=== PATIENT | female | born 1970 | race Caucasian/White ===

== ENCOUNTER 2021-01-30 17:17 | Emergency (ER) | payer OTHER, SELFPAY ==
[2021-01-30 17:32] VITALS: BP 146/77; PULSE 88; RESP 18; TEMP 36.7; O2SAT 97
--- NOTE | 2021-01-30 17:32 | ED.WOUNDLAC ---
HPI - Wound/Laceration General Chief Complaint: Wound/Laceration Stated Complaint: laceration to rt hand Time Seen by Provider: 01/30/21 17:40 Source: patient and RN notes reviewed Mode of arrival: ambulatory Limitations: no limitations History of Present Illness HPI narrative: Macey is a 50-year-old female patient who ambulated into the [facility]. Patient states she cut her right thumb on a stove drawer. Patient states it happened about 1 hour ago. Patient had a tetanus shot on Monday. Related Data Home Medications Medication Instructions Recorded Confirmed celecoxib [Celebrex] 100 mg BID 01/30/21 01/30/21 citalopram 20 mg DAILY 01/30/21 01/30/21 clonazepam 0.5 mg BID 01/30/21 01/30/21 lamotrigine 200 mg BID 01/30/21 01/30/21 lurasidone [Latuda] 40 mg DAILY 01/30/21 01/30/21 meloxicam 15 mg DAILY 01/30/21 01/30/21 metformin 500 mg DAILY 01/30/21 01/30/21 pregabalin 75 mg TID 01/30/21 01/30/21 propranolol 10 mg BID 01/30/21 01/30/21 Allergies Allergy/AdvReac Type Severity Reaction Status Date / Time alprazolam [From Xanax] Allergy Other Verified 01/30/21 17:47 Penicillins Allergy Hives Verified 01/30/21 17:47 Review of Systems Review of Systems: CONSTITUTIONAL: Denies body aches, fever, chills, or sweats. EYES: Denies visual changes, redness, or discharge. ENT: Denies rhinorrhea, congestion, sore throat, or otalgia. CARDIOVASCULAR: Denies chest pain, palpitations, or edema. RESPIRATORY: Denies cough or dyspnea. GASTROINTESTINAL: Denies abdominal pain, nausea, vomiting, or diarrhea. GENITOURINARY: Denies dysuria or hematuria. SKIN: Denies rash, itching, + MUSCULOSKELETAL: Denies back pain, joint pain, or myalgia. NEUROLOGIC: Denies headache, numbness, tingling, or weakness. PSYCH: Denies depression or anxiety. All systems reviewed & are unremarkable except as noted in HPI and below Exam Narrative: GENERAL: Well-appearing, well-nourished, and in no acute distress. HEAD: Normocephalic, atraumatic. EYES: EOMI. No redness or drainage. Conjunctivae normal. ENT: Mucous membranes pink and moist. Nares clear. No rhinorrhea. TMs normal bilaterally. Throat normal. Uvula midline. NECK: Normal AROM. Supple. No lymphadenopathy. CHEST: No respiratory distress. Clear to auscultation. HEART: Regular rate and rhythm. No murmur appreciated. Normal peripheral pulses. ABDOMEN: Soft, nontender, nondistended, normal active bowel sounds. MUSCULOSKELETAL: No bony tenderness. EXTREMITIES: Normal range of motion. No edema. SKIN: Warm, dry, no rash. Capillary refill normal. Normal skin turgor. 1 cm horseshoe-shaped laceration on the right thumb, proximal phalanx, bleeding is controlled area is well approximated wound is clean; distal sensation intact, full ROM NEURO: No focal deficits. Alert and oriented x3. Gait steady. PSYCH: Normal affect. No signs of depression or anxiety. Course Vital Signs Vital signs: Vital Signs Temperature 36.7 C 01/30/21 17:32 Pulse Rate 88 01/30/21 17:32 Respiratory Rate 18 01/30/21 17:32 Blood Pressure 146/77 H 01/30/21 17:32 Pulse Oximetry 97 01/30/21 17:32 Temperature 36.7 C 01/30/21 17:32 Pulse Rate 88 01/30/21 17:32 Respiratory Rate 18 01/30/21 17:32 Blood Pressure 146/77 H 01/30/21 17:32 Pulse Oximetry 97 01/30/21 17:32 Reviewed Procedures Laceration Laceration 1: Date: 01/30/21 Time: 17:53 Site: hand (Right thumb) Side (If applicable): right Size (cm): 1 Description: flap Depth: simple, single layer Local Anesthetic: lidocaine 1% Amount of anesthesia used (mL): 1.5 Pre-repair: irrigated ====== Skin Level ====== Skin layer closed with: nylon Size (cm): 5-0 Number of sutures: 2 Technique: simple, interrupted ====== Subcutaneous Layer ====== ====== Muscle Layer ====== ====== Tendon Layer ====== MDM - Wound/Laceration MDM Narr
== END 2021-01-30 17:55 | disposition home or self-care (01) ==
PROVIDERS: Emergency Provider Nurse Practitioner Family
DX: S61.011A Laceration without foreign body of right thumb without damage to nail, initial encounter (principal); W45.8XXA Other foreign body or object entering through skin, initial encounter
CPT/HCPCS: 12001; 99202; G0463

== ENCOUNTER 2022-05-23 16:59 | Emergency (ER) | payer OTHER, SELFPAY ==
--- NOTE | ~2022-05-23 | XR_ITS ---
EXAMINATION: [id number] DATE: 05/23/2022 17:56 INDICATION: Lateral right rib pain TECHNIQUE: A frontal inspiratory view of the chest and 3 views of the right ribs were obtained. COMPARISON: None FINDINGS: No rib fractures identified. Suture line at the right apex suggesting prior partial pneumonectomy. Mi ld linear discoid atelectasis/scarring at the bilateral lower lung zones. No other airspace opacities , pulmonary edema, pleural effusion or pneumothorax. Heart size is normal. IMPRESSION: 1. No rib fractures. 2. Mild linear discoid atelectasis/scarring at the bilateral lower lung zones. Reviewed, dictated and finalized at location A.
[2022-05-23 17:15] VITALS: BP 104/57; PULSE 80; RESP 16; TEMP 36.6; O2SAT 98
--- NOTE | 2022-05-23 17:48 | ED.UPPEXIN ---
HPI - Extremity Injury (Upper) General Chief Complaint: Extremity Injury, Upper Stated Complaint: Rt Side Pain Due to Fall Source: patient Mode of arrival: ambulatory Limitations: no limitations History of Present Illness HPI narrative: 52-year-old female [facility] complains of pain to her right lateral chest wall after falling last night. 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 Patient denies hitting her head or loss of consciousness. Patient denies headache, dizziness, blurred vision. Patient has not tried taking any [id number] medications for her symptoms. Patient reports the pain is worse with deep breathing, coughing or movement. MD complaint: injury to: right Onset (ago): day(s) (1) Relieving factors: rest Exacerbating factors: movement of extremity Context: fall Associated symptoms: denies other symptoms Related Data Home Medications Medication Instructions Recorded Confirmed celecoxib 100 mg capsule (Celebrex) 100 mg BID 01/30/21 05/23/22 citalopram 20 mg tablet 20 mg DAILY 01/30/21 05/23/22 clonazepam 0.5 mg tablet 0.5 mg BID 01/30/21 05/23/22 lamotrigine 200 mg tablet 200 mg BID 01/30/21 05/23/22 lurasidone 40 mg tablet (Latuda) 40 mg DAILY 01/30/21 05/23/22 pregabalin 75 mg capsule 75 mg TID 01/30/21 05/23/22 propranolol 10 mg tablet 10 mg BID 01/30/21 05/23/22 omeprazole 20 mg capsule,delayed 20 mg PO DAILY 05/23/22 05/23/22 release oxybutynin chloride 5 mg 5 mg PO DAILY 05/23/22 05/23/22 tablet,extended release 24 hr Allergies Allergy/AdvReac Type Severity Reaction Status Date / Time alprazolam [From Xanax] AdvReac Mild Hives Verified 05/23/22 17:16 Penicillins AdvReac Mild Hives Verified 05/23/22 17:16 Review of Systems Constitutional: Constitutional: Denies chills, Denies fatigue, Denies fever(s) and Denies weakness ENT: Denies vertigo, Denies dizziness, Denies epistaxis and Denies nasal congestion Cardiovascular: Cardiovascular: Denies rapid heart rate, Denies radiating jaw, neck or arm pain and Denies slow heart rate Respiratory: Respiratory: Denies cough, Denies dyspnea and Denies wheezing Gastrointestinal: Gastrointestinal: Denies abdominal pain, Denies constipation, Denies heartburn and Denies diarrhea Musculoskeletal: Musculoskeletal: Denies back pain, Reports arthralgias and Denies joint swelling Comments: Right lateral chest wall pain Integumentary/Breasts: Skin/Breast: Denies pruritus, Denies erythema and Denies rash Neurologic: Denies vertigo, Denies dizziness, Denies syncope and Denies headache(s) Allergic/Immunologic: Allergic/Immunologic: Denies tongue swelling and Denies wheezing PMFSH Comments At time of signature, I agree with nursing past medical, surgical, social and family history. There is no relevant family history pertinent to the presenting complaint. Exam Const: General: healthy appearing and no acute distress Nutritional Appearance: well nourished Orientation/consciousness: patient oriented x3 Limitations: no limitations HENMT: Head: normal to inspection Eyes: Conjunctivae: conjunctivae normal Neck: Neck: normal visual inspection Resp: Effort & Inspection: normal respiratory effort and not labored Auscultation: clear to auscultation bilaterally, no crackles, no rales, no rhonchi and no wheezes Cardio: Rate: regular rate Rhythm: regular rhythm Heart sounds: no murmurs Skin: General skin exam: normal color Rashes: no rashes Wounds: no wounds Neuro: General: patient oriented x3 Speech: normal speech Gait exam (Neuro): Normal gait present Extrem: Other: No erythema, bruising or swelling noted to right lateral chest wall. There is mild pain noted to palpation of right lateral chest wall. Psych: Mental Status: mental status grossly normal Affect: normal affect Attitude: cooperative Course Course Level of Care: Expres
== END 2022-05-23 18:42 | disposition home or self-care (01) ==
PROVIDERS: Emergency Provider Nurse Practitioner Family
DX: R07.89 Other chest pain (principal); F43.10 Post-traumatic stress disorder, unspecified
CPT/HCPCS: 71101; 99213; G0463

== ENCOUNTER 2022-07-08 18:42 | Emergency (ER) | payer OTHER, SELFPAY ==
[2022-07-08 18:50] VITALS: BP 137/81; PULSE 85; RESP 18; TEMP 36.2; O2SAT 99
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
== END 2022-07-08 19:42 | disposition short-term general hospital (02) ==
PROVIDERS: Emergency Provider Nurse Practitioner
DX: R29.90 Unspecified symptoms and signs involving the nervous system (principal); K21.9 Gastro-esophageal reflux disease without esophagitis; E78.00 Pure hypercholesterolemia, unspecified; I10 Essential (primary) hypertension; F41.9 Anxiety disorder, unspecified; F32.A Depression, unspecified; F43.10 Post-traumatic stress disorder, unspecified; Z85.828 Personal history of other malignant neoplasm of skin
CPT/HCPCS: 99215; G0463

== ENCOUNTER 2022-07-08 20:01 | Observation (INO) | payer OTHER, SELFPAY ==
[2022-07-08] VITALS (12 sets, daily range): BP systolic 114–141; BP diastolic 75–82; PULSE 68–82; RESP 12–20; TEMP 35.9–36.5; O2SAT 93–100; BMI 31.3
--- NOTE | ~2022-07-08 | CT_ITS ---
EXAMINATION: CTA BRAIN/CAROTID DATE: 07/08/2022 21:28 INDICATION: Right-sided hemiparesis TECHNIQUE: Computed tomographic angiography (CTA) of the head and neck was performed with 100 mL Omni paque-350 intravenous contrast. Multiplanar reconstructions and maximum intensity projection 3D-recon structions of the carotid arteries and of the intracranial arteries were created by the technologist on a separate workstation. Precontrast CT of the head was also obtained. Automated exposure control and iterative reconstruction technique were employed.The dose-length product was 1132.39 mGy-cm. COMPARISON: None. FINDINGS: Carotid arteries: Normal anatomic variant common origin of the innominate and left common carotid arteries. Aortic arch is normal in caliber with no dissection. There is 0% stenosis of the right carotid bulb relative to normal distal artery lumen diameter (NASCET criteria). There is 0% stenosis of the left carotid bulb relative to normal distal artery lumen diameter. The left vertebral artery is mildly dominant with no evident stenosis along the cervical portion of the vertebral arteries. Mild emphysema with mild depe ndent atelectasis in the visualized upper lungs. Superior mediastinum and cervical soft tissues are u nremarkable. Intracranial arteries The left vertebral artery is dominant. There is no hemodynamically significant stenosis in the verteb ral, basilar and internal carotid arteries. Vertebral arteries are codominant. There are no aneurysms identified. Both A1 and P1 segments are patent. The right A1 segment is small relative to a larger caliber anterior communicating artery. Cerebral arterial arborization appears symmetric. No abnormall y enhancing brain lesions identified. IMPRESSION: 1. 0% stenosis of the right and left carotid bulbs relative to normal distal artery lumen diameter (N ASCET criteria). 2. Unremarkable cerebral CT angiogram with no aneurysm, thrombosis or hemodynamically significant sherwin nosis. Reviewed, dictated and finalized at location A. IMPRESSION: 1. 0% stenosis of the right and left carotid bulbs relative to normal distal ar mandie lumen diameter (NASCET criteria). 2. Unremarkable cerebral CT angiogram with no aneurysm, thrombosis or hemodynam ically significant stenosis.
--- NOTE | ~2022-07-08 | CT_ITS ---
EXAMINATION: CT brain wo con DATE: 07/08/2022 20:15 INDICATION: Possible stroke with right-sided hemiparesis TECHNIQUE: Computed tomography (CT) of the head was performed without intravenous contrast. Sagittal and coronal reconstructions were performed. The mA was adjusted according to patient size. Iterative reconstruction technique was employed. The dose-length product was 605.33 mGy-cm. COMPARISON: None FINDINGS: No acute intracranial hemorrhage, acute infarction or abnormal extra axial fluid collection. Ventricl es are normal and symmetric. No mass/mass effect. Large mucous retention cyst in the right sphenoid s inus. The orbits and mastoid air cells are normal. IMPRESSION: 1. No acute intracranial process. Reviewed, dictated and finalized at location A.
--- NOTE | ~2022-07-08 | XR_ITS ---
EXAMINATION: XR chest 1V portable DATE: 07/08/2022 20:40 INDICATION: Cough TECHNIQUE: frontal view of the chest was obtained. COMPARISON: None FINDINGS: The lungs are clear with no focal airspace opacities, pulmonary edema, pleural effusion or pneumothor ax. Heart size is normal. Small hiatal hernia. IMPRESSION: 1. No acute cardiopulmonary disease. 2. Small hiatal hernia. Reviewed, dictated and finalized at location A.
--- NOTE | ~2022-07-08 | US_ITS ---
EXAMINATION: US carotid duplex BI DATE: 07/08/2022 23:29 INDICATION: Transient ischemic attack TECHNIQUE: Grayscale, color Doppler, and pulsed Doppler images of the cervical carotid arteries were obtained. The degree of vessel stenosis is placed in one of the following categories: normal, <50%, 5 0-69%, >=70% but less than near-occlusion, near-occlusion, or total occlusion. Note that percent sten osis relative to normal distal artery lumen diameter is indirectly measured from velocity measurement s as described by Mo, et al. Radiology 2003; 229:340-346. COMPARISON: None. FINDINGS: RIGHT: The right common carotid artery (CCA) peak systolic velocity (PSV) is 72 cm/s. The right internal car otid artery (ICA) PSV is 85 cm/s. The right ICA end-diastolic velocity (EDV) is 33 cm/s. The right IC A/CCA PSV ratio is 1.2. Grayscale and color Doppler images yield an estimate of less than 50% diamete r reduction from plaque in the ICA. The external carotid artery (ECA) PSV is 60 cm/s. There is antegr virgilio flow in the right vertebral artery. LEFT: The left CCA PSV is 78 cm/s. The left ICA PSV is 104 cm/s. The left ICA EDV is 38 cm/s. The left ICA/ CCA PSV ratio is 1.3. Grayscale and color Doppler images yield an estimate of less than 50% diameter reduction from plaque in the ICA. The ECA PSV is 183 cm/s. There is antegrade flow in the left verteb ral artery. IMPRESSION: 1. <50% stenosis in the right internal carotid artery. 2. <50% stenosis in the left internal carotid artery. Reviewed, dictated and finalized at location A.
--- NOTE | ~2022-07-08 | MR_ITS ---
EXAMINATION: MR brain/brain stem wo/w con DATE: 07/09/2022 07:49 INDICATION: Transient ischemic attack TECHNIQUE: Magnetic resonance imaging (MRI) of the brain and brainstem was performed without and with 18 cc of MultiHance intravenous contrast. Sequences included sagittal and axial T1-weighted SE, axia l diffusion-weighted FS EPI ASSET, axial T2*-weighted GRE, axial T2-weighted FLAIR Propeller, and axi al T2-weighted Propeller. Postcontrast axial and coronal T1-weighted SE was obtained. Apparent diffus ion coefficient (ADC) maps were created. COMPARISON: None. FINDINGS: There are no areas of restricted diffusion to suggest acute infarction. There is no acute h emorrhage seen on the T2*, a hemosiderin sensitive sequence. The ventricles are normal in size. There are no extra-axial collections. Flow voids are seen in the cerebral arteries on the T2-weighted seq uences consistent with their expected patency. Visualized orbits and soft tissues are unremarkable. T here is a polyp or mucous retention cyst of the right maxillary sinus. There are no areas of abnormal enhancement on the post contrast images. IMPRESSION: 1. No acute findings. Reviewed, dictated and finalized at location A. IMPRESSION: 1. No acute findings.
[2022-07-08 20:11] LABS: Glucose Point of Care 108 mg/dl (65-105)
--- NOTE | 2022-07-08 20:24 | ECG_ITS ---
Measurements Intervals [place] Rate: 64 P: 53 DC: 177 QRS: 52 QRSD: 81 T: 15 QT: 389 QTc: 404 Interpretive Statements SINUS RHYTHM BORDERLINE T WAVE ABNORMALITY- ANTERIOR LEADS BORDERLINE ECG NO PREVIOUS ECG AVAILABLE FOR COMPARISON Electronically Signed On 07-08-2022 22:16:06 CDT by Dean Kim D.O.
[2022-07-08 20:52] LABS: Basophils Absolute Auto 0.2 K/mm3 (0.0-0.1); Eosinophils Absolute Auto 0.7 K/mm3 (0-0.3); Eosinophils Percent Auto 4.7 % (0-4.4); Hemoglobin 13.1 g/dL (12.0-15.0); Immature Granulocyte Absolute 0.08 K/mm3 (0.00-0.031); Immature Granulocyte Percent A 0.5 % (0-0.5); Lymphocytes Absolute Auto 4.84 K/mm3 (0.9-3.2); Lymphocytes Percent Auto 31.3 % (18.3-44.2); Mean Corpuscular HGB Conc 33.6 g/dl (32-36); Mean Corpuscular Hemoglobin 28.9 pg (26-34); Mean Corpuscular Volume 86.1 fl (80-100); Mean Platelet Volume 9.8 fl (7.4-10.4); Monocytes Absolute Auto 0.9 K/mm3 (0.1-0.6); Monocytes Percent Auto 5.9 % (2.6-8.5); Neutrophils Absolute Auto 8.8 K/mm3 (1.3-6.7); Neutrophils Percent Auto 56.6 % (45.5-73.1); Platelet Count Result 410 k/mm3 (150-375); Red Blood Count 4.53 M/mm3 (4.2-5.4); Red Cell Distribution Width 14.5 % (11.5-14.5); White Blood Count 15.5 K/mm3 (4.5-10.0)
[2022-07-08 21:08] LABS: Prothrombin Time 13.3 Seconds (11.1-14.7)
[2022-07-08 21:09] LABS: Ethanol < 10 mg/dL (<10); Lactic Acid Reflex 1.1 mmol/L (0.7-2.0); Partial Thromboplastin Time 28.4 SECONDS (22.3-36.8)
[2022-07-08 21:11] LABS: Alanine Aminotransferase 26 U/L (6-35); Albumin Level 4.1 g/dL (3.5-5.1); Alkaline Phosphatase 96 U/L (38-126); Anion Gap 4 mmol/L (8-16); Aspartate Amino Transferase 22 U/L (14-36); Bilirubin,Total 0.3 mg/dL (0.2-1.3); Blood Urea Nitrogen 5 mg/dL (7-17); Calcium 8.9 mg/dL (8.4-10.2); Carbon Dioxide 29 mmol/L (22-30); Chloride 105 mmol/L (98-107); Estimated Glomerular Filt Rate > 60; Glucose 95 mg/dL (65-110); Magnesium 2.3 mg/dL (1.6-2.3); Potassium 3.5 mmol/L (3.4-5.0); Sodium 138 mmol/L (137-145)
[2022-07-08 21:22] LABS: Appearance Urine Clear (Clear); Bacteria Urine None Seen /hpf; Bilirubin Urine Negative (Negative); Blood Urine 1+ (Negative); Color Urine Yellow (Yellow); Glucose Urine UA Negative (Negative); Ketones Urine Negative (Negative); Leukocyte Esterase Ur Negative LEU/UL (Negative); Need Manual Microscopic Reviewed; Nitrate Urine Negative (Negative); Non Pathogenic Casts 0-2; Protein Urine Negative (Negative); RBC Urine 0-2 /hpf (0-2); Specific Grav Ur 1.002 (1.001-1.035); Squamous Epithelial Cell Urine None seen /hpf (Few); Urobilinogen Urine 0.2 mg/dL (<2.0); WBC Urine 0-5 /hpf
[2022-07-08 21:23] LABS: Troponin I < 0.012 ng/mL (0.000-0.034)
[2022-07-08 21:24] LABS: Amphetamine Screen Urine Negative (Negative); Barbiturate Screen Urine Negative (Negative); Benzodiazepines Screen Urine Negative (Negative); Cannabinoid Screen Urine Negative (Negative); Cocaine Screen Urine Negative (Negative); Methadone Screen Urine Negative (Negative); Opiate Screen Urine Negative (Negative); Phencyclidine Screen Urine Negative (Negative)
[2022-07-08 21:28] LABS: Add Urine Microscopic? YES
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
--- NOTE | 2022-07-08 23:26 | ADMGEN ---
This patient, Saray Brown, was admitted to 2 Medical Room 244-. Patient/family oriented to hospital policies and general routines including ID bracelet, bed and alarms, visiting hours, pain management, procedures, bathroom and other care routines, personal items, smoking policy, room service/diet, and visiting hours. Information on how to activate the Rapid Response Team has been discussed. Patient/Family are encouraged to report perceived risks to care and to ask questions if they do not understand what they are told or what they should do.
[2022-07-09] VITALS (7 sets, daily range): BP systolic 108–110; BP diastolic 71–73; PULSE 67–73; RESP 16; TEMP 36.5–36.6; O2SAT 96
[2022-07-09 00:13] LABS: Troponin I < 0.012 ng/mL (0.000-0.034)
--- NOTE | 2022-07-09 01:20 | PC.NURSE ---
pt has nicotine patch from home on left upper arm
--- NOTE | 2022-07-09 06:00 | ECHO_ITS ---
Patient Info Name: Saray Brown Age: 52 years : 1970 Gender: Female Ht: 66 in Wt: 194 lbs BSA: 2.05 m2 HR: 78 bpm BP: 108 / 71 mmHg Technical Quality: Fair Exam Date: 07/09/2022 2:09 PM Exam Location: [facility] Pulmonary Exam Room: [facility] Patient Status: Outpatient Admit Date: 07/08/2022 Staff Ordering Physician: Jose Graves MD Acid Polymerization Operator: Yohana Mcneal RDCS Attending Provider: Sawyer Carmona MD Referring Physician: Star GUILLEN; Exam Type: CA echo doppler color flow Study Info Indications - TIA Complete two-dimensional, color flow and Doppler transthoracic echocardiogram is performed. Summary 1. Complete two-dimensional, color flow and Doppler transthoracic echocardiogram is performed. 2. Left ventricular chamber dimension is normal. 3. Left ventricular systolic function is normal, estimated at 60-65%. 4. The left ventricular diastolic function is grade I diastolic dysfunction. 5. E/e' 6 is not elevated. 6. Left atrial chamber dimension is mildly enlarged. 7. The mitral valve has mildly calcified annulus. 8. No pulmonary hypertension, estimated pulmonary arterial systolic pressure is 27 mmHg. 9. There is trace pulmonic regurgitation. Left Ventricle E/e' 6 is not elevated. Left ventricular chamber dimension is normal. Left ventricular systolic function is normal, estimated at 60-65%. The left ventricular diastolic function is grade I diastolic dysfunction. Right Ventricle Right ventricular chamber dimension is normal. Right ventricular systolic function is normal. Left Atria Left atrial chamber dimension is mildly enlarged. Right Atria Right atrial chamber dimension is normal. Aortic Valve The aortic valve is trileaflet. There is no aortic valve stenosis. There is no aortic valve regurgitation. Pulmonic Valve There is trace pulmonic regurgitation. Mitral Valve The mitral valve has mildly calcified annulus. There is no mitral valve stenosis. There is no mitral valve regurgitation. Tricuspid Valve There is no tricuspid valve regurgitation. No pulmonary hypertension, estimated pulmonary arterial systolic pressure is 27 mmHg. Pericardium/Pleural There is no pericardial effusion. Inferior Vena Cava Normal inferior vena cava with >50% collapse upon inspiration consistent with normal right atrial pressure, 5 mmHg. Aorta The aortic root size at the sinus of Valsalva is normal. Left Ventricular Outflow Tract Name Value Normal LVOT 2D LVOT Diameter 2.0 cm LVOT Doppler LVOT Peak Gradient 4 mmHg LVOT Mean Gradient 2 mmHg LVOT VTI 19 cm LVOT VTI/AV VTI Ratio 0.8 LVOT Stroke Volume 63 ml LVOT CO 14.3 l/min LVOT CI 7.0 l/min/m2 Pulmonic Valve Name Value Normal RVOT Doppler RVOT
--- NOTE | 2022-07-09 09:30 | PC.NURSE ---
Called pharmacy to get nicotine patch. Left message. Cannot pull from [facility]
--- NOTE | 2022-07-09 10:15 | PC.NURSE ---
called pharmacy and left message for nicotine patch.
[2022-07-09] MEDS: HYDROcodone/acetaminophen (*CRX) 5-325 MG TABLET 1 TAB PO (10:29)
[2022-07-09] MEDS: NICOTINE (*PBKC) 21 MG PATCH 1 PATCH TRANSDERM (12:10)
[2022-07-09] MEDS: PREGABALIN (*CRX) 75 MG CAPSULE BY MOUTH (12:10)
[2022-07-09 13:50] LABS: LDL Cholesterol Direct 83 mg/dL
[2022-07-09 13:54] LABS: Cholesterol 231 mg/dL (0-200)
--- NOTE | 2022-07-09 14:17 | PCOTNOTE ---
Attempted to see for OT evaluation. Patient getting an echo at this time. Will continue to attempt.
[2022-07-09 14:44] LABS: Triglycerides 601 mg/dL (<150)
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
== END 2022-07-09 17:45 | disposition home or self-care (01) ==
LOC: ANHED 22:16 → ANH2MED 07-09 02:58
PROVIDERS: Admitting Provider Internal Medicine; Emergency Provider Emergency Medicine; Visit Provider Family Medicine
DX: G45.9 Transient cerebral ischemic attack, unspecified (principal); S06.0XAA Concussion with loss of consciousness status unknown, initial encounter; F43.10 Post-traumatic stress disorder, unspecified; I11.9 Hypertensive heart disease without heart failure; K21.9 Gastro-esophageal reflux disease without esophagitis; E78.1 Pure hyperglyceridemia; F41.9 Anxiety disorder, unspecified; F32.A Depression, unspecified; E66.01 Morbid (severe) obesity due to excess calories; Z68.31 Body mass index [BMI] 31.0-31.9, adult; E78.00 Pure hypercholesterolemia, unspecified; R05.9 Cough, unspecified; J44.9 Chronic obstructive pulmonary disease, unspecified; I34.81 Nonrheumatic mitral (valve) annulus calcification; K44.9 Diaphragmatic hernia without obstruction or gangrene; F17.210 Nicotine dependence, cigarettes, uncomplicated; Z79.899 Other long term (current) drug therapy
CPT/HCPCS: 36415; 70450; 70496; 70498; 70553; 71045; 80053; 80061; 80307; 81001; 82948; 83605; 83735; 84484; 85025; 85610; 85730; 93005; 93306; 93880; 97165; 99285; A9270; A9577; G0378; Q9967

== ENCOUNTER 2024-06-02 16:17 | Emergency (ER) | payer BC, SELFPAY ==
--- OUTSIDE RECORDS SUMMARY | 2024-06-02 16:20 | XMS_ITS | Encounter Summary ---
Author Organization [facility] Address [address] [place] [address] Care Team Providers Care Endoscopy Nurse Name Role Phone Jase Bryson MD Primary Care Provider Encounter Details Date Type Department Care Team (Late Contact Info) Description 06/08/1998 Outpatient Historical [facility] Rich Temo, [address] [place] [address] Er, Authorized P NO ADDRESS ON FILE Sprain and strain of unspecified site of elbow and forearm (Primary Dx) Social History Tobacco Use Types Packs/Day Years Used Date Smoking Tobacco: Never Assessed Comments Unknown Sex and Gender Information Value Date Recorded Sex Assigned at Not on file Legal Sex Female 3:54 AM COMPARISON SHOPPER Gender Identity Not on file Sexual Orientation Not on file documented as of this encounter Plan of Treatment Upcoming Encounters Date Type Department Care Team (Late Contact Info) Description 06/03/2024 12:30 PM CDT Hospital Encounter [facility] [address] [place] [phone] Mariaa Diego MD [address] [place] [phone] 06/03/2024 1:20 PM CDT Office Visit [facility] Oncology and Hematology [address] [place] [phone] Mariaa Diego MD [address] [place] [phone] Pippa Dang NP [address] [place] [phone] 06/03/2024 1:45 PM CDT Hospital Encounter [facility] [address] [place] [phone] Mariaa Diego MD [address] [place] [phone] 16, Mob documented as of this encounter Visit Diagnoses Diagnosis Sprain and strain of unspecified site of elbow and forearm- Primary Malignant neoplasm of upper-outer quadrant of left breast in female, estrogen receptor negative (CMS/HCC)- Primary Encounter for antineoplastic chemotherapy documented in this encounter Additional Health Concerns Infection Onset Date Last Indicated Resolved Time R/O COVID-19 05/27/2019 05/27/2019 05/29/2019 10:2 0 AM CDT R/O COVID-19 11/30/2023 11/30/2023 11/30/2023 6:52 PM CDT R/O Respiratory 11/30/2023 11/30/2023 12/01/2023 2 :21 PM CDT R/O GI Pathogen 04/02/2024 04/02/2024 04/02/2024 1 :44 PM COMPARISON SHOPPER R/O Respiratory 05/13/2024 05/13/2024 05/13/2024 1 1:33 PM CDT R/O C. diff 05/14/2024 05/14/2024 05/14/2024 10:0 6 AM CDT R/O C. diff 05/14/2024 05/14/2024 05/15/2024 1:01 PM CDT documented as of this encounter Care Teams Endoscopy Nurse Relationship Specialty Start Date End Date Jase Bryson MD PCP - General Family Practice 05/06/19 documented as of this encounter
--- OUTSIDE RECORDS SUMMARY | 2024-06-02 16:20 | XMS_ITS | Encounter Summary ---
Author Organization [facility] Address [address] [place] [address] Care Team Providers Care Rubber Stamp Dies Inspector Name Role Phone Jase Bryson MD Primary Care Provider Encounter Details Date Type Department Care Team (Latest Contact Info) Description 07/16/1998 Outpatient Historical [facility] Jakob Cedillo MD [address] [place], [place] [address] [place] [address] Chest pain, unspecified (Primary Dx) Social History Tobacco Use Types Packs/Day Years Used Date Smoking Tobacco: Never Assessed Comments Unknown Sex and Gender Information Value Date Recorded Sex Assigned at Not on file Legal Sex Female 3:54 AM APPEALS AND GENERALIST CLERK Gender Identity Not on file Sexual Orientation Not on file documented as of this encounter Plan of Treatment Upcoming Encounters Date Type Department Care Team (Late st Contact Info) Description 06/03/2024 12:30 PM CDT Hospital Encounter [facility] [address] [place] [phone] Mariaa Diego MD [address] [place] [phone] 06/03/2024 1:20 PM CDT Office Visit [facility] Oncology and Hematology [address] [place] [phone] Mariaa Diego MD [address] [place] [phone] Pippa Dang NP [address] [place] [phone] 06/03/2024 1:45 PM CDT Hospital Encounter [facility] [address] [place] [phone] Mariaa Diego MD [address] [place] [phone] 16, Mob documented as of this encounter Visit Diagnoses Diagnosis Chest pain, unspecified- Primary Malignant neoplasm of upper-outer quadrant of [...] Pathogen 04/02/2024 04/02/2024 04/02/2024 1 :44 PM APPEALS AND GENERALIST CLERK R/O Respiratory 05/13/2024 05/13/2024 05/13/2024 1 1:33 PM CDT R/O C. diff 05/14/2024 05/14/2024 05/14/2024 10:0 6 AM CDT R/O C. diff 05/14/2024 05/14/2024 05/15/2024 1:01 PM CDT documented as of this encounter Care Teams Rubber Stamp Dies Inspector Relationship Specialty Start Date End Date Jase Bryson MD PCP - General Family Practice 05/06/19 documented as of this encounter
--- OUTSIDE RECORDS SUMMARY | 2024-06-02 16:20 | XMS_ITS | Encounter Summary ---
Author Organization [facility] Address [address] [place] [address] Care Team Providers Care Motor Coach Tour Operator Name Role Phone Jase Bryson MD Primary Care Provider Encounter Details Date Type Department Care Team (Late st Contact Info) Description 03/11/2024 Results Follow-Up [facility] [place] [address] [place] [address] Barbara Sultana RN PATHOLOGY Social History Tobacco Use Types Packs/Day Years Used Date Smoking Tobacco: Every Day Cigarettes 2 15 Started: 02/26/2001; Last attempted to quit: 02/26/2011 Smokeless Tobacco: Former Chew Comments:Quit smoking: when anxiety is gone Alcohol Use Standard Drinks/Week Comments Not Currently 0 (1 standard drink = 0.6 oz pur e alcohol) Feeling Safe Answer Date Recorded Are you in a relationship wi th someone who hurts you emotionally and/or physically? No 03/13/2024 Food Insecurity Answer Date Recorded Social/Environmental Concerns No concerns Transportation Needs Answer Date Record ed Social/Environmental Concerns No concerns Housing Stability Answer Date Recorded Social/Environmental Concerns No concerns Utility Needs Answer Date Recorded Social/Environmental Concerns No concerns Comments No Sex and Gender Information Value Date Recorded Sex Assigned at Not on file Legal Sex Female 3:54 AM PCAT INSTRUCTOR Gender Identity Not on file Sexual Orientation Not on file Occupation Industry Job Start Date Job End Date Not on file Not on file Not on file Not on file documented as of this encounter Plan of Treatment Upcoming Encounters Date Type Department Care Team (Late st Contact Info) Description 06/03/2024 12:30 PM CDT Hospital Encounter [facility] [address] [place] [phone] Mariaa Diego MD [address] [place] [phone] 06/03/2024 1:20 PM CDT Office Visit [facility] Oncology and Hematology [address] [place] [place] [phone] Mariaa Diego MD [address] [place] [phone] Pippa Dang NP [address] [place] [place] [phone] 06/03/2024 1:45 PM CDT Hospital Encounter [facility] [address] [place] [phone] Mariaa Diego MD [address] [place] [phone] 16, Mob documented as of this encounter Visit Diagnoses Not on filedocumented in this encounter Additional Health Concerns Infection Onset Date Last Indicated Resolved Time R/O GI Pathogen 04/02/2024 04/02/2024 04/02/2024 1 :44 PM PCAT INSTRUCTOR R/O Respiratory 05/13/2024 05/13/2024 05/13/2024 1 1:33 PM CDT R/O C. diff 05/14/2024 05/14/2024 05/14/2024 10:0 6 AM CDT R/O C. diff 05/14/2024 05/14/2024 05/15/2024 1:01 PM CDT documented as of this encounter Care Teams Motor Coach Tour Operator Relationship Specialty Start Date End Date Jase Bryson MD PCP - General Family Practice 05/06/19 documented as of this encounter
--- OUTSIDE RECORDS SUMMARY | 2024-06-02 16:20 | XMS_ITS | Encounter Summary ---
Author Organization [facility] Address [address] [place] [address] Care Team Providers Care Net Sql Developer Name Role Phone Jase Bryson MD Primary Care Provider Encounter Details Date Type Department Care Team (Latest Contact Info) Description 06/08/2006 Inpatient Historical [facility] Denis Buckner MD [address] [address] Post Term -Delivered (Primary Dx) Social History Tobacco Use Types Packs/Day Years Used Date Smoking Tobacco: Never Assessed Comments Unknown Sex and Gender Information Value Date Recorded Sex Assigned at Not on file Legal Sex Female 3:54 AM MELT HELPER Gender Identity Not on file Sexual Orientation Not on file documented as of this encounter Plan of Treatment Upcoming Encounters Date Type Department Care Team (Late st Contact Info) Description 06/03/2024 12:30 PM CDT Hospital Encounter [facility] [address] [place] [address] Mariaa Diego MD [address] [place] [address] 06/03/2024 1:20 PM CDT Office Visit [facility] Oncology and Hematology [address] [place] [address] Mariaa Diego MD [address] [place] [address] Pippa Dang NP [address] [place] [address] 06/03/2024 1:45 PM CDT Hospital Encounter [facility] [address] [place] [address] Mariaa Diego MD [address] [place] [address] 16, Mob documented as of this encounter Procedures Procedure Name Priority Date/Time Associated Diagnosis Comments CBC WITH DIFFERENTIAL Routine 06/10/2006 9:00 AM CDT CBC WITH DIFFERENTIAL Routine 06/10/2006 9:00 AM CDT HEMOGLOBIN AND HEMATOCRIT Routine 06/09/2006 8:00 PM CDT POC, BLOOD GASES Routine 06/09/2006 4:24 PM CDT POC, BLOOD GASES Routine 06/09/2006 2:37 PM CDT HEMOGLOBIN AND HEMATOCRIT Routine 06/09/2006 12:07 PM CDT BLOOD GAS CORD ARTERIAL Routine 06/09/2006 10:16 AM CDT documented in this encounter Results * (ABNORMAL) CBC WITH DIFFERENTIAL (06/10/2006 9:00 AM CDT) NEUTROPHILS 77(H) 45 - 70 % INTERFAC E SYSTEM LYMPHOCYTES 14(L) 16 - 45 % INTERFAC E SYSTEM MONOCYTES 9 3 - 13 % INTERFACE SYSTEM EOSINOPHILS 0 0 - 7 % INTERFAC E SYSTEM BASOPHILS 0 0 - 2 % INTERFACE SYSTEM NEUTROPHIL ABSOLUTE 12.39(H) 1.90 - 7.00 K/uL INTERFACE SYSTEM LYMPHOCYTE ABSOLUTE 2.26 0.70 - 4.50 K/uL INTERFACE SYSTEM MONOCYTE ABSOLUTE 1.41(H) 0.10 - 1.30 K/uL INTERFACE SYSTEM EOSINOPHIL ABSOLUTE 0.01 0.00 - 0.70 K/uL INTERFACE SYSTEM BASOPHILS ABSOLUTE 0.02 0.00 - 0.20 K/uL INTERFACE SYSTEM 06/10/2006 9:00 AM CDT Denis Buckner MD HEMATOLOGY ORDERABLES Edited INTERFACE SYSTEM Refer to clinic/hospital department * (ABNORMAL) CBC WITH DIFFERENTIAL (06/10/2006 9:00 AM CDT) WBC 16.1(H) 4.0 - 9.8 K/uL INTERFACE SYSTEM RBC 3.52(L) 3.90 - 4.90 M/uL INTERFACE SYSTEM HEMOGLOBIN 10.2(L) 11.8 - 14.8 g/dL INTERFACE SYSTEM HEMATOCRIT 30.8(L) 35.5 - 44.0 % INTERFACE SYSTEM MCV 87.5 82.0 - 99.0 fL INTERFACE SYSTEM MCH 29.0 27.2 - 32.6 pg INTERFACE SYSTEM MCHC 33.1 31.5 - 35.5 % INTERFACE SYSTEM RDW 14.7(H) 11.5 - 14.5 % INTERFACE SYSTEM RDW-STDEV 46.1 37.1 - 48.7 fL INTERFACE SYSTEM PLATELETS 224 140 - 350 K/uL INTERFACE SYSTEM MPV 11.2 9.3 - 12.4 fL INTERFACE SYSTEM 06/10/2006 9:00 AM CDT Denis Buckner MD HEMATOLOGY ORDERABLES Edited Performing Organization Address City/[facility]/ZIP Co de Phone Number INTERFACE SYSTEM Refer to clinic/hospital department * HEMOGLOBIN AND HEMATOCRIT (06/09/2006 8:00 PM CDT) HEMOGLOBIN 12.6 11.8 - 14.8 g/dL INTERFACE SYSTEM HEMATOCRIT 36.9 35.5 - 44.0 % INTERFACE SYSTEM 06/09/2006 8:00 PM CDT Denis Buckner MD HEMATOLOGY ORDERABLES Edited INTERFACE SYSTEM Refer to clinic/hospital department * (ABNORMAL) POC RT, BLOOD GASES (06/09/2006 4:24 PM CDT) PH ARTERIAL 7.33(L) 7.35 - 7.45 INTERF ZHANE SYSTEM PCO2 ARTERIAL 37 35 - 48 mm Hg INTERFACE SYSTEM PO2 ARTERIAL 88 83 - 108 mm Hg INTERFACE SYSTEM O2 SAT EST ABG POC 96 95 - 99 % INTERFACE SYSTEM PATIENT'S TEMPERATURE 37.0 Degree C INTERFACE SYSTEM BASE EXCESS ABG -5.9(L) -2.0 - 3.0 mmol/L INTERFACE SYSTEM HCO3 ARTERIAL 20(L) 22 - 26 mmol/L INTERFACE SYSTEM SODIUM POC 135 135 - 145 mmol/L INTERFACE SYSTEM POTASSIUM POC 4.2 3.5 - 4.9 mmol/L INTERFACE SYSTEM CALICUM IONIZED, WHOLE BLOOD 4.33(L) 4.76 - 5.16 mg/dL INTERFACE SYSTEM HEMATOCRIT POC 36.0 35.5 - 44.0 % INTERFACE SYSTEM 06/09/2006 4:24 PM CDT Denis Buckner MD CHEMISTRY ORDERABLES Edited Performing Organization Address [facility] [place]/[facility] Co de Phone Number INTERFACE SYSTEM Refer to clinic/hospital department * (ABNORMAL) POC RT, BLOOD GASES (06/09/2006 2:37 PM CDT) PH ARTERIAL 7.38 7.35 - 7.45 INTERFACE SYSTEM PCO2 ARTERIAL 36 35 - 48 mm Hg INTERFACE SYSTEM PO2 ARTERIAL 442(H) 83 - 108 mm Hg INTERFACE SYSTEM O2 SAT EST ABG POC 100(H) 95 - 99 % INTERFACE SYSTEM PATIENT'S TEMPERATURE 37.0 Degree C INTERFACE SYSTEM BASE EXCESS ABG -3.4(L) -2.0 - 3.0 mmol/L INTERFACE SYSTEM HCO3 ARTERIAL 21(L) 22 - 26 mmol/L INTERFACE SYSTEM SODIUM POC 136 135 - 145 mmol/L INTERFACE SYSTEM POTASSIUM POC 3.4(L) 3.5 - 4.9 mmol/L INTERFACE SYSTEM CALICUM IONIZED, WHOLE BLOOD 4.57(L) 4.76 - 5.16 mg/dL INTERFACE SYSTEM HEMATOCRIT POC 30.0(L) 35.5 - 44.0 % INTERFACE SYSTEM COMMENT, GASES POC MD NOTIFIED INTERFACE SYSTEM 06/09/2006 2:37 PM CDT Denis Buckner MD CHEMISTRY ORDERABLES Edited Performing Organization Address [facility] [place]/[facility] Co de Phone Number INTERFACE SYSTEM Refer to clinic/hospital department * HEMOGLOBIN AND HEMATOCRIT (06/09/2006 12:07 PM CDT) HEMOGLOBIN 12.8 11.8 - 14.8 g/dL INTERFACE SYSTEM HEMATOCRIT 37.8 35.5 - 44.0 % INTERFACE SYSTEM 06/09/2006 12:0 7 PM CDT Denis Buckner MD HEMATOLOGY ORDERABLES Edited Performing Organization Address [facility] [place]/[facility] Phone Number INTERFACE SYSTEM Refer to clinic/hospital department * (ABNORMAL) BLOOD GAS CORD ARTERIAL (06/09/2006 10:16 AM CDT) PH CORD ARTERIAL 7.29 7.14 - 7.40 INTERFACE SYSTEM PCO2 CORD ARTERIAL 52 32 - 69 mm Hg INTERFACE SYSTEM PO2 CORD ARTERIAL 26 8 - 33 mm Hg INTERFACE SYSTEM SO2 CORD ARTERIAL 61(H) 5 - 59 % INTERFACE SYSTEM FO2HB CORD ARTERIAL 60(L) 94 - 98 % INTERFACE SYSTEM HCO3 CORD ARTERIAL 25 16 - 27 mmol/L INTERFACE SYSTEM BASE EXCESS CORD ARTERIAL -2.6 -7.6 - 1.3 mmol/L INTERFACE SYSTEM HEMOGLOBIN CORD ARTERIAL 15.2 14.5 - 22.5 g/dL INTERFACE SYSTEM 06/09/2006 10:1 6 AM CDT Denis Buckner MD ABG ORDERABLES Edited Performing Organization Address City/[facility] Co de Phone Number INTERFACE SYSTEM Refer to clinic/hospital department documented in this encounter Visit Diagnoses Diagnosis Post term , delivered with or without mention of antepartum condition- Primary Malignant neoplasm of upper-outer quadrant of left breast in female, estrogen receptor negative (CMS/HCC)- Primary Encounter for antineoplastic chemotherapy documented in this encounter Additional Health Concerns Infection Onset Date Last Indicated Resolved Time R/O COVID-19 05/27/2019 05/27/201905/2805/29/2019 10:2 0 AM CDT R/O COVID-19 11/30/2023 11/30/2023 11/30/2023 6:52 PM CDT R/O Respiratory 11/30/2023 11/30/2023 12/01/2023 2 :21 PM CDT R/O GI Pathogen 04/02/2024 04/02/2024 04/02/2024 1 :44 PM MELT HELPER R/O Respiratory 05/13/2024 05/13/2024 05/13/2024 1 1:33 PM CDT R/O C. diff 05/14/2024 05/14/2024 05/14/2024 10:0 6 AM CDT R/O C. diff 05/14/2024 05/14/2024 05/15/2024 1:01 PM CDT documented as of this encounter Care Teams Net Sql Developer Relationship Specialty Start Date End Date Jase Bryson MD PCP - General Family Practice 05/06/19 documented as of this encounter
--- OUTSIDE RECORDS SUMMARY | 2024-06-02 16:20 | XMS_ITS | Encounter Summary ---
Author Organization [facility] Address [address] [place] [address] Care Team Providers Care Hogshead Inspector Name Role Phone Jase Bryson MD Primary Care Provider Encounter Details Date Type Department Care Team (Late st Contact Info) Description 02/27/2006 Outpatient Historical [facility] Denis Hanley MD NO ADDRESS ON FILE Er, Authorized P NO ADDRESS ON FILE Sprain and Strain of Unspecified Site of Foot (Primary Dx) Social History Tobacco Use Types Packs/Day Years Used Date Smoking Tobacco: Never Assessed Comments Unknown Sex and Gender Information Value Date Recorded Sex Assigned at Not on file Legal Sex Female 3:54 AM MOTOR POOL CLERK Gender Identity Not on file Sexual Orientation Not on file documented as of this encounter Plan of Treatment Upcoming Encounters Date Type Department Care Team (Late st Contact Info) Description 06/03/2024 12:30 PM CDT Hospital Encounter [facility] [address] [place] [address] Mariaa Diego MD [address] [place] [phone] 06/03/2024 1:20 PM CDT Office Visit [facility] Oncology and Hematology [address] [place] [address] Mariaa Diego MD [address] [place] [address] Pippa Dang, DUONG [address] [place] [address] 06/03/2024 1:45 PM CDT Hospital Encounter [facility] [address] [place] [address] Mariaa Diego MD [address] [place] [address] 16, Mob documented as of this encounter Visit Diagnoses Diagnosis Sprain of foot, unspecified site- Primary Malignant neoplasm of upper-outer quadrant of [...] Pathogen 04/02/2024 04/02/2024 04/02/2024 1 :44 PM MOTOR POOL CLERK R/O Respiratory 05/13/2024 05/13/2024 05/13/2024 1 1:33 PM CDT R/O C. diff 05/14/2024 05/14/2024 05/14/2024 10:0 6 AM CDT R/O C. diff 05/14/2024 05/14/2024 05/15/2024 1:01 PM CDT documented as of this encounter Care Teams Hogshead Inspector Relationship Specialty Start Date End Date Jase Bryson MD PCP - General Family Practice 05/06/19 documented as of this encounter
--- OUTSIDE RECORDS SUMMARY | 2024-06-02 16:20 | XMS_ITS | Referral Summary ---
Author Organization [facility] [address] [place] [address] Care Team Providers Care Registered Diet Technician Name Role Phone Meliza Canales PT Unavailable Unavailab Maria T West PT Unavailable Unavailable Shruti Hale Unavailable Unavailable Singh Schmid PT Unavailable Unavailable Dorina Cassidy SUPERVISOR TAPING Unavailable Unavailab Jase Abel MD Primary Care Provider Allergies Active Allergy Reactions Criticality Noted Date Comments Penicillins Hives Medium 08/07/2016 Alprazolam Hallucinations Medium 08/07/2016 Medications citalopram (CeleXA) 40 mg tablet Take 40 mg by mouth daily. Active cyclobenzaprine (FLEXERIL) 10 mg tablet Take 1 tablet (10 mg total) by mouth nightly as needed for muscle spasms 12 tablet 3 Active ondansetron ODT (ZOFRAN-ODT) 4 mg disintegrating tablet Take 1 tablet (4 mg total) by mouth every 8 (eight) hours as needed for nausea or vomiting 20 tablet 3 Active dicyclomine (BENTYL) 20 mg tablet Take 1 tablet (20 mg total) by mouth 2 (two) times a day 20 tablet 3 Active Active Problems No known active problems Social History Tobacco Use Types Packs/Day Years Used Date Smoking Tobacco: Every Day Cigarettes Smokeless Tobacco: Never Alcohol Use Standard Drinks/Week Comments Yes 5 (1 standard drink = 0.6 oz pur e alcohol) Personal Safety Answer Date Recorded Getting School Help Needed Not on file 05/04 Comments No Sex and Gender Information Value Date Recorded Sex Assigned at Not on file Legal Sex Female 10:25 AM RAMP LEAD Gender Identity Not on file Sexual Orientation Not on file Last Filed Vital Signs Vital Sign Reading Time Taken Comments Blood Pressure 99/62 04/30/2022 4:[address] Malik aware and states, That's good. Pulse 67 04/30/2022 4:15 AM RAMP LEAD Temperature 37.3 C (99.1 F) 04/29/2022 11:34 PM RAMP LEAD Respiratory Rate 18 04/30/2022 4:15 AM RAMP LEAD Oxygen Saturation 96% 04/30/2022 4:1 5 AM RAMP LEAD Inhaled Oxygen Concentration - - Weight 85.6 kg (188 lb 11.4 oz) 04/29/2022 11:34 PM RAMP LEAD Height 167.6 cm (5' 6 ) 04/29/2022 11:3 4 PM RAMP LEAD Body Mass Index 30.46 04/29/2022 11:34 PM RAMP LEAD Plan of Treatment Not on file Insurance [facility] BENEFIT PLAN [facility] BENEF[facility] PLAN [place] [place] Care Teams Registered Diet Technician Relationship Specialty Start Date End Date Jase Bryson MD [address] [place], [place] [id number] PCP - General Family Medicine 06/15/18 Meliza Canales, PT Physical Therapist Physical Therapy 08/22/17 Maria T Almanza, PT Physical Therapist Physical Therapy 09/01/17 Shruti Hale Patient Veneer Measurer 09/26/17 Singh Schmid, PT Physical Therapist Physical Therapy 09/26/17 Dorina Cassidy, SUPERVISOR TAPING Plug Machine Operator Physical Therapy 09/27/17
--- OUTSIDE RECORDS SUMMARY | 2024-06-02 16:20 | XMS_ITS | Encounter Summary ---
Author Organization [facility] Address [address] [place] [address] Care Team Providers Care Automotive Tire Tester Name Role Phone Jase Bryson MD Primary Care Provider Encounter Details Date Type Department Care Team (Latest Contact Info) Description 06/17/1998 Outpatient Historical [facility] Migraine, unspecified, without mention of intractable migraine without mention of status migrainosus (Primary Dx) Social History Tobacco Use Types Packs/Day Years Used Date Smoking Tobacco: Never Assessed Comments Unknown Sex and Gender Information Value Date Recorded Sex Assigned at Not on file Legal Sex Female 3:54 AM GLASS SELECTOR Gender Identity Not on file Sexual Orientation Not on file documented as of this encounter Plan of Treatment Upcoming Encounters Date Type Department Care Team (Late st Contact Info) Description 06/03/2024 12:30 PM CDT Hospital Encounter [facility] [address] [place] [address] Mariaa Diego MD [address] [place] [phone] 06/03/2024 1:20 PM CDT Office Visit [facility] Oncology and Hematology [address] [place] [phone] Mariaa Diego MD [address] [place] [address] Pippa Dang, DUONG [address] [place] [address] 06/03/2024 1:45 PM CDT Hospital Encounter [facility] [address] [place] [address] Mariaa Diego MD [address] [place] [phone] 16, Mob documented as of this encounter Visit Diagnoses Diagnosis Migraine, unspecified, without mention of intractable migraine without mention of status migrainosus- Primary Malignant neoplasm of upper-outer quadrant of [...] Pathogen 04/02/2024 04/02/2024 04/02/2024 1 :44 PM GLASS SELECTOR R/O Respiratory 05/13/2024 05/13/2024 05/13/2024 1 1:33 PM CDT R/O C. diff 05/14/2024 05/14/2024 05/14/2024 10:0 6 AM CDT R/O C. diff 05/14/2024 05/14/2024 05/15/2024 1:01 PM CDT documented as of this encounter Care Teams Automotive Tire Tester Relationship Specialty Start Date End Date Jase Bryson MD PCP - General Family Practice 05/06/19 documented as of this encounter
--- OUTSIDE RECORDS SUMMARY | 2024-06-02 16:20 | XMS_ITS | Encounter Summary ---
Author Organization [facility] Address [address] [place] [address] Care Team Providers Care Surgical Nurse Name Role Phone Jase Bryson MD Primary Care Provider Encounter Details Date Type Department Care Team (Latest Contact Info) Description 06/17/1998 Outpatient Historical HIS [facility] Cedillo, Jakob Butler MD [address] [place] [address] [address] [place] [address] Pneumonia, organism unspecified(486) (Primary Dx) Social History Tobacco Use Types Packs/Day Years Used Date Smoking Tobacco: Never Assessed Comments Unknown Sex and Gender Information Value Date Recorded Sex Assigned at Not on file Legal Sex Female 3:54 AM RESEARCH AND DEVELOPMENT TESTER Gender Identity Not on file Sexual Orientation Not on file documented as of this encounter Plan of Treatment Upcoming Encounters Date Type Department Care Team (Late st Contact Info) Description 06/03/2024 12:30 PM CDT Hospital Encounter [facility] [address] [place] [phone] Mariaa Diego MD [address] [place] [phone] 06/03/2024 1:20 PM CDT Office Visit [facility] Oncology and Hematology [address] [place] [phone] Mariaa Diego MD [address] [place] [address] Pippa Dang NP [address] [place] [address] 06/03/2024 1:45 PM CDT Hospital Encounter [facility] [address] [place] [phone] Mariaa Diego MD [address] [place] [phone] 16, Mob documented as of this encounter Visit Diagnoses Diagnosis Pneumonia, organism unspecified(486)- Primary Pneumonia, organism unspecified Malignant neoplasm of upper-outer quadrant of left [...] Pathogen 04/02/2024 04/02/2024 04/02/2024 1 :44 PM RESEARCH AND DEVELOPMENT TESTER R/O Respiratory 05/13/2024 05/13/2024 05/13/2024 1 1:33 PM CDT R/O C. diff 05/14/2024 05/14/2024 05/14/2024 10:0 6 AM CDT R/O C. diff 05/14/2024 05/14/2024 05/15/2024 1:01 PM CDT documented as of this encounter Care Teams Surgical Nurse Relationship Specialty Start Date End Date Jase Bryson MD PCP - General Family Practice 05/06/19 documented as of this encounter
--- OUTSIDE RECORDS SUMMARY | 2024-06-02 16:20 | XMS_ITS | Encounter Summary ---
Author Organization [facility] Address 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) Social History Tobacco Use Types Packs/Day Years Used Date Smoking Tobacco: Never Assessed Comments Unknown Sex and Gender Information Value Date Recorded Sex Assigned at Not on file Legal Sex Female 3:54 AM INGOT WEIGHER Gender Identity Not on file Sexual Orientation Not on file documented as of this encounter Plan of Treatment Upcoming Encounters Date Type Department Care Team (Late st Contact Info) Description 06/03/2024 12:30 PM CDT Hospital Encounter [facility] [address] [place] [phone] Mariaa Diego MD [address] [place] [phone] 06/03/2024 1:20 PM CDT Office Visit [facility] Oncology and Hematology [address] [place] [phone] Mariaa Diego MD [address] [place] [address] Pippa Dang, DUONG [address] [place] [address] 06/03/2024 1:45 PM CDT Hospital Encounter [facility] [address] [place] [phone] Mariaa Diego MD [address] [place] [phone] 16, Mob documented as of this encounter Visit Diagnoses Diagnosis Abnormal Papanicolaou smear of cervix and cervical HPV- Primary Malignant neoplasm of upper-outer quadrant of [...] Pathogen 04/02/2024 04/02/2024 04/02/2024 1 :44 PM INGOT WEIGHER R/O Respiratory 05/13/2024 05/13/2024 05/13/2024 1 1:33 PM CDT R/O C. diff 05/14/2024 05/14/2024 05/14/2024 10:0 6 AM CDT R/O C. diff 05/14/2024 05/14/2024 05/15/2024 1:01 PM CDT documented as of this encounter Care Teams Motor Vehicle Licence Examiner Relationship Specialty Start Date End Date Jase Bryson MD PCP - General Family Practice 05/06/19 documented as of this encounter
--- OUTSIDE RECORDS SUMMARY | 2024-06-02 16:20 | XMS_ITS | Encounter Summary ---
Author Organization [facility] Address [address] [place] [address] Care Team Providers Care Air Brake Man Name Role Phone Jase Bryson MD Primary Care Provider Encounter Details Date Type Department Care Team (Late st Contact Info) Description 03/24/2006 Outpatient Historical [facility] Maternal and Ground Floor [facility] [address] [place] [address] Eder Figueroa MD NO ADDRESS ON FILE Social History Tobacco Use Types Packs/Day Years Used Date Smoking Tobacco: Never Assessed Comments Unknown Sex and Gender Information Value Date Recorded Sex Assigned at Not on file Legal Sex Female 3:54 AM WARRANTY ADMINISTRATOR Gender Identity Not on file Sexual Orientation Not on file documented as of this encounter Plan of Treatment Upcoming Encounters Date Type Department Care Team (Late st Contact Info) Description 06/03/2024 12:30 PM CDT Hospital Encounter [facility] [address] [place] [phone] Mariaa Diego MD [address] [place] [phone] 06/03/2024 1:20 PM CDT Office Visit [facility] Oncology and Hematology [address] [place] [phone] Mariaa Diego MD [address] [place] [phone] Pippa Dang, DUONG [address] [place] [address] 06/03/2024 1:45 PM CDT Hospital Encounter [facility] [address] [...] Pathogen 04/02/2024 04/02/2024 04/02/2024 1 :44 PM WARRANTY ADMINISTRATOR R/O Respiratory 05/13/2024 05/13/2024 05/13/2024 1 1:33 PM CDT R/O C. diff 05/14/2024 05/14/2024 05/14/2024 10:0 6 AM CDT R/O C. diff 05/14/2024 05/14/2024 05/15/2024 1:01 PM CDT documented as of this encounter Care Teams Air Brake Man Relationship Specialty Start Date End Date Jase Bryson MD PCP - General Family Practice 05/06/19 documented as of this encounter
--- OUTSIDE RECORDS SUMMARY | 2024-06-02 16:20 | XMS_ITS | Encounter Summary ---
Author Organization [facility] Address [address] [place] [address] Care Team Providers Care Cupola Tender Helper Name Role Phone Jase Bryson MD Primary Care Provider Encounter Details Date Type Department Care Team (Late st Contact Info) Description 02/26/1998 Outpatient Historical [facility] Jvaier Glover MD [address] [facility] [address] [place], [place] [id number] Unspecified symptom associated with female genital organs (Primary Dx) Social History Tobacco Use Types Packs/Day Years Used Date Smoking Tobacco: Never Assessed Comments Unknown Sex and Gender Information Value Date Recorded Sex Assigned at Not on file Legal Sex Female 3:54 AM MANAGER ELIGIBILITY Gender Identity Not on file Sexual Orientation Not on file documented as of this encounter Plan of Treatment Upcoming Encounters Date Type Department Care Team (Late st Contact Info) Description 06/03/2024 12:30 PM CDT Hospital Encounter [facility] [address] [place] [address] Mariaa Diego MD [address] [place] [address] 06/03/2024 1:20 PM CDT Office Visit [facility] Oncology and Hematology [address] [place] [address] Mariaa Diego MD [address] [place] [address] Pippa Dang NP [address] [place] [address] 06/03/2024 1:45 PM CDT Hospital Encounter [facility] [address] [place] [address] Mariaa Diego MD [address] [place] [address] 16, Mob documented as of this encounter Visit Diagnoses Diagnosis Unspecified symptom associated with female genital organs- Primary Malignant neoplasm of upper-outer quadrant of [...] Pathogen 04/02/2024 04/02/2024 04/02/2024 1 :44 PM MANAGER ELIGIBILITY R/O Respiratory 05/13/2024 05/13/2024 05/13/2024 1 1:33 PM CDT R/O C. diff 05/14/2024 05/14/2024 05/14/2024 10:0 6 AM CDT R/O C. diff 05/14/2024 05/14/2024 05/15/2024 1:01 PM CDT documented as of this encounter Care Teams Cupola Tender Helper Relationship Specialty Start Date End Date Jase Bryson MD PCP - General Family Practice 05/06/19 documented as of this encounter
--- OUTSIDE RECORDS SUMMARY | 2024-06-02 16:20 | XMS_ITS | Encounter Summary ---
Author Organization [facility] Address [address] [place] [address] Care Team Providers Care Biometrics Experimentalist Name Role Phone Jase Bryson MD Primary Care Provider Encounter Details Date Type Department Care Team (Latest Contact Info) Description 02/28/2006 Outpatient Historical [facility] Denis Buckner MD [address] [address] Other Specified Screening (Primary Dx) Social History Tobacco Use Types Packs/Day Years Used Date Smoking Tobacco: Never Assessed Comments Unknown Sex and Gender Information Value Date Recorded Sex Assigned at Not on file Legal Sex Female 3:54 AM BATH ATTENDANT Gender Identity Not on file Sexual Orientation [...] [id number] 06/03/2024 1:20 PM CDT Office Visit [facility] Oncology and Hematology [address] [place] [address] Mariaa Diego MD [address] [place] [phone] Pippa Dang NP [address] [place] [phone] 06/03/2024 1:45 PM CDT Hospital Encounter [facility] [address] [place] [address] Mariaa Diego MD [address] [place] [address] 16, Mob documented as of this encounter Visit Diagnoses Diagnosis Other screening- Primary Other specified screening Malignant neoplasm of upper-outer quadrant of left [...] Pathogen 04/02/2024 04/02/2024 04/02/2024 1 :44 PM BATH ATTENDANT R/O Respiratory 05/13/2024 05/13/2024 05/13/2024 1 1:33 PM CDT R/O C. diff 05/14/2024 05/14/2024 05/14/2024 10:0 6 AM CDT R/O C. diff 05/14/2024 05/14/2024 05/15/2024 1:01 PM CDT documented as of this encounter Care Teams Biometrics Experimentalist Relationship Specialty Start Date End Date Jase Bryson MD PCP - General Family Practice 05/06/19 documented as of this encounter
--- OUTSIDE RECORDS SUMMARY | 2024-06-02 16:20 | XMS_ITS | Encounter Summary ---
Author Organization [facility] Address [address] [place] [address] Care Team Providers Care Soaker Helper Name Role Phone Jase Bryson MD Primary Care Provider Encounter Details Date Type Department Care Team (Late st Contact Info) Description 03/03/2006 Outpatient Historical [facility] Maternal and Ground Floor S [facility] [address] [place] [phone] Eder Figueroa MD NO ADDRESS ON FILE Social History Tobacco Use Types Packs/Day Years Used Date Smoking Tobacco: Never Assessed Comments Unknown Sex and Gender Information Value Date Recorded Sex Assigned at Not on file Legal Sex Female 3:54 AM DEPUTY BUILDING GUARD Gender Identity Not on file Sexual Orientation Not on file documented as of this encounter Plan of Treatment Upcoming Encounters Date Type Department Care Team (Late st Contact Info) Description 06/03/2024 12:30 PM CDT Hospital Encounter [facility] [address] [place] [address] Mariaa Diego MD [address] [place] [phone] 06/03/2024 1:20 PM CDT Office Visit [facility] Oncology and Hematology [address] [place] [address] Mariaa Diego MD [address] [place] [address] Pippa Dang, DUONG [address] [place] [address] 06/03/2024 1:45 PM CDT Hospital Encounter [facility] [address] Patients [...] Pathogen 04/02/2024 04/02/2024 04/02/2024 1 :44 PM DEPUTY BUILDING GUARD R/O Respiratory 05/13/2024 05/13/2024 05/13/2024 1 1:33 PM CDT R/O C. diff 05/14/2024 05/14/2024 05/14/2024 10:0 6 AM CDT R/O C. diff 05/14/2024 05/14/2024 05/15/2024 1:01 PM CDT documented as of this encounter Care Teams Soaker Helper Relationship Specialty Start Date End Date Jase Bryson MD PCP - General Family Practice 05/06/19 documented as of this encounter
--- OUTSIDE RECORDS SUMMARY | 2024-06-02 16:20 | XMS_ITS | Clinical Summary ---
Author Organization [id number] Address [address] [place] [address] Care Team Providers Care Boring Machine Set Up Operator Jig Name Role Phone Meliza Canales PT Unavailable Unavailab Maria T West PT Unavailable Unavailable Shruti Hale Unavailable Unavailable Singh Schmid PT Unavailable Unavailable Dorina Cassidy APPLICATIONS DEVELOPMENT ANALYST Unavailable Unavailab Jase Abel MD Primary Care [...] Active Active Problems No known active problems Surgical History Surgery Date Site/Laterality Comments FEMUR SURGERY Right Yon inserted ' and removed 2014 TONSILLECTOMY BASAL CELL CARCINOMA EXCISION 06/20/2017 - 07/20/2017 of forehead Medical History Medical History Date Comments Anxiety PTSD (post-traumatic stress disorder) Social History Tobacco Use Types Packs/Day Years [...] on file Legal Sex Female 10:25 AM HOSPICE CONSULTANT Gender Identity Not on file Sexual Orientation Not on file Obstetrics History Last Filed Vital Signs Vital Sign Reading Time Taken Comments Blood Pressure 99/62 04/30/2022 4:[address] Malik aware and states, That's good. Pulse 67 04/30/2022 4:15 AM HOSPICE CONSULTANT Temperature 37.3 C (99.1 F) 04/29/2022 11:34 PM HOSPICE CONSULTANT Respiratory Rate 18 04/30/2022 4:15 AM HOSPICE CONSULTANT Oxygen Saturation 96% 04/30/2022 4:1 5 AM HOSPICE CONSULTANT Inhaled Oxygen Concentration - - Weight 85.6 kg (188 lb 11.4 oz) 04/29/2022 11:34 PM HOSPICE CONSULTANT Height 167.6 cm (5' 6 ) 04/29/2022 11:3 4 PM HOSPICE CONSULTANT Body Mass Index 30.46 04/29/2022 11:34 PM HOSPICE CONSULTANT Plan of Treatment Health Maintenance Due Date Last Done Comments Colon Cancer Screening-Colonoscopy 1972 Depression Screening 1972 Hepatitis C Screening 1972 DTaP/Tdap/Td Vaccine (1 - Tdap) 04/26/1983 Hepatitis B Screening 1990 Regular Well Visit/Exam 18-64 1990 Pneumococcal vaccine <65 (1 of 2 - PCV) 04/26/1991 Breast Cancer Screening-Mammogram 01/24/2019 018 Zoster Vaccine (1 of 2) 2022 Influenza Vaccine (Season Ended) 2024 11/18/19 09 Insurance [facility] HEALTH BENEFIT PLAN [facility] [employer] [place] [address] [address] HEALTH BENEFIT PLAN Member Subscriber Plan / Payer (Ef fective 2017-Present) Name:Saray Brown Relation to Subscriber:Self Name:Saray Brown Payer ID:[id number] Group ID:[id number] Type:CIGNA HMO/PPO Address: [place], [place] [facility] Care Teams Boring Machine Set Up Operator Jig Relationship Specialty Start Date End Date Jase Bryson MD [address] [place] [address] PCP - General Family Medicine 06/15/18 Meliza Canales, PT Physical Therapist Physical Therapy 08/22/17 Maria T Almanza, PT Physical Therapist Physical Therapy 09/01/17 Shruti Hale Patient Anode Machine Operator 09/26/17 Singh Schmid, PT Physical Therapist Physical Therapy 09/26/17 Dorina Cassidy, APPLICATIONS DEVELOPMENT ANALYST Escalator Operator Physical Therapy 09/27/17
--- OUTSIDE RECORDS SUMMARY | 2024-06-02 16:20 | XMS_ITS ---
Author Organization [facility] Address [address] [place] [address] Care Team Providers Care Product Development Coordinator Name Role Phone Jakob Gordon [phone] Encounters Encounter Location Date Provider Diagnosis [facility] [address] [facility] [address] [address] 07/27/2023 Jakob Gordon PLAN OF TREATMENT No Information Progress Notes * Pricilla DESAIaDOB: 3 (54 yo F)Acc No.[id number]:07/27/2023 Progress Notes Patient: Sarah DESAInna Provider: Jakob Gordon MD :1970 Age:53 Y Sex:Female Date:07/27/2023 Address: [address] [place] Subjective: * Chief Complaints: * * Medical History: Objective: Assessment: Plan: * Treatment: * Images: * Sign off status: Pending * Provider: Jakob Gordon MD Date: 07/27/2023
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
--- OUTSIDE RECORDS SUMMARY | 2024-06-02 16:20 | XMS_ITS | Encounter Summary ---
Author Organization [facility] Address [address] [place] [address] Care Team Providers Care Director Of Training Name Role Phone Jase Bryson MD Primary Care Provider Encounter Details Date Type Department Care Team (Late st Contact Info) Description 06/02/2006 Outpatient Historical [facility] Jefe Posey MD [address] [facility] [address] [place] [id number] Denis Buckner MD [address] [place] [phone] Other Threatened Labor, Antepartum (Primary Dx) Social History Tobacco Use Types Packs/Day Years Used Date Smoking Tobacco: Never Assessed Comments Unknown Sex and Gender Information Value Date Recorded Sex Assigned at Not on file Legal Sex Female 3:54 AM SMELTER CHARGER Gender Identity Not on file Sexual Orientation Not on file documented as of this encounter Plan of Treatment Upcoming Encounters Date Type Department Care Team (Late st Contact Info) Description 06/03/2024 12:30 PM CDT Hospital Encounter [facility] [address] [place] [address] Mariaa Diego MD [address] [place] [address] 06/03/2024 1:20 PM CDT Office Visit [facility] Oncology and Hematology [address] [place] [address] Mariaa Diego MD [address] [place] [address] Pippa Dang NP [address] [place] [address] 06/03/2024 1:45 PM CDT Hospital Encounter [facility] [address] [place] [address] Mariaa Diego MD [address] [place] [address] 16, Mob documented as of this encounter Visit Diagnoses Diagnosis Other threatened labor, antepartum- Primary Malignant neoplasm of upper-outer quadrant of [...] Pathogen 04/02/2024 04/02/2024 04/02/2024 1 :44 PM SMELTER CHARGER R/O Respiratory 05/13/2024 05/13/2024 05/13/2024 1 1:33 PM CDT R/O C. diff 05/14/2024 05/14/2024 05/14/2024 10:0 6 AM CDT R/O C. diff 05/14/2024 05/14/2024 05/15/2024 1:01 PM CDT documented as of this encounter Care Teams Director Of Training Relationship Specialty Start Date End Date Jase Bryson MD PCP - General Family Practice 05/06/19 documented as of this encounter
--- OUTSIDE RECORDS SUMMARY | 2024-06-02 16:20 | XMS_ITS | Encounter Summary ---
Author Organization [facility] Address [address] [place] [address] Care Team Providers Care Technical Support Director Name Role Phone Jase Bryson MD Primary Care Provider Encounter Details Date Type Department Care Team (Latest Contact Info) Description 06/12/1998 Outpatient Historical HIS [facility] Jakob Cedillo MD [address] [place], [place] [address] [place] [address] Abrasion or friction burn of finger, without mention of infection (Primary Dx) Social History Tobacco Use Types Packs/Day Years Used Date Smoking Tobacco: Never Assessed Comments Unknown Sex and Gender Information Value Date Recorded Sex Assigned at Not on file Legal Sex Female 3:54 AM DUMPMAN Gender Identity Not on file Sexual Orientation Not on file documented as of this encounter Plan of Treatment Upcoming Encounters Date Type Department Care Team (Late st Contact Info) Description 06/03/2024 12:30 PM CDT Hospital Encounter [facility] [address] [place] [address] Mariaa Diego MD [address] [place] [address] 06/03/2024 1:20 PM CDT Office Visit [facility] Oncology and Hematology [address] [place] [address] Mariaa Diego MD [address] [place] [phone] Pippa Dang NP [address] [place] [phone] 06/03/2024 1:45 PM CDT Hospital Encounter [facility] [address] [place] [phone] Mariaa Diego MD [address] [place] [address] 16, Mob documented as of this encounter Visit Diagnoses Diagnosis Abrasion or friction burn of finger, without mention of infection- Primary Malignant neoplasm of upper-outer quadrant of [...] Pathogen 04/02/2024 04/02/2024 04/02/2024 1 :44 PM DUMPMAN R/O Respiratory 05/13/2024 05/13/2024 05/13/2024 1 1:33 PM CDT R/O C. diff 05/14/2024 05/14/2024 05/14/2024 10:0 6 AM CDT R/O C. diff 05/14/2024 05/14/2024 05/15/2024 1:01 PM CDT documented as of this encounter Care Teams Technical Support Director Relationship Specialty Start Date End Date Jase Bryson MD PCP - General Family Practice 05/06/19 documented as of this encounter
--- OUTSIDE RECORDS SUMMARY | 2024-06-02 16:21 | XMS_ITS | Encounter Summary ---
Author Organization [facility] Address [address] [place] [address] Care Team Providers Care National Facilities Manager Name Role Phone Jase Bryson MD Primary Care Provider Encounter Details Date Type Department Care Team (Late st Contact Info) Description 04/19/2005 Outpatient Historical [facility] [address] [place] [address] Nickolas Medrano Social History Tobacco Use Types Packs/Day Years Used Date Smoking Tobacco: Never Assessed Comments Unknown Sex and Gender Information Value Date Recorded Sex Assigned at Not on file Legal Sex Female 3:54 AM HAND BOBBIN CLEANER Gender Identity Not on file Sexual Orientation Not on file documented as of this encounter Plan of Treatment Upcoming Encounters Date Type Department Care Team (Late st Contact Info) Description 06/03/2024 12:30 PM CDT Hospital Encounter [facility] [address] [place] [address] Mariaa Diego MD [address] [place] [phone] 06/03/2024 1:20 PM CDT Office Visit [facility] Oncology and Hematology [address] [place] [address] Mariaa Diego MD [address] [place] [phone] Pippa Dang NP [address] [place] [address] 06/03/2024 1:45 PM CDT Hospital Encounter [facility] [address] 901 [...] Pathogen 04/02/2024 04/02/2024 04/02/2024 1 :44 PM HAND BOBBIN CLEANER R/O Respiratory 05/13/2024 05/13/2024 05/13/2024 1 1:33 PM CDT R/O C. diff 05/14/2024 05/14/2024 05/14/2024 10:0 6 AM CDT R/O C. diff 05/14/2024 05/14/2024 05/15/2024 1:01 PM CDT documented as of this encounter Care Teams National Facilities Manager Relationship Specialty Start Date End Date Jase Bryson MD PCP - General Family Practice 05/06/19 documented as of this encounter
--- OUTSIDE RECORDS SUMMARY | 2024-06-02 16:21 | XMS_ITS | Encounter Summary ---
Author Organization [facility] Address [address] [place] [address] Care Team Providers Care Grad Intern Name Role Phone Jase Bryson MD Primary Care Provider Encounter Details Date Type Department Care Team (Late st Contact Info) Description 02/17/2005 Outpatient Historical [facility] Support Serv. (Adt Cardiology-[facility]) [address] [place] [address] Otilio Rosario MD NO ADDRESS ON FILE Social History Tobacco Use Types Packs/Day Years Used Date Smoking Tobacco: Never Assessed Comments Unknown Sex and Gender Information Value Date Recorded Sex Assigned at Not on file Legal Sex Female 3:54 AM WIG SALES CONSULTANT Gender Identity Not on file Sexual Orientation Not on file documented as of this encounter Plan of Treatment Upcoming Encounters Date Type Department Care Team (Late Contact Info) Description 06/03/2024 12:30 PM CDT Hospital Encounter [facility] [address] [place] [phone] Mariaa Diego MD [address] [place] [phone] 06/03/2024 1:20 PM CDT Office Visit [facility] Oncology and Hematology [address] [place] [address] Mariaa Diego MD [address] [place] [phone] Pippa Dang NP [address] [place] [address] 06/03/2024 1:45 PM CDT Hospital Encounter [facility]. [...] Pathogen 04/02/2024 04/02/2024 04/02/2024 1 :44 PM WIG SALES CONSULTANT R/O Respiratory 05/13/2024 05/13/2024 05/13/2024 1 1:33 PM CDT R/O C. diff 05/14/2024 05/14/2024 05/14/2024 10:0 6 AM CDT R/O C. diff 05/14/2024 05/14/2024 05/15/2024 1:01 PM CDT documented as of this encounter Care Teams Grad Intern Relationship Specialty Start Date End Date Jase Bryson MD PCP - General Family Practice 05/06/19 documented as of this encounter
--- OUTSIDE RECORDS SUMMARY | 2024-06-02 16:21 | XMS_ITS | Encounter Summary ---
Author Organization [facility] Address [address] [place] [address] Care Team Providers Care Production Shift Supervisor Name Role Phone Jase Bryson MD Primary Care Provider Encounter Details Date Type Department Care Team (Late st Contact Info) Description 02/23/2005 Outpatient Historical [facility] Support Serv. ([facility] Cardiology-[facility]) [address] [place] [address] Joel Smith MD NO ADDRESS ON FILE Social History Tobacco Use Types Packs/Day Years Used Date Smoking Tobacco: Never Assessed Comments Unknown Sex and Gender Information Value Date Recorded Sex Assigned at Not on file Legal Sex Female 3:54 AM DICE SPOTTER Gender Identity Not on file Sexual Orientation Not on file documented as of this encounter Plan of Treatment Upcoming Encounters Date Type Department Care Team (Late Contact Info) Description 06/03/2024 12:30 PM CDT Hospital Encounter [facility] [address] [place] [address] Mariaa Diego MD [address] [place] [phone] 06/03/2024 1:20 PM CDT Office Visit [facility] Oncology and Hematology [address] [place] [address] Mariaa Diego MD [address] [place] [phone] Pippa Dang NP [address] [place] [address] 06/03/2024 1:45 PM CDT Hospital Encounter [facility] [address] 901 [...] Pathogen 04/02/2024 04/02/2024 04/02/2024 1 :44 PM DICE SPOTTER R/O Respiratory 05/13/2024 05/13/2024 05/13/2024 1 1:33 PM CDT R/O C. diff 05/14/2024 05/14/2024 05/14/2024 10:0 6 AM CDT R/O C. diff 05/14/2024 05/14/2024 05/15/2024 1:01 PM CDT documented as of this encounter Care Teams Production Shift Supervisor Relationship Specialty Start Date End Date Jase Bryson MD PCP - General Family Practice 05/06/19 documented as of this encounter
--- OUTSIDE RECORDS SUMMARY | 2024-06-02 16:21 | XMS_ITS | Encounter Summary ---
Author Organization [facility] Address [address] [place] [address] Care Team Providers Care Taxation Agent Name Role Phone Jase Bryson MD Primary Care Provider Encounter Details Date Type Department Care Team (Latest Contact Info) Description 09/14/2004 Outpatient Historical [facility] Cam Vásquez MD [address] [place] [phone] CONTRACEPT SURVEILL NEC (Primary Dx) Social History Tobacco Use Types Packs/Day Years Used Date Smoking Tobacco: Never Assessed Comments Unknown Sex and Gender Information Value Date Recorded Sex Assigned at Not on file Legal Sex Female 3:54 AM ELECTRONIC EQUIPMENT MAINT TECH Gender Identity Not on file Sexual Orientation Not on file documented as of this encounter Plan of Treatment Upcoming Encounters Date Type Department Care Team (Late st Contact Info) Description 06/03/2024 12:30 PM CDT Hospital Encounter [facility] [address] [place] [address] Mariaa Diego MD [address] [place] [phone] 06/03/2024 1:20 PM CDT Office Visit [facility] Oncology and Hematology [address] [place] [address] Mariaa Diego MD [address] [place] [phone] Pippa Dang NP [address] [place] [address] 06/03/2024 1:45 PM CDT Hospital Encounter [facility] [address] [place] [address] Mariaa Diego MD [address] [place] [address] 16, Mob documented as of this encounter Visit Diagnoses Diagnosis Surveillance of other previously prescribed contraceptive method- Primary Malignant neoplasm of upper-outer quadrant of [...] Pathogen 04/02/2024 04/02/2024 04/02/2024 1 :44 PM ELECTRONIC EQUIPMENT MAINT TECH R/O Respiratory 05/13/2024 05/13/2024 05/13/2024 1 1:33 PM CDT R/O C. diff 05/14/2024 05/14/2024 05/14/2024 10:0 6 AM CDT R/O C. diff 05/14/2024 05/14/2024 05/15/2024 1:01 PM CDT documented as of this encounter Care Teams Taxation Agent Relationship Specialty Start Date End Date Jase Bryson MD PCP - General Family Practice 05/06/19 documented as of this encounter
--- OUTSIDE RECORDS SUMMARY | 2024-06-02 16:21 | XMS_ITS | Encounter Summary ---
Author Organization [facility] Address [address] [place] [address] Care Team Providers Care Customer Response Representative Name Role Phone Jase Bryson MD Primary Care Provider Encounter Details Date Type Department Care Team (Late st Contact Info) Description 09/02/2004 Outpatient Historical [facility] Trauma and General Surgery [address] [facility] [address] [phone] [place] [address] [place] [address] Social History Tobacco Use Types Packs/Day Years Used Date Smoking Tobacco: Never Assessed Comments Unknown Sex and Gender Information Value Date Recorded Sex Assigned at Not on file Legal Sex Female 3:54 AM FORESTRY PATROLMAN Gender Identity Not on file Sexual Orientation Not on file documented as of this encounter Plan of Treatment Upcoming Encounters Date Type Department Care Team (Late st Contact Info) Description 06/03/2024 12:30 PM CDT Hospital Encounter [facility] [address] [place] [address] Mariaa Diego MD [address] [place] [phone] 06/03/2024 1:20 PM CDT Office Visit [facility] Oncology and Hematology [address] [place] [phone] Mariaa Diego MD [address] [place] [phone] Pippa Dang NP [address] [place] [address] 06/03/2024 1:45 PM CDT Hospital Encounter [facility] [address] [place] [phone] Mariaa Diego MD [address] [place] [phone] 16, Mob documented as of this encounter Visit Diagnoses Not on filedocumented in this encounter Additional Health Concerns Infection Onset Date Last Indicated Resolved Time R/O COVID-19 05/27/2019 05/27/2019 05/29/2019 10:2 0 AM CDT R/O COVID-19 11/30/2023 11/30/2023 11/30/2023 6:52 PM CDT R/O Respiratory 11/30/2023 11/30/2023 12/01/2023 2 :21 PM CDT R/O GI Pathogen 04/02/2024 04/02/2024 04/02/2024 1 :44 PM FORESTRY PATROLMAN R/O Respiratory 05/13/2024 05/13/2024 05/13/2024 1 1:33 PM CDT R/O C. diff 05/14/2024 05/14/2024 05/14/2024 10:0 6 AM CDT R/O C. diff 05/14/2024 05/14/2024 05/15/2024 1:01 PM CDT documented as of this encounter Care Teams Customer Response Representative Relationship Specialty Start Date End Date Jase Bryson MD PCP - General Family Practice 05/06/19 documented as of this encounter
--- OUTSIDE RECORDS SUMMARY | 2024-06-02 16:21 | XMS_ITS | Encounter Summary ---
Author Organization [facility] Address [address] [place] [address] Care Team Providers Care Telecom Engineer Name Role Phone Jase Bryson MD Primary Care Provider Encounter Details Date Type Department Care Team (Late st Contact Info) Description 12/16/2004 [facility]patient [facility] Speedy Simons MD [address] [place] [address] DEPRESSIVE DISORDER NEC (Primary Dx) Social History Tobacco Use Types Packs/Day Years Used Date Smoking Tobacco: Never Assessed Comments Unknown Sex and Gender Information Value Date Recorded Sex Assigned at Not on file Legal Sex Female 3:54 AM PREVOCATIONAL/REHABILITATION COUNSELOR Gender Identity Not on file Sexual Orientation [...] [id number] 06/03/2024 1:20 PM CDT Office Visit [facility] Oncology and Hematology [address] [...] as of this encounter Visit Diagnoses Diagnosis Depressive disorder, not elsewhere classified- Primary Malignant neoplasm of upper-outer quadrant of [...] Pathogen 04/02/2024 04/02/2024 04/02/2024 1 :44 PM PREVOCATIONAL/REHABILITATION COUNSELOR R/O Respiratory 05/13/2024 05/13/2024 05/13/2024 1 1:33 PM CDT R/O C. diff 05/14/2024 05/14/2024 05/14/2024 10:0 6 AM CDT R/O C. diff 05/14/2024 05/14/2024 05/15/2024 1:01 PM CDT documented as of this encounter Care Teams Telecom Engineer Relationship Specialty Start Date End Date Jase Bryson MD PCP - General Family Practice 05/06/19 documented as of this encounter
--- OUTSIDE RECORDS SUMMARY | 2024-06-02 16:21 | XMS_ITS | Encounter Summary ---
Author Organization [facility] Address [address] [place] [address] Care Team Providers Care Junior Project Coordinator Name Role Phone Jase Bryson MD Primary Care Provider Encounter Details Date Type Department Care Team (Late st Contact Info) Description 02/16/2005 Outpatient Historical [facility] [address] [facility] [phone] Eder Ordonez Social History Tobacco Use Types Packs/Day Years Used Date Smoking Tobacco: Never Assessed Comments Unknown Sex and Gender Information Value Date Recorded Sex Assigned at Not on file Legal Sex Female 3:54 AM FIRE CONTROL TECHNICIAN G Gender Identity Not on file Sexual Orientation Not on file documented as of this encounter Plan of Treatment Upcoming Encounters Date Type Department Care Team (Late st Contact Info) Description 06/03/2024 12:30 PM CDT Hospital Encounter [facility] [address] [place] [phone] Mariaa Diego MD [address] [place] [phone] 06/03/2024 1:20 PM CDT Office Visit [facility] Oncology and Hematology [address] [place] [phone] Mariaa Diego MD [address] [place] [phone] Pippa Dang, DUONG [address] [place] [phone] 06/03/2024 1:45 PM CDT Hospital Encounter [facility] [address]01 [...] Pathogen 04/02/2024 04/02/2024 04/02/2024 1 :44 PM FIRE CONTROL TECHNICIAN G R/O Respiratory 05/13/2024 05/13/2024 05/13/2024 1 1:33 PM CDT R/O C. diff 05/14/2024 05/14/2024 05/14/2024 10:0 6 AM CDT R/O C. diff 05/14/2024 05/14/2024 05/15/2024 1:01 PM CDT documented as of this encounter Care Teams Junior Project Coordinator Relationship Specialty Start Date End Date Jase Bryson MD PCP - General Family Practice 05/06/19 documented as of this encounter
--- OUTSIDE RECORDS SUMMARY | 2024-06-02 16:21 | XMS_ITS | Encounter Summary ---
Author Organization [facility] Address [address] [place] [address] Care Team Providers Care Rewriter Name Role Phone Jase Bryson MD Primary Care Provider Encounter Details Date Type Department Care Team (Late st Contact Info) Description 09/06/2005 Outpatient Historical [facility] [address] [place] [address] Cam Vásquez MD [address] [facility] [address] [facility] [place] [address] Social History Tobacco Use Types Packs/Day Years Used Date Smoking Tobacco: Never Assessed Comments Unknown Sex and Gender Information Value Date Recorded Sex Assigned at Not on file Legal Sex Female 3:54 AM MACHINE STOPPAGE FREQUENCY CHECKER Gender Identity Not on file Sexual Orientation [...] [id number] 06/03/2024 1:20 PM CDT Office Visit [facility] Oncology and Hematology [address] [address] [place] [phone] Mariaa Diego MD [address] [place] [phone] Pippa Dang NP [address] [place] [phone] 06/03/2024 1:45 PM CDT Hospital Encounter [facility] [address] [place] [phone] Mariaa Diego MD [address] [place] [phone] 16, Mob documented as of this encounter Visit Diagnoses Not on filedocumented in this encounter Additional Health Concerns Infection Onset Date Last Indicated Resolved Time R/O COVID-19 05/27/2019 05/27/2019 05/29/2019 10:2 0 AM CDT R/O COVID-19 11/30/2023 11/30/2023 11/30/2023 6:52 PM CDT R/O Respiratory 11/30/2023 11/30/2023 12/01/2023 2 :21 PM CDT R/O GI Pathogen 04/02/2024 04/02/2024 04/02/2024 1 :44 PM MACHINE STOPPAGE FREQUENCY CHECKER R/O Respiratory 05/13/2024 05/13/2024 05/13/2024 1 1:33 PM CDT R/O C. diff 05/14/2024 05/14/2024 05/14/2024 10:0 6 AM CDT R/O C. diff 05/14/2024 05/14/2024 05/15/2024 1:01 PM CDT documented as of this encounter Care Teams Rewriter Relationship Specialty Start Date End Date Jase Bryson MD PCP - General Family Practice 05/06/19 documented as of this encounter
--- OUTSIDE RECORDS SUMMARY | 2024-06-02 16:21 | XMS_ITS | Encounter Summary ---
Author Organization [facility] Address [address] [place] [address] Care Team Providers Care Electrician'S Helper Name Role Phone Jase Bryson MD Primary Care Provider Encounter Details Date Type Department Care Team (Latest Contact Info) Description 02/17/2005 Outpatient Historical [facility] [place], Jose Reid MD [address] [place], [place] [id number] MALAISE AND FATIGUE NEC (Primary Dx) Social History Tobacco Use Types Packs/Day Years Used Date Smoking Tobacco: Never Assessed Comments Unknown Sex and Gender Information Value Date Recorded Sex Assigned at Not on file Legal Sex Female 3:54 AM POWER BARKER Gender Identity Not on file Sexual Orientation [...] [id number] 06/03/2024 1:20 PM CDT Office Visit [facility] Oncology and Hematology [address] [...] Procedure Name Priority Date/Time Associated Diagnosis Comments TSH REFLEXIVE Routine 02/17/2005 11:17 AM POWER BARKER CBC WITH DIFFERENTIAL Routine 02/17/2005 11:17 AM POWER BARKER CBC WITH DIFFERENTIAL Routine 02/17/2005 11:17 AM POWER BARKER MAGNESIUM LEVEL Routine 02/17/2005 11:17 AM POWER BARKER COMPREHENSIVE METABOLIC PANEL Routine 02/17/2005 11:17 AM POWER BARKER URINALYSIS W/REFLEX MICROSCOPIC Routine 02/17/2005 11:03 AM POWER BARKER documented in this encounter Results * CBC WITH DIFFERENTIAL (02/17/2005 11:17 AM POWER BARKER) NEUTROPHILS 61 45 - 70 % INTERFAC E SYSTEM LYMPHOCYTES 30 16 - 45 % INTERFAC E SYSTEM MONOCYTES 6 3 - 13 % INTERFACE SYSTEM EOSINOPHILS 2 0 - 7 % INTERFAC E SYSTEM BASOPHILS 1 0 - 2 % INTERFACE SYSTEM NEUTROPHIL ABSOLUTE 5.84 1.90 - 7.00 K/uL INTERFACE SYSTEM LYMPHOCYTE ABSOLUTE 2.86 0.70 - 4.50 K/uL INTERFACE SYSTEM MONOCYTE ABSOLUTE 0.58 0.10 - 1.30 K/uL INTERFACE SYSTEM EOSINOPHIL ABSOLUTE 0.22 0.00 - 0.70 K/uL INTERFACE SYSTEM BASOPHILS ABSOLUTE 0.06 0.00 - 0.20 K/uL INTERFACE SYSTEM 02/17/2005 11:1 7 AM POWER BARKER us Sarai Ward DO HEMATOLOGY ORDERABLES Final Result Performing Organization Address [facility] Co de Phone Number INTERFACE SYSTEM Refer to clinic/hospital department * (ABNORMAL) CBC WITH DIFFERENTIAL (02/17/2005 11:17 AM POWER BARKER) WBC 9.6 4.0 - 9.8 K/uL INTERFACE SYSTEM RBC 4.52 3.90 - 4.90 M/uL INTERFACE SYSTEM HEMOGLOBIN 12.5 11.8 - 14.8 g/dL INTERFACE SYSTEM HEMATOCRIT 38.4 35.5 - 44.0 % INTERFACE SYSTEM MCV 85.0 82.0 - 99.0 fL INTERFACE SYSTEM MCH 27.7 27.2 - 32.6 pg INTERFACE SYSTEM MCHC 32.6 31.5 - 35.5 % INTERFACE SYSTEM RDW 13.0 11.5 - 14.5 % INTERFACE SYSTEM RDW-STDEV 40.4 37.1 - 48.7 fL INTERFACE SYSTEM PLATELETS 384(H) 140 - 350 K/uL INTERFACE SYSTEM MPV 10.1 9.3 - 12.4 fL INTERFACE SYSTEM 02/17/2005 11:1 7 AM POWER BARKER us Sarai Ward DO HEMATOLOGY ORDERABLES Final Result Performing Organization Address [facility] Phone Number INTERFACE SYSTEM Refer to clinic/hospital department * TSH REFLEXIVE (02/17/2005 11:17 AM POWER BARKER) TSH 1.73 0.27 - 4.20 uU/mL INTERFACE SYSTEM 02/17/2005 11:1 7 AM POWER BARKER us Sarai Ward DO CHEMISTRY ORDERABLES F inal Result Performing Organization Address [facility] Co de Phone Number INTERFACE SYSTEM Refer to clinic/hospital department * MAGNESIUM LEVEL (02/17/2005 11:17 AM POWER BARKER) MAGNESIUM 1.9 1.5 - 2.5 mg/dL INTERFACE SYSTEM 02/17/2005 11:1 7 AM POWER BARKER Sarai Medina Sylvia DO CHEMISTRY ORDERABLES F inal Result Performing Organization Address [facility] Phone Number INTERFACE SYSTEM Refer to clinic/hospital department * (ABNORMAL) COMPREHENSIVE METABOLIC PANEL (02/17/2005 11:17 AM POWER BARKER) GLUCOSE 87 65 - 109 mg/dL INTERFACE SYSTEM CREATININE 0.7 0.4 - 1.2 mg/dL INTERFACE SYSTEM CALCIUM 8.5(L) 8.6 - 10.2 mg/dL INTERFACE SYSTEM AST 16 12 - 32 U/L INTERFACE SYSTEM ALKALINE PHOSPHATASE 71 35 - 104 U/L INTERFACE SYSTEM BILIRUBIN TOTAL 0.2 0.2 - 1.0 mg/dL INTERFACE SYSTEM ALBUMIN 3.8 3.4 - 4.8 g/dL INTERFACE SYSTEM TOTAL PROTEIN 7.1 6.3 - 8.6 g/dL INTERFACE SYSTEM ALT 15 0 - 31 U/L INTERFACE SYSTEM BUN 5(L) 6 - 20 mg/dL INTERFACE SYSTEM SODIUM 137 135 - 145 mmol/L INTERFACE SYSTEM POTASSIUM 3.8 3.5 - 4.9 mmol/L INTERFACE SYSTEM CHLORIDE 103 96 - 108 mmol/L INTERFACE SYSTEM CO2 28 22 - 30 mmol/L INTERFACE SYSTEM 02/17/2005 11:1 7 AM POWER BARKER Sarai Ward DO CHEMISTRY ORDERABLES F inal Result Performing Organization Address [facility] Phone Number INTERFACE SYSTEM Refer to clinic/hospital department * URINALYSIS (02/17/2005 11:03 AM POWER BARKER) COLOR UA Yellow INTERFACE SYSTEM CLARITY UA Clear Clear INTERFACE SYSTEM SPECIFIC GRAVITY UA 1.010 1.001 - 1.035 INTERFACE SYSTEM PH UA 8.0 5.0 - 8.0 INTERFACE SYSTEM LEUKOCYTE ESTERASE UA Negative Negative INTERFACE SYSTEM NITRITE UA Negative Negative INTERFACE SYSTEM PROTEIN UA Negative Negative INTERFACE SYSTEM GLUCOSE UA Negative Negative INTERFACE SYSTEM KETONES UA Negative Negative INTERFACE SYSTEM UROBILINOGEN UA <1 <1 mg/dL INTE RFACE SYSTEM BILIRUBIN UA Negative Negative INTERFA CE SYSTEM BLOOD UA Negative Negative INTERFACE SYSTEM 02/17/2005 11:0 3 AM POWER BARKER Sarai Ward DO URINE ORDERABLES Final Result INTERFACE SYSTEM Refer to clinic/hospital department documented in this encounter Visit Diagnoses Diagnosis Other malaise and fatigue- Primary Malignant neoplasm of upper-outer quadrant of [...] Pathogen 04/02/2024 04/02/2024 04/02/2024 1 :44 PM POWER BARKER R/O Respiratory 05/13/2024 05/13/2024 05/13/2024 1 1:33 PM CDT R/O C. diff 05/14/2024 05/14/2024 05/14/2024 10:0 6 AM CDT R/O C. diff 05/14/2024 05/14/2024 05/15/2024 1:01 PM CDT documented as of this encounter Care Teams Electrician'S Helper Relationship Specialty Start Date End Date Jase Bryson MD PCP - General Family Practice 05/06/19 documented as of this encounter
--- OUTSIDE RECORDS SUMMARY | 2024-06-02 16:21 | XMS_ITS | Encounter Summary ---
Author Organization [facility] Address [address] [place] [address] Care Team Providers Care Cottage Master Name Role Phone Jase Bryson MD Primary Care Provider Encounter Details Date Type Department Care Team (Late Contact Info) Description 03/10/2005 Outpatient Historical [facility] [address] [facility] [place] [id number] Speedy Simons MD [address] [facility], [facility] [address] [place] [address] Social History Tobacco Use Types Packs/Day Years Used Date Smoking Tobacco: Never Assessed Comments Unknown Sex and Gender Information Value Date Recorded Sex Assigned at Not on file Legal Sex Female 3:54 AM TAKER OFF HEMP FIBER Gender Identity Not on file Sexual Orientation Not on file documented as of this encounter Plan of Treatment Upcoming Encounters Date Type Department Care Team (Late st Contact Info) Description 06/03/2024 12:30 PM CDT Hospital Encounter [facility] [address] [place] [address] Mariaa Diego MD [address] [place] [phone] 06/03/2024 1:20 PM CDT Office Visit [facility] Oncology and Hematology [address] [place] [address] Mariaa Diego MD [address] [place] [phone] Pippa Dang NP [address] [place] [address] 06/03/2024 1:45 PM CDT Hospital Encounter [facility] [address] [place] [address] Mariaa Diego MD [address] [place] [phone] 16, Mob documented as of this encounter Visit Diagnoses Not on filedocumented in this encounter Additional Health Concerns Infection Onset Date Last Indicated Resolved Time R/O COVID-19 05/27/2019 05/27/2019 05/29/2019 10:2 0 AM CDT R/O COVID-19 11/30/2023 11/30/2023 11/30/2023 6:52 PM CDT R/O Respiratory 11/30/2023 11/30/2023 12/01/2023 2 :21 PM CDT R/O GI Pathogen 04/02/2024 04/02/2024 04/02/2024 1 :44 PM TAKER OFF HEMP FIBER R/O Respiratory 05/13/2024 05/13/2024 05/13/2024 1 1:33 PM CDT R/O C. diff 05/14/2024 05/14/2024 05/14/2024 10:0 6 AM CDT R/O C. diff 05/14/2024 05/14/2024 05/15/2024 1:01 PM CDT documented as of this encounter Care Teams Cottage Master Relationship Specialty Start Date End Date Jase Bryson MD PCP - General Family Practice 05/06/19 documented as of this encounter
--- OUTSIDE RECORDS SUMMARY | 2024-06-02 16:21 | XMS_ITS | Encounter Summary ---
Author Organization [facility] Address [address] [place] [address] Care Team Providers Care Automatic Cigar Wrapper Tender Name Role Phone Jase Bryson MD Primary Care Provider Encounter Details Date Type Department Care Team (Late st Contact Info) Description 09/01/2004 Outpatient Historical [facility] [address] [facility] [address] [facility] [place] [address] Ramirez Bell MD [address] [facility] [address] [facility] [place] [address] Social History Tobacco Use Types Packs/Day Years Used Date Smoking Tobacco: Never Assessed Comments Unknown Sex and Gender Information Value Date Recorded Sex Assigned at Not on file Legal Sex Female 3:54 AM EDGE CUTTER Gender Identity Not on file Sexual Orientation Not on file documented as of this encounter Plan of Treatment Upcoming Encounters Date Type Department Care Team (Late st Contact Info) Description 06/03/2024 12:30 PM CDT Hospital Encounter [facility] [address] [place] [address] Mariaa Diego MD [address] [place] [address] 06/03/2024 1:20 PM CDT Office Visit [facility] Oncology and Hematology [address] [place] [address] Mariaa Diego MD [address] [place] [phone] Pippa Dang NP [address] [place] [phone] 06/03/2024 1:45 PM CDT Hospital Encounter [facility] [address] [place] [phone] Mariaa Diego MD [address] [place] [phone] 16, Mob documented as of this encounter Visit Diagnoses Not on filedocumented in this encounter Additional Health Concerns Infection Onset Date Last Indicated Resolved Time R/O COVID-19 05/27/2019 05/27/2019 05/29/2019 10:2 0 AM CDT R/O COVID-19 11/30/2023 11/30/2023 11/30/2023 6:52 PM CDT R/O Respiratory 11/30/2023 11/30/2023 12/01/2023 2 :21 PM CDT R/O GI Pathogen 04/02/2024 04/02/2024 04/02/2024 1 :44 PM EDGE CUTTER R/O Respiratory 05/13/2024 05/13/2024 05/13/2024 1 1:33 PM CDT R/O C. diff 05/14/2024 05/14/2024 05/14/2024 10:0 6 AM CDT R/O C. diff 05/14/2024 05/14/2024 05/15/2024 1:01 PM CDT documented as of this encounter Care Teams Automatic Cigar Wrapper Tender Relationship Specialty Start Date End Date Jase Bryson MD PCP - General Family Practice 05/06/19 documented as of this encounter
--- OUTSIDE RECORDS SUMMARY | 2024-06-02 16:21 | XMS_ITS | Encounter Summary ---
Author Organization [facility] Address [address] [place] [address] Care Team Providers Care Machined Parts Metal Sprayer Name Role Phone Jase Bryson MD Primary Care Provider Encounter Details Date Type Department Care Team (Latest Contact Info) Description 09/06/2005 Outpatient Historical [facility] Cam Vsáquez MD [address] [place] [phone] Excessive or Frequent Menstruation (Primary Dx) Social History Tobacco Use Types Packs/Day Years Used Date Smoking Tobacco: Never Assessed Comments Unknown Sex and Gender Information Value Date Recorded Sex Assigned at Not on file Legal Sex Female 3:54 AM WORKING FOREMAN Gender Identity Not on file Sexual Orientation Not on file documented as of this encounter Plan of Treatment Upcoming Encounters Date Type Department Care Team (Late st Contact Info) Description 06/03/2024 12:30 PM CDT Hospital Encounter [facility] [address] [place] [phone] Mariaa Diego MD [address] [place] [phone] 06/03/2024 1:20 PM CDT Office Visit [facility] Oncology and Hematology [address] [place] [phone] Mariaa Diego MD [address] [place] [phone] Pippa Dang NP [address] [place] [address] 06/03/2024 1:45 PM CDT Hospital Encounter [facility] [address] [place] [phone] Mariaa Diego MD [address] [place] [phone] 16, Mob documented as of this encounter Visit Diagnoses Diagnosis Excessive or frequent menstruation- Primary Malignant neoplasm of upper-outer quadrant of [...] Pathogen 04/02/2024 04/02/2024 04/02/2024 1 :44 PM WORKING FOREMAN R/O Respiratory 05/13/2024 05/13/2024 05/13/2024 1 1:33 PM CDT R/O C. diff 05/14/2024 05/14/2024 05/14/2024 10:0 6 AM CDT R/O C. diff 05/14/2024 05/14/2024 05/15/2024 1:01 PM CDT documented as of this encounter Care Teams Machined Parts Metal Sprayer Relationship Specialty Start Date End Date Jase Bryson MD PCP - General Family Practice 05/06/19 documented as of this encounter
--- OUTSIDE RECORDS SUMMARY | 2024-06-02 16:21 | XMS_ITS | Encounter Summary ---
Author Organization [facility] Address [address] [place] [address] Care Team Providers Care Hand Quilter Name Role Phone Jase Bryson MD Primary Care Provider Encounter Details Date Type Department Care Team (Late Contact Info) Description 01/27/2006 Outpatient Historical [facility] Maternal and Ground Floor S [facility] [address] [place] [address] Ebonie Valle MD [address] [place] [address] Social History Tobacco Use Types Packs/Day Years Used Date Smoking Tobacco: Never Assessed Comments Unknown Sex and Gender Information Value Date Recorded Sex Assigned at Not on file Legal Sex Female 3:54 AM RESEARCH SUPPORT SPECIALIST Gender Identity Not on file Sexual Orientation Not on file documented as of this encounter Plan of Treatment Upcoming Encounters Date Type Department Care Team (Late Contact Info) Description 06/03/2024 12:30 PM CDT Hospital Encounter [facility] [address] [place] [phone] Mariaa Diego MD [address] [place] [phone] 06/03/2024 1:20 PM CDT Office Visit [facility] Oncology and Hematology [address] [place] [phone] Mariaa Diego MD [address] [place] [phone] Pippa Dang NP [address] [place] [address] 06/03/2024 1:45 PM CDT Hospital Encounter [facility] [address] [place] [phone] Mariaa Diego MD [address] [place] [phone] 16, Mob documented as of this encounter Visit Diagnoses Not on filedocumented in this encounter Additional Health Concerns Infection Onset Date Last Indicated Resolved Time R/O COVID-19 05/27/2019 05/27/2019 05/29/2019 10:2 0 AM CDT R/O COVID-19 11/30/2023 11/30/2023 11/30/2023 6:52 PM CDT R/O Respiratory 11/30/2023 11/30/2023 12/01/2023 2 :21 PM CDT R/O GI Pathogen 04/02/2024 04/02/2024 04/02/2024 1 :44 PM RESEARCH SUPPORT SPECIALIST R/O Respiratory 05/13/2024 05/13/2024 05/13/2024 1 1:33 PM CDT R/O C. diff 05/14/2024 05/14/2024 05/14/2024 10:0 6 AM CDT R/O C. diff 05/14/2024 05/14/2024 05/15/2024 1:01 PM CDT documented as of this encounter Care Teams Hand Quilter Relationship Specialty Start Date End Date Jase Bryson MD PCP - General Family Practice 05/06/19 documented as of this encounter
--- OUTSIDE RECORDS SUMMARY | 2024-06-02 16:21 | XMS_ITS | Encounter Summary ---
Author Organization [facility] Address [address] [place] [address] Care Team Providers Care Salary And Wage Administrator Name Role Phone Jase Bryson MD Primary Care Provider Encounter Details Date Type Department Care Team (Latest Contact Info) Description 09/21/2004 Outpatient Historical [facility] Supa Galindo MD NO ADDRESS ON FILE OTHER ORTHOPEDIC AFTERCARE (Primary Dx) Social History Tobacco Use Types Packs/Day Years Used Date Smoking Tobacco: Never Assessed Comments Unknown Sex and Gender Information Value Date Recorded Sex Assigned at Not on file Legal Sex Female 3:54 AM GAS SHOVEL OPERATOR Gender Identity Not on file Sexual Orientation Not on file documented as of this encounter Plan of Treatment Upcoming Encounters Date Type Department Care Team (Late st Contact Info) Description 06/03/2024 12:30 PM CDT Hospital Encounter [facility] [address] [place] [address] Mariaa Diego MD [address] [place] [phone] 06/03/2024 1:20 PM CDT Office Visit [facility] Oncology and Hematology [address] [place] [phone] Mariaa Diego MD [address] [place] [address] Pippa Dang, DUONG [address] [place] [address] 06/03/2024 1:45 PM CDT Hospital Encounter [facility] [address] [place] [address] Mariaa Diego MD [address] [place] [phone] 16, Mob documented as of this encounter Visit Diagnoses Diagnosis Other orthopedic aftercare(V54.89)- Primary Other orthopedic aftercare 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 diff 05/14/2024 05/14/2024 05/14/2024 10:0 6 AM CDT R/O C. diff 05/14/2024 05/14/2024 05/15/2024 1:01 PM CDT documented as of this encounter Care Teams Salary And Wage Administrator Relationship Specialty Start Date End Date Jase Bryson MD PCP - General Family Practice 05/06/19 documented as of this encounter
--- OUTSIDE RECORDS SUMMARY | 2024-06-02 16:21 | XMS_ITS | Encounter Summary ---
Author Organization [facility] Address [address] [place] [address] Care Team Providers Care Mailroom Associate Name Role Phone Jase Bryson MD Primary Care Provider Encounter Details Date Type Department Care Team (Late st Contact Info) Description 03/10/2005 [facility]patient [facility] Speedy Simons MD [address] [facility] [address] [place] [address] JOINT PAIN-ANKLE (Primary Dx) Social History Tobacco Use Types Packs/Day Years Used Date Smoking Tobacco: Never Assessed Comments Unknown Sex and Gender Information Value Date Recorded Sex Assigned at Not on file Legal Sex Female 3:54 AM INDUSTRIAL BOILERMAKER Gender Identity Not on file Sexual Orientation Not on file documented as of this encounter Plan of Treatment Upcoming Encounters Date Type Department Care Team (Late st Contact Info) Description 06/03/2024 12:30 PM CDT Hospital Encounter [facility] [address] [place] [phone] Mariaa Diego MD [address] [place] [phone] 06/03/2024 1:20 PM CDT Office Visit [facility] Oncology and Hematology [address] [place] [phone] Mariaa Diego MD [address] [place] [phone] Pippa Dang NP [address] [place] [phone] 06/03/2024 1:45 PM CDT Hospital Encounter [facility] [address] [place] [phone] Mariaa Diego MD [address] [place] [phone] 16, Mob documented as of this encounter Visit Diagnoses Diagnosis Pain in joint, ankle and foot- Primary Malignant neoplasm of upper-outer quadrant of [...] Pathogen 04/02/2024 04/02/2024 04/02/2024 1 :44 PM INDUSTRIAL BOILERMAKER R/O Respiratory 05/13/2024 05/13/2024 05/13/2024 1 1:33 PM CDT R/O C. diff 05/14/2024 05/14/2024 05/14/2024 10:0 6 AM CDT R/O C. diff 05/14/2024 05/14/2024 05/15/2024 1:01 PM CDT documented as of this encounter Care Teams Mailroom Associate Relationship Specialty Start Date End Date Jase Bryson MD PCP - General Family Practice 05/06/19 documented as of this encounter
--- OUTSIDE RECORDS SUMMARY | 2024-06-02 16:21 | XMS_ITS | Encounter Summary ---
Author Organization [facility] Address [address] [place] [address] Care Team Providers Care Tank Farm Gauger Name Role Phone Jase Bryson MD Primary Care Provider Encounter Details Date Type Department Care Team (Latest Contact Info) Description 02/17/2005 Outpatient Historical [facility] Eder Ordonez PALPITATIONS (Primary Dx) Social History Tobacco Use Types Packs/Day Years Used Date Smoking Tobacco: Never Assessed Comments Unknown Sex and Gender Information Value Date Recorded Sex Assigned at Not on file Legal Sex Female 3:54 AM COMMUNICATION STUDIES PROFESSOR Gender Identity Not on file Sexual Orientation Not on file documented as of this encounter Plan of Treatment Upcoming Encounters Date Type Department Care Team (Late st Contact Info) Description 06/03/2024 12:30 PM CDT Hospital Encounter [facility] [address] [place] [address] Mariaa Diego MD [address] [place] [phone] 06/03/2024 1:20 PM CDT Office Visit [facility] Oncology and Hematology [address] [place] [address] Mariaa Diego MD [address] [place] [address] Pippa Dang, DUONG [address] [place] [address] 06/03/2024 1:45 PM CDT Hospital Encounter [facility] [address] [place] [address] Mariaa Diego MD [address] [place] [address] 16, Mob documented as of this encounter Visit Diagnoses Diagnosis Palpitations- Primary Malignant neoplasm of upper-outer quadrant of [...] Pathogen 04/02/2024 04/02/2024 04/02/2024 1 :44 PM COMMUNICATION STUDIES PROFESSOR R/O Respiratory 05/13/2024 05/13/2024 05/13/2024 1 1:33 PM CDT R/O C. diff 05/14/2024 05/14/2024 05/14/2024 10:0 6 AM CDT R/O C. diff 05/14/2024 05/14/2024 05/15/2024 1:01 PM CDT documented as of this encounter Care Teams Tank Farm Gauger Relationship Specialty Start Date End Date Jase Bryson MD PCP - General Family Practice 05/06/19 documented as of this encounter
--- OUTSIDE RECORDS SUMMARY | 2024-06-02 16:21 | XMS_ITS | Encounter Summary ---
Author Organization [facility] Address [address] [place] [address] Care Team Providers Care Siderographer Name Role Phone Jase Bryson MD Primary Care Provider Encounter Details Date Type Department Care Team (Latest Contact Info) Description 03/10/2005 Outpatient Historical [facility] Speedy Conn MD [address] [place] [address] ACQ ANKLE-FOOT DEF NEC (Primary Dx) Social History Tobacco Use Types Packs/Day Years Used Date Smoking Tobacco: Never Assessed Comments Unknown Sex and Gender Information Value Date Recorded Sex Assigned at Not on file Legal Sex Female 3:54 AM BRAKE SPECIALIST Gender Identity Not on file Sexual [...] [id number] 06/03/2024 1:20 PM CDT Office Visit [facility] Oncology and Hematology [address] [place] [address] Mariaa Diego MD [address] [place] [address] Pippa Dang NP [address] [place] [address] 06/03/2024 1:45 PM CDT Hospital Encounter [facility] [address] [place] [address] Mariaa Diego MD [address] [place] [address] 16, Mob documented as of this encounter Visit Diagnoses Diagnosis Other acquired deformity of ankle and foot(736.79)- Primary Other acquired deformity of ankle and foot 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 diff 05/14/2024 05/14/2024 05/14/2024 10:0 6 AM CDT R/O C. diff 05/14/2024 05/14/2024 05/15/2024 1:01 PM CDT documented as of this encounter Care Teams Siderographer Relationship Specialty Start Date End Date Jase Bryson MD PCP - General Family Practice 05/06/19 documented as of this encounter
--- OUTSIDE RECORDS SUMMARY | 2024-06-02 16:21 | XMS_ITS | Encounter Summary ---
Author Organization [facility] Address [address] [place] [address] Care Team Providers Care Textile Knitter Name Role Phone Jase Bryson MD Primary Care Provider Encounter Details Date Type Department Care Team (Late st Contact Info) Description 07/08/2004 Outpatient Historical [facility] Miryam Perales MD Social History Tobacco Use Types Packs/Day Years Used Date Smoking Tobacco: Never Assessed Comments Unknown Sex and Gender Information Value Date Recorded Sex Assigned at Not on file Legal Sex Female 3:54 AM DIRECTOR OF INDIVIDUAL GIVING Gender Identity Not on file Sexual Orientation Not on file documented as of this encounter Plan of Treatment Upcoming Encounters Date Type Department Care Team (Late st Contact Info) Description 06/03/2024 12:30 PM CDT Hospital Encounter [facility] [address] [place] [address] Mariaa Diego MD [address] [place] [phone] 06/03/2024 1:20 PM CDT Office Visit [facility] Oncology and Hematology [address] [place] [address] Mariaa Diego MD [address] [place] [address] Pippa Dang NP [address] [place] [phone] 06/03/2024 1:45 PM CDT Hospital Encounter [facility] [address] [...] Pathogen 04/02/2024 04/02/2024 04/02/2024 1 :44 PM DIRECTOR OF INDIVIDUAL GIVING R/O Respiratory 05/13/2024 05/13/2024 05/13/2024 1 1:33 PM CDT R/O C. diff 05/14/2024 05/14/2024 05/14/2024 10:0 6 AM CDT R/O C. diff 05/14/2024 05/14/2024 05/15/2024 1:01 PM CDT documented as of this encounter Care Teams Textile Knitter Relationship Specialty Start Date End Date Jase Bryson MD PCP - General Family Practice 05/06/19 documented as of this encounter
--- OUTSIDE RECORDS SUMMARY | 2024-06-02 16:21 | XMS_ITS | Encounter Summary ---
Author Organization [facility] Address [address] [place] [address] Care Team Providers Care Adjunct Political Science Instructor Name Role Phone Jase Bryson MD Primary Care Provider Encounter Details Date Type Department Care Team (Late Contact Info) Description 09/06/2005 Outpatient Historical [facility] [address] Cam Vásquez MD [address] [place] [address] Social History Tobacco Use Types Packs/Day Years Used Date Smoking Tobacco: Never Assessed Comments Unknown Sex and Gender Information Value Date Recorded Sex Assigned at Not on file Legal Sex Female 3:54 AM EXECUTIVE WELLNESS PROGRAMS DIRECTOR Gender Identity Not on file Sexual Orientation Not on file documented as of this encounter Plan of Treatment Upcoming Encounters Date Type Department Care Team (Late Contact Info) Description 06/03/2024 12:30 PM CDT Hospital Encounter [facility] [address] [place] [address] Mariaa Diego MD [address] [place] [phone] 06/03/2024 1:20 PM CDT Office Visit [facility] Oncology and Hematology [address] [place] [address] Mariaa Diego MD [address] [place] [address] Pippa Dang NP [address] [place] [address] 06/03/2024 1:45 PM CDT Hospital Encounter [facility] [address] [...] Pathogen 04/02/2024 04/02/2024 04/02/2024 1 :44 PM EXECUTIVE WELLNESS PROGRAMS DIRECTOR R/O Respiratory 05/13/2024 05/13/2024 05/13/2024 1 1:33 PM CDT R/O C. diff 05/14/2024 05/14/2024 05/14/2024 10:0 6 AM CDT R/O C. diff 05/14/2024 05/14/2024 05/15/2024 1:01 PM CDT documented as of this encounter Care Teams Adjunct Political Science Instructor Relationship Specialty Start Date End Date Jase Bryson MD PCP - General Family Practice 05/06/19 documented as of this encounter
--- OUTSIDE RECORDS SUMMARY | 2024-06-02 16:21 | XMS_ITS | Encounter Summary ---
Author Organization [facility] Address [address] [place] [address] Care Team Providers Care Space Physicist Name Role Phone Jase Bryson MD Primary Care Provider Encounter Details Date Type Department Care Team (Late st Contact Info) Description 11/04/2004 Outpatient Historical [facility] Speedy Simons MD [address] [place] [phone] DEPRESSIVE DISORDER NEC (Primary Dx) Social History Tobacco Use Types Packs/Day Years Used Date Smoking Tobacco: Never Assessed Comments Unknown Sex and Gender Information Value Date Recorded Sex Assigned at Not on file Legal Sex Female 3:54 AM ASSOCIATE RESEARCH SCIENTIST Gender Identity Not on file Sexual Orientation Not on file documented as of this encounter Plan of Treatment Upcoming Encounters Date Type Department Care Team (Late st Contact Info) Description 06/03/2024 12:30 PM CDT Hospital Encounter [facility] [address] [place] [address] Mariaa Diego MD [address] [place] [phone] 06/03/2024 1:20 PM CDT Office Visit [facility] Oncology and Hematology [address] [place] [address] Mariaa Diego MD [address] [place] [address] Pippa Dang NP [address] [place] [address] 06/03/2024 1:45 PM CDT Hospital Encounter [facility] [address] Patients [...] Pathogen 04/02/2024 04/02/2024 04/02/2024 1 :44 PM ASSOCIATE RESEARCH SCIENTIST R/O Respiratory 05/13/2024 05/13/2024 05/13/2024 1 1:33 PM CDT R/O C. diff 05/14/2024 05/14/2024 05/14/2024 10:0 6 AM CDT R/O C. diff 05/14/2024 05/14/2024 05/15/2024 1:01 PM CDT documented as of this encounter Care Teams Space Physicist Relationship Specialty Start Date End Date Jase Bryson MD PCP - General Family Practice 05/06/19 documented as of this encounter
--- OUTSIDE RECORDS SUMMARY | 2024-06-02 16:21 | XMS_ITS | Encounter Summary ---
Author Organization [facility] Address [address] [place] [address] Care Team Providers Care Pattern Chart Writer Name Role Phone Jase Bryson MD Primary Care Provider Encounter Details Date Type Department Care Team (Late st Contact Info) Description 02/17/2005 Outpatient Historical [facility]) [address] [place] [place] [id number] Otilio Rosario MD NO ADDRESS ON FILE Social History Tobacco Use Types Packs/Day Years Used Date Smoking Tobacco: Never Assessed Comments Unknown Sex and Gender Information Value Date Recorded Sex Assigned at Not on file Legal Sex Female 3:54 AM DIRECTORY COMPILER Gender Identity Not on file Sexual Orientation Not on file documented as of this encounter Plan of Treatment Upcoming Encounters Date Type Department Care Team (Late Contact Info) Description 06/03/2024 12:30 PM CDT Hospital Encounter [facility] [address] [place] [address] Mariaa Diego MD [address] [place] [address] 06/03/2024 1:20 PM CDT Office Visit [facility] Oncology and Hematology [address] [place] [address] Mariaa Diego MD [address] [place] [phone] Pippa Dang NP [address] [place] [address] 06/03/2024 1:45 PM CDT Hospital Encounter [facility] [address] 901 [...] Pathogen 04/02/2024 04/02/2024 04/02/2024 1 :44 PM DIRECTORY COMPILER R/O Respiratory 05/13/2024 05/13/2024 05/13/2024 1 1:33 PM CDT R/O C. diff 05/14/2024 05/14/2024 05/14/2024 10:0 6 AM CDT R/O C. diff 05/14/2024 05/14/2024 05/15/2024 1:01 PM CDT documented as of this encounter Care Teams Pattern Chart Writer Relationship Specialty Start Date End Date Jase Bryson MD PCP - General Family Practice 05/06/19 documented as of this encounter
--- OUTSIDE RECORDS SUMMARY | 2024-06-02 16:21 | XMS_ITS | Encounter Summary ---
Author Organization [facility] Address [address] [place] [address] Care Team Providers Care Interactive Web Developer Name Role Phone Jase Bryson MD Primary Care Provider Encounter Details Date Type Department Care Team (Latest Contact Info) Description 07/08/2004 Outpatient Historical HIS [email or web address] Miryam Perales MD CHRONIC SINUSITIS NOS (Primary Dx) Social History Tobacco Use Types Packs/Day Years Used Date Smoking Tobacco: Never Assessed Comments Unknown Sex and Gender Information Value Date Recorded Sex Assigned at Not on file Legal Sex Female 3:54 AM TAP PULLER Gender Identity Not on file Sexual Orientation [...] [id number] 06/03/2024 1:20 PM CDT Office Visit [facility] Oncology and Hematology [address] [place] [address] Mariaa Diego MD [address] [place] [address] Pippa Dang, DUONG [address] [place] [address] 06/03/2024 1:45 PM CDT Hospital Encounter [facility] [address] [place] [address] Mariaa Diego MD [address] [place] [address] 16, Mob documented as of this encounter Visit Diagnoses Diagnosis Unspecified sinusitis (chronic)- Primary Malignant neoplasm of upper-outer quadrant of [...] Pathogen 04/02/2024 04/02/2024 04/02/2024 1 :44 PM TAP PULLER R/O Respiratory 05/13/2024 05/13/2024 05/13/2024 1 1:33 PM CDT R/O C. diff 05/14/2024 05/14/2024 05/14/2024 10:0 6 AM CDT R/O C. diff 05/14/2024 05/14/2024 05/15/2024 1:01 PM CDT documented as of this encounter Care Teams Interactive Web Developer Relationship Specialty Start Date End Date Jase Bryson MD PCP - General Family Practice 05/06/19 documented as of this encounter
--- OUTSIDE RECORDS SUMMARY | 2024-06-02 16:21 | XMS_ITS | Encounter Summary ---
Author Organization [facility] Address [address] [place] [address] Care Team Providers Care Hogshead Builder Name Role Phone Jase Bryson MD Primary Care Provider Encounter Details Date Type Department Care Team (Late Contact Info) Description 08/05/2006 Outpatient Historical [facility] Denis Bucnker MD [address] [phone] Insertion of Intrauterine Contraceptive Device (Primary Dx) Social History Tobacco Use Types Packs/Day Years Used Date Smoking Tobacco: Never Assessed Comments Unknown Sex and Gender Information Value Date Recorded Sex Assigned at Not on file Legal Sex Female 3:54 AM DISTRIBUTION CENTER SUPERVISOR Gender Identity Not on file Sexual Orientation Not on file documented as of this encounter Plan of Treatment Upcoming Encounters Date Type Department Care Team (Late Contact Info) Description 06/03/2024 12:30 PM CDT Hospital Encounter [facility] [address] [place] [address] Mariaa Diego MD [address] [place] [phone] 06/03/2024 1:20 PM CDT [facility] Oncology and Hematology [address] [place] [address] Mariaa Diego MD [address] [place] [address] Pippa Dang NP [address] [place] [address] 06/03/2024 1:45 PM CDT Hospital Encounter [facility] [address] [place] [address] Mariaa Diego MD [address] [place] [address] 16, Mob documented as of this encounter Visit Diagnoses Diagnosis Encounter for insertion or removal of intrauterine contraceptive device- Primary Malignant neoplasm of upper-outer quadrant of [...] Pathogen 04/02/2024 04/02/2024 04/02/2024 1 :44 PM DISTRIBUTION CENTER SUPERVISOR R/O Respiratory 05/13/2024 05/13/2024 05/13/2024 1 1:33 PM CDT R/O C. diff 05/14/2024 05/14/2024 05/14/2024 10:0 6 AM CDT R/O C. diff 05/14/2024 05/14/2024 05/15/2024 1:01 PM CDT documented as of this encounter Care Teams Hogshead Builder Relationship Specialty Start Date End Date Jase Bryson MD PCP - General Family Practice 05/06/19 documented as of this encounter
--- OUTSIDE RECORDS SUMMARY | 2024-06-02 16:21 | XMS_ITS | Encounter Summary ---
Author Organization [facility] Address [address] [place] [address] Care Team Providers Care Vice Provost Name Role Phone Jase Bryson MD Primary Care Provider Encounter Details Date Type Department Care Team (Late st Contact Info) Description 05/19/2005 Outpatient Historical HIS [facility] Speedy Simons MD [address] [facility] [address] [place] [place] [address] Depressive Disorder, not Elsewhere Classified (Primary Dx) Social History Tobacco Use Types Packs/Day Years Used Date Smoking Tobacco: Never Assessed Comments Unknown Sex and Gender Information Value Date Recorded Sex Assigned at Not on file Legal Sex Female 3:54 AM SHOP ROUTER Gender Identity Not on file Sexual Orientation Not on file documented as of this encounter Plan of Treatment Upcoming Encounters Date Type Department Care Team (Late st Contact Info) Description 06/03/2024 12:30 PM CDT Hospital Encounter [facility] [address] Patients [...] [id number] 06/03/2024 1:45 PM CDT Hospital Encounter [facility] [address] Patients [...] Pathogen 04/02/2024 04/02/2024 04/02/2024 1 :44 PM SHOP ROUTER R/O Respiratory 05/13/2024 05/13/2024 05/13/2024 1 1:33 PM CDT R/O C. diff 05/14/2024 05/14/2024 05/14/2024 10:0 6 AM CDT R/O C. diff 05/14/2024 05/14/2024 05/15/2024 1:01 PM CDT documented as of this encounter Care Teams Vice Provost Relationship Specialty Start Date End Date Jase Bryson MD PCP - General Family Practice 05/06/19 documented as of this encounter
--- OUTSIDE RECORDS SUMMARY | 2024-06-02 16:21 | XMS_ITS | Encounter Summary ---
Author Organization [facility] Address [address] [facility] Attn: Epic Prelude ADT [place] [address] Care Team Providers Care Discharge Planner Name Role Phone Jase Bryson MD Primary Care Provider Encounter Details Date Type Department Care Team (Latest Contact Info) Description 10/25/2005 Orders Only Sarai Benitez Social History Tobacco Use Types Packs/Day Years Used Date Smoking Tobacco: Never Assessed Comments Unknown Sex and Gender Information Value Date Recorded Sex Assigned at Not on file Legal Sex Female 3:54 AM SHEET HANGER Gender Identity Not on file Sexual Orientation Not on file documented as of this encounter Plan of Treatment Upcoming Encounters Date Type Department Care Team (Late st Contact Info) Description 06/03/2024 12:30 PM CDT Hospital Encounter [facility] [address] [place] [address] Mariaa Diego MD [address] [place] [phone] 06/03/2024 1:20 PM CDT Office Visit [facility] Oncology and Hematology [address] [place] [address] Mariaa Diego MD [address] [place] [address] Pippa Dang, DUONG [address] [place] [phone] 06/03/2024 1:45 PM CDT Hospital Encounter [facility] [address] 901 [...] Pathogen 04/02/2024 04/02/2024 04/02/2024 1 :44 PM SHEET HANGER R/O Respiratory 05/13/2024 05/13/2024 05/13/2024 1 1:33 PM CDT R/O C. diff 05/14/2024 05/14/2024 05/14/2024 10:0 6 AM CDT R/O C. diff 05/14/2024 05/14/2024 05/15/2024 1:01 PM CDT documented as of this encounter Care Teams Discharge Planner Relationship Specialty Start Date End Date Jase Bryson MD PCP - General Family Practice 05/06/19 documented as of this encounter
--- OUTSIDE RECORDS SUMMARY | 2024-06-02 16:21 | XMS_ITS | Encounter Summary ---
Author Organization [facility] Address [address] [place] [address] Care Team Providers Care Watch Hairspring Assembler Name Role Phone Jase Bryson MD Primary Care Provider Encounter Details Date Type Department Care Team (Late st Contact Info) Description 06/30/2005 Outpatient Historical [facility] Jose Sullivan MD [address] [place] [address] Depressive Disorder, not Elsewhere Classified (Primary Dx) Social History Tobacco Use Types Packs/Day Years Used Date Smoking Tobacco: Never Assessed Comments Unknown Sex and Gender Information Value Date Recorded Sex Assigned at Not on file Legal Sex Female 3:54 AM PHOTOTYPESETTING EQUIPMENT MONITOR Gender Identity Not on file Sexual Orientation Not on file documented as of this encounter Plan of Treatment Upcoming Encounters Date Type Department Care Team (Late st Contact Info) Description 06/03/2024 12:30 PM CDT Hospital Encounter [facility] [address] [place] [address] Mariaa Digeo MD [address] [place] [phone] 06/03/2024 1:20 PM CDT Office Visit [facility] Oncology and Hematology [address] [...] Pathogen 04/02/2024 04/02/2024 04/02/2024 1 :44 PM PHOTOTYPESETTING EQUIPMENT MONITOR R/O Respiratory 05/13/2024 05/13/2024 05/13/2024 1 1:33 PM CDT R/O C. diff 05/14/2024 05/14/2024 05/14/2024 10:0 6 AM CDT R/O C. diff 05/14/2024 05/14/2024 05/15/2024 1:01 PM CDT documented as of this encounter Care Teams Watch Hairspring Assembler Relationship Specialty Start Date End Date Jase Bryson MD PCP - General Family Practice 05/06/19 documented as of this encounter
--- OUTSIDE RECORDS SUMMARY | 2024-06-02 16:21 | XMS_ITS | Encounter Summary ---
Author Organization [facility] Address [address] [place] [address] Care Team Providers Care Levi Maker Name Role Phone Jase Bryson MD Primary Care Provider Encounter Details Date Type Department Care Team (Late st Contact Info) Description 04/01/2006 Outpatient Historical [facility] Denis Buckner MD [address] [address] Social History Tobacco Use Types Packs/Day Years Used Date Smoking Tobacco: Never Assessed Comments Unknown Sex and Gender Information Value Date Recorded Sex Assigned at Not on file Legal Sex Female 3:54 AM GLASS BREAKER Gender Identity Not on file Sexual Orientation [...] [id number] 06/03/2024 1:20 PM CDT Office Visit [facility] Oncology and Hematology [address] [place] [address] Mariaa Diego MD [address] [place] [phone] Pippa Dang NP [address] [place] [address] 06/03/2024 1:45 PM CDT Hospital Encounter [...] 04/02/2024 04/02/2024 04/02/2024 1 :44 PM GLASS BREAKER R/O Respiratory 05/13/2024 05/13/2024 05/13/2024 1 1:33 PM CDT R/O C. diff 05/14/2024 05/14/2024 05/14/2024 10:0 6 AM CDT R/O C. diff 05/14/2024 05/14/2024 05/15/2024 1:01 PM CDT documented as of this encounter Care Teams Levi Maker Relationship Specialty Start Date End Date Jase Bryson MD PCP - General Family Practice 05/06/19 documented as of this encounter
--- OUTSIDE RECORDS SUMMARY | 2024-06-02 16:21 | XMS_ITS | Encounter Summary ---
Author Organization [facility] Address [address] [place] [address] Care Team Providers Care Glue Specialty Supervisor Name Role Phone Jase Bryson MD Primary Care Provider Encounter Details Date Type Department Care Team (Latest Contact Info) Description 08/14/2006 Outpatient Historical [facility] Denis Buckner MD [address] [phone] IUD Surveillance (Primary Dx) Social History Tobacco Use Types Packs/Day Years Used Date Smoking Tobacco: Never Assessed Comments Unknown Sex and Gender Information Value Date Recorded Sex Assigned at Not on file Legal Sex Female 3:54 AM LIVING COACH Gender Identity Not on file Sexual Orientation [...] 1:20 PM CDT Office Visit [facility] Oncology and Hematology [address] [...] this encounter Visit Diagnoses Diagnosis Surveillance of previously prescribed intrauterine contraceptive device- Primary Malignant neoplasm of [...] Pathogen 04/02/2024 04/02/2024 04/02/2024 1 :44 PM LIVING COACH R/O Respiratory 05/13/2024 05/13/2024 05/13/2024 1 1:33 PM CDT R/O C. diff 05/14/2024 05/14/2024 05/14/2024 10:0 6 AM CDT R/O C. diff 05/14/2024 05/14/2024 05/15/2024 1:01 PM CDT documented as of this encounter Care Teams Glue Specialty Supervisor Relationship Specialty Start Date End Date Jase Bryson MD PCP - General Family Practice 05/06/19 documented as of this encounter
--- OUTSIDE RECORDS SUMMARY | 2024-06-02 16:21 | XMS_ITS | Encounter Summary ---
Author Organization [facility] Address [address] [place] [address] Care Team Providers Care Communication Coordinator Name Role Phone Jase Bryson MD Primary Care Provider Encounter Details Date Type Department Care Team (Latest Contact Info) Description 02/16/2005 Outpatient Historical [facility] Eder Ordonez PALPITATIONS (Primary Dx) Social History Tobacco Use Types Packs/Day Years Used Date Smoking Tobacco: Never Assessed Comments Unknown Sex and Gender Information Value Date Recorded Sex Assigned at Not on file Legal Sex Female 3:54 AM PATIENT TRANSPORT OFFICER Gender Identity Not on file Sexual Orientation Not on file documented as of this encounter Plan of Treatment Upcoming Encounters Date Type Department Care Team (Late st Contact Info) Description 06/03/2024 12:30 PM CDT Hospital Encounter [facility] [address] [place] [phone] Mariaa Diego MD [address] [place] [phone] 06/03/2024 1:20 PM CDT Office Visit [facility] Oncology and Hematology [address] [place] [phone] Mariaa Diego MD [address] [place] [address] Pippa Dang, ORTHO TECH [address] [place] [address] 06/03/2024 1:45 PM CDT Hospital Encounter [facility] [address] [...] Pathogen 04/02/2024 04/02/2024 04/02/2024 1 :44 PM PATIENT TRANSPORT OFFICER R/O Respiratory 05/13/2024 05/13/2024 05/13/2024 1 1:33 PM CDT R/O C. diff 05/14/2024 05/14/2024 05/14/2024 10:0 6 AM CDT R/O C. diff 05/14/2024 05/14/2024 05/15/2024 1:01 PM CDT documented as of this encounter Care Teams Communication Coordinator Relationship Specialty Start Date End Date Jase Bryson MD PCP - General Family Practice 05/06/19 documented as of this encounter
--- OUTSIDE RECORDS SUMMARY | 2024-06-02 16:21 | XMS_ITS | Encounter Summary ---
Author Organization [facility] Address [address] [place] [address] Care Team Providers Care Assistant Center Manager Name Role Phone Jase Bryson MD Primary Care Provider Encounter Details Date Type Department Care Team (Late st Contact Info) Description 09/03/2004 Outpatient Historical [facility] [address] [address] Celio Rubio MD [address] [place] [address] Social History Tobacco Use Types Packs/Day Years Used Date Smoking Tobacco: Never Assessed Comments Unknown Sex and Gender Information Value Date Recorded Sex Assigned at Not on file Legal Sex Female 3:54 AM MEDICATION COORDINATOR Gender Identity Not on file Sexual Orientation Not on file documented as of this encounter Plan of Treatment Upcoming Encounters Date Type Department Care Team (Late st Contact Info) Description 06/03/2024 12:30 PM CDT Hospital Encounter [facility] [address] [place] [phone] Mariaa Diego MD [address] [place] [phone] 06/03/2024 1:20 PM CDT Office Visit [facility] Oncology and Hematology [address] [place] [phone] Mariaa Diego MD [address] [place] [phone] Pippa Dang NP [address] [place] [id number] 06/03/2024 1:45 PM CDT Hospital Encounter [facility] [address] [place] [phone] Mariaa Diego MD [address] [place] [phone] 16, Mob documented as of this encounter Visit Diagnoses Not on filedocumented in this encounter Additional Health Concerns Infection Onset Date Last Indicated Resolved Time R/O COVID-19 05/27/2019 05/27/2019 05/29/2019 10:2 0 AM CDT R/O COVID-19 11/30/2023 11/30/2023 11/30/2023 6:52 PM CDT R/O Respiratory 11/30/2023 11/30/2023 12/01/2023 2 :21 PM CDT R/O GI Pathogen 04/02/2024 04/02/2024 04/02/2024 1 :44 PM MEDICATION COORDINATOR R/O Respiratory 05/13/2024 05/13/2024 05/13/2024 1 1:33 PM CDT R/O C. diff 05/14/2024 05/14/2024 05/14/2024 10:0 6 AM CDT R/O C. diff 05/14/2024 05/14/2024 05/15/2024 1:01 PM CDT documented as of this encounter Care Teams Assistant Center Manager Relationship Specialty Start Date End Date Jase Bryson MD PCP - General Family Practice 05/06/19 documented as of this encounter
--- OUTSIDE RECORDS SUMMARY | 2024-06-02 16:21 | XMS_ITS | Encounter Summary ---
Author Organization [facility] Address [address] [place] [address] Care Team Providers Care System Trainer Name Role Phone Jase Bryson MD Primary Care Provider Encounter Details Date Type Department Care Team (Latest Contact Info) Description 12/16/2004 Outpatient Historical HIS [facility] Speedy Conn MD [address] [place] [address] PALPITATIONS (Primary Dx) Social History Tobacco Use Types Packs/Day Years Used Date Smoking Tobacco: Never Assessed Comments Unknown Sex and Gender Information Value Date Recorded Sex Assigned at Not on file Legal Sex Female 3:54 AM DIRECTOR ADVERTISING Gender Identity Not on file Sexual Orientation Not on file documented as of this encounter Plan of Treatment Upcoming Encounters Date Type Department Care Team (Late st Contact Info) Description 06/03/2024 12:30 PM CDT Hospital Encounter [facility] [address] [place] [address] Mariaa Diego MD [address] [place] [address] 06/03/2024 1:20 PM CDT Office Visit [facility] Oncology and Hematology [address] [place] [address] Mariaa Diego MD [address] [place] [address] Pippa Dang NP [address] [place] [address] 06/03/2024 1:45 PM CDT Hospital Encounter [facility] [address] [place] [address] Mariaa Diego MD [address] [place] [address] 16, Mob documented as of this encounter Procedures Procedure Name Priority Date/Time Associated Diagnosis Comments TSH REFLEXIVE Routine 12/16/2004 10:00 AM CDT documented in this encounter Results * TSH REFLEXIVE (12/16/2004 10:00 AM CDT) TSH 2.01 0.27 - 4.20 uU/mL INTERFACE SYSTEM 12/16/2004 10:0 0 AM CDT Sarai Ward DO CHEMISTRY ORDERABLES F inal Result INTERFACE SYSTEM Refer to clinic/hospital department documented in this encounter Visit Diagnoses Diagnosis Palpitations- Primary [...] 04/02/2024 04/02/2024 04/02/2024 1 :44 PM DIRECTOR ADVERTISING R/O Respiratory 05/13/2024 05/13/2024 05/13/2024 1 1:33 PM CDT R/O C. diff 05/14/2024 05/14/2024 05/14/2024 10:0 6 AM CDT R/O C. diff 05/14/2024 05/14/2024 05/15/2024 1:01 PM CDT documented as of this encounter Care Teams System Trainer Relationship Specialty Start Date End Date Jase Bryson MD PCP - General Family Practice 05/06/19 documented as of this encounter
--- OUTSIDE RECORDS SUMMARY | 2024-06-02 16:21 | XMS_ITS | Encounter Summary ---
Author Organization [facility] Address [address] [place] [address] Care Team Providers Care Cold Rolling Coordinator Name Role Phone Jase Bryson MD Primary Care Provider Encounter Details Date Type Department Care Team (Late Contact Info) Description 05/19/2005 Outpatient Historical [facility] [address] 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 [address] [place] [address] Mariaa Diego MD [address] [place] [phone] 06/03/2024 1:20 PM CDT Office Visit [facility] Oncology and Hematology [address] [place] [address] Mariaa Diego MD [address] [place] [phone] Pippa Dang NP [address] [place] [address] 06/03/2024 1:45 PM CDT Hospital Encounter [facility] [address] [place] [address] Mariaa Diego MD [address] [place] [phone] 16, Mob documented as of this encounter Visit Diagnoses Not on filedocumented in this encounter Additional Health Concerns Infection Onset Date Last Indicated Resolved Time R/O COVID-19 05/27/2019 05/27/2019 05/29/2019 10:2 0 AM CDT R/O COVID-19 11/30/2023 11/30/2023 11/30/2023 6:52 PM CDT R/O Respiratory 11/30/2023 11/30/2023 12/01/2023 2 :21 PM CDT R/O GI Pathogen 04/02/2024 04/02/2024 04/02/2024 1 :44 PM TIN WHIZ MACHINE OPERATOR R/O Respiratory 05/13/2024 05/13/2024 05/13/2024 1 1:33 PM CDT R/O C. diff 05/14/2024 05/14/2024 05/14/2024 10:0 6 AM CDT R/O C. diff 05/14/2024 05/14/2024 05/15/2024 1:01 PM CDT documented as of this encounter Care Teams Cold Rolling Coordinator Relationship Specialty Start Date End Date Jase Bryson MD PCP - General Family Practice 05/06/19 documented as of this encounter
--- OUTSIDE RECORDS SUMMARY | 2024-06-02 16:21 | XMS_ITS | Encounter Summary ---
Author Organization [facility] Address [address] [place] [address] Care Team Providers Care Medical Detailist Name Role Phone Jase Bryson MD Primary Care Provider Encounter Details Date Type Department Care Team (Late Contact Info) Description 09/14/2004 Outpatient Historical [facility] Cam V[facility]quez MD [address] [place] [phone] Social History Tobacco Use Types Packs/Day Years Used Date Smoking Tobacco: Never Assessed Comments Unknown Sex and Gender Information Value Date Recorded Sex Assigned at Not on file Legal Sex Female 3:54 AM RECEPTION AGENT Gender Identity Not on file Sexual Orientation Not on file documented as of this encounter Plan of Treatment Upcoming Encounters Date Type Department Care Team (Late Contact Info) Description 06/03/2024 12:30 PM CDT Hospital Encounter [facility] [address] [place] [phone] Mariaa Diego MD [address] [place] [phone] 06/03/2024 1:20 PM CDT Office Visit [facility] Oncology and Hematology [address] [place] [address] Mariaa Diego MD [address] [place] [phone] Pippa Dang NP [address] [place] [phone] 06/03/2024 1:45 PM CDT [facility] [...] Pathogen 04/02/2024 04/02/2024 04/02/2024 1 :44 PM RECEPTION AGENT R/O Respiratory 05/13/2024 05/13/2024 05/13/2024 1 1:33 PM CDT R/O C. diff 05/14/2024 05/14/2024 05/14/2024 10:0 6 AM CDT R/O C. diff 05/14/2024 05/14/2024 05/15/2024 1:01 PM CDT documented as of this encounter Care Teams Medical Detailist Relationship Specialty Start Date End Date Jase Bryson MD PCP - General Family Practice 05/06/19 documented as of this encounter
--- OUTSIDE RECORDS SUMMARY | 2024-06-02 16:21 | XMS_ITS | Encounter Summary ---
Author Organization [facility] Address [address] [place] [address] Care Team Providers Care Engineering Designer Name Role Phone Jase Bryson MD Primary Care Provider Encounter Details Date Type Department Care Team (Late Contact Info) Description 12/16/2004 Outpatient Historical [facility] [address] [facility] 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 [address] [place] [phone] Mariaa Diego MD [address] [place] [phone] 06/03/2024 1:20 PM CDT Office Visit [facility] Oncology and Hematology [address] [place] [phone] Mariaa Diego MD [address] [place] [phone] Pippa Dang NP [address] [place] [address] 06/03/2024 1:45 PM CDT Hospital Encounter [facility] [address] [place] [phone] Mariaa Diego MD [address] [place] [phone] 16, Mob documented as of this encounter Visit Diagnoses Not on filedocumented in this encounter Additional Health Concerns Infection Onset Date Last Indicated Resolved Time R/O COVID-19 05/27/2019 05/27/2019 05/29/2019 10:2 0 AM CDT R/O COVID-19 11/30/2023 11/30/2023 11/30/2023 6:52 PM CDT R/O Respiratory 11/30/2023 11/30/2023 12/01/2023 2 :21 PM CDT R/O GI Pathogen 04/02/2024 04/02/2024 04/02/2024 1 :44 PM SPIRAL WINDING MACHINE HELPER R/O Respiratory 05/13/2024 05/13/2024 05/13/2024 1 1:33 PM CDT R/O C. diff 05/14/2024 05/14/2024 05/14/2024 10:0 6 AM CDT R/O C. diff 05/14/2024 05/14/2024 05/15/2024 1:01 PM CDT documented as of this encounter Care Teams Engineering Designer Relationship Specialty Start Date End Date Jase Bryson MD PCP - General Family Practice 05/06/19 documented as of this encounter
--- OUTSIDE RECORDS SUMMARY | 2024-06-02 16:21 | XMS_ITS | Encounter Summary ---
Author Organization [facility] Address [address] [place] [address] Care Team Providers Care Shellfish Meat Separator Operator Name Role Phone Jase Bryson MD Primary Care Provider Encounter Details Date Type Department Care Team (Late st Contact Info) Description 08/28/2004 Outpatient Historical [facility] Mariia Modi MD [address] [place] [address] Er, Authorized P NO ADDRESS ON FILE FX PHALANX, FOOT-CLOSED (Primary Dx) Social History Tobacco Use Types Packs/Day Years Used Date Smoking Tobacco: Never Assessed Comments Unknown Sex and Gender Information Value Date Recorded Sex Assigned at Not on file Legal Sex Female 3:54 AM FARM INSTRUCTOR Gender Identity Not on file Sexual Orientation Not on file documented as of this encounter Plan of Treatment Upcoming Encounters Date Type Department Care Team (Late st Contact Info) Description 06/03/2024 12:30 PM CDT Hospital Encounter [facility] [address] [place] [phone] Mariaa Diego MD [address] [place] [phone] 06/03/2024 1:20 PM CDT Office Visit [facility] Oncology and Hematology [address] [place] [phone] Mariaa Diego MD [address] [place] [phone] Pippa Dang NP [address] [place] [phone] 06/03/2024 1:45 PM CDT Hospital Encounter [facility] [address] [place] [phone] Mariaa Diego MD [address] [place] [phone] 16, Mob documented as of this encounter Visit Diagnoses Diagnosis Closed fracture of one or more phalanges of foot- Primary Malignant neoplasm of upper-outer quadrant [...] Pathogen 04/02/2024 04/02/2024 04/02/2024 1 :44 PM FARM INSTRUCTOR R/O Respiratory 05/13/2024 05/13/2024 05/13/2024 1 1:33 PM CDT R/O C. diff 05/14/2024 05/14/2024 05/14/2024 10:0 6 AM CDT R/O C. diff 05/14/2024 05/14/2024 05/15/2024 1:01 PM CDT documented as of this encounter Care Teams Shellfish Meat Separator Operator Relationship Specialty Start Date End Date Jase Bryson MD PCP - General Family Practice 05/06/19 documented as of this encounter
--- OUTSIDE RECORDS SUMMARY | 2024-06-02 16:21 | XMS_ITS | Encounter Summary ---
Author Organization [facility] Address [address] [place] [address] Care Team Providers Care Engine Repairer Name Role Phone Jase Bryson MD Primary Care Provider Encounter Details Date Type Department Care Team (Latest Contact Info) Description 09/21/2004 Outpatient Historical [facility] Cam Vásquez MD [address] [place] [phone] ROUTINE SUPERVISOR BEEHIVE KILN EXAMINATION (Primary Dx) Social History Tobacco Use Types Packs/Day Years Used Date Smoking Tobacco: Never Assessed Comments Unknown Sex and Gender Information Value Date Recorded Sex Assigned at Not on file Legal Sex Female 3:54 AM ANIMAL ASSISTANT Gender Identity Not on file Sexual Orientation Not on file documented as of this encounter Plan of Treatment Upcoming Encounters Date Type Department Care Team (Late st Contact Info) Description 06/03/2024 12:30 PM CDT Hospital Encounter [facility] [address] [place] [phone] Mariaa Diego MD [address] [place] [phone] 06/03/2024 1:20 PM CDT Office Visit [facility] Oncology and Hematology [address] [place] [phone] Mariaa Diego MD [address] [place] [phone] Pippa Dang NP [address] [place] [phone] 06/03/2024 1:45 PM CDT Hospital Encounter [facility] [address] [place] [phone] Mariaa Diego MD [address] [place] [phone] 16, Mob documented as of this encounter Visit Diagnoses Diagnosis Routine gynecological examination- Primary Malignant neoplasm of upper-outer quadrant of [...] Pathogen 04/02/2024 04/02/2024 04/02/2024 1 :44 PM ANIMAL ASSISTANT R/O Respiratory 05/13/2024 05/13/2024 05/13/2024 1 1:33 PM CDT R/O C. diff 05/14/2024 05/14/2024 05/14/2024 10:0 6 AM CDT R/O C. diff 05/14/2024 05/14/2024 05/15/2024 1:01 PM CDT documented as of this encounter Care Teams Engine Repairer Relationship Specialty Start Date End Date Jase Bryson MD PCP - General Family Practice 05/06/19 documented as of this encounter
--- OUTSIDE RECORDS SUMMARY | 2024-06-02 16:21 | XMS_ITS | Encounter Summary ---
Author Organization [facility] Address [address] [place] [address] Care Team Providers Care Media Reconciliation Specialist Name Role Phone Jase Bryson MD Primary Care Provider Encounter Details Date Type Department Care Team (Latest Contact Info) Description 08/18/2006 Inpatient Historical [facility] Jefe Posey MD [address] [facility] [address] [place] [address] Mechanical Complication due to Intrauterine Contraceptive Device (Primary Dx) Social History Tobacco Use Types Packs/Day Years Used Date Smoking Tobacco: Never Assessed Comments Unknown Sex and Gender Information Value Date Recorded Sex Assigned at Not on file Legal Sex Female 3:54 AM 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 MIXER Gender Identity Not on file Sexual Orientation Not on file documented as of this encounter Plan of Treatment Upcoming Encounters Date Type Department Care Team (Late st Contact Info) Description 06/03/2024 12:30 PM CDT Hospital Encounter [facility] [address] [place] [phone] Mariaa Diego MD [address] [place] [phone] 06/03/2024 1:20 PM CDT Office Visit [facility] Oncology and Hematology [address] [place] [phone] Mariaa Diego MD [address] [place] [phone] Pippa Dang NP [address] [place] [phone] 06/03/2024 1:45 PM CDT Hospital Encounter [facility] [address] [place] [phone] Mariaa Diego MD [address] [place] [phone] 16, Mob documented as of this encounter Procedures Procedure Name Priority Date/Time Associated Diagnosis Comments HEMOGLOBIN AND HEMATOCRIT Routine 08/19/2006 6:23 AM CDT HEMOGLOBIN AND HEMATOCRIT Routine 08/18/2006 5:57 PM CDT POC , URINE Routine 08/18/2006 10:00 AM CDT HEMOGLOBIN AND HEMATOCRIT Routine 08/16/2006 1:53 PM CDT documented in this encounter Results * (ABNORMAL) HEMOGLOBIN AND HEMATOCRIT (08/19/2006 6:23 AM CDT) HEMOGLOBIN 10.8(L) 11.8 - 14.8 g/dL INTERFACE SYSTEM HEMATOCRIT 32.9(L) 35.5 - 44.0 % INTERFACE SYSTEM 08/19/2006 6:23 AM CDT us Camille Molina DO HEMATOLOGY ORDERABLES Edited INTERFACE SYSTEM Refer to clinic/hospital department * (ABNORMAL) HEMOGLOBIN AND HEMATOCRIT (08/18/2006 5:57 PM CDT) HEMOGLOBIN 11.2(L) 11.8 - 14.8 g/dL INTERFACE SYSTEM HEMATOCRIT 32.9(L) 35.5 - 44.0 % INTERFACE SYSTEM 08/18/2006 5:57 PM CDT Camille Molina DO HEMATOLOGY ORDERABLES Edited Performing Organization Address [facility] Co de Phone Number INTERFACE SYSTEM Refer to clinic/hospital department * POC , URINE (08/18/2006 10:00 AM CDT) , URINE POC Negative Negative INTERFACE SYSTEM 08/18/2006 10:0 0 AM CDT Jefe Posey MD POINT OF CARE TESTING Edited Performing Organization Address [facility] de Phone Number INTERFACE SYSTEM Refer to clinic/hospital department * HEMOGLOBIN AND HEMATOCRIT (08/16/2006 1:53 PM CDT) HEMOGLOBIN 12.2 11.8 - 14.8 g/dL INTERFACE SYSTEM HEMATOCRIT 36.9 35.5 - 44.0 % INTERFACE SYSTEM 08/16/2006 1:53 PM CDT Jefe Posey MD HEMATOLOGY ORDERABLES Edited Performing Organization Address [facility] Phone Number INTERFACE SYSTEM Refer to clinic/hospital department documented in this encounter Visit Diagnoses Diagnosis Mechanical complication due to intrauterine contraceptive device- Primary Malignant neoplasm of [...] Pathogen 04/02/2024 04/02/2024 04/02/2024 1 :44 PM CAKE MIXER R/O Respiratory 05/13/2024 05/13/2024 05/13/2024 1 1:33 PM CDT R/O C. diff 05/14/2024 05/14/2024 05/14/2024 10:0 6 AM CDT R/O C. diff 05/14/2024 05/14/2024 05/15/2024 1:01 PM CDT documented as of this encounter Care Teams Media Reconciliation Specialist Relationship Specialty Start Date End Date Jase Bryson MD PCP - General Family Practice 05/06/19 documented as of this encounter
--- OUTSIDE RECORDS SUMMARY | 2024-06-02 16:21 | XMS_ITS | Encounter Summary ---
Author Organization [facility] Address [address] [place] [address] Care Team Providers Care Cooling Tower Operator Name Role Phone Jase Bryson MD Primary Care Provider Encounter Details Date Type Department Care Team (Latest Contact Info) Description 12/16/2004 Outpatient Historical [facility] CARDI[facility] Speedy Simons MD [address] [place] [address] PALPITATIONS (Primary Dx) Social History Tobacco Use Types Packs/Day Years Used Date Smoking Tobacco: Never Assessed Comments Unknown Sex and Gender Information Value Date Recorded Sex Assigned at Not on file Legal Sex Female 3:54 AM ANVILSMITH Gender Identity Not on file Sexual Orientation Not on file documented as of this encounter Plan of Treatment Upcoming Encounters Date Type Department Care Team (Late st Contact Info) Description 06/03/2024 12:30 PM CDT Hospital Encounter [facility] [address] [place] [phone] Mariaa Diego MD [address] [place] [phone] 06/03/2024 1:20 PM CDT Office Visit [facility] Oncology and Hematology [address] [place] [address] Mariaa Diego MD [address] [place] [phone] Pippa Dang NP [address] [place] [phone] 06/03/2024 1:45 PM CDT [facility] [...] Pathogen 04/02/2024 04/02/2024 04/02/2024 1 :44 PM ANVILSMITH R/O Respiratory 05/13/2024 05/13/2024 05/13/2024 1 1:33 PM CDT R/O C. diff 05/14/2024 05/14/2024 05/14/2024 10:0 6 AM CDT R/O C. diff 05/14/2024 05/14/2024 05/15/2024 1:01 PM CDT documented as of this encounter Care Teams Cooling Tower Operator Relationship Specialty Start Date End Date Jase Bryson MD PCP - General Family Practice 05/06/19 documented as of this encounter
--- OUTSIDE RECORDS SUMMARY | 2024-06-02 16:21 | XMS_ITS | Encounter Summary ---
Author Organization [facility] Address [address] [place] [address] Care Team Providers Care Chemical Processing Technician Name Role Phone Jase Bryson MD Primary Care Provider Encounter Details Date Type Department Care Team (Latest Contact Info) Description 08/31/2004 Inpatient Historical [facility] PATIENT IN A BED Ramirez Bell MD [address] [facility] [address] [phone] FX LUMBAR VERTEBRA-CLOSE (CMS/HCC) (Primary Dx) Social History Tobacco Use Types Packs/Day Years Used Date Smoking Tobacco: Never Assessed Comments Unknown Sex and Gender Information Value Date Recorded Sex Assigned at Not on file Legal Sex Female 3:54 AM COMMUNITY SERVICE PATROL OFFICER Gender Identity Not on file Sexual Orientation Not on file documented as of this encounter Plan of Treatment Upcoming Encounters Date Type Department Care Team (Late st Contact Info) Description 06/03/2024 12:30 PM CDT Hospital Encounter [facility] [address] [place] [phone] Mariaa Diego MD [address] [place] [phone] 06/03/2024 1:20 PM CDT Office Visit [facility] Oncology and Hematology [address] [place] [phone] Mariaa Diego MD [address] [place] [phone] Pippa Dang NP [address] [place] [address] 06/03/2024 1:45 PM CDT Hospital Encounter [facility] [address] [place] [phone] Mariaa Diego MD [address] [place] [phone] 16, Mob documented as of this encounter Procedures Procedure Name Priority Date/Time Associated Diagnosis Comments HEMOGLOBIN AND HEMATOCRIT Routine 09/01/2004 5:00 AM CDT BASIC METABOLIC PANEL Routine 09/01/2004 5:00 AM CDT PT AND APTT Routine 08/31/2004 9:10 PM CDT LACTIC ACID Routine 08/31/2004 9:10 PM CDT documented in this encounter Results * (ABNORMAL) HEMOGLOBIN AND HEMATOCRIT (09/01/2004 5:00 AM CDT) HEMOGLOBIN 11.6(L) 11.8 - 14.8 g/dL INTERFACE SYSTEM HEMATOCRIT 35.9 35.5 - 44.0 % INTERFACE SYSTEM 09/01/2004 5:0 0 AM CDT us Ramirez Bell MD HEMATOLOGY ORDERABLES F inal Result INTERFACE SYSTEM Refer to clinic/hospital department * (ABNORMAL) BASIC METABOLIC PANEL (09/01/2004 5:00 AM CDT) GLUCOSE 121(H) 65 - 109 mg/dL INTERFACE SYSTEM CREATININE 0.6 0.4 - 1.2 mg/dL INTERFACE SYSTEM CALCIUM 8.0(L) 8.6 - 10.2 mg/dL INTERFACE SYSTEM BUN 6 6 - 20 mg/dL INTERFACE SYSTEM SODIUM 140 135 - 145 mmol/L INTERFACE SYSTEM POTASSIUM 3.7 3.5 - 4.9 mmol/L INTERFACE SYSTEM CHLORIDE 108 96 - 108 mmol/L INTERFACE SYSTEM CO2 24 22 - 30 mmol/L INTERFACE SYSTEM 09/01/2004 5:00 AM CDT Ramirez Bell MD CHEMISTRY ORDERABLES Fi nal Result Performing Organization Address [facility] de Phone Number INTERFACE SYSTEM Refer to clinic/hospital department * LACTIC ACID (08/31/2004 9:10 PM CDT) LACTIC ACID 0.9 0.7 - 2.1 mmol/L INTERFACE SYSTEM 08/31/2004 9:10 PM CDT Ramirez Bell MD CHEMISTRY ORDERABLES Fi nal Result Performing Organization Address [facility] de Phone Number INTERFACE SYSTEM Refer to clinic/hospital department * PT AND APTT (08/31/2004 9:10 PM CDT) PROTIME 15.7 12.9 - 15.7 Seconds INTERFACE SYSTEM INR 1.1 0.9 - 1.1 INTERFACE SYSTEM Comment: INR Therapeutic Range: Adult: 2.0 - 3.0 for pulmonary embolism or prophylaxis against venous thrombosis or systemic embolization. 2.0 - 3.0 for patients with tissue heart valves. 2.5 - 3.5 for patients with mechanical heart valves or post NE. Pediatric (12 years and under): 1.5 - 3.0 Although the target range in children is not well established , INR values of 1.5 - 3.0 are recommended for most patients. Higher values have been used in children with prosthetic cardiac valves and hereditary clotting disorders. (<3 days) therapeutic ranges have not been established. PTT 29.2 25.0 - 35.0 Seconds INTERFACE SYSTEM Comment: PTT Therapeutic Range: Heparin Level PTT (seconds) <0.10 units/mL <45 0.10 - 0.30 units/mL 45 - 65 0.30 - 0.70 units/mL* 65 - 106* 0.70 - 1.00 units/mL 106 - 137 *corresponds to therapeutic range for unfractionated heparin 08/31/2004 9:10 PM CDT us Ramirez Bell MD HEMATOLOGY ORDERABLES F inal Result INTERFACE SYSTEM Refer to clinic/hospital department documented in this encounter Visit Diagnoses Diagnosis Closed fracture of lumbar vertebra without mention of spinal cord injury (CMS/HCC)- Primary Closed fracture of lumbar vertebra without mention of spinal cord injury 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 diff 05/14/2024 05/14/2024 05/14/2024 10:0 6 AM CDT R/O C. diff 05/14/2024 05/14/2024 05/15/2024 1:01 PM CDT documented as of this encounter Care Teams Chemical Processing Technician Relationship Specialty Start Date End Date Jase Bryson MD PCP - General Family Practice 05/06/19 documented as of this encounter
--- OUTSIDE RECORDS SUMMARY | 2024-06-02 16:21 | XMS_ITS | Encounter Summary ---
Author Organization [facility] Address 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 MODEL DRESSER EXAMINATION (Primary Dx) Social History Tobacco Use Types Packs/Day Years Used Date Smoking Tobacco: Never Assessed Comments Unknown Sex and Gender Information Value Date Recorded Sex Assigned at Not on file Legal Sex Female 3:54 AM COACH DRIVER Gender Identity Not on file Sexual Orientation Not on file documented as of this encounter Plan of Treatment Upcoming Encounters Date Type Department Care Team (Late st Contact Info) Description 06/03/2024 12:30 PM CDT Hospital Encounter [facility] [address] [place] [address] Mariaa Diego MD [address] [place] [address] 06/03/2024 1:20 PM CDT Office Visit [facility] Oncology and Hematology [address] [place] [address] Mariaa Diego MD [address] [place] [address] Pippa Dang NP [address] [place] [address] 06/03/2024 1:45 PM CDT Hospital Encounter [facility] [address] [...] Pathogen 04/02/2024 04/02/2024 04/02/2024 1 :44 PM COACH DRIVER R/O Respiratory 05/13/2024 05/13/2024 05/13/2024 1 1:33 PM CDT R/O C. diff 05/14/2024 05/14/2024 05/14/2024 10:0 6 AM CDT R/O C. diff 05/14/2024 05/14/2024 05/15/2024 1:01 PM CDT documented as of this encounter Care Teams Registered Radiographer Relationship Specialty Start Date End Date Jase Bryson MD PCP - General Family Practice 05/06/19 documented as of this encounter
--- OUTSIDE RECORDS SUMMARY | 2024-06-02 16:21 | XMS_ITS | Encounter Summary ---
Author Organization [facility] Address [address] [place] [address] Care Team Providers Care Compress Trucker Name Role Phone Jase Bryson MD Primary Care Provider Encounter Details Date Type Department Care Team (Late st Contact Info) Description 02/23/2005 Outpatient Historical [facility] [address] [facility] [phone] Eder Ordonez Social History Tobacco Use Types Packs/Day Years Used Date Smoking Tobacco: Never Assessed Comments Unknown Sex and Gender Information Value Date Recorded Sex Assigned at Not on file Legal Sex Female 3:54 AM KINDERGARTEN TEACHER Gender Identity Not on file Sexual Orientation [...] [address] [place] [address] 06/03/2024 1:45 PM CDT Hospital Encounter [...] Pathogen 04/02/2024 04/02/2024 04/02/2024 1 :44 PM KINDERGARTEN TEACHER R/O Respiratory 05/13/2024 05/13/2024 05/13/2024 1 1:33 PM CDT R/O C. diff 05/14/2024 05/14/2024 05/14/2024 10:0 6 AM CDT R/O C. diff 05/14/2024 05/14/2024 05/15/2024 1:01 PM CDT documented as of this encounter Care Teams Compress Trucker Relationship Specialty Start Date End Date Jase Bryson MD PCP - General Family Practice 05/06/19 documented as of this encounter
--- OUTSIDE RECORDS SUMMARY | 2024-06-02 16:21 | XMS_ITS | Encounter Summary ---
Author Organization [facility] Address [address] [place] [address] Care Team Providers Care [facility] Attendant Name Role Phone Jase Bryson MD Primary Care Provider Encounter Details Date Type Department Care Team (Latest Contact Info) Description 02/23/2005 Outpatient Historical [facility] Eder Ordonez PALPITATIONS (Primary Dx) Social History Tobacco Use Types Packs/Day Years Used Date Smoking Tobacco: Never Assessed Comments Unknown Sex and Gender Information Value Date Recorded Sex Assigned at Not on file Legal Sex Female 3:54 AM CARE MGR Gender Identity Not on file Sexual Orientation [...] [id number] 06/03/2024 1:20 PM CDT Office Visit [facility] Oncology and Hematology [address] [place] [address] Mariaa Diego MD [address] [place] [address] Pippa Dang, DUONG [address] [place] [address] 06/03/2024 1:45 PM CDT Hospital [...] Pathogen 04/02/2024 04/02/2024 04/02/2024 1 :44 PM CARE MGR R/O Respiratory 05/13/2024 05/13/2024 05/13/2024 1 1:33 PM CDT R/O C. diff 05/14/2024 05/14/2024 05/14/2024 10:0 6 AM CDT R/O C. diff 05/14/2024 05/14/2024 05/15/2024 1:01 PM CDT documented as of this encounter Care Teams Children[facility] Institution Attendant Relationship Specialty Start Date End Date Jase Bryson MD PCP - General Family Practice 05/06/19 documented as of this encounter
--- OUTSIDE RECORDS SUMMARY | 2024-06-02 16:21 | XMS_ITS | Encounter Summary ---
Author Organization [facility] Address [address] [place] [address] Care Team Providers Care Clam Digger Name Role Phone Jase Bryson MD Primary Care Provider Encounter Details Date Type Department Care Team (Latest Contact Info) Description 10/12/2004 Outpatient Historical [facility] Supa Galindo MD NO ADDRESS ON FILE FX LUMBAR VERTEBRA-CLOSE (CMS/HCC) (Primary Dx) Social History Tobacco Use Types Packs/Day Years Used Date Smoking Tobacco: Never Assessed Comments Unknown Sex and Gender Information Value Date Recorded Sex Assigned at Not on file Legal Sex Female 3:54 AM CALENDAR CONTROL CLERK BLOOD BANK Gender Identity Not on file Sexual Orientation [...] [id number] 06/03/2024 1:20 PM CDT Office Visit [facility] Oncology and Hematology [address] [place] [address] Mariaa Diego MD [address] [place] [address] Pippa Dang, DUONG [address] [place] [address] 06/03/2024 1:45 PM CDT Hospital [...] Pathogen 04/02/2024 04/02/2024 04/02/2024 1 :44 PM CALENDAR CONTROL CLERK BLOOD BANK R/O Respiratory 05/13/2024 05/13/2024 05/13/2024 1 1:33 PM CDT R/O C. diff 05/14/2024 05/14/2024 05/14/2024 10:0 6 AM CDT R/O C. diff 05/14/2024 05/14/2024 05/15/2024 1:01 PM CDT documented as of this encounter Care Teams Clam Digger Relationship Specialty Start Date End Date Jase Bryson MD PCP - General Family Practice 05/06/19 documented as of this encounter
--- OUTSIDE RECORDS SUMMARY | 2024-06-02 16:21 | XMS_ITS | Encounter Summary ---
Author Organization [facility] Address [address] [place] [address] Care Team Providers Care General Worker Name Role Phone Jase Bryson MD Primary Care Provider Encounter Details Date Type Department Care Team (Late st Contact Info) Description 12/16/2004 Outpatient Historical [facility] [place] Support Serv. ([facility]) [address] [place] [phone] Joel Smith MD NO ADDRESS ON FILE Social History Tobacco Use Types Packs/Day Years Used Date Smoking Tobacco: Never Assessed Comments Unknown Sex and Gender Information Value Date Recorded Sex Assigned at Not on file Legal Sex Female 3:54 AM FIRE INVESTIGATOR Gender Identity Not on file Sexual Orientation [...] Office Visit [facility] Oncology and Hematology [address] [place] [address] Mariaa Diego MD [address] [place] [phone] Pippa Dang NP [address] [place] [address] 06/03/2024 1:45 PM CDT Hospital Encounter [...] 04/02/2024 04/02/2024 04/02/2024 1 :44 PM FIRE INVESTIGATOR R/O Respiratory 05/13/2024 05/13/2024 05/13/2024 1 1:33 PM CDT R/O C. diff 05/14/2024 05/14/2024 05/14/2024 10:0 6 AM CDT R/O C. diff 05/14/2024 05/14/2024 05/15/2024 1:01 PM CDT documented as of this encounter Care Teams General Worker Relationship Specialty Start Date End Date Jase Bryson MD PCP - General Family Practice 05/06/19 documented as of this encounter
--- OUTSIDE RECORDS SUMMARY | 2024-06-02 16:21 | XMS_ITS | Encounter Summary ---
Author Organization [facility] Address [address] [place] [address] Care Team Providers Care Worship Pastor Name Role Phone Jase Bryson MD Primary Care Provider Encounter Details Date Type Department Care Team (Latest Contact Info) Description 01/27/2006 Outpatient Historical [facility] Denis Buckner MD [address] [address] Other Specified Screening (Primary Dx) Social History Tobacco Use Types Packs/Day Years Used Date Smoking Tobacco: Never Assessed Comments Unknown Sex and Gender Information Value Date Recorded Sex Assigned at Not on file Legal Sex Female 3:54 AM BUTTERMAKER HELPER Gender Identity Not on file Sexual Orientation Not on file documented as of this encounter Plan of Treatment Upcoming Encounters Date Type Department Care Team (Late st Contact Info) Description 06/03/2024 12:30 PM CDT Hospital Encounter [facility] [address] [place] [address] Mariaa Diego MD [address] [place] [address] 06/03/2024 1:20 PM CDT Office Visit [facility] Oncology and Hematology [address] [place] [address] Mariaa Diego MD [address] [place] [phone] Pippa Dang NP [address] [place] [phone] 06/03/2024 1:45 PM CDT Hospital Encounter [facility] [address] [...] Pathogen 04/02/2024 04/02/2024 04/02/2024 1 :44 PM BUTTERMAKER HELPER R/O Respiratory 05/13/2024 05/13/2024 05/13/2024 1 1:33 PM CDT R/O C. diff 05/14/2024 05/14/2024 05/14/2024 10:0 6 AM CDT R/O C. diff 05/14/2024 05/14/2024 05/15/2024 1:01 PM CDT documented as of this encounter Care Teams Worship Pastor Relationship Specialty Start Date End Date Jase Bryson MD PCP - General Family Practice 05/06/19 documented as of this encounter
--- OUTSIDE RECORDS SUMMARY | 2024-06-02 16:21 | XMS_ITS | Encounter Summary ---
Author Organization [facility] Address [address] [place] [address] Care Team Providers Care Communication Equipment Repairer Name Role Phone Jase Bryson MD Primary Care Provider Encounter Details Date Type Department Care Team (Late Contact Info) Description 06/30/2005 Outpatient Historical [facility] [address] [place] [phone] Jose Sullivan MD [address] [place], [place] [id number] Social History Tobacco Use Types Packs/Day Years Used Date Smoking Tobacco: Never Assessed Comments Unknown Sex and Gender Information Value Date Recorded Sex Assigned at Not on file Legal Sex Female 3:54 AM WORK FORCE ADVISOR Gender Identity Not on file Sexual Orientation Not on file documented as of this encounter Plan of Treatment Upcoming Encounters Date Type Department Care Team (Late Contact Info) Description 06/03/2024 12:30 PM CDT Hospital Encounter [facility] [address] [place] [address] Mariaa Deigo MD [address] [place] [address] 06/03/2024 1:20 PM CDT Office Visit [facility] Oncology and Hematology [address] [place] [phone] Mariaa Diego MD [address] [place] [phone] Pippa Dang NP [address] [place] [phone] 06/03/2024 1:45 PM CDT Hospital Encounter [facility] [address] [place] [phone] Mariaa Diego MD [address] [place] [...] Pathogen 04/02/2024 04/02/2024 04/02/2024 1 :44 PM WORK FORCE ADVISOR R/O Respiratory 05/13/2024 05/13/2024 05/13/2024 1 1:33 PM CDT R/O C. diff 05/14/2024 05/14/2024 05/14/2024 10:0 6 AM CDT R/O C. diff 05/14/2024 05/14/2024 05/15/2024 1:01 PM CDT documented as of this encounter Care Teams Communication Equipment Repairer Relationship Specialty Start Date End Date Jase Bryson MD PCP - General Family Practice 05/06/19 documented as of this encounter
--- OUTSIDE RECORDS SUMMARY | 2024-06-02 16:21 | XMS_ITS | Encounter Summary ---
Author Organization [facility] Address [address] [place] [address] Care Team Providers Care Meeting Manager Name Role Phone Jase Bryson MD Primary Care Provider Encounter Details Date Type Department Care Team (Late Contact Info) Description 09/14/2004 Outpatient Historical [facility] Cam Vásquez MD [address] [place] [phone] Social History Tobacco Use Types Packs/Day Years Used Date Smoking Tobacco: Never Assessed Comments Unknown Sex and Gender Information Value Date Recorded Sex Assigned at Not on file Legal Sex Female 3:54 AM SOFTWARE QUALITY MANAGER Gender Identity Not on file Sexual Orientation [...] 1:20 PM CDT Office Visit [facility] Oncology and Hematology [address] [place] [address] Mariaa Diego MD [address] [place] [phone] Pippa Dang NP [address] [place] [phone] 06/03/2024 1:45 PM CDT Hospital Encounter [place] [...] Pathogen 04/02/2024 04/02/2024 04/02/2024 1 :44 PM SOFTWARE QUALITY MANAGER R/O Respiratory 05/13/2024 05/13/2024 05/13/2024 1 1:33 PM CDT R/O C. diff 05/14/2024 05/14/2024 05/14/2024 10:0 6 AM CDT R/O C. diff 05/14/2024 05/14/2024 05/15/2024 1:01 PM CDT documented as of this encounter Care Teams Meeting Manager Relationship Specialty Start Date End Date Jase Bryson MD PCP - General Family Practice 05/06/19 documented as of this encounter
--- OUTSIDE RECORDS SUMMARY | 2024-06-02 16:21 | XMS_ITS | Encounter Summary ---
Author Organization Address [address] [place] [address] Care Team Providers Care Affirmative Action Officer Name Role Phone Jase Bryson MD Primary Care Provider Encounter Details Date Type Department Care Team (Late st Contact Info) Description 02/17/2005 Outpatient Historical [facility] Jose Sullivan MD [address] [place] [address] MALAISE AND FATIGUE NEC (Primary Dx) Social History Tobacco Use Types Packs/Day Years Used Date Smoking Tobacco: Never Assessed Comments Unknown Sex and Gender Information Value Date Recorded Sex Assigned at Not on file Legal Sex Female 3:54 AM PRESS PULLER Gender Identity Not on file Sexual [...] [id number] 06/03/2024 1:20 PM CDT Office Visit [facility] Oncology and Hematology [address] [...] of this encounter Visit Diagnoses Diagnosis Other malaise [...] Pathogen 04/02/2024 04/02/2024 04/02/2024 1 :44 PM PRESS PULLER R/O Respiratory 05/13/2024 05/13/2024 05/13/2024 1 1:33 PM CDT R/O C. diff 05/14/2024 05/14/2024 05/14/2024 10:0 6 AM CDT R/O C. diff 05/14/2024 05/14/2024 05/15/2024 1:01 PM CDT documented as of this encounter Care Teams Affirmative Action Officer Relationship Specialty Start Date End Date Jase Bryson MD PCP - General Family Practice 05/06/19 documented as of this encounter
--- OUTSIDE RECORDS SUMMARY | 2024-06-02 16:21 | XMS_ITS | Encounter Summary ---
Author Organization [facility] Address [address] [place] [address] Care Team Providers Care Internal Control Manager Name Role Phone Jase Bryson MD Primary Care Provider Encounter Details Date Type Department Care Team (Late st Contact Info) Description 02/17/2005 Outpatient Historical [facility] Support Serv. ([facility]) [address] [place] [address] Otilio Rosario MD NO ADDRESS ON FILE Social History Tobacco Use Types Packs/Day Years Used Date Smoking Tobacco: Never Assessed Comments Unknown Sex and Gender Information Value Date Recorded Sex Assigned at Not on file Legal Sex Female 3:54 AM NEWSPAPER COPY EDITOR Gender Identity Not on file Sexual Orientation [...] 06/03/2024 1:20 PM CDT Office Visit [facility] Oncology and Hematology [address] [place] [phone] Mariaa Diego MD [address] [place] [phone] Pippa Dang NP [address] [place] [address] 06/03/2024 1:45 PM CDT Hospital Encounter [...] Pathogen 04/02/2024 04/02/2024 04/02/2024 1 :44 PM NEWSPAPER COPY EDITOR R/O Respiratory 05/13/2024 05/13/2024 05/13/2024 1 1:33 PM CDT R/O C. diff 05/14/2024 05/14/2024 05/14/2024 10:0 6 AM CDT R/O C. diff 05/14/2024 05/14/2024 05/15/2024 1:01 PM CDT documented as of this encounter Care Teams Internal Control Manager Relationship Specialty Start Date End Date Jase Bryson MD PCP - General Family Practice 05/06/19 documented as of this encounter
--- OUTSIDE RECORDS SUMMARY | 2024-06-02 16:21 | XMS_ITS | Encounter Summary ---
Author Organization [facility] Address [address] [place] [address] Care Team Providers Care Sparmaker Name Role Phone Jase Bryson MD Primary Care Provider Encounter Details Date Type Department Care Team (Late Contact Info) Description 02/17/2005 Outpatient Historical [facility] [address] [place] [address] Jose Sullivan MD [address] [place], [place] [phone] Social History Tobacco Use Types Packs/Day Years Used Date Smoking Tobacco: Never Assessed Comments Unknown Sex and Gender Information Value Date Recorded Sex Assigned at Not on file Legal Sex Female 3:54 AM HOME CARE ASSISTANT Gender Identity Not on file Sexual Orientation Not on file documented as of this encounter Plan of Treatment Upcoming Encounters Date Type Department Care Team (Late Contact Info) Description 06/03/2024 12:30 PM CDT Hospital Encounter [facility] [address] [place] [address] Mariaa Diego MD [address] [place] [phone] 06/03/2024 1:20 PM CDT Office Visit [facility] Oncology and Hematology [address] [place] [phone] Mariaa Diego MD [address] [place] [phone] Pippa Dang NP [address] [place] [phone] 06/03/2024 1:45 PM CDT Hospital Encounter [facility] [address] [place] [phone] Mariaa Diego MD [address] [place] [...] Pathogen 04/02/2024 04/02/2024 04/02/2024 1 :44 PM HOME CARE ASSISTANT R/O Respiratory 05/13/2024 05/13/2024 05/13/2024 1 1:33 PM CDT R/O C. diff 05/14/2024 05/14/2024 05/14/2024 10:0 6 AM CDT R/O C. diff 05/14/2024 05/14/2024 05/15/2024 1:01 PM CDT documented as of this encounter Care Teams Sparmaker Relationship Specialty Start Date End Date Jase Bryson MD PCP - General Family Practice 05/06/19 documented as of this encounter
--- OUTSIDE RECORDS SUMMARY | 2024-06-02 16:21 | XMS_ITS | Encounter Summary ---
Author Organization [facility] Address [address] [place] [address] Care Team Providers Care Epic Beacon Specialists Name Role Phone Jase Bryson MD Primary Care Provider Encounter Details Date Type Department Care Team (Latest Contact Info) Description 09/06/2005 Outpatient Historical [facility], [address] Cam Vásquez MD [address] [place] [phone] Routine Gynecological Examination (Primary Dx) Social History Tobacco Use Types Packs/Day Years Used Date Smoking Tobacco: Never Assessed Comments Unknown Sex and Gender Information Value Date Recorded Sex Assigned at Not on file Legal Sex Female 3:54 AM MALTER OPERATOR Gender Identity Not on file Sexual Orientation Not on file documented as of this encounter Plan of Treatment Upcoming Encounters Date Type Department Care Team (Late st Contact Info) Description 06/03/2024 12:30 PM CDT Hospital Encounter [facility] [address] [place] [address] Mariaa Diego MD [address] [place] [phone] 06/03/2024 1:20 PM CDT Office Visit [facility] Oncology and Hematology [address] [place] [phone] Mariaa Diego MD [address] [place] [address] Pippa Dang NP [address] [place] [address] 06/03/2024 1:45 PM CDT Hospital Encounter [facility] [address] [place] [address] Mariaa Diego MD [address] [place] [address] 16, Mob documented as of [...] Pathogen 04/02/2024 04/02/2024 04/02/2024 1 :44 PM MALTER OPERATOR R/O Respiratory 05/13/2024 05/13/2024 05/13/2024 1 1:33 PM CDT R/O C. diff 05/14/2024 05/14/2024 05/14/2024 10:0 6 AM CDT R/O C. diff 05/14/2024 05/14/2024 05/15/2024 1:01 PM CDT documented as of this encounter Care Teams Epic [facility] Relationship Specialty Start Date End Date Jase Bryson MD PCP - General Family Practice 05/06/19 documented as of this encounter
--- OUTSIDE RECORDS SUMMARY | 2024-06-02 16:21 | XMS_ITS | Encounter Summary ---
Author Organization [facility] Address [address] [place] [address] Care Team Providers Care Spinner Hand Name Role Phone Jase Bryson MD Primary Care Provider Encounter Details Date Type Department Care Team (Late Contact Info) Description 11/04/2004 Outpatient Historical [facility] [address] [facility] [place] [phone] Speedy Simons MD [address] [facility] [address] [place] [address] Social History Tobacco Use Types Packs/Day Years Used Date Smoking Tobacco: Never Assessed Comments Unknown Sex and Gender Information Value Date Recorded Sex Assigned at Not on file Legal Sex Female 3:54 AM LIGHTING DIRECTOR Gender Identity Not on file Sexual Orientation Not on file documented as of this encounter Plan of Treatment Upcoming Encounters Date Type Department Care Team (Late st Contact Info) Description 06/03/2024 12:30 PM CDT Hospital Encounter [facility] [address] [place] [address] Mariaa Diego MD [address] [place] [phone] 06/03/2024 1:20 PM CDT Office Visit [facility] Oncology and Hematology [address] [place] [phone] Mariaa Diego MD [address] [place] [phone] Pippa Dang NP [address] [place] [address] 06/03/2024 1:45 PM CDT Hospital Encounter [facility] [address] [place] [address] Mariaa Diego MD [address] [place] [phone] 16, Mob documented as of this encounter Visit Diagnoses Not on filedocumented in this encounter Additional Health Concerns Infection Onset Date Last Indicated Resolved Time R/O COVID-19 05/27/2019 05/27/2019 05/29/2019 10:2 0 AM CDT R/O COVID-19 11/30/2023 11/30/2023 11/30/2023 6:52 PM CDT R/O Respiratory 11/30/2023 11/30/2023 12/01/2023 2 :21 PM CDT R/O GI Pathogen 04/02/2024 04/02/2024 04/02/2024 1 :44 PM LIGHTING DIRECTOR R/O Respiratory 05/13/2024 05/13/2024 05/13/2024 1 1:33 PM CDT R/O C. diff 05/14/2024 05/14/2024 05/14/2024 10:0 6 AM CDT R/O C. diff 05/14/2024 05/14/2024 05/15/2024 1:01 PM CDT documented as of this encounter Care Teams Spinner Hand Relationship Specialty Start Date End Date Jase Bryson MD PCP - General Family Practice 05/06/19 documented as of this encounter
--- OUTSIDE RECORDS SUMMARY | 2024-06-02 16:21 | XMS_ITS | Encounter Summary ---
Author Organization [facility] Address [address] [place] [address] Care Team Providers Care Quality Compliance Consultant Name Role Phone Jase Bryson MD Primary Care Provider Encounter Details Date Type Department Care Team (Late st Contact Info) Description 10/25/2005 Outpatient Historical [facility] Internal Medicine - [facility] [address] [address] [facility] [address] [place] [address] Anny Barrera MD [address] [address] Social History Tobacco Use Types Packs/Day Years Used Date Smoking Tobacco: Never Assessed Comments Unknown Sex and Gender Information Value Date Recorded Sex Assigned at Not on file Legal Sex Female 3:54 AM SAP GRC SECURITY Gender Identity Not on file Sexual Orientation Not on file documented as of this encounter Plan of Treatment Upcoming Encounters Date Type Department Care Team (Late st Contact Info) Description 06/03/2024 12:30 PM CDT Hospital Encounter [facility] [address] [place] [address] Mariaa Diego MD [address] [place] [phone] 06/03/2024 1:20 PM CDT Office Visit [facility] Oncology and Hematology [address] [place] [phone] Mariaa Diego MD [address] [place] [phone] Pippa Dang NP [address] [place] [phone] 06/03/2024 1:45 PM CDT Hospital Encounter [facility] [address] [place] [phone] Mariaa Diego MD [address] [place] [...] Pathogen 04/02/2024 04/02/2024 04/02/2024 1 :44 PM SAP GRC SECURITY R/O Respiratory 05/13/2024 05/13/2024 05/13/2024 1 1:33 PM CDT R/O C. diff 05/14/2024 05/14/2024 05/14/2024 10:0 6 AM CDT R/O C. diff 05/14/2024 05/14/2024 05/15/2024 1:01 PM CDT documented as of this encounter Care Teams Quality Compliance Consultant Relationship Specialty Start Date End Date Jase Bryson MD PCP - General Family Practice 05/06/19 documented as of this encounter
--- OUTSIDE RECORDS SUMMARY | 2024-06-02 16:21 | XMS_ITS | Encounter Summary ---
Author Organization [facility] Address [address] [place] [address] Care Team Providers Care Loss Mitigation Specialist Name Role Phone Jase Bryson MD Primary Care Provider Encounter Details Date Type Department Care Team (Latest Contact Info) Description 02/23/2005 Outpatient Historical [facility] Eder Ordonez PALPITATIONS (Primary Dx) Social History Tobacco Use Types Packs/Day Years Used Date Smoking Tobacco: Never Assessed Comments Unknown Sex and Gender Information Value Date Recorded Sex Assigned at Not on file Legal Sex Female 3:54 AM TOMB MAKER HELPER Gender Identity Not on file Sexual Orientation Not on file documented as of this encounter Plan of Treatment Upcoming Encounters Date Type Department Care Team (Late st Contact Info) Description 06/03/2024 12:30 PM CDT Hospital Encounter [facility] [address] [place] [phone] Mariaa Diego MD [address] [place] [phone] 06/03/2024 1:20 PM CDT Office Visit [facility] Oncology and Hematology [address] [place] [phone] Mariaa Diego MD [address] [place] [phone] Pippa Dang, HAND CLOTH EXAMINER [address] [place] [address] 06/03/2024 1:45 PM CDT Hospital Encounter [facility] [address] [...] Pathogen 04/02/2024 04/02/2024 04/02/2024 1 :44 PM TOMB MAKER HELPER R/O Respiratory 05/13/2024 05/13/2024 05/13/2024 1 1:33 PM CDT R/O C. diff 05/14/2024 05/14/2024 05/14/2024 10:0 6 AM CDT R/O C. diff 05/14/2024 05/14/2024 05/15/2024 1:01 PM CDT documented as of this encounter Care Teams Loss Mitigation Specialist Relationship Specialty Start Date End Date Jase Bryson MD PCP - General Family Practice 05/06/19 documented as of this encounter
--- OUTSIDE RECORDS SUMMARY | 2024-06-02 16:21 | XMS_ITS | Encounter Summary ---
Author Organization [facility] Address [address] [place] [address] Care Team Providers Care Hazard Mitigation Officer Name Role Phone Jase Bryson MD Primary Care Provider Encounter Details Date Type Department Care Team (Late Contact Info) Description 09/21/2004 Outpatient Historical [facility] Cam Vásquez MD [address] [place] [address] Social History Tobacco Use Types Packs/Day Years Used Date Smoking Tobacco: Never Assessed Comments Unknown Sex and Gender Information Value Date Recorded Sex Assigned at Not on file Legal Sex Female 3:54 AM FIBER TECHNOLOGIST Gender Identity Not on file Sexual Orientation [...] 1:20 PM CDT Office Visit [facility] Oncology and Hematology [address] [place] [phone] Mariaa Diego MD [address] [place] [phone] Pippa Dang NP [address] [place] [phone] 06/03/2024 1:45 PM CDT Hospital Encounter [facility]. [...] Pathogen 04/02/2024 04/02/2024 04/02/2024 1 :44 PM FIBER TECHNOLOGIST R/O Respiratory 05/13/2024 05/13/2024 05/13/2024 1 1:33 PM CDT R/O C. diff 05/14/2024 05/14/2024 05/14/2024 10:0 6 AM CDT R/O C. diff 05/14/2024 05/14/2024 05/15/2024 1:01 PM CDT documented as of this encounter Care Teams Hazard Mitigation Officer Relationship Specialty Start Date End Date Jase Bryson MD PCP - General Family Practice 05/06/19 documented as of this encounter
--- OUTSIDE RECORDS SUMMARY | 2024-06-02 16:21 | XMS_ITS | Encounter Summary ---
Author Organization [facility] Address [address] [place] [address] Care Team Providers Care Mess Attendant Name Role Phone Jase Bryson MD Primary Care Provider Encounter Details Date Type Department Care Team (Late st Contact Info) Description 04/19/2005 Outpatient Historical [facility] Mikeadeline Nickolas DAVID (Primary Dx) Social History Tobacco Use Types Packs/Day Years Used Date Smoking Tobacco: Never Assessed Comments Unknown Sex and Gender Information Value Date Recorded Sex Assigned at Not on file Legal Sex Female 3:54 AM BLACK OXIDE COATING EQUIPMENT TENDER Gender Identity Not on file Sexual Orientation [...] [phone] 06/03/2024 1:20 PM CDT Office Visit [facility] Oncology and Hematology [address] [...] as of this encounter Visit Diagnoses Diagnosis Bunion- Primary Malignant neoplasm of upper-outer quadrant of [...] Pathogen 04/02/2024 04/02/2024 04/02/2024 1 :44 PM BLACK OXIDE COATING EQUIPMENT TENDER R/O Respiratory 05/13/2024 05/13/2024 05/13/2024 1 1:33 PM CDT R/O C. diff 05/14/2024 05/14/2024 05/14/2024 10:0 6 AM CDT R/O C. diff 05/14/2024 05/14/2024 05/15/2024 1:01 PM CDT documented as of this encounter Care Teams Mess Attendant Relationship Specialty Start Date End Date Jase Bryson MD PCP - General Family Practice 05/06/19 documented as of this encounter
--- OUTSIDE RECORDS SUMMARY | 2024-06-02 16:22 | XMS_ITS | Encounter Summary ---
Author Organization [facility] Address [address] [place] [address] Care Team Providers Care Engraver Tire Mold Name Role Phone Jase Bryson MD Primary Care Provider Encounter Details Date Type Department Care Team (Late st Contact Info) Description 01/28/2003 Outpatient Historical [facility] Cardiovas and Thor Surg at [facility] [address] [facility] [address] [place] [address] Chandana Vogel MD [address] [facility] [address] [place] [address] Social History Tobacco Use Types Packs/Day Years Used Date Smoking Tobacco: Never Assessed Comments Unknown Sex and Gender Information Value Date Recorded Sex Assigned at Not on file Legal Sex Female 3:54 AM SENIOR BUSINESS DEVELOPMENT ANALYST Gender Identity Not on file Sexual Orientation Not on file documented as of this encounter Plan of Treatment Upcoming Encounters Date Type Department Care Team (Late st Contact Info) Description 06/03/2024 12:30 PM CDT Hospital Encounter [facility] [address] [place] [phone] Mariaa Diego MD [address] [place] [phone] 06/03/2024 1:20 PM CDT Office Visit [facility] Oncology and Hematology [address] [place] [phone] Mariaa Diego MD [address] [place] [phone] Pippa Dang NP [address] [place] [phone] 06/03/2024 1:45 PM CDT Hospital Encounter [facility] [address] [place] [phone] Mariaa Diego MD [address] [place] [...] Pathogen 04/02/2024 04/02/2024 04/02/2024 1 :44 PM SENIOR BUSINESS DEVELOPMENT ANALYST R/O Respiratory 05/13/2024 05/13/2024 05/13/2024 1 1:33 PM CDT R/O C. diff 05/14/2024 05/14/2024 05/14/2024 10:0 6 AM CDT R/O C. diff 05/14/2024 05/14/2024 05/15/2024 1:01 PM CDT documented as of this encounter Care Teams Engraver Tire Mold Relationship Specialty Start Date End Date Jase Bryson MD PCP - General Family Practice 05/06/19 documented as of this encounter
--- OUTSIDE RECORDS SUMMARY | 2024-06-02 16:22 | XMS_ITS | Encounter Summary ---
Author Organization [facility] Address [address] [place] [address] Care Team Providers Care Drum Reel Cutter Name Role Phone Jase Bryson MD Primary Care Provider Encounter Details Date Type Department Care Team (Latest Contact Info) Description 07/15/2003 Outpatient Historical [facility] [address] Cam Vásquez MD [address] [place] [phone] GYNECOLOGIC EXAMINATION (Primary Dx) Social History Tobacco Use Types Packs/Day Years Used Date Smoking Tobacco: Never Assessed Comments Unknown Sex and Gender Information Value Date Recorded Sex Assigned at Not on file Legal Sex Female 3:54 AM FURNITURE FINISHER Gender Identity Not on file Sexual Orientation [...] 06/03/2024 1:20 PM CDT Office Visit [facility] Oncology and Hematology [address] [place] [phone] Mariaa Diego MD [address] [place] [phone] Pippa Dang NP [address] [place] [phone] 06/03/2024 1:45 PM CDT Hospital Encounter [facility] [address] [place] [phone] Mariaa Diego MD [address] [place] [phone] 16, Mob documented as of this encounter Visit Diagnoses Diagnosis Gynecological examination- Primary Malignant neoplasm of upper-outer quadrant [...] Pathogen 04/02/2024 04/02/2024 04/02/2024 1 :44 PM FURNITURE FINISHER R/O Respiratory 05/13/2024 05/13/2024 05/13/2024 1 1:33 PM CDT R/O C. diff 05/14/2024 05/14/2024 05/14/2024 10:0 6 AM CDT R/O C. diff 05/14/2024 05/14/2024 05/15/2024 1:01 PM CDT documented as of this encounter Care Teams Drum Reel Cutter Relationship Specialty Start Date End Date Jase Bryson MD PCP - General Family Practice 05/06/19 documented as of this encounter
--- OUTSIDE RECORDS SUMMARY | 2024-06-02 16:22 | XMS_ITS | Encounter Summary ---
Author Organization [facility] Address [address] [place] [address] Care Team Providers Care Chemistry Laboratory Technician Name Role Phone Jase Bryson MD Primary Care Provider Encounter Details Date Type Department Care Team (Late st Contact Info) Description 04/20/2004 Outpatient Historical [facility] Reji Marin MD [address] [place] [id number] [place], Authorized P NO ADDRESS ON FILE UNSPECIFIED VIRAL INFECTION (Primary Dx) Social History Tobacco Use Types Packs/Day Years Used Date Smoking Tobacco: Never Assessed Comments Unknown Sex and Gender Information Value Date Recorded Sex Assigned at Not on file Legal Sex Female 3:54 AM HELP DESK ADMINISTRATOR Gender Identity Not on file Sexual [...] 06/03/2024 1:20 PM CDT Office Visit [facility] Oncology and Hematology [address] [place] [phone] Mariaa Diego MD [address] [place] [phone] Pippa Dang NP [address] [place] [phone] 06/03/2024 1:45 PM CDT Hospital Encounter [facility] [address] [place] [phone] Mariaa Digeo MD [address] [place] [phone] 16, Mob documented as of this encounter Procedures Procedure Name Priority Date/Time Associated Diagnosis Comments SPINAL FLUID CELL COUNT W/REFLEXIVE DIFF Routine 04/21/2004 1:55 AM HELP DESK ADMINISTRATOR SPINAL FLUID CELL COUNT W/REFLEXIVE DIFF Routine 04/21/2004 1:55 AM HELP DESK ADMINISTRATOR TOTAL PROTEIN, CSF Routine 04/21/2004 1: 55 AM HELP DESK ADMINISTRATOR GLUCOSE, CSF Routine 04/21/2004 1:55 AM HELP DESK ADMINISTRATOR URINALYSIS WITH MICROSCOPIC Routine 04/21/2004 12:37 AM HELP DESK ADMINISTRATOR ED HOLD Routine 04/20/2004 11:57 PM HELP DESK ADMINISTRATOR CBC WITH DIFFERENTIAL Routine 04/20/2004 11:56 PM HELP DESK ADMINISTRATOR CBC WITH DIFFERENTIAL Routine 04/20/2004 11:56 PM HELP DESK ADMINISTRATOR documented in this encounter Results * (ABNORMAL) SPINAL FLUID CELL COUNT W/REFLEXIVE DIFF (04/21/2004 1:55 AM HELP DESK ADMINISTRATOR) NEUTROPHILS, CSF 17(H) 0 - 6 % INTERFACE SYSTEM LYMPHOCYTES, CSF 58 40 - 80 % INTERFACE SYSTEM MONOCYTES/ HISTIOCYTES, CSF 25 15 - 45 % INTERFACE SYSTEM # CELLS COUNTED FOR DIFF, CSF 10 WBC Counted INTERFACE SYSTEM 04/21/2004 1:55 AM HELP DESK ADMINISTRATOR us Authorized P Er BODY FLUIDS AND STOOLS Final Res ult Performing Organization Address [facility] Phone Number INTERFACE SYSTEM Refer to clinic/hospital department * TOTAL PROTEIN, CSF (04/21/2004 1:55 AM HELP DESK ADMINISTRATOR) PROTEIN, CSF 40 15 - 60 mg/dL INTERFACE SYSTEM 04/21/2004 1:55 AM HELP DESK ADMINISTRATOR us Authorized P Er BODY FLUIDS AND STOOLS Final Res ult Performing Organization Address [facility] Phone Number INTERFACE SYSTEM Refer to clinic/hospital department * GLUCOSE, CSF (04/21/2004 1:55 AM HELP DESK ADMINISTRATOR) GLUCOSE, CSF 66 41 - 75 mg/dL INTERFACE SYSTEM 04/21/2004 1:55 AM HELP DESK ADMINISTRATOR us Authorized P Er BODY FLUIDS AND STOOLS Final Res ult Performing Organization Address [facility] INTERFACE SYSTEM Refer to clinic/hospital department * (ABNORMAL) SPINAL FLUID CELL COUNT W/REFLEXIVE DIFF (04/21/2004 1:55 AM HELP DESK ADMINISTRATOR) APPEARANCE, CSF Clear Clear INTE RFACE SYSTEM COLOR, CSF Colorless Colorless INTERFACE SYSTEM TUBE #, CSF 1 INTERFAC E SYSTEM Comment:least bloody tube is tube #1, getting progressively more bloody down to #4 VOLUME, CSF 1.3 mL INTERFAC E SYSTEM WBC, CSF 2 0 - 10 /uL INTERFACE SYSTEM RBC, CSF 171(H) <=0 /uL INTERFACE SYSTEM 04/21/2004 1:55 AM HELP DESK ADMINISTRATOR us Authorized P Er BODY FLUIDS AND STOOLS Final Res ult Performing Organization Address [facility] Phone Number INTERFACE SYSTEM Refer to clinic/hospital department * (ABNORMAL) URINALYSIS WITH MICROSCOPIC (04/21/2004 12:37 AM HELP DESK ADMINISTRATOR) COLOR UA Yellow INTERFACE SYSTEM CLARITY UA Clear Clear INTERFACE SYSTEM SPECIFIC GRAVITY UA 1.010 1.001 - 1.035 INTERFACE SYSTEM PH UA 7.0 5.0 - 8.0 INTERFACE SYSTEM LEUKOCYTE ESTERASE UA Negative Negative INTERFACE SYSTEM NITRITE UA Negative Negative INTERFACE SYSTEM PROTEIN UA Negative Negative INTERFACE SYSTEM GLUCOSE UA Negative Negative INTERFACE SYSTEM KETONES UA Negative Negative INTERFACE SYSTEM UROBILINOGEN UA 1 <=1 EU INTE RFACE SYSTEM BILIRUBIN UA Negative Negative INTERFA CE SYSTEM BLOOD UA Trace(A) Negative INTERFACE SYSTEM WBC UA 1 0 - 5 /HPF INTERFACE SYSTEM RBC UA 6(H) 0 - 4 /HPF INTERFACE SYSTEM BACTERIA UA 1+(A) None Seen /HPF INTERFACE SYSTEM EPITHELIAL CELLS, URINE 5-10 /HPF INTERFACE SYSTEM 04/21/2004 12:3 7 AM HELP DESK ADMINISTRATOR Reji Marin MD URINE ORDERABLES Final Result Performing Organization Address City/[facility]/ZIP Co de Phone Number INTERFACE SYSTEM Refer to clinic/hospital department * ED HOLD (04/20/2004 11:57 PM HELP DESK ADMINISTRATOR) Pathologist [facility] SPECIMEN HOLD, BLOOD 7 days INTERFACE SYSTEM 04/20/2004 11:5 7 PM HELP DESK ADMINISTRATOR Reji Marin MD CHEMISTRY ORDERABLES Final Resu lt Performing Organization Address City/[facility]/ZIP Co de Phone Number INTERFACE SYSTEM Refer to clinic/hospital department * (ABNORMAL) CBC WITH DIFFERENTIAL (04/20/2004 11:56 PM HELP DESK ADMINISTRATOR) NEUTROPHILS 67 45 - 70 % INTERFAC E SYSTEM LYMPHOCYTES 22 16 - 45 % INTERFAC E SYSTEM MONOCYTES 8 3 - 13 % INTERFACE SYSTEM EOSINOPHILS 3 0 - 7 % INTERFAC E SYSTEM BASOPHILS 1 0 - 2 % INTERFACE SYSTEM NEUTROPHIL ABSOLUTE 7.30(H) 1.90 - 7.00 K/uL INTERFACE SYSTEM LYMPHOCYTE ABSOLUTE 2.36 0.70 - 4.50 K/uL INTERFACE SYSTEM MONOCYTE ABSOLUTE 0.88 0.10 - 1.30 K/uL INTERFACE SYSTEM EOSINOPHIL ABSOLUTE 0.27 0.00 - 0.70 K/uL INTERFACE SYSTEM BASOPHILS ABSOLUTE 0.06 0.00 - 0.20 K/uL INTERFACE SYSTEM 04/20/2004 11:5 6 PM HELP DESK ADMINISTRATOR Reji Marin MD HEMATOLOGY ORDERABLES Final Res ult INTERFACE SYSTEM Refer to clinic/hospital department * (ABNORMAL) CBC WITH DIFFERENTIAL (04/20/2004 11:56 PM HELP DESK ADMINISTRATOR) WBC 10.9(H) 4.0 - 9.8 K/uL INTERFACE SYSTEM RBC 4.30 3.90 - 4.90 M/uL INTERFACE SYSTEM HEMOGLOBIN 12.1 11.8 - 14.8 g/dL INTERFACE SYSTEM HEMATOCRIT 36.5 35.5 - 44.0 % INTERFACE SYSTEM MCV 84.9 82.0 - 99.0 fL INTERFACE SYSTEM MCH 28.1 27.2 - 32.6 pg INTERFACE SYSTEM MCHC 33.2 31.5 - 35.5 % INTERFACE SYSTEM RDW 13.2 11.5 - 14.5 % INTERFACE SYSTEM RDW-STDEV 40.8 37.1 - 48.7 fL INTERFACE SYSTEM PLATELETS 253 140 - 350 K/uL INTERFACE SYSTEM MPV 10.4 9.3 - 12.4 fL INTERFACE SYSTEM 04/20/2004 11:5 6 PM HELP DESK ADMINISTRATOR Reji Marin MD HEMATOLOGY ORDERABLES Final Res ult Performing Organization Address [place] [facility] de Phone Number INTERFACE SYSTEM Refer to clinic/hospital department documented in this encounter Visit Diagnoses Diagnosis Unspecified viral infection, in conditions classified elsewhere and of unspecified site- Primary Malignant neoplasm of upper-outer [...] Pathogen 04/02/2024 04/02/2024 04/02/2024 1 :44 PM HELP DESK ADMINISTRATOR R/O Respiratory 05/13/2024 05/13/2024 05/13/2024 1 1:33 PM CDT R/O C. diff 05/14/2024 05/14/2024 05/14/2024 10:0 6 AM CDT R/O C. diff 05/14/2024 05/14/2024 05/15/2024 1:01 PM CDT documented as of this encounter Care Teams Chemistry Laboratory Technician Relationship Specialty Start Date End Date Jase Bryson MD PCP - General Family Practice 05/06/19 documented as of this encounter
--- OUTSIDE RECORDS SUMMARY | 2024-06-02 16:22 | XMS_ITS | Encounter Summary ---
Author Organization [facility] Address [address] [place] [address] Care Team Providers Care Global Account Director Name Role Phone Jase Bryson MD Primary Care Provider Encounter Details Date Type Department Care Team (Latest Contact Info) Description 04/29/2004 Outpatient Historical [facility] Dominic Manzano MD ALLERGIC RHINITIS NOS (Primary Dx) Social History Tobacco Use Types Packs/Day Years Used Date Smoking Tobacco: Never Assessed Comments Unknown Sex and Gender Information Value Date Recorded Sex Assigned at Not on file Legal Sex Female 3:54 AM ZIG ZAG SPRING MACHINE OPERATOR Gender Identity Not on file Sexual Orientation Not on file documented as of this encounter Plan of Treatment Upcoming Encounters Date Type Department Care Team (Late st Contact Info) Description 06/03/2024 12:30 PM CDT Hospital Encounter [facility] [address] [place] [phone] Mariaa Diego MD [address] [place] [phone] 06/03/2024 1:20 PM CDT Office Visit [...] as of this encounter Visit Diagnoses Diagnosis Allergic rhinitis, cause unspecified- Primary Malignant neoplasm of upper-outer quadrant [...] Pathogen 04/02/2024 04/02/2024 04/02/2024 1 :44 PM ZIG ZAG SPRING MACHINE OPERATOR R/O Respiratory 05/13/2024 05/13/2024 05/13/2024 1 1:33 PM CDT R/O C. diff 05/14/2024 05/14/2024 05/14/2024 10:0 6 AM CDT R/O C. diff 05/14/2024 05/14/2024 05/15/2024 1:01 PM CDT documented as of this encounter Care Teams Global Account Director Relationship Specialty Start Date End Date Jase Bryson MD PCP - General Family Practice 05/06/19 documented as of this encounter
--- OUTSIDE RECORDS SUMMARY | 2024-06-02 16:22 | XMS_ITS | Encounter Summary ---
Author Organization [facility] Address [address] [place] [address] Care Team Providers Care Welder Tool And Die Name Role Phone Jase Bryson MD Primary Care Provider Encounter Details Date Type Department Care Team (Late Contact Info) Description 10/08/2003 Outpatient Historical [facility] Cam Vásquez MD [address] [place] [phone] Social History Tobacco Use Types Packs/Day Years Used Date Smoking Tobacco: Never Assessed Comments Unknown Sex and Gender Information Value Date Recorded Sex Assigned at Not on file Legal Sex Female 3:54 AM FURNACE COMBUSTION TESTER Gender Identity Not on file Sexual Orientation Not on file documented as of this encounter Plan of Treatment Upcoming Encounters Date Type Department Care Team (Late Contact Info) Description 06/03/2024 12:30 PM CDT Hospital Encounter [facility] [address] [place] [address] Mariaa Diego MD [address] [place] [phone] 06/03/2024 1:20 PM CDT Office Visit [facility] Oncology and Hematology [address] [place] [phone] Mariaa Diego MD [address] [place] [phone] Pippa Dang NP [address] [place] [phone] 06/03/2024 1:45 PM CDT Hospital Encounter [facility] [address] [...] Pathogen 04/02/2024 04/02/2024 04/02/2024 1 :44 PM FURNACE COMBUSTION TESTER R/O Respiratory 05/13/2024 05/13/2024 05/13/2024 1 1:33 PM CDT R/O C. diff 05/14/2024 05/14/2024 05/14/2024 10:0 6 AM CDT R/O C. diff 05/14/2024 05/14/2024 05/15/2024 1:01 PM CDT documented as of this encounter Care Teams Welder Tool And Die Relationship Specialty Start Date End Date Jase Bryson MD PCP - General Family Practice 05/06/19 documented as of this encounter
--- OUTSIDE RECORDS SUMMARY | 2024-06-02 16:22 | XMS_ITS | Encounter Summary ---
Author Organization [facility] Address [address] [place] [address] Care Team Providers Care Web Marketing Specialist Name Role Phone Jase Bryson MD Primary Care Provider Encounter Details Date Type Department Care Team (Late st Contact Info) Description 02/03/2004 Outpatient Historical [facility] [address] [place] [phone] Fidel Sawyer MD NO ADDRESS ON FILE Social History Tobacco Use Types Packs/Day Years Used Date Smoking Tobacco: Never Assessed Comments Unknown Sex and Gender Information Value Date Recorded Sex Assigned at Not on file Legal Sex Female 3:54 AM PUBLIC HEALTH VETERINARIAN Gender Identity Not on file Sexual Orientation [...] NP [address] [place] [address] 06/03/2024 1:45 PM CDT Hospital [...] Pathogen 04/02/2024 04/02/2024 04/02/2024 1 :44 PM PUBLIC HEALTH VETERINARIAN R/O Respiratory 05/13/2024 05/13/2024 05/13/2024 1 1:33 PM CDT R/O C. diff 05/14/2024 05/14/2024 05/14/2024 10:0 6 AM CDT R/O C. diff 05/14/2024 05/14/2024 05/15/2024 1:01 PM CDT documented as of this encounter Care Teams Web Marketing Specialist Relationship Specialty Start Date End Date Jase Bryson MD PCP - General Family Practice 05/06/19 documented as of this encounter
--- OUTSIDE RECORDS SUMMARY | 2024-06-02 16:22 | XMS_ITS ---
Author Organization [facility] [place] Address [address] [place] [address] Care Team Providers Care Silverware Etcher Name Role Phone Jakob Gordon [facility] [phone] REASON FOR VISIT back/neck Encounters Encounter Location Date Provider Diagnosis [facility] [address] [place] [address] 07/10/2023 Jakob Gordon PLAN OF TREATMENT No Information Progress Notes * Pricilla DESAIaDOB: 3 (54 yo F)Acc No.[id number]:07/10/2023 Progress Notes Patient: Saray DESAI Provider: Jakob Gordon MD :1970 Age:53 Y Sex:Female Date:07/10/2023 Address: [address] [facility] [id number] Subjective: * Chief Complaints: * 1. Back/neck. * Medical History: Objective: Assessment: Plan: * Treatment: * Images: * Sign off status: Pending * Provider: Jakob Gordon MD Date: 07/10/2023
--- OUTSIDE RECORDS SUMMARY | 2024-06-02 16:22 | XMS_ITS | Encounter Summary ---
Author Organization [facility] Address [address] [place] [address] Care Team Providers Care Train Examiner Name Role Phone Jase Bryson MD Primary Care Provider Encounter Details Date Type Department Care Team (Latest Contact Info) Description 01/29/2004 Outpatient Historical [facility] [place] [address] [place] [address] SHORTNESS OF BREATH (Primary Dx) Social History Tobacco Use Types Packs/Day Years Used Date Smoking Tobacco: Never Assessed Comments Unknown Sex and Gender Information Value Date Recorded Sex Assigned at Not on file Legal Sex Female 3:54 AM DIRECTOR OF ANCILLARY SERVICES Gender Identity Not on file Sexual Orientation [...] Diego MD [address] [place] [phone] Pippa Dang NP [address] [place] [address] 06/03/2024 1:45 PM CDT Hospital Encounter [facility] [address] [place] [address] Mariaa Diego MD [address] [address] 16, Mob documented as of this encounter Visit Diagnoses Diagnosis Shortness of breath- Primary Malignant neoplasm of upper-outer quadrant of [...] 04/02/2024 04/02/2024 1 :44 PM DIRECTOR OF ANCILLARY SERVICES R/O Respiratory 05/13/2024 05/13/2024 05/13/2024 1 1:33 PM CDT R/O C. diff 05/14/2024 05/14/2024 05/14/2024 10:0 6 AM CDT R/O C. diff 05/14/2024 05/14/2024 05/15/2024 1:01 PM CDT documented as of this encounter Care Teams Train Examiner Relationship Specialty Start Date End Date Jase Bryson MD PCP - General Family Practice 05/06/19 documented as of this encounter
--- OUTSIDE RECORDS SUMMARY | 2024-06-02 16:22 | XMS_ITS | Encounter Summary ---
Author Organization [facility] Address [address] [place] [address] Care Team Providers Care Technology And Engineering Teacher Name Role Phone Jase Bryson MD Primary Care Provider Encounter Details Date Type Department Care Team (Late st Contact Info) Description 12/26/2003 Outpatient Historical HIS [facility] Javier Glover MD [address] [facility] [address] [place], [place] [id number] Social History Tobacco Use Types Packs/Day Years Used Date Smoking Tobacco: Never Assessed Comments Unknown Sex and Gender Information Value Date Recorded Sex Assigned at Not on file Legal Sex Female 3:54 AM RIB SAWYER Gender Identity Not on file Sexual Orientation Not on file documented as of this encounter Plan of Treatment Upcoming Encounters Date Type Department Care Team (Late Contact Info) Description 06/03/2024 12:30 PM CDT Hospital Encounter [facility] [address] [address] Mariaa Diego MD [address] [place] [address] 06/03/2024 1:20 PM CDT Office Visit [facility] Oncology and Hematology [address] [place] [address] Mariaa Diego MD [address] [place] [phone] Pippa Dang NP [address] [place] [address] 06/03/2024 1:45 PM CDT Hospital Encounter [facility] [address] 901 [...] Pathogen 04/02/2024 04/02/2024 04/02/2024 1 :44 PM RIB SAWYER R/O Respiratory 05/13/2024 05/13/2024 05/13/2024 1 1:33 PM CDT R/O C. diff 05/14/2024 05/14/2024 05/14/2024 10:0 6 AM CDT R/O C. diff 05/14/2024 05/14/2024 05/15/2024 1:01 PM CDT documented as of this encounter Care Teams Technology And Engineering Teacher Relationship Specialty Start Date End Date Jase Bryson MD PCP - General Family Practice 05/06/19 documented as of this encounter
--- OUTSIDE RECORDS SUMMARY | 2024-06-02 16:22 | XMS_ITS | Encounter Summary ---
Author Organization [facility] Address [address] [place] [address] Care Team Providers Care Radiology Specialist Name Role Phone Jase Bryson MD Primary Care Provider Encounter Details Date Type Department Care Team (Late st Contact Info) Description 04/29/2004 Outpatient Historical HIS [facility] Dominic Manzano MD Social History Tobacco Use Types Packs/Day Years Used Date Smoking Tobacco: Never Assessed Comments Unknown Sex and Gender Information Value Date Recorded Sex Assigned at Not on file Legal Sex Female 3:54 AM BENZENE OPERATOR Gender Identity Not on file Sexual Orientation Not on file documented as of this encounter Plan of Treatment Upcoming Encounters Date Type Department Care Team (Late st Contact Info) Description 06/03/2024 12:30 PM CDT Hospital Encounter [facility] [address] [place] [address] Mariaa Diego MD [address] [place] [address] 06/03/2024 1:20 PM CDT Office Visit [facility] Oncology and Hematology [address] [place] [address] Mariaa Diego MD [address] [place] [address] Pippa Dang NP [address] [place] [phone] 06/03/2024 1:45 PM CDT Hospital Encounter [facility] [address] [...] Pathogen 04/02/2024 04/02/2024 04/02/2024 1 :44 PM BENZENE OPERATOR R/O Respiratory 05/13/2024 05/13/2024 05/13/2024 1 1:33 PM CDT R/O C. diff 05/14/2024 05/14/2024 05/14/2024 10:0 6 AM CDT R/O C. diff 05/14/2024 05/14/2024 05/15/2024 1:01 PM CDT documented as of this encounter Care Teams Radiology Specialist Relationship Specialty Start Date End Date Jase Bryson MD PCP - General Family Practice 05/06/19 documented as of this encounter
--- OUTSIDE RECORDS SUMMARY | 2024-06-02 16:22 | XMS_ITS | Encounter Summary ---
Author Organization [facility] Address [address] [place] [address] Care Team Providers Care Production Generalist Name Role Phone Jase Bryson MD Primary Care Provider Encounter Details Date Type Department Care Team (Latest Contact Info) Description 07/16/2002 Outpatient Historical HIS [facility] Cam Vásquez MD [address] [place] [address] GYNECOLOGIC EXAMINATION (Primary Dx) Social History Tobacco Use Types Packs/Day Years Used Date Smoking Tobacco: Never Assessed Comments Unknown Sex and Gender Information Value Date Recorded Sex Assigned at Not on file Legal Sex Female 3:54 AM ROTARY CUTTER FEEDER Gender Identity Not on file Sexual Orientation [...] [id number] 06/03/2024 1:20 PM CDT Office Visit [facility] Oncology and Hematology [address] [...] Pathogen 04/02/2024 04/02/2024 04/02/2024 1 :44 PM ROTARY CUTTER FEEDER R/O Respiratory 05/13/2024 05/13/2024 05/13/2024 1 1:33 PM CDT R/O C. diff 05/14/2024 05/14/2024 05/14/2024 10:0 6 AM CDT R/O C. diff 05/14/2024 05/14/2024 05/15/2024 1:01 PM CDT documented as of this encounter Care Teams Production Generalist Relationship Specialty Start Date End Date Jase Bryson MD PCP - General Family Practice 05/06/19 documented as of this encounter
--- OUTSIDE RECORDS SUMMARY | 2024-06-02 16:22 | XMS_ITS | Encounter Summary ---
Author Organization [facility] Address [address] [place] [address] Care Team Providers Care Goodwill Ambassador Name Role Phone Jase Bryson MD Primary Care Provider Encounter Details Date Type Department Care Team (Late st Contact Info) Description 01/28/2003 Outpatient Historical [facility] Cardiovas and Thor Surg at [facility] [address] [facility] [address] [place] [address] Chandana Vogel MD [address] [facility] [address] [place] [address] Social History Tobacco Use Types Packs/Day Years Used Date Smoking Tobacco: Never Assessed Comments Unknown Sex and Gender Information Value Date Recorded Sex Assigned at Not on file Legal Sex Female 3:54 AM SENIOR JAVA PROGRAMMER ANALYST Gender Identity Not on file Sexual Orientation Not on file documented as of this encounter Plan of Treatment Upcoming Encounters Date Type Department Care Team (Late st Contact Info) Description 06/03/2024 12:30 PM CDT Hospital Encounter [facility] [address] [place] [address] Mariaa Diego MD [address] [place] [address] 06/03/2024 1:20 PM CDT Office Visit [facility] Oncology and Hematology [address] [place] [phone] Mariaa Diego MD [address] [place] [phone] Pippa Dang NP [address] [place] [phone] 06/03/2024 1:45 PM CDT Hospital Encounter [facility] [address] [place] [phone] Mariaa Diego MD [address] [...] 04/02/2024 04/02/2024 04/02/2024 1 :44 PM SENIOR JAVA PROGRAMMER ANALYST R/O Respiratory 05/13/2024 05/13/2024 05/13/2024 1 1:33 PM CDT R/O C. diff 05/14/2024 05/14/2024 05/14/2024 10:0 6 AM CDT R/O C. diff 05/14/2024 05/14/2024 05/15/2024 1:01 PM CDT documented as of this encounter Care Teams Goodwill Ambassador Relationship Specialty Start Date End Date Jase Bryson MD PCP - General Family Practice 05/06/19 documented as of this encounter
--- OUTSIDE RECORDS SUMMARY | 2024-06-02 16:22 | XMS_ITS | Encounter Summary ---
Author Organization [facility] Address [address] [place] [address] Care Team Providers Care Armament Aircraft Mechanic Name Role Phone Jase Bryson MD Primary Care Provider Encounter Details Date Type Department Care Team (Late st Contact Info) Description 06/19/2002 Outpatient Historical HIS [facility] Jose Sullivan MD [address] [place], [place] [id number] Social History Tobacco Use Types Packs/Day Years Used Date Smoking Tobacco: Never Assessed Comments Unknown Sex and Gender Information Value Date Recorded Sex Assigned at Not on file Legal Sex Female 3:54 AM GEOLOGICAL SPECIALIST Gender Identity Not on file Sexual [...] [id number] 06/03/2024 1:20 PM CDT Office Visit [facility] Oncology and Hematology [address] [place] [address] Mariaa Diego MD [address] [place] [phone] Pippa Dang NP [address] [place] [address] 06/03/2024 1:45 PM CDT Hospital Encounter [facility] [address] [place] [address] Mariaa Diego MD [address] [...] Pathogen 04/02/2024 04/02/2024 04/02/2024 1 :44 PM GEOLOGICAL SPECIALIST R/O Respiratory 05/13/2024 05/13/2024 05/13/2024 1 1:33 PM CDT R/O C. diff 05/14/2024 05/14/2024 05/14/2024 10:0 6 AM CDT R/O C. diff 05/14/2024 05/14/2024 05/15/2024 1:01 PM CDT documented as of this encounter Care Teams Armament Aircraft Mechanic Relationship Specialty Start Date End Date Jase Bryson MD PCP - General Family Practice 05/06/19 documented as of this encounter
--- OUTSIDE RECORDS SUMMARY | 2024-06-02 16:22 | XMS_ITS | Encounter Summary ---
Author Organization [facility] Address [address] [place] [address] Care Team Providers Care Textiles And Clothing Teacher Name Role Phone Jase Bryson MD Primary Care Provider Encounter Details Date Type Department Care Team (Latest Contact Info) Description 04/24/2003 Outpatient Historical HIS [facility] Miryam Perales MD CONTRACEPT SURVEILL NEC (Primary Dx) Social History Tobacco Use Types Packs/Day Years Used Date Smoking Tobacco: Never Assessed Comments Unknown Sex and Gender Information Value Date Recorded Sex Assigned at Not on file Legal Sex Female 3:54 AM CARE ASSISTANT Gender Identity Not on file Sexual Orientation Not on file documented as of this encounter Plan of Treatment Upcoming Encounters Date Type Department Care Team (Late st Contact Info) Description 06/03/2024 12:30 PM CDT Hospital Encounter [facility] [address] [place] [address] Mariaa Diego MD [address] [place] [phone] 06/03/2024 1:20 PM CDT Office Visit [facility] Oncology and Hematology [address] [place] [phone] Mariaa Diego MD [address] [place] [address] Pippa Dang, DUONG [address] [place] [address] 06/03/2024 1:45 PM CDT Hospital Encounter [facility] [address] 901 [...] 04/02/2024 04/02/2024 04/02/2024 1 :44 PM CARE ASSISTANT R/O Respiratory 05/13/2024 05/13/2024 05/13/2024 1 1:33 PM CDT R/O C. diff 05/14/2024 05/14/2024 05/14/2024 10:0 6 AM CDT R/O C. diff 05/14/2024 05/14/2024 05/15/2024 1:01 PM CDT documented as of this encounter Care Teams Textiles And Clothing Teacher Relationship Specialty Start Date End Date Jase Bryson MD PCP - General Family Practice 05/06/19 documented as of this encounter
--- OUTSIDE RECORDS SUMMARY | 2024-06-02 16:22 | XMS_ITS | Encounter Summary ---
Author Organization [facility] Address [address] [place] [address] Care Team Providers Care High School Vice Principal Name Role Phone Jase Bryson MD Primary Care Provider Encounter Details Date Type Department Care Team (Latest Contact Info) Description 03/19/2004 Outpatient Historical HIS [facility] Miryma Perales MD CONTRACEPT SURVEILL NEC (Primary Dx) Social History Tobacco Use Types Packs/Day Years Used Date Smoking Tobacco: Never Assessed Comments Unknown Sex and Gender Information Value Date Recorded Sex Assigned at Not on file Legal Sex Female 3:54 AM PLANT MAINTENANCE MANAGER Gender Identity Not on file Sexual Orientation Not on file documented as of this encounter Plan of Treatment Upcoming Encounters Date Type Department Care Team (Late st Contact Info) Description 06/03/2024 12:30 PM CDT Hospital Encounter [facility] [address] [place] [address] Mariaa Diego MD [address] [place] [phone] 06/03/2024 1:20 PM CDT Office Visit [facility] Oncology and Hematology [address] [place] [phone] Mariaa Diego MD [address] [place] [address] Pippa Dang, DUONG [address] [place] [address] 06/03/2024 1:45 PM CDT Hospital Encounter [facility] [address] 901 [...] Pathogen 04/02/2024 04/02/2024 04/02/2024 1 :44 PM PLANT MAINTENANCE MANAGER R/O Respiratory 05/13/2024 05/13/2024 05/13/2024 1 1:33 PM CDT R/O C. diff 05/14/2024 05/14/2024 05/14/2024 10:0 6 AM CDT R/O C. diff 05/14/2024 05/14/2024 05/15/2024 1:01 PM CDT documented as of this encounter Care Teams High School Vice Principal Relationship Specialty Start Date End Date Jase Bryson MD PCP - General Family Practice 05/06/19 documented as of this encounter
--- OUTSIDE RECORDS SUMMARY | 2024-06-02 16:22 | XMS_ITS | Encounter Summary ---
Author Organization [facility] Address [address] [place] [address] Care Team Providers Care Community Recreation Coordinator Name Role Phone Jase Bryson MD Primary Care Provider Encounter Details Date Type Department Care Team (Latest Contact Info) Description 12/24/2003 Outpatient Historical HIS [facility] Cam Vásquez MD [address] [place] [phone] CONTRACEPT SURVEILL NEC (Primary Dx) Social History Tobacco Use Types Packs/Day Years Used Date Smoking Tobacco: Never Assessed Comments Unknown Sex and Gender Information Value Date Recorded Sex Assigned at Not on file Legal Sex Female 3:54 AM POWER TRANSMISSION ENGINEER Gender Identity Not on file Sexual Orientation [...] [id number] 06/03/2024 1:20 PM CDT Office Visit [facility] Oncology and Hematology [address] [...] 04/02/2024 04/02/2024 04/02/2024 1 :44 PM POWER TRANSMISSION ENGINEER R/O Respiratory 05/13/2024 05/13/2024 05/13/2024 1 1:33 PM CDT R/O C. diff 05/14/2024 05/14/2024 05/14/2024 10:0 6 AM CDT R/O C. diff 05/14/2024 05/14/2024 05/15/2024 1:01 PM CDT documented as of this encounter Care Teams Community Recreation Coordinator Relationship Specialty Start Date End Date Jase Bryson MD PCP - General Family Practice 05/06/19 documented as of this encounter
--- OUTSIDE RECORDS SUMMARY | 2024-06-02 16:22 | XMS_ITS | Encounter Summary ---
Author Organization [facility] Address [address] [place] [address] Care Team Providers Care Child Care Provider Name Role Phone Jase Bryson MD Primary Care Provider Encounter Details Date Type Department Care Team (Late st Contact Info) Description 05/21/2004 Outpatient Historical HIS [facility] Miryam Perales MD Social History Tobacco Use Types Packs/Day Years Used Date Smoking Tobacco: Never Assessed Comments Unknown Sex and Gender Information Value Date Recorded Sex Assigned at Not on file Legal Sex Female 3:54 AM LEADERSHIP DEVELOPMENT INSTRUCTOR Gender Identity Not on file Sexual [...] 1:20 PM CDT Office Visit [facility] Oncology and Hematology [address] [place] [phone] Mariaa Diego MD [address] [place] [address] Pippa Dang NP [address] [place] [phone] 06/03/2024 1:45 PM CDT Hospital Encounter [facility] [...] Pathogen 04/02/2024 04/02/2024 04/02/2024 1 :44 PM LEADERSHIP DEVELOPMENT INSTRUCTOR R/O Respiratory 05/13/2024 05/13/2024 05/13/2024 1 1:33 PM CDT R/O C. diff 05/14/2024 05/14/2024 05/14/2024 10:0 6 AM CDT R/O C. diff 05/14/2024 05/14/2024 05/15/2024 1:01 PM CDT documented as of this encounter Care Teams Child Care Provider Relationship Specialty Start Date End Date Jase Bryson MD PCP - General Family Practice 05/06/19 documented as of this encounter
--- OUTSIDE RECORDS SUMMARY | 2024-06-02 16:22 | XMS_ITS | Encounter Summary ---
Author Organization [facility] Address [address] [place] [address] Care Team Providers Care Top Flavor Attendant Name Role Phone Jase Bryson MD Primary Care Provider Encounter Details Date Type Department Care Team (Late st Contact Info) Description 07/16/2002 Outpatient Historical [facility], [address] [place], Authorized P NO ADDRESS ON FILE GYNECOLOGIC EXAMINATION (Primary Dx) Social History Tobacco Use Types Packs/Day Years Used Date Smoking Tobacco: Never Assessed Comments Unknown Sex and Gender Information Value Date Recorded Sex Assigned at Not on file Legal Sex Female 3:54 AM SOCIAL SERVICE TECHNICIAN Gender Identity Not on file Sexual Orientation [...] CDT Office Visit [facility] Oncology and Hematology [address] [place] [phone] Mariaa Diego MD [address] [place] [address] Pippa Dang, DUONG [address] [place] [address] 06/03/2024 1:45 PM CDT Hospital Encounter [...] Pathogen 04/02/2024 04/02/2024 04/02/2024 1 :44 PM SOCIAL SERVICE TECHNICIAN R/O Respiratory 05/13/2024 05/13/2024 05/13/2024 1 1:33 PM CDT R/O C. diff 05/14/2024 05/14/2024 05/14/2024 10:0 6 AM CDT R/O C. diff 05/14/2024 05/14/2024 05/15/2024 1:01 PM CDT documented as of this encounter Care Teams Top Flavor Attendant Relationship Specialty Start Date End Date Jase Bryson MD PCP - General Family Practice 05/06/19 documented as of this encounter
--- OUTSIDE RECORDS SUMMARY | 2024-06-02 16:22 | XMS_ITS | Encounter Summary ---
Author Organization [facility] Address [address] [place] [address] Care Team Providers Care Assistive Technology Trainer Name Role Phone Jase Bryson MD Primary Care Provider Encounter Details Date Type Department Care Team (Latest Contact Info) Description 01/22/2004 Outpatient Historical [facility], [address] Miryam Perales MD RESPIRATORY ABNORM NEC (Primary Dx) Social History Tobacco Use Types Packs/Day Years Used Date Smoking Tobacco: Never Assessed Comments Unknown Sex and Gender Information Value Date Recorded Sex Assigned at Not on file Legal Sex Female 3:54 AM NETWORK OPERATIONS LEAD Gender Identity Not on file Sexual [...] [id number] 06/03/2024 1:20 PM CDT Office Visit [facility] Oncology and Hematology [address] [place] [address] Mariaa Diego MD [address] [place] [address] Pippa Dang, DUONG [address] [place] [address] 06/03/2024 1:45 PM CDT Hospital Encounter [facility] [address] [place] [phone] Mariaa Diego MD [address] [place] [address] 16, Mob documented as of this encounter Visit Diagnoses Diagnosis Other dyspnea and respiratory abnormality- Primary Malignant neoplasm of upper-outer quadrant of [...] Pathogen 04/02/2024 04/02/2024 04/02/2024 1 :44 PM NETWORK OPERATIONS LEAD R/O Respiratory 05/13/2024 05/13/2024 05/13/2024 1 1:33 PM CDT R/O C. diff 05/14/2024 05/14/2024 05/14/2024 10:0 6 AM CDT R/O C. diff 05/14/2024 05/14/2024 05/15/2024 1:01 PM CDT documented as of this encounter Care Teams Assistive Technology Trainer Relationship Specialty Start Date End Date Jase Bryson MD PCP - General Family Practice 05/06/19 documented as of this encounter
--- OUTSIDE RECORDS SUMMARY | 2024-06-02 16:22 | XMS_ITS | Encounter Summary ---
Author Organization [facility] Address [address] [place] [address] Care Team Providers Care Erp Manager Name Role Phone Jase Bryson MD Primary Care Provider Encounter Details Date Type Department Care Team (Late st Contact Info) Description 04/24/2003 Outpatient Historical HIS [facility] Miryam Perales MD Social History Tobacco Use Types Packs/Day Years Used Date Smoking Tobacco: Never Assessed Comments Unknown Sex and Gender Information Value Date Recorded Sex Assigned at Not on file Legal Sex Female 3:54 AM SYBASE DEVELOPER Gender Identity Not on file Sexual Orientation Not on file documented as of this encounter Plan of Treatment Upcoming Encounters Date Type Department Care Team (Late st Contact Info) Description 06/03/2024 12:30 PM CDT Hospital Encounter [facility] [address] [place] [address] Mariaa Diego MD [address] [place] [address] 06/03/2024 1:20 PM CDT Office Visit [facility] Oncology and Hematology [address] [place] [address] aMriaa Diego MD [address] [place] [address] Pippa Dang NP [address] [place] [phone] 06/03/2024 1:45 PM CDT Hospital Encounter [facility] [address] Patients [...] Pathogen 04/02/2024 04/02/2024 04/02/2024 1 :44 PM SYBASE DEVELOPER R/O Respiratory 05/13/2024 05/13/2024 05/13/2024 1 1:33 PM CDT R/O C. diff 05/14/2024 05/14/2024 05/14/2024 10:0 6 AM CDT R/O C. diff 05/14/2024 05/14/2024 05/15/2024 1:01 PM CDT documented as of this encounter Care Teams Erp Manager Relationship Specialty Start Date End Date Jase Bryson MD PCP - General Family Practice 05/06/19 documented as of this encounter
--- OUTSIDE RECORDS SUMMARY | 2024-06-02 16:22 | XMS_ITS | Encounter Summary ---
Author Organization [facility] Address [address] [place] [address] Care Team Providers Care Sound Engineer Name Role Phone Jase Bryson MD Primary Care Provider Encounter Details Date Type Department Care Team (Late st Contact Info) Description 03/19/2004 Outpatient Historical HIS [facility] Miryam Perales MD Social History Tobacco Use Types Packs/Day Years Used Date Smoking Tobacco: Never Assessed Comments Unknown Sex and Gender Information Value Date Recorded Sex Assigned at Not on file Legal Sex Female 3:54 AM BACKGROUND INVESTIGATOR Gender Identity Not on file Sexual Orientation Not on file documented as of this encounter Plan of Treatment Upcoming Encounters Date Type Department Care Team (Late st Contact Info) Description 06/03/2024 12:30 PM CDT Hospital Encounter [facility] [address] [place] [address] Mariaa Diego MD [address] [place] [phone] 06/03/2024 1:20 PM CDT Office Visit [facility] Oncology and Hematology [address] [place] [address] Mariaa Diego MD [address] [place] [address] Pippa Dang NP [address] [place] [phone] 06/03/2024 1:45 PM CDT Hospital Encounter [facility] [...] Pathogen 04/02/2024 04/02/2024 04/02/2024 1 :44 PM BACKGROUND INVESTIGATOR R/O Respiratory 05/13/2024 05/13/2024 05/13/2024 1 1:33 PM CDT R/O C. diff 05/14/2024 05/14/2024 05/14/2024 10:0 6 AM CDT R/O C. diff 05/14/2024 05/14/2024 05/15/2024 1:01 PM CDT documented as of this encounter Care Teams Sound Engineer Relationship Specialty Start Date End Date Jase Bryson MD PCP - General Family Practice 05/06/19 documented as of this encounter
--- OUTSIDE RECORDS SUMMARY | 2024-06-02 16:22 | XMS_ITS | Encounter Summary ---
Author Organization [facility] Address [address] Attn: Epic Prelude ADT [place] [address] Care Team Providers Care Engineering And Development Director Name Role Phone Jase Bryson MD Primary Care Provider Encounter Details Date Type Department Care Team (Late st Contact Info) Description 01/29/2004 Outpatient Historical Miryam Perales MD SHORTNESS OF BREATH (Primary Dx) Social History Tobacco Use Types Packs/Day Years Used Date Smoking Tobacco: Never Assessed Comments Unknown Sex and Gender Information Value Date Recorded Sex Assigned at Not on file Legal Sex Female 3:54 AM MENTAL HEALTH ORDERLY Gender Identity Not on file Sexual Orientation Not on file documented as of this encounter Plan of Treatment Upcoming Encounters Date Type Department Care Team (Late st Contact Info) Description 06/03/2024 12:30 PM CDT Hospital Encounter [facility] [address] [place] [address] Mariaa Diego MD [address] [place] [phone] 06/03/2024 1:20 PM CDT Office Visit [facility] Oncology and Hematology [address] [place] [address] Mariaa Diego MD [address] [place] [address] Pippa Dang, AGILE SCRUM COACH [address] [place] [address] 06/03/2024 1:45 PM CDT Hospital Encounter [facility] [address] 901 [...] Pathogen 04/02/2024 04/02/2024 04/02/2024 1 :44 PM MENTAL HEALTH ORDERLY R/O Respiratory 05/13/2024 05/13/2024 05/13/2024 1 1:33 PM CDT R/O C. diff 05/14/2024 05/14/2024 05/14/2024 10:0 6 AM CDT R/O C. diff 05/14/2024 05/14/2024 05/15/2024 1:01 PM CDT documented as of this encounter Care Teams Engineering And Development Director Relationship Specialty Start Date End Date Jase Bryson MD PCP - General Family Practice 05/06/19 documented as of this encounter
--- OUTSIDE RECORDS SUMMARY | 2024-06-02 16:22 | XMS_ITS | Encounter Summary ---
Author Organization [facility] Address [address] [place] [address] Care Team Providers Care Expediter Name Role Phone Jase Bryson MD Primary Care Provider Encounter Details Date Type Department Care Team (Late st Contact Info) Description 01/27/2003 Outpatient Historical HIS [facility] Jose Sullivan MD [address] [place], [place] [id number] Social History Tobacco Use Types Packs/Day Years Used Date Smoking Tobacco: Never Assessed Comments Unknown Sex and Gender Information Value Date Recorded Sex Assigned at Not on file Legal Sex Female 3:54 AM JOURNEYMAN PLUMBER Gender Identity Not on file Sexual Orientation Not on file documented as of this encounter Plan of Treatment Upcoming Encounters Date Type Department Care Team (Late st Contact Info) Description 06/03/2024 12:30 PM CDT Hospital Encounter [facility] [address] [place] [address] Mariaa Diego MD [address] [place] [address] 06/03/2024 1:20 PM CDT Office Visit [facility] Oncology and Hematology [address] [place] [address] Mariaa Diego MD [address] [place] [phone] Pippa Dang NP [address] [place] [address] 06/03/2024 1:45 PM CDT [facility] Pathogen 04/02/2024 04/02/2024 04/02/2024 1 :44 PM JOURNEYMAN PLUMBER R/O Respiratory 05/13/2024 05/13/2024 05/13/2024 1 1:33 PM CDT R/O C. diff 05/14/2024 05/14/2024 05/14/2024 10:0 6 AM CDT R/O C. diff 05/14/2024 05/14/2024 05/15/2024 1:01 PM CDT documented as of this encounter Care Teams Expediter Relationship Specialty Start Date End Date Jase Bryson MD PCP - General Family Practice 05/06/19 documented as of this encounter
--- OUTSIDE RECORDS SUMMARY | 2024-06-02 16:22 | XMS_ITS | Encounter Summary ---
Author Organization [facility] Address [address] [place] [address] Care Team Providers Care Office Receptionist Name Role Phone Jase Bryson MD Primary Care Provider Encounter Details Date Type Department Care Team (Latest Contact Info) Description 10/08/2003 Outpatient Historical HIS [facility] Cam Vásquez MD [address] [place] [phone] CONTRACEPT SURVEILL NEC (Primary Dx) Social History Tobacco Use Types Packs/Day Years Used Date Smoking Tobacco: Never Assessed Comments Unknown Sex and Gender Information Value Date Recorded Sex Assigned at Not on file Legal Sex Female 3:54 AM MICROGRINDER OPERATOR Gender Identity Not on file Sexual [...] [address] [place] [address] 06/03/2024 1:45 PM CDT Hospital Encounter [...] Pathogen 04/02/2024 04/02/2024 04/02/2024 1 :44 PM MICROGRINDER OPERATOR R/O Respiratory 05/13/2024 05/13/2024 05/13/2024 1 1:33 PM CDT R/O C. diff 05/14/2024 05/14/2024 05/14/2024 10:0 6 AM CDT R/O C. diff 05/14/2024 05/14/2024 05/15/2024 1:01 PM CDT documented as of this encounter Care Teams Office Receptionist Relationship Specialty Start Date End Date Jase Bryson MD PCP - General Family Practice 05/06/19 documented as of this encounter
--- OUTSIDE RECORDS SUMMARY | 2024-06-02 16:22 | XMS_ITS | Encounter Summary ---
Author Organization [facility] Address [address] [place] [address] Care Team Providers Care Glass Science Engineer Name Role Phone Jase Bryson MD Primary Care Provider Encounter Details Date Type Department Care Team (Late st Contact Info) Description 04/24/2003 Outpatient Historical HIS [facility] Miryam Perales MD Social History Tobacco Use Types Packs/Day Years Used Date Smoking Tobacco: Never Assessed Comments Unknown Sex and Gender Information Value Date Recorded Sex Assigned at Not on file Legal Sex Female 3:54 AM INTERNET MARKETER Gender Identity Not on file Sexual Orientation Not on file documented as of this encounter Plan of Treatment Upcoming Encounters Date Type Department Care Team (Late st Contact Info) Description 06/03/2024 12:30 PM CDT Hospital Encounter [facility] [address] [place] [address] Mariaa Diego MD [address] [place] [address] 06/03/2024 1:20 PM CDT Office Visit [facility] Oncology and Hematology [address] [place] [address] Mariaa Diego MD [address] [place] [address] Pippa Dang NP [address] [place] [phone] 06/03/2024 1:45 PM CDT Hospital Encounter [facility] [address] 901 [...] Pathogen 04/02/2024 04/02/2024 04/02/2024 1 :44 PM INTERNET MARKETER R/O Respiratory 05/13/2024 05/13/2024 05/13/2024 1 1:33 PM CDT R/O C. diff 05/14/2024 05/14/2024 05/14/2024 10:0 6 AM CDT R/O C. diff 05/14/2024 05/14/2024 05/15/2024 1:01 PM CDT documented as of this encounter Care Teams Glass Science Engineer Relationship Specialty Start Date End Date Jase Bryson MD PCP - General Family Practice 05/06/19 documented as of this encounter
--- OUTSIDE RECORDS SUMMARY | 2024-06-02 16:22 | XMS_ITS | Encounter Summary ---
Author Organization [facility] Address [address] [place] [address] Care Team Providers Care Catheter Builder Name Role Phone Jase Bryson MD Primary Care Provider Encounter Details Date Type Department Care Team (Latest Contact Info) Description 06/27/2002 Outpatient Historical [facility] Miryam Perales MD CHRONIC SINUSITIS NOS (Primary Dx) Social History Tobacco Use Types Packs/Day Years Used Date Smoking Tobacco: Never Assessed Comments Unknown Sex and Gender Information Value Date Recorded Sex Assigned at Not on file Legal Sex Female 3:54 AM NEWBORN PHOTOGRAPHER Gender Identity Not on file Sexual Orientation Not on file documented as of this encounter Plan of Treatment Upcoming Encounters Date Type Department Care Team (Late st Contact Info) Description 06/03/2024 12:30 PM CDT Hospital Encounter [facility] [address] [place] [address] Maraia Diego MD [address] [place] [phone] 06/03/2024 1:20 PM CDT Office Visit [facility] Oncology and Hematology [address] [place] [address] Mariaa Diego MD [address] [place] [address] Pippa Dang, DUONG [address] [place] [address] 06/03/2024 1:45 PM CDT Hospital Encounter [facility] [address] 901 [...] Pathogen 04/02/2024 04/02/2024 04/02/2024 1 :44 PM NEWBORN PHOTOGRAPHER R/O Respiratory 05/13/2024 05/13/2024 05/13/2024 1 1:33 PM CDT R/O C. diff 05/14/2024 05/14/2024 05/14/2024 10:0 6 AM CDT R/O C. diff 05/14/2024 05/14/2024 05/15/2024 1:01 PM CDT documented as of this encounter Care Teams Catheter Builder Relationship Specialty Start Date End Date Jase Bryson MD PCP - General Family Practice 05/06/19 documented as of this encounter
--- OUTSIDE RECORDS SUMMARY | 2024-06-02 16:22 | XMS_ITS | Encounter Summary ---
Author Organization [facility] Address [address] [place] [address] Care Team Providers Care Accounts Payable Manager Name Role Phone Jase Bryson MD Primary Care Provider Encounter Details Date Type Department Care Team (Late st Contact Info) Description 04/09/2003 Outpatient Historical [facility] [address] [place] [address] Jonathan Osorio MD [address] [address] Social History Tobacco Use Types Packs/Day Years Used Date Smoking Tobacco: Never Assessed Comments Unknown Sex and Gender Information Value Date Recorded Sex Assigned at Not on file Legal Sex Female 3:54 AM RADIO TIME SALES SUPERVISOR Gender Identity Not on file Sexual Orientation Not on file documented as of this encounter Plan of Treatment Upcoming Encounters Date Type Department Care Team (Late st Contact Info) Description 06/03/2024 12:30 PM CDT Hospital Encounter [facility] [address] [place] [address] Mariaa Diego MD [address] [place] [phone] 06/03/2024 1:20 PM CDT Office Visit [facility] Oncology and Hematology [address] [place] [address] Mariaa Diego MD [address] [place] [phone] Pippa Dang NP [address] [place] [phone] 06/03/2024 1:45 PM CDT Hospital Encounter [facility] [address] [place] [phone] Mariaa Diego MD [address] [place] [phone] 16, Mob documented as of this encounter Visit Diagnoses Not on filedocumented in this encounter Additional Health Concerns Infection Onset Date Last Indicated Resolved Time R/O COVID-19 05/27/2019 05/27/2019 05/29/2019 10:2 0 AM CDT R/O COVID-19 11/30/2023 11/30/2023 11/30/2023 6:52 PM CDT R/O Respiratory 11/30/2023 11/30/2023 12/01/2023 2 :21 PM CDT R/O GI Pathogen 04/02/2024 04/02/2024 04/02/2024 1 :44 PM RADIO TIME SALES SUPERVISOR R/O Respiratory 05/13/2024 05/13/2024 05/13/2024 1 1:33 PM CDT R/O C. diff 05/14/2024 05/14/2024 05/14/2024 10:0 6 AM CDT R/O C. diff 05/14/2024 05/14/2024 05/15/2024 1:01 PM CDT documented as of this encounter Care Teams Accounts Payable Manager Relationship Specialty Start Date End Date Jase Bryson MD PCP - General Family Practice 05/06/19 documented as of this encounter
--- OUTSIDE RECORDS SUMMARY | 2024-06-02 16:22 | XMS_ITS | Encounter Summary ---
Author Organization [facility] Address [address] [place] [address] Care Team Providers Care Pearl Digger Name Role Phone Jase Bryson MD Primary Care Provider Encounter Details Date Type Department Care Team (Late st Contact Info) Description 06/27/2002 Outpatient Historical HIS [facility] Miryam Perales MD Social History Tobacco Use Types Packs/Day Years Used Date Smoking Tobacco: Never Assessed Comments Unknown Sex and Gender Information Value Date Recorded Sex Assigned at Not on file Legal Sex Female 3:54 AM LAP CUTTER Gender Identity Not on file Sexual Orientation Not on file documented as of this encounter Plan of Treatment Upcoming Encounters Date Type Department Care Team (Late st Contact Info) Description 06/03/2024 12:30 PM CDT Hospital Encounter [facility] [address] [place] [address] Mariaa Diego MD [address] [place] [phone] 06/03/2024 1:20 PM CDT Office Visit [facility] Oncology and Hematology [address] [place] [address] Mariaa Diego MD [address] [place] [address] Pippa Dang NP [address] [place] [phone] 06/03/2024 1:45 PM CDT Hospital Encounter [facility] [...] Pathogen 04/02/2024 04/02/2024 04/02/2024 1 :44 PM LAP CUTTER R/O Respiratory 05/13/2024 05/13/2024 05/13/2024 1 1:33 PM CDT R/O C. diff 05/14/2024 05/14/2024 05/14/2024 10:0 6 AM CDT R/O C. diff 05/14/2024 05/14/2024 05/15/2024 1:01 PM CDT documented as of this encounter Care Teams Pearl Digger Relationship Specialty Start Date End Date Jase Bryson MD PCP - General Family Practice 05/06/19 documented as of this encounter
--- OUTSIDE RECORDS SUMMARY | 2024-06-02 16:22 | XMS_ITS | Encounter Summary ---
Author Organization [facility] Address [address] [place] [address] Care Team Providers Care Breast Buffer Name Role Phone Jase Bryson MD Primary Care Provider Encounter Details Date Type Department Care Team (Late st Contact Info) Description 01/28/2003 Outpatient Historical [facility] Cardiovas and Thor Surg at [facility] [address] [facility] [address] [place] [address] Chandana Vogel MD [address] [facility] [facility] [address] [place] [address] Social History Tobacco Use Types Packs/Day Years Used Date Smoking Tobacco: Never Assessed Comments Unknown Sex and Gender Information Value Date Recorded Sex Assigned at Not on file Legal Sex Female 3:54 AM REPRODUCTION ARTIST Gender Identity Not on file Sexual Orientation [...] [phone] 06/03/2024 1:20 PM CDT Office Visit [facility] Oncology and Hematology [address] [place] [phone] Mariaa Diego MD [address] [place] [phone] Pippa Dang NP [address] [place] [phone] 06/03/2024 1:45 PM CDT Hospital Encounter [facility] [address] [place] [phone] Mariaa Diego MD [address] [place] [...] Pathogen 04/02/2024 04/02/2024 04/02/2024 1 :44 PM REPRODUCTION ARTIST R/O Respiratory 05/13/2024 05/13/2024 05/13/2024 1 1:33 PM CDT R/O C. diff 05/14/2024 05/14/2024 05/14/2024 10:0 6 AM CDT R/O C. diff 05/14/2024 05/14/2024 05/15/2024 1:01 PM CDT documented as of this encounter Care Teams Breast Buffer Relationship Specialty Start Date End Date Jase Bryson MD PCP - General Family Practice 05/06/19 documented as of this encounter
--- OUTSIDE RECORDS SUMMARY | 2024-06-02 16:22 | XMS_ITS | Encounter Summary ---
Author Organization [facility] Address [address] [place] [address] Care Team Providers Care Service Greeter Name Role Phone Jase Bryson MD Primary Care Provider Encounter Details Date Type Department Care Team (Late Contact Info) Description 12/24/2003 Outpatient Historical HIS [facility] Cam Vásquez MD [address] [place] [phone] Social History Tobacco Use Types Packs/Day Years Used Date Smoking Tobacco: Never Assessed Comments Unknown Sex and Gender Information Value Date Recorded Sex Assigned at Not on file Legal Sex Female 3:54 AM SHIRT FINISHER Gender Identity Not on file Sexual [...] Diego MD [address] [place] [phone] Pippa Dang NP [address] [place] [phone] 06/03/2024 1:45 PM CDT Hospital Encounter [facility] [...] Pathogen 04/02/2024 04/02/2024 04/02/2024 1 :44 PM SHIRT FINISHER R/O Respiratory 05/13/2024 05/13/2024 05/13/2024 1 1:33 PM CDT R/O C. diff 05/14/2024 05/14/2024 05/14/2024 10:0 6 AM CDT R/O C. diff 05/14/2024 05/14/2024 05/15/2024 1:01 PM CDT documented as of this encounter Care Teams Service Greeter Relationship Specialty Start Date End Date Jase Bryson MD PCP - General Family Practice 05/06/19 documented as of this encounter
--- OUTSIDE RECORDS SUMMARY | 2024-06-02 16:22 | XMS_ITS | Encounter Summary ---
Author Organization [facility] Address [address] [place] [address] Care Team Providers Care Motor Vehicle Lecturer Name Role Phone Jase Bryson MD Primary Care Provider Encounter Details Date Type Department Care Team (Latest Contact Info) Description 02/18/2003 Outpatient Historical HIS [facility] Vogel, Chandana Julian MD [address] [place], [place] [id number] [place] [address] FOLLOW-UP EXAM NEC (Primary Dx) Social History Tobacco Use Types Packs/Day Years Used Date Smoking Tobacco: Never Assessed Comments Unknown Sex and Gender Information Value Date Recorded Sex Assigned at Not on file Legal Sex Female 3:54 AM CNA Gender Identity Not on file Sexual Orientation Not on file documented as of this encounter Plan of Treatment Upcoming Encounters Date Type Department Care Team (Late st Contact Info) Description 06/03/2024 12:30 PM CDT Hospital Encounter [facility] [address] [place] [address] Mariaa Diego MD [address] [place] [address] 06/03/2024 1:20 PM CDT Office Visit [facility] Oncology and Hematology [address] [place] [phone] Mariaa Diego MD [address] [place] [address] Pippa Dang NP [address] [place] [address] 06/03/2024 1:45 PM CDT Hospital Encounter [facility] [address] [place] [address] Mariaa Diego MD [address] [place] [address] 16, Mob documented as of this encounter Visit Diagnoses Diagnosis Other follow-up examination(V67.59)- Primary Other follow-up examination 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 diff 05/14/2024 05/14/2024 05/14/2024 10:0 6 AM CDT R/O C. diff 05/14/2024 05/14/2024 05/15/2024 1:01 PM CDT documented as of this encounter Care Teams Motor Vehicle Lecturer Relationship Specialty Start Date End Date Jase Bryson MD PCP - General Family Practice 05/06/19 documented as of this encounter
--- OUTSIDE RECORDS SUMMARY | 2024-06-02 16:22 | XMS_ITS | Continuity of Care Document ---
Author Organization [facility] Address [address] [place] [address] Phone Care Team Providers Care Garment Fitter Name Role Phone Ricardo Cadena PTA Unavailable Unavailabl e Procedures Procedure Date Therapeutic Exercise Manual Therapy Therapeutic Activities Therapeutic Exercise Manual Therapy Therapeutic Activities Therapeutic Exercise Manual Therapy Therapeutic Exercise Manual Therapy Therapeutic Exercise Manual Therapy Therapeutic Exercise Manual Therapy Therapeutic Exercise Manual Therapy PT Evaluation Moderate Complexity Neuromuscular Re-Ed Therapeutic Exercise Manual Therapy FCE Each 15min Advance Directives Directive Yes / No Effective Date File Name No Information Encounters Encounter Description Practice Location Reason(s) For Visit Diagnoses Date Provider Providers Copied on Encounter [facility], [address], [place], [place], [id number], tel:[phone] Two Dot No Information Tammi Silva. . Referring Provider: Myra Rascon, [address] , [place], [address]. tel:[phone] [place] [address], [address] [facility] [address], [place], [place], [id number], tel:[phone] Two Dot No Information Ngo Deb. . Referring Provider: Myra Rascon, Peter Rudd , [place], [address]. tel:[phone] [place] [address] [address] [address], [place], [place], [id number], tel:[phone] Two Dot No Information Ngo Deb. . Referring Provider: Myra Rascon, [facility], [place], [address]. tel:[phone] [place] [address], [address] [address], [place], [place], [id number], tel:[phone] Two Dot No Information Ngo Deb. . Referring Provider: Pteer Rivera , [place], [address]. tel:[phone] [place] [address], [address] [address], [place], [place], [id number], [place] tel:[phone] Two Dot No Information Richard Parra. . Referring Provider: [address], [place], [address]. tel:[phone] [place] [address] [address] [address], [place], [place], [id number], [place] tel:[phone] Two Dot No Information Richard Parra. . Referring Provider: Peter Rivera , [place], [address]. tel:[phone] [place] [address], [address] [address], [place], [place], [id number], tel:[phone] Two Dot No Information Richard Parra. . Referring Provider: Peter Rivera , [place], [address]. tel:[phone] [facility], [address], [place], [place], [id number], tel:[phone] [place] No Information Richard Parra. . Referring Provider: Myra Rascon, [address] [facility], [place], [address]. tel:[phone] [facility] [address] [facility] [address], [place], [place], [id number], tel:[phone] [place] No Information Dc Robert. [address] [facility], [address], [place], [address], . tel:[phone] Referring Provider: Jon Greenberg, [address], [place], [address]. tel:[phone] Family History Family Member Type Diagnosis Age At Onset No Information Payers Payer name Insurance type Covered republican ID Abhinav hawkins(s) Unified [id number] Social History Type Description Quantity Date Captured Comments Sex Female Smoking Status No Information Chief Complaint And Reason For Visit No Information Reason For Referral Reason For Referral No Information History Of Present Illness Encounter Date Complaint History Of Prese nt Illness No Information Functional Status Date Functional Assessmen t No Information Instructions Date Instruction Additional Infor nataliia Prescribed activity/exercise edu cation Related to Overweight Dietary needs education Related to Overweight Assessments Type Assessment Date No Information Patient Care Teams Name Effective Dates (start - stop) Status Members No Information
--- OUTSIDE RECORDS SUMMARY | 2024-06-02 16:22 | XMS_ITS | Encounter Summary ---
Author Organization [facility] Address [address] [place] [address] Care Team Providers Care Weights And Measures Sealer Name Role Phone Jase Bryson MD Primary Care Provider Encounter Details Date Type Department Care Team (Late Contact Info) Description 12/24/2003 Outpatient Historical [facility] Cam Vásquez MD [address] [place] [phone] Social History Tobacco Use Types Packs/Day Years Used Date Smoking Tobacco: Never Assessed Comments Unknown Sex and Gender Information Value Date Recorded Sex Assigned at Not on file Legal Sex Female 3:54 AM BOILER/CHILLER TECHNICIAN Gender Identity Not on file Sexual [...] 06/03/2024 1:20 PM CDT Office Visit [facility] Oncology and Hematology [address] [place] [phone] Mariaa Diego MD [address] [place] [phone] Pippa Dang NP [address] [place] [phone] 06/03/2024 1:45 PM CDT Hospital Encounter [place] [...] Pathogen 04/02/2024 04/02/2024 04/02/2024 1 :44 PM BOILER/CHILLER TECHNICIAN R/O Respiratory 05/13/2024 05/13/2024 05/13/2024 1 1:33 PM CDT R/O C. diff 05/14/2024 05/14/2024 05/14/2024 10:0 6 AM CDT R/O C. diff 05/14/2024 05/14/2024 05/15/2024 1:01 PM CDT documented as of this encounter Care Teams Weights And Measures Sealer Relationship Specialty Start Date End Date Jase Bryson MD PCP - General Family Practice 05/06/19 documented as of this encounter
--- OUTSIDE RECORDS SUMMARY | 2024-06-02 16:22 | XMS_ITS | Encounter Summary ---
Author Organization [facility] Address [address] [place] [address] Care Team Providers Care [place] Programmer Name Role Phone Jase Bryson MD Primary Care Provider Encounter Details Date Type Department Care Team (Late st Contact Info) Description 01/27/2003 Outpatient Historical HIS [facility] Jose Sullivan MD [address], [place] [id number] Social History Tobacco Use Types Packs/Day Years Used Date Smoking Tobacco: Never Assessed Comments Unknown Sex and Gender Information Value Date Recorded Sex Assigned at Not on file Legal Sex Female 3:54 AM LARGE ANIMAL VETERINARIAN Gender Identity Not on file Sexual [...] [id number] 06/03/2024 1:20 PM CDT Office Visit [facility] Oncology and Hematology [address] [place] [phone] Mariaa Diego MD [address] [place] [phone] Pippa Dang NP [address] [...] Pathogen 04/02/2024 04/02/2024 04/02/2024 1 :44 PM LARGE ANIMAL VETERINARIAN R/O Respiratory 05/13/2024 05/13/2024 05/13/2024 1 1:33 PM CDT R/O C. diff 05/14/2024 05/14/2024 05/14/2024 10:0 6 AM CDT R/O C. diff 05/14/2024 05/14/2024 05/15/2024 1:01 PM CDT documented as of this encounter Care Teams [place] Programmer Relationship Specialty Start Date End Date Jase Bryson MD PCP - General Family Practice 05/06/19 documented as of this encounter
--- OUTSIDE RECORDS SUMMARY | 2024-06-02 16:22 | XMS_ITS | Encounter Summary ---
Author Organization [facility] Address [address] [place] [address] Care Team Providers Care Psychology Assistant Name Role Phone Jase Bryson MD Primary Care Provider Encounter Details Date Type Department Care Team (Late st Contact Info) Description 01/22/2004 Outpatient Historical HIS [facility] Miryam Perales MD Social History Tobacco Use Types Packs/Day Years Used Date Smoking Tobacco: Never Assessed Comments Unknown Sex and Gender Information Value Date Recorded Sex Assigned at Not on file Legal Sex Female 3:54 AM CREASING MACHINE OPERATOR Gender Identity Not on file [...] [address] [place] [phone] 06/03/2024 1:45 PM CDT Hospital Encounter [facility] [...] Pathogen 04/02/2024 04/02/2024 04/02/2024 1 :44 PM CREASING MACHINE OPERATOR R/O Respiratory 05/13/2024 05/13/2024 05/13/2024 1 1:33 PM CDT R/O C. diff 05/14/2024 05/14/2024 05/14/2024 10:0 6 AM CDT R/O C. diff 05/14/2024 05/14/2024 05/15/2024 1:01 PM CDT documented as of this encounter Care Teams Psychology Assistant Relationship Specialty Start Date End Date Jase Bryson MD PCP - General Family Practice 05/06/19 documented as of this encounter
--- OUTSIDE RECORDS SUMMARY | 2024-06-02 16:22 | XMS_ITS | Encounter Summary ---
Author Organization [facility] Address [address] [place] [address] Care Team Providers Care Mortgage Loan Closer Name Role Phone Jase Bryson MD Primary Care Provider Encounter Details Date Type Department Care Team (Late st Contact Info) Description 12/26/2003 Outpatient Historical HIS [facility] Javier Glover MD [address] [facility] [address] [place], [place] [id number] PAINFUL RESPIRATION (Primary Dx) Social History Tobacco Use Types Packs/Day Years Used Date Smoking Tobacco: Never Assessed Comments Unknown Sex and Gender Information Value Date Recorded Sex Assigned at Not on file Legal Sex Female 3:54 AM TODDLER CAREGIVER Gender Identity Not on file Sexual Orientation Not on file documented as of this encounter Plan of Treatment Upcoming Encounters Date Type Department Care Team (Late st Contact Info) Description 06/03/2024 12:30 PM CDT Hospital Encounter [facility] [address] [place] [phone] Mariaa Diego MD [address] [place] [phone] 06/03/2024 1:20 PM CDT Office Visit [facility] Oncology and Hematology [address] [place] [phone] Mariaa Diego MD [address] [place] [phone] Pipap Dang NP [address] [place] [phone] 06/03/2024 1:45 PM CDT Hospital Encounter [facility] [address] [place] [phone] Mariaa Diego MD [address] [place] [address], [place] documented as of this encounter Visit Diagnoses Diagnosis Painful respiration- Primary Malignant neoplasm of upper-outer quadrant of [...] Pathogen 04/02/2024 04/02/2024 04/02/2024 1 :44 PM TODDLER CAREGIVER R/O Respiratory 05/13/2024 05/13/2024 05/13/2024 1 1:33 PM CDT R/O C. diff 05/14/2024 05/14/2024 05/14/2024 10:0 6 AM CDT R/O C. diff 05/14/2024 05/14/2024 05/15/2024 1:01 PM CDT documented as of this encounter Care Teams Mortgage Loan Closer Relationship Specialty Start Date End Date Jase Bryson MD PCP - General Family Practice 05/06/19 documented as of this encounter
--- OUTSIDE RECORDS SUMMARY | 2024-06-02 16:22 | XMS_ITS | Encounter Summary ---
Author Organization [facility] Address [address] [place] [address] Care Team Providers Care [place] Aide Name Role Phone Jase Bryson MD Primary Care Provider Encounter Details Date Type Department Care Team (Latest Contact Info) Description 04/29/2004 Outpatient Historical [facility], [address] Dominic Manzano MD ACUTE SINUSITIS NOS (Primary Dx) Social History Tobacco Use Types Packs/Day Years Used Date Smoking Tobacco: Never Assessed Comments Unknown Sex and Gender Information Value Date Recorded Sex Assigned at Not on file Legal Sex Female 3:54 AM CURING ROOM WORKER Gender Identity Not on file Sexual Orientation [...] Procedure Name Priority Date/Time Associated Diagnosis Comments IMMUNOGLOBULINS IGG IGA IGM Routine 04/29/2004 6:35 PM CURING ROOM WORKER IGE Routine 04/29/2004 6:35 PM CURING ROOM WORKER documented in this encounter Results * IGE (04/29/2004 6:35 PM CURING ROOM WORKER) IGE 3 <KP=435 kU/L INTERFACE SYSTEM Comment: [facility] [address] [place] [address] JHONNY LITTLEJOHN MD 04/29/2004 6:35 PM CURING ROOM WORKER Dominic Manzano MD CHEMISTRY ORDERABLES Final Resu lt Performing Organization Address [facility] Phone Number INTERFACE SYSTEM Refer to clinic/hospital department * IMMUNOGLOBULINS IGG IGA IGM (04/29/2004 6:35 PM CURING ROOM WORKER) IGA 241.1 83.0 - 336.0 mg/dL INTERFACE SYSTEM IGM 178.2 60.0 - 292.0 mg/dL INTERFACE SYSTEM IGG 959 724 - 1501 mg/dL INTERFACE SYSTEM 04/29/2004 6:35 PM CURING ROOM WORKER Dominic Manzano MD CHEMISTRY ORDERABLES Final Resu lt Performing Organization Address City/[facility] Co de Phone Number INTERFACE SYSTEM Refer to clinic/hospital department documented in this encounter Visit Diagnoses Diagnosis Acute sinusitis, unspecified- Primary Malignant neoplasm of upper-outer quadrant [...] Pathogen 04/02/2024 04/02/2024 04/02/2024 1 :44 PM CURING ROOM WORKER R/O Respiratory 05/13/2024 05/13/2024 05/13/2024 1 1:33 PM CDT R/O C. diff 05/14/2024 05/14/2024 05/14/2024 10:0 6 AM CDT R/O C. diff 05/14/2024 05/14/2024 05/15/2024 1:01 PM CDT documented as of this encounter Care Teams [place] Aide Relationship Specialty Start Date End Date Jase Bryson MD PCP - General Family Practice 05/06/19 documented as of this encounter
--- OUTSIDE RECORDS SUMMARY | 2024-06-02 16:22 | XMS_ITS | Encounter Summary ---
Author Organization [facility] Address [address] [place] [address] Care Team Providers Care Certified Professional Ergonomist Name Role Phone Jase Bryson MD Primary Care Provider Encounter Details Date Type Department Care Team (Late Contact Info) Description 07/15/2003 Outpatient Historical HIS [facility] Cam Vásquez MD [address] [place] [phone] Social History Tobacco Use Types Packs/Day Years Used Date Smoking Tobacco: Never Assessed Comments Unknown Sex and Gender Information Value Date Recorded Sex Assigned at Not on file Legal Sex Female 3:54 AM HADOOP ADMIN Gender Identity Not on file Sexual Orientation [...] 1:20 PM CDT Office Visit [facility] Oncology and Hematology [address] [place] [phone] Mariaa Diego MD [address] [place] [phone] Pippa Dang NP [address] [phone] 06/03/2024 1:45 PM CDT Hospital Encounter [place] [...] Pathogen 04/02/2024 04/02/2024 04/02/2024 1 :44 PM HADOOP ADMIN R/O Respiratory 05/13/2024 05/13/2024 05/13/2024 1 1:33 PM CDT R/O C. diff 05/14/2024 05/14/2024 05/14/2024 10:0 6 AM CDT R/O C. diff 05/14/2024 05/14/2024 05/15/2024 1:01 PM CDT documented as of this encounter Care Teams Certified Professional Ergonomist Relationship Specialty Start Date End Date Jase Bryson MD PCP - General Family Practice 05/06/19 documented as of this encounter
--- OUTSIDE RECORDS SUMMARY | 2024-06-02 16:22 | XMS_ITS | Encounter Summary ---
Author Organization [facility] Address [address] [place] [address] Care Team Providers Care Subsurface Augmentee Operator Name Role Phone Jase Bryson MD Primary Care Provider Encounter Details Date Type Department Care Team (Late st Contact Info) Description 02/03/2004 Outpatient Historical HIS [facility] Fidel Sawyer MD NO ADDRESS ON FILE CHEST PAIN NOS (Primary Dx) Social History Tobacco Use Types Packs/Day Years Used Date Smoking Tobacco: Never Assessed Comments Unknown Sex and Gender Information Value Date Recorded Sex Assigned at Not on file Legal Sex Female 3:54 AM ROOM MANAGER Gender Identity Not on file Sexual [...] 06/03/2024 1:20 PM CDT Office Visit [facility] Oncology and Hematology [address] [place] [phone] Mariaa Diego MD [address] [place] [phone] Pippa Dang, ROTARY DRILL OPERATOR [address] [place] [address] 06/03/2024 1:45 PM CDT Hospital [...] Pathogen 04/02/2024 04/02/2024 04/02/2024 1 :44 PM ROOM MANAGER R/O Respiratory 05/13/2024 05/13/2024 05/13/2024 1 1:33 PM CDT R/O C. diff 05/14/2024 05/14/2024 05/14/2024 10:0 6 AM CDT R/O C. diff 05/14/2024 05/14/2024 05/15/2024 1:01 PM CDT documented as of this encounter Care Teams Subsurface Augmentee Operator Relationship Specialty Start Date End Date Jase Bryson MD PCP - General Family Practice 05/06/19 documented as of this encounter
--- OUTSIDE RECORDS SUMMARY | 2024-06-02 16:22 | XMS_ITS | Encounter Summary ---
Author Organization [facility] Address [address] [place] [address] Care Team Providers Care Medical Van Driver Name Role Phone Jase Bryson MD Primary Care Provider Encounter Details Date Type Department Care Team (Late st Contact Info) Description 04/09/2003 Outpatient Historical HIS [facility] Jonathan Osorio MD [address] [place] [phone] ALLERGIC RHINITIS NOS (Primary Dx) Social History Tobacco Use Types Packs/Day Years Used Date Smoking Tobacco: Never Assessed Comments Unknown Sex and Gender Information Value Date Recorded Sex Assigned at Not on file Legal Sex Female 3:54 AM LINEN ATTENDANT Gender Identity Not on file Sexual [...] Pathogen 04/02/2024 04/02/2024 04/02/2024 1 :44 PM LINEN ATTENDANT R/O Respiratory 05/13/2024 05/13/2024 05/13/2024 1 1:33 PM CDT R/O C. diff 05/14/2024 05/14/2024 05/14/2024 10:0 6 AM CDT R/O C. diff 05/14/2024 05/14/2024 05/15/2024 1:01 PM CDT documented as of this encounter Care Teams Medical Van Driver Relationship Specialty Start Date End Date Jase Bryson MD PCP - General Family Practice 05/06/19 documented as of this encounter
--- OUTSIDE RECORDS SUMMARY | 2024-06-02 16:22 | XMS_ITS ---
Author Name NAHEED CONRAD D.O. Address [address] [place] [address] Phone [phone] [facility] Headache and Ne urology Care Team Providers Care Grizzly Worker Name Role Phone GERTRUDIS CONRAD Unavailable [phone] Unavailable Unavailable Unavailable Reason for Referral Not Available Allergies, adverse reactions, alerts No known allergies History of medication use Medication Class Instructions Start Date End Date Gemfibrozil 600 mg Tab TAKE 1 TABLET BY MOUTH EVERY DAY 30 MINUTES BEFORE MEALS IN THE MORNING & IN THE EVENING 2022-08-11 No Data Available Citalopram Hydrobromide 40 m g Tab TAKE 1 TABLET BY MOUTH EVERY DAY 2022-04-14 No Data Available lamoTRIgine 200 mg Tab TAKE 1 TABLET BY MOUTH TWICE A DAY 2022-11-08 No Data Available Spiriva Respimat 1.25 MCG/AC T Aerosol Solution INHALE 2 PUFFS BY MOUTH EVERY DAY 2022-05-16 No Data Available Pregabalin 75 mg Cap TAKE 1 CAPSULE BY M OUTH THREE TIMES A DAY 2022-11-08 No Data Available [facility] Aspirin Low Dose 81 mg T ab delayed rel TAKE 1 TABLET BY MOUTH EVERY DAY 2022-08-11 No Data Available traZODone 50 mg Tab TAKE 2 TABLETS BY MO UTH EVERYDAY AT BEDTIME 2022-12-06 No Data Available HYDROcodone-Acetaminophen 7.5/325 mg Tab No Data Available 2023-01-11 No Data Available Methocarbamol 750 mg Tab No Data Available 2023-01-11 No Data Available methylPREDNISolone 4 mg Tab Therapy Pack No Data Available 2023-01-11 No Data Available Omeprazole 20 mg Cap delayed rel TAKE 1 CAPSULE BY MOUTH EVERY DAY 2022-04-24 No Data Available Ajovy 225 mg/1.5ML Solution Auto-injector Subcutaneous inject subq every 28 days 2023-04-17 No Data Available Problem List No known problems Encounters Encounters Type Facility Date of Service Diagnosis/Co mplaint moderate complexity office [facility] 04[facility]17[facility]2023 Chronic migraine w/o aura, not intractable, w/o stat migr moderate complexity office visit [facility] 06/19/2023 Chronic migraine w/o aura, not intractable, w/o stat migr Social History Sex Female Gender identity Woman History of Procedures Procedures Service Procedure code Service date Servicing provider Phone# moderate complexity office visit [id number] 2023-04-17 No Data Available No Data Availa ble moderate complexity office visit [id number] 2023-06-19 No Data Available No Data Availa ble Functional Status No Information Mental Status No Information Assessments Date of Service Assessments 2023-04-17 06:30:00 Chronic migraine wit hout auraMood disturbance and post- concussive memory loss--improvedLikely pseudo-dementia--improved 2023-06-19 11:00:00 Chronic migraine wit hout auraMood disturbance and post- concussive memory loss--improvedLikely pseudo-dementia--improvedVirtual Visit: Today's visit was conducted via secured, two-way communication through [employer]. Patient located in [place]. Patient expressed consent with video communication to carry out today's visit. Total time of video encounter was 30 + mins that were spent reviewing records, obtaining history, doing a physical exam (via video) as appropriate, documenting in the chart, and any associated orders, all on the day of the visit.Voice dictation software is in use. Cutter Operator variances may occur. Please excuse if any pronouns (he/she/they) or other wording is incorrect. If there is concern in wording, feel free to message back. We discussed the diagnosis today. We discussed the implications of this on future health and management. I reviewed relevant possible side effects and interactions of these medications. This allergy history was addressed in my selection of new medications. The patient was instructed to read packet insert and follow the instructions before taking the medication. We discussed potential referrals, testing and indications as above. For female patients, it was discussed to contact us if they wish to become or are . Additionally, if that applies, they should discuss all medications and treatments with their OBGyn before initiated therapy. Patient instructed to check the portal for updated care plan notes and clinical note. Plan of Care Date of Service Plans 2023-04-17 06:30:00 Ajovy (fremanez umab)Today we are prescribing you Ajovy 225 mg once monthly injections. Injection site reactions are the most common side effect with this medication.If you are planning to become , become , or breast feeding let me know as many medications cannot be used in these cases. Note that some of these medications may have animal products in them. If you are vegan and avoiding all animal products, discuss with me before using.[facility] [address], [place] [address] Prior medication trials: Antidepressants: - currently on citalopram 40mgBlood Pressure Medicines: - PROPRANOLOL/METOPROLOL CONTRAINDICATED DUE TO EMPHYSEMAAnti-seizure medicines: - lamotrigine (no headache benefit), pregabalin (no headache benefit)CGRP Preventatives: - Emgality (good benefit, cost prohibitive)- Patient will begin Ajovy 225 mg q28 days injections to help prevent migraines. Administration was discussed today given the failure of multiple prophylaxis as documented above.Fremanezumab is a humanized monoclonal antibody from [employer] Ovary cells to the GCRP ligand.Side effects can include injection site reactions (43-45% vs placebo 38%). Anecdotally arthralgias and constipation are possible. Hypersensitivity reactions are possible.Additionally, we have reviewed that classification for safety of the medication in and has not been established, so that current recommendations include avoidance of the medication 6 months prior to, and during and/or .This has been discussed with the patient.--concern for psychiatric polypharmacy--recommend psychiatry consult--continue therapy--no significant atrophy on imaging 2023-06-19 11:00:00 Ajovy (fremanez umab)Today we are prescribing you Ajovy 225 mg once monthly injections. Injection site reactions are the most common side effect with this medication.If you are planning to become , become , or breast feeding let me know as many medications cannot be used in these cases. Note that some of these medications may have animal products in them. If you are vegan and avoiding all animal products, discuss with me before using.[facility] [address], [place] [id number] Prior medication trials: Antidepressants: - currently on citalopram 40mgBlood Pressure Medicines: - PROPRANOLOL/METOPROLOL CONTRAINDICATED DUE TO EMPHYSEMAAnti-seizure medicines: - lamotrigine (no headache benefit), pregabalin (no headache benefit)CGRP Preventatives: - Emgality (good benefit, cost prohibitive)- Patient will begin Ajovy 225 mg q28 days injections to help prevent migraines. Administration was discussed today given the failure of multiple prophylaxis as documented above.Fremanezumab is a humanized monoclonal antibody from [employer] Ovary cells to the GCRP ligand.Side effects can include injection site reactions (43-45% vs placebo 38%). Anecdotally arthralgias and constipation are possible. Hypersensitivity reactions are possible.Additionally, we have reviewed that classification for safety of the medication in and has not been established, so that current recommendations include avoidance of the medication 6 months prior to, and during and/or .This has been discussed with the patient.--concern for psychiatric polypharmacy--recommend psychiatry consult--continue therapy--no significant atrophy on imaging
--- OUTSIDE RECORDS SUMMARY | 2024-06-02 16:22 | XMS_ITS | Encounter Summary ---
Author Organization [facility] Address [address] [place] [address] Care Team Providers Care Sales Account Associate Name Role Phone Jase Bryson MD Primary Care Provider Encounter Details Date Type Department Care Team (Latest Contact Info) Description 03/06/2003 Outpatient Historical [facility] Miryam Perales MD CHRONIC SINUSITIS NOS (Primary Dx) Social History Tobacco Use Types Packs/Day Years Used Date Smoking Tobacco: Never Assessed Comments Unknown Sex and Gender Information Value Date Recorded Sex Assigned at Not on file Legal Sex Female 3:54 AM PHARMACY TECHNICIAN TRAINEE Gender Identity Not on file Sexual Orientation [...] Visit [facility] Oncology and Hematology [address] [place] [address] Mariaa Diego MD [address] [place] [address] Pippa Dang, DUONG [address] [place] [address] 06/03/2024 1:45 PM CDT Hospital Encounter [facility] [...] Pathogen 04/02/2024 04/02/2024 04/02/2024 1 :44 PM PHARMACY TECHNICIAN TRAINEE R/O Respiratory 05/13/2024 05/13/2024 05/13/2024 1 1:33 PM CDT R/O C. diff 05/14/2024 05/14/2024 05/14/2024 10:0 6 AM CDT R/O C. diff 05/14/2024 05/14/2024 05/15/2024 1:01 PM CDT documented as of this encounter Care Teams Sales Account Associate Relationship Specialty Start Date End Date Jase Bryson MD PCP - General Family Practice 05/06/19 documented as of this encounter
--- OUTSIDE RECORDS SUMMARY | 2024-06-02 16:22 | XMS_ITS | Encounter Summary ---
Author Organization [facility] Address [address] [place] [address] Care Team Providers Care Level Vial Inspector Name Role Phone Jase Bryson MD Primary Care Provider Encounter Details Date Type Department Care Team (Late st Contact Info) Description 01/27/2003 Outpatient Historical HIS [facility] Jose Sullivan MD [address] [place], [place] [id number] Social History Tobacco Use Types Packs/Day Years Used Date Smoking Tobacco: Never Assessed Comments Unknown Sex and Gender Information Value Date Recorded Sex Assigned at Not on file Legal Sex Female 3:54 AM DRAWING HAND Gender Identity Not on file Sexual Orientation [...] 06/03/2024 1:20 PM CDT Office Visit [facility] Oncology and Hematology [address] [place] [address] Mariaa Diego MD [address] [place] [phone] Pippa Dang NP [address] [place] [address] 06/03/2024 1:45 PM CDT Hospital Encounter [...] Pathogen 04/02/2024 04/02/2024 04/02/2024 1 :44 PM DRAWING HAND R/O Respiratory 05/13/2024 05/13/2024 05/13/2024 1 1:33 PM CDT R/O C. diff 05/14/2024 05/14/2024 05/14/2024 10:0 6 AM CDT R/O C. diff 05/14/2024 05/14/2024 05/15/2024 1:01 PM CDT documented as of this encounter Care Teams Level Vial Inspector Relationship Specialty Start Date End Date Jase Bryson MD PCP - General Family Practice 05/06/19 documented as of this encounter
--- OUTSIDE RECORDS SUMMARY | 2024-06-02 16:22 | XMS_ITS | Encounter Summary ---
Author Organization [facility] Address [address] [place] [address] Care Team Providers Care Welding Machine Operator/Tender Name Role Phone Jase Bryson MD Primary Care Provider Encounter Details Date Type Department Care Team (Latest Contact Info) Description 07/16/2002 Outpatient Historical HIS [facility] Cam Vásquez MD [address] [place] [phone] GYNECOLOGIC EXAMINATION (Primary Dx) Social History Tobacco Use Types Packs/Day Years Used Date Smoking Tobacco: Never Assessed Comments Unknown Sex and Gender Information Value Date Recorded Sex Assigned at Not on file Legal Sex Female 3:54 AM FULL SERVICE VENDING DRIVER Gender Identity Not on file Sexual Orientation Not on file documented as of this encounter Plan of Treatment Upcoming Encounters Date Type Department Care Team (Late st Contact Info) Description 06/03/2024 12:30 PM CDT Hospital Encounter [facility] [address] [place] [address] Mariaa Diego MD [address] [place] [phone] 06/03/2024 1:20 PM CDT Office Visit [facility] Oncology and Hematology [address] [place] [phone] Mariaa Diego MD [address] [place] [address] Pippa Dang NP [address] [place] [address] 06/03/2024 1:45 PM CDT Hospital Encounter [facility] [address] [place] [address] Mariaa iDego MD [address] [place] [address] [...] Pathogen 04/02/2024 04/02/2024 04/02/2024 1 :44 PM FULL SERVICE VENDING DRIVER R/O Respiratory 05/13/2024 05/13/2024 05/13/2024 1 1:33 PM CDT R/O C. diff 05/14/2024 05/14/2024 05/14/2024 10:0 6 AM CDT R/O C. diff 05/14/2024 05/14/2024 05/15/2024 1:01 PM CDT documented as of this encounter Care Teams Welding Machine Operator/Tender Relationship Specialty Start Date End Date Jase Bryson MD PCP - General Family Practice 05/06/19 documented as of this encounter
--- OUTSIDE RECORDS SUMMARY | 2024-06-02 16:22 | XMS_ITS | Encounter Summary ---
Author Organization [facility] Address [address] [place] [address] Care Team Providers Care Space Engineer Name Role Phone Jase Bryson MD Primary Care Provider Encounter Details Date Type Department Care Team (Late st Contact Info) Description 03/06/2003 Outpatient Historical HIS [facility] Miryam Perales MD Social History Tobacco Use Types Packs/Day Years Used Date Smoking Tobacco: Never Assessed Comments Unknown Sex and Gender Information Value Date Recorded Sex Assigned at Not on file Legal Sex Female 3:54 AM COMPUTED TOMOGRAPHY SCANNER OPERATOR Gender Identity Not on file Sexual Orientation Not on file documented as of this encounter Plan of Treatment Upcoming Encounters Date Type Department Care Team (Late st Contact Info) Description 06/03/2024 12:30 PM CDT Hospital Encounter [facility] [address] [place] [phone] Mariaa Diego MD [address] [place] [phone] 06/03/2024 1:20 PM CDT Office Visit [facility] Oncology and Hematology [address] [place] [phone] Mariaa Diego MD [address] [place] [phone] Pippa Dang NP [address] [place] [phone] 06/03/2024 1:45 PM CDT Hospital Encounter [facility] [...] Pathogen 04/02/2024 04/02/2024 04/02/2024 1 :44 PM COMPUTED TOMOGRAPHY SCANNER OPERATOR R/O Respiratory 05/13/2024 05/13/2024 05/13/2024 1 1:33 PM CDT R/O C. diff 05/14/2024 05/14/2024 05/14/2024 10:0 6 AM CDT R/O C. diff 05/14/2024 05/14/2024 05/15/2024 1:01 PM CDT documented as of this encounter Care Teams Space Engineer Relationship Specialty Start Date End Date Jase Bryson MD PCP - General Family Practice 05/06/19 documented as of this encounter
--- OUTSIDE RECORDS SUMMARY | 2024-06-02 16:22 | XMS_ITS | Encounter Summary ---
Author Organization [facility] Address [address] [place] [address] Care Team Providers Care Online Marketing Strategist Name Role Phone Jase Bryson MD Primary Care Provider Encounter Details Date Type Department Care Team (Latest Contact Info) Description 01/22/2004 Outpatient Historical HIS [facility] Miryam Perales MD ASTHMA UNSPECIFIED (Primary Dx) Social History Tobacco Use Types Packs/Day Years Used Date Smoking Tobacco: Never Assessed Comments Unknown Sex and Gender Information Value Date Recorded Sex Assigned at Not on file Legal Sex Female 3:54 AM K 12 PRINCIPAL Gender Identity Not on file Sexual Orientation [...] [id number] 06/03/2024 1:20 PM CDT Office Visit [facility] Oncology and Hematology [address] [place] [phone] Mariaa Diego MD [address] [place] [address] Pippa Dang, DUONG [address] [place] [phone] 06/03/2024 1:45 PM CDT Hospital Encounter [facility] [address] [place] [address] Mariaa Diego MD [address] [place] [phone] 16, Mob documented as of this encounter Visit Diagnoses Diagnosis Unspecified asthma(493.90)- Primary Unspecified asthma Malignant neoplasm of upper-outer quadrant of left [...] Pathogen 04/02/2024 04/02/2024 04/02/2024 1 :44 PM K 12 PRINCIPAL R/O Respiratory 05/13/2024 05/13/2024 05/13/2024 1 1:33 PM CDT R/O C. diff 05/14/2024 05/14/2024 05/14/2024 10:0 6 AM CDT R/O C. diff 05/14/2024 05/14/2024 05/15/2024 1:01 PM CDT documented as of this encounter Care Teams Online Marketing Strategist Relationship Specialty Start Date End Date Jase Bryson MD PCP - General Family Practice 05/06/19 documented as of this encounter
--- OUTSIDE RECORDS SUMMARY | 2024-06-02 16:22 | XMS_ITS | Encounter Summary ---
Author Organization [facility] Address [address] [place] [address] Care Team Providers Care Atmospheric Technician Name Role Phone Jase Bryson MD Primary Care Provider Encounter Details Date Type Department Care Team (Latest Contact Info) Description 05/21/2004 Outpatient Historical HIS [facility] Miryam Perales MD LUMBAGO (Primary Dx) Social History Tobacco Use Types Packs/Day Years Used Date Smoking Tobacco: Never Assessed Comments Unknown Sex and Gender Information Value Date Recorded Sex Assigned at Not on file Legal Sex Female 3:54 AM CREPE BOX TENDER Gender Identity Not on file Sexual Orientation Not on file documented as of this encounter Plan of Treatment Upcoming Encounters Date Type Department Care Team (Late st Contact Info) Description 06/03/2024 12:30 PM CDT Hospital Encounter [facility] [address] [place] [phone] Mariaa Diego MD [address] [place] [phone] 06/03/2024 1:20 PM CDT Office Visit [facility] Oncology and Hematology [address] [place] [phone] Mariaa Diego MD [address] [place] [address] Pippa Dang, DUONG [address] [place] [address] 06/03/2024 1:45 PM CDT Hospital Encounter [facility] [address] [place] [address] Mariaa Diego MD [address] [place] [phone] 16, Mob documented as of this encounter Visit Diagnoses Diagnosis Lumbago- Primary Malignant neoplasm of upper-outer quadrant of [...] Pathogen 04/02/2024 04/02/2024 04/02/2024 1 :44 PM CREPE BOX TENDER R/O Respiratory 05/13/2024 05/13/2024 05/13/2024 1 1:33 PM CDT R/O C. diff 05/14/2024 05/14/2024 05/14/2024 10:0 6 AM CDT R/O C. diff 05/14/2024 05/14/2024 05/15/2024 1:01 PM CDT documented as of this encounter Care Teams Atmospheric Technician Relationship Specialty Start Date End Date Jase Bryson MD PCP - General Family Practice 05/06/19 documented as of this encounter
--- OUTSIDE RECORDS SUMMARY | 2024-06-02 16:22 | XMS_ITS | Encounter Summary ---
Author Organization [facility] Address [address] [place] [address] Care Team Providers Care Beamster Name Role Phone Jase Bryson MD Primary Care Provider Encounter Details Date Type Department Care Team (Late Contact Info) Description 12/26/2003 Outpatient Historical HIS [facility] Javier Iqbal MD [address] [facility] [address] [place] [address] CHEST PAIN NOS (Primary Dx) Social History Tobacco Use Types Packs/Day Years Used Date Smoking Tobacco: Never Assessed Comments Unknown Sex and Gender Information Value Date Recorded Sex Assigned at Not on file Legal Sex Female 3:54 AM SYSTEMS TECHNICIAN Gender Identity Not on file Sexual Orientation Not on file documented as of this encounter Plan of Treatment Upcoming Encounters Date Type Department Care Team (Late Contact Info) Description 06/03/2024 12:30 PM CDT Hospital Encounter [facility] [address] [place] [address] Mariaa Diego MD [address] [place] [phone] 06/03/2024 1:20 PM CDT Office Visit [facility] Oncology and Hematology [address] [place] [phone] Mariaa Diego MD [address] [place] [phone] Pippa Dang NP [address] [place] [phone] 06/03/2024 1:45 PM CDT Hospital Encounter [facility] [...] Pathogen 04/02/2024 04/02/2024 04/02/2024 1 :44 PM SYSTEMS TECHNICIAN R/O Respiratory 05/13/2024 05/13/2024 05/13/2024 1 1:33 PM CDT R/O C. diff 05/14/2024 05/14/2024 05/14/2024 10:0 6 AM CDT R/O C. diff 05/14/2024 05/14/2024 05/15/2024 1:01 PM CDT documented as of this encounter Care Teams Beamster Relationship Specialty Start Date End Date Jase Bryson MD PCP - General Family Practice 05/06/19 documented as of this encounter
--- OUTSIDE RECORDS SUMMARY | 2024-06-02 16:22 | XMS_ITS | Encounter Summary ---
Author Organization [facility] Address [address] [place] [address] Care Team Providers Care Cardiographer Name Role Phone Jase Bryson MD Primary Care Provider Encounter Details Date Type Department Care Team (Latest Contact Info) Description 01/28/2003 Inpatient Historical HIS [facility] A BED [facility], Chandana Julian MD [address] [place] [phone] Joel Groves Jr., MD NO ADDRESS ON FILE SPONTANEOUS PNEUMOTHORAX NEC (Primary Dx) Social History Tobacco Use Types Packs/Day Years Used Date Smoking Tobacco: Never Assessed Comments Unknown Sex and Gender Information Value Date Recorded Sex Assigned at Not on file Legal Sex Female 3:54 AM WEAPONS MECHANIC Gender Identity Not on file Sexual Orientation [...] [address] [place] [address] 06/03/2024 1:45 PM CDT Hospital Encounter [facility] [address] [place] [address] Mariaa Diego MD [address] [place] [phone] 16, Mob documented as of this encounter Visit Diagnoses Diagnosis Other spontaneous pneumothorax- Primary Malignant neoplasm of upper-outer quadrant of [...] Pathogen 04/02/2024 04/02/2024 04/02/2024 1 :44 PM WEAPONS MECHANIC R/O Respiratory 05/13/2024 05/13/2024 05/13/2024 1 1:33 PM CDT R/O C. diff 05/14/2024 05/14/2024 05/14/2024 10:0 6 AM CDT R/O C. diff 05/14/2024 05/14/2024 05/15/2024 1:01 PM CDT documented as of this encounter Care Teams Cardiographer Relationship Specialty Start Date End Date Jase Bryson MD PCP - General Family Practice 05/06/19 documented as of this encounter
--- OUTSIDE RECORDS SUMMARY | 2024-06-02 16:22 | XMS_ITS | Encounter Summary ---
Author Organization [facility] Address [address] [place] [address] Care Team Providers Care Jig Operator Name Role Phone Jase Bryson MD Primary Care Provider Encounter Details Date Type Department Care Team (Late st Contact Info) Description 01/27/2003 Outpatient Historical HIS [facility] Jose Sullivan MD [address] [place], [place] [phone] Social History Tobacco Use Types Packs/Day Years Used Date Smoking Tobacco: Never Assessed Comments Unknown Sex and Gender Information Value Date Recorded Sex Assigned at Not on file Legal Sex Female 3:54 AM INSPECTOR Gender Identity Not on file Sexual Orientation [...] 06/03/2024 1:20 PM CDT Office Visit [facility] Oncology and Hematology [address] [place] [phone] Mariaa Diego MD [address] [place] [phone] Pippa Dang NP [address] [place] [address] 06/03/2024 1:45 PM CDT Hospital Encounter [...] Pathogen 04/02/2024 04/02/2024 04/02/2024 1 :44 PM INSPECTOR R/O Respiratory 05/13/2024 05/13/2024 05/13/2024 1 1:33 PM CDT R/O C. diff 05/14/2024 05/14/2024 05/14/2024 10:0 6 AM CDT R/O C. diff 05/14/2024 05/14/2024 05/15/2024 1:01 PM CDT documented as of this encounter Care Teams Jig Operator Relationship Specialty Start Date End Date Jase Bryson MD PCP - General Family Practice 05/06/19 documented as of this encounter
--- OUTSIDE RECORDS SUMMARY | 2024-06-02 16:22 | XMS_ITS | Encounter Summary ---
Author Organization [facility] Address [address] [facility] Attn: Epic Prelude ADT [place] [address] Care Team Providers Care Willow Worker Name Role Phone Jase Bryson MD Primary Care Provider Encounter Details Date Type Department Care Team (Late st Contact Info) Description 03/10/2003 Outpatient Historical Miryam Perales MD CHRONIC SINUSITIS NOS (Primary Dx) Social History Tobacco Use Types Packs/Day Years Used Date Smoking Tobacco: Never Assessed Comments Unknown Sex and Gender Information Value Date Recorded Sex Assigned at Not on file Legal Sex Female 3:54 AM BULWARK CARPENTER Gender Identity Not on file Sexual Orientation Not on file documented as of this encounter Plan of Treatment Upcoming Encounters Date Type Department Care Team (Late st Contact Info) Description 06/03/2024 12:30 PM CDT Hospital Encounter [facility] [address] [place] [address] Mariaa Diego MD [address] [place] [phone] 06/03/2024 1:20 PM CDT Office Visit [facility] Oncology and Hematology [address] [place] [address] Mariaa Diego MD [address] [place] [address] Pippa Dang, DUONG [address] [place] [address] 06/03/2024 1:45 PM CDT Hospital [...] Pathogen 04/02/2024 04/02/2024 04/02/2024 1 :44 PM BULWARK CARPENTER R/O Respiratory 05/13/2024 05/13/2024 05/13/2024 1 1:33 PM CDT R/O C. diff 05/14/2024 05/14/2024 05/14/2024 10:0 6 AM CDT R/O C. diff 05/14/2024 05/14/2024 05/15/2024 1:01 PM CDT documented as of this encounter Care Teams Willow Worker Relationship Specialty Start Date End Date Jase Bryson MD PCP - General Family Practice 05/06/19 documented as of this encounter
--- OUTSIDE RECORDS SUMMARY | 2024-06-02 16:22 | XMS_ITS | Encounter Summary ---
Author Organization [facility] Address [address] [place] [address] Care Team Providers Care Vocational Director Name Role Phone Jase Bryson MD Primary Care Provider Encounter Details Date Type Department Care Team (Late st Contact Info) Description 03/19/2004 Outpatient Historical HIS [facility] Miryam Perales MD Social History Tobacco Use Types Packs/Day Years Used Date Smoking Tobacco: Never Assessed Comments Unknown Sex and Gender Information Value Date Recorded Sex Assigned at Not on file Legal Sex Female 3:54 AM SHERIFF Gender Identity Not on file Sexual Orientation Not on file documented as of this encounter Plan of Treatment Upcoming Encounters Date Type Department Care Team (Late st Contact Info) Description 06/03/2024 12:30 PM CDT Hospital Encounter [facility] [address] [place] [address] Mariaa Diego MD [address] [place] [phone] 06/03/2024 1:20 PM CDT Office Visit [facility] Oncology and Hematology [address] [place] [address] Mariaa Diego MD [address] [place] [address] Pippa Dang NP [address] [place] [phone] 06/03/2024 1:45 PM CDT Hospital Encounter [place] [...] Pathogen 04/02/2024 04/02/2024 04/02/2024 1 :44 PM SHERIFF R/O Respiratory 05/13/2024 05/13/2024 05/13/2024 1 1:33 PM CDT R/O C. diff 05/14/2024 05/14/2024 05/14/2024 10:0 6 AM CDT R/O C. diff 05/14/2024 05/14/2024 05/15/2024 1:01 PM CDT documented as of this encounter Care Teams Vocational Director Relationship Specialty Start Date End Date Jase Bryson MD PCP - General Family Practice 05/06/19 documented as of this encounter
--- OUTSIDE RECORDS SUMMARY | 2024-06-02 16:22 | XMS_ITS | Encounter Summary ---
Author Organization [facility] Address [address] [place] [address] Care Team Providers Care Motor Equipment Sergeant Name Role Phone Jase Bryson MD Primary Care Provider Encounter Details Date Type Department Care Team (Late Contact Info) Description 10/08/2003 Outpatient Historical HIS [facility] Cam Vásquez MD [address] [place] [phone] Social History Tobacco Use Types Packs/Day Years Used Date Smoking Tobacco: Never Assessed Comments Unknown Sex and Gender Information Value Date Recorded Sex Assigned at Not on file Legal Sex Female 3:54 AM ANCHOR OPERATOR Gender Identity Not on file Sexual [...] [id number] 06/03/2024 1:20 PM CDT Office Visit [facility] Oncology and Hematology [address] [place] [address] Mariaa Diego MD [address] [place] [phone] Pippa Dang NP [address] [place] [phone] 06/03/2024 1:45 PM CDT Hospital Encounter [facility] [...] Pathogen 04/02/2024 04/02/2024 04/02/2024 1 :44 PM ANCHOR OPERATOR R/O Respiratory 05/13/2024 05/13/2024 05/13/2024 1 1:33 PM CDT R/O C. diff 05/14/2024 05/14/2024 05/14/2024 10:0 6 AM CDT R/O C. diff 05/14/2024 05/14/2024 05/15/2024 1:01 PM CDT documented as of this encounter Care Teams Motor Equipment Sergeant Relationship Specialty Start Date End Date Jase Bryson MD PCP - General Family Practice 05/06/19 documented as of this encounter
--- OUTSIDE RECORDS SUMMARY | 2024-06-02 16:22 | XMS_ITS | Encounter Summary ---
Author Organization [facility] Address [address] [place] [address] Care Team Providers Care Server Support Technician Name Role Phone Jase Bryson MD Primary Care Provider Encounter Details Date Type Department Care Team (Late st Contact Info) Description 01/28/2003 Outpatient Historical [facility] Cardiovas and Thor Surg at [facility] [address] [facility] [address] [place] [address] Chandana Vogel MD [address] [facility] [address] [place] [address] Social History Tobacco Use Types Packs/Day Years Used Date Smoking Tobacco: Never Assessed Comments Unknown Sex and Gender Information Value Date Recorded Sex Assigned at Not on file Legal Sex Female 3:54 AM CATHETERIZATION LABORATORY TECHNICIAN Gender Identity Not on file Sexual [...] 1:20 PM CDT Office Visit [facility] Oncology and Hematology [address] [place] [phone] Mariaa Diego MD [address] [place] [phone] Pippa Dang NP [address] [place] [phone] 06/03/2024 1:45 PM CDT Hospital Encounter [facility] [address] [place] [phone] Mariaa Diego MD [address] [place] [...] Pathogen 04/02/2024 04/02/2024 04/02/2024 1 :44 PM CATHETERIZATION LABORATORY TECHNICIAN R/O Respiratory 05/13/2024 05/13/2024 05/13/2024 1 1:33 PM CDT R/O C. diff 05/14/2024 05/14/2024 05/14/2024 10:0 6 AM CDT R/O C. diff 05/14/2024 05/14/2024 05/15/2024 1:01 PM CDT documented as of this encounter Care Teams Server Support Technician Relationship Specialty Start Date End Date Jase Bryson MD PCP - General Family Practice 05/06/19 documented as of this encounter
--- OUTSIDE RECORDS SUMMARY | 2024-06-02 16:22 | XMS_ITS | Encounter Summary ---
Author Organization [facility] Address [address] [place] [address] Care Team Providers Care Cook Chief Name Role Phone Jase Bryson MD Primary Care Provider Encounter Details Date Type Department Care Team (Late st Contact Info) Description 05/21/2004 Outpatient Historical HIS [facility] Miryam Perales MD Social History Tobacco Use Types Packs/Day Years Used Date Smoking Tobacco: Never Assessed Comments Unknown Sex and Gender Information Value Date Recorded Sex Assigned at Not on file Legal Sex Female 3:54 AM BOOM TRUCK DRIVER Gender Identity Not on file Sexual Orientation Not on file documented as of this encounter Plan of Treatment Upcoming Encounters Date Type Department Care Team (Late st Contact Info) Description 06/03/2024 12:30 PM CDT Hospital Encounter [facility] [address] [place] [address] Mariaa Diego MD [address] [place] [phone] 06/03/2024 1:20 PM CDT Office Visit [facility] Oncology and Hematology [address] [place] [phone] Mariaa Diego MD [address] [place] [phone] Pippa Dang NP [address] [place] [phone] 06/03/2024 1:45 PM CDT Hospital Encounter [facility] [address] 901 [...] Pathogen 04/02/2024 04/02/2024 04/02/2024 1 :44 PM BOOM TRUCK DRIVER R/O Respiratory 05/13/2024 05/13/2024 05/13/2024 1 1:33 PM CDT R/O C. diff 05/14/2024 05/14/2024 05/14/2024 10:0 6 AM CDT R/O C. diff 05/14/2024 05/14/2024 05/15/2024 1:01 PM CDT documented as of this encounter Care Teams Cook Chief Relationship Specialty Start Date End Date Jase Bryson MD PCP - General Family Practice 05/06/19 documented as of this encounter
--- OUTSIDE RECORDS SUMMARY | 2024-06-02 16:22 | XMS_ITS | Encounter Summary ---
Author Organization [facility] Address [address] [place] [address] Care Team Providers Care Criminal Justice Instructor Name Role Phone Jase Bryson MD Primary Care Provider Encounter Details Date Type Department Care Team (Late Contact Info) Description 07/15/2003 Outpatient Historical HIS [facility] Cam Vásquez MD [address] [place] [phone] Social History Tobacco Use Types Packs/Day Years Used Date Smoking Tobacco: Never Assessed Comments Unknown Sex and Gender Information Value Date Recorded Sex Assigned at Not on file Legal Sex Female 3:54 AM UROLOGIST Gender Identity Not on file Sexual Orientation [...] 1:20 PM CDT Office Visit [facility] Oncology and Hematology [address] [place] [phone] Mariaa Diego MD [address] [place] [phone] Pippa Dang NP [address] [place] [phone] 06/03/2024 1:45 PM CDT Hospital Encounter [place] [...] Pathogen 04/02/2024 04/02/2024 04/02/2024 1 :44 PM UROLOGIST R/O Respiratory 05/13/2024 05/13/2024 05/13/2024 1 1:33 PM CDT R/O C. diff 05/14/2024 05/14/2024 05/14/2024 10:0 6 AM CDT R/O C. diff 05/14/2024 05/14/2024 05/15/2024 1:01 PM CDT documented as of this encounter Care Teams Criminal Justice Instructor Relationship Specialty Start Date End Date Jase Bryson MD PCP - General Family Practice 05/06/19 documented as of this encounter
--- OUTSIDE RECORDS SUMMARY | 2024-06-02 16:22 | XMS_ITS | Encounter Summary ---
Author Organization [facility] Address [address] [place] [address] Care Team Providers Care Program Architect Name Role Phone Jase Bryson MD Primary Care Provider Encounter Details Date Type Department Care Team (Late st Contact Info) Description 08/01/2002 Outpatient Historical HIS [facility] Miryam Perales MD Social History Tobacco Use Types Packs/Day Years Used Date Smoking Tobacco: Never Assessed Comments Unknown Sex and Gender Information Value Date Recorded Sex Assigned at Not on file Legal Sex Female 3:54 AM ADMISSIONS ADVISOR Gender Identity Not on file Sexual [...] [address] [place] [phone] 06/03/2024 1:45 PM CDT Hospital Encounter [facility] [...] Pathogen 04/02/2024 04/02/2024 04/02/2024 1 :44 PM ADMISSIONS ADVISOR R/O Respiratory 05/13/2024 05/13/2024 05/13/2024 1 1:33 PM CDT R/O C. diff 05/14/2024 05/14/2024 05/14/2024 10:0 6 AM CDT R/O C. diff 05/14/2024 05/14/2024 05/15/2024 1:01 PM CDT documented as of this encounter Care Teams Program Architect Relationship Specialty Start Date End Date Jase Bryson MD PCP - General Family Practice 05/06/19 documented as of this encounter
--- OUTSIDE RECORDS SUMMARY | 2024-06-02 16:22 | XMS_ITS | Encounter Summary ---
Author Organization [facility] Address [address] [place] [address] Care Team Providers Care Business Intelligence Administrator Name Role Phone Jase Bryson MD Primary Care Provider Encounter Details Date Type Department Care Team (Latest Contact Info) Description 07/15/2003 Outpatient Historical HIS [facility] Cam Vásquez MD [address] [place] [phone] GYNECOLOGIC EXAMINATION (Primary Dx) Social History Tobacco Use Types Packs/Day Years Used Date Smoking Tobacco: Never Assessed Comments Unknown Sex and Gender Information Value Date Recorded Sex Assigned at Not on file Legal Sex Female 3:54 AM LINING MACHINE OPERATOR Gender Identity Not on file Sexual Orientation Not on file documented as of this encounter Plan of Treatment Upcoming Encounters Date Type Department Care Team (Late st Contact Info) Description 06/03/2024 12:30 PM CDT Hospital Encounter [facility] [address] [place] [phone] Mariaa Diego MD [address] [place] [phone] 06/03/2024 1:20 PM CDT Office Visit [facility] Oncology and Hematology [address] [place] [phone] Mariaa Diego MD [address] [place] [phone] Pippa Dang NP [address] [place] [phone] 06/03/2024 1:45 PM CDT Hospital Encounter [facility] [address] Patients [...] Pathogen 04/02/2024 04/02/2024 04/02/2024 1 :44 PM LINING MACHINE OPERATOR R/O Respiratory 05/13/2024 05/13/2024 05/13/2024 1 1:33 PM CDT R/O C. diff 05/14/2024 05/14/2024 05/14/2024 10:0 6 AM CDT R/O C. diff 05/14/2024 05/14/2024 05/15/2024 1:01 PM CDT documented as of this encounter Care Teams Business Intelligence Administrator Relationship Specialty Start Date End Date Jase Bryson MD PCP - General Family Practice 05/06/19 documented as of this encounter
--- OUTSIDE RECORDS SUMMARY | 2024-06-02 16:23 | XMS_ITS | Encounter Summary ---
Author Organization [facility] Address [address] [place] [address] Care Team Providers Care Electrotype Caster Name Role Phone Jase Bryson MD Primary Care Provider Encounter Details Date Type Department Care Team (Latest Contact Info) Description 10/28/2002 Outpatient Historical HIS [facility] Cam Vásquez MD [address] [place] [phone] CONTRACEPT SURVEILL NEC (Primary Dx) Social History Tobacco Use Types Packs/Day Years Used Date Smoking Tobacco: Never Assessed Comments Unknown Sex and Gender Information Value Date Recorded Sex Assigned at Not on file Legal Sex Female 3:54 AM RESEARCH DIETITIAN Gender Identity Not on file Sexual Orientation [...] 04/02/2024 04/02/2024 04/02/2024 1 :44 PM RESEARCH DIETITIAN R/O Respiratory 05/13/2024 05/13/2024 05/13/2024 1 1:33 PM CDT R/O C. diff 05/14/2024 05/14/2024 05/14/2024 10:0 6 AM CDT R/O C. diff 05/14/2024 05/14/2024 05/15/2024 1:01 PM CDT documented as of this encounter Care Teams Electrotype Caster Relationship Specialty Start Date End Date Jase Bryson MD PCP - General Family Practice 05/06/19 documented as of this encounter
--- OUTSIDE RECORDS SUMMARY | 2024-06-02 16:23 | XMS_ITS | Encounter Summary ---
Author Organization [facility] Address [address] [place] [address] Care Team Providers Care Baseball Scout Name Role Phone Jase Bryson MD Primary Care Provider Encounter Details Date Type Department Care Team (Late st Contact Info) Description 11/25/2002 Outpatient Historical HIS [facility] Ban Molina MD [address] [place] [address] [address] [place] [address] Social History Tobacco Use Types Packs/Day Years Used Date Smoking Tobacco: Never Assessed Comments Unknown Sex and Gender Information Value Date Recorded Sex Assigned at Not on file Legal Sex Female 3:54 AM APPLIANCES SAMPLE MAKER Gender Identity Not on file Sexual Orientation [...] 1:20 PM CDT Office Visit [facility] Oncology and Hematology [address] [place] [phone] Mariaa Diego MD [address] [place] [phone] Pippa Dang NP [address] [place] [phone] 06/03/2024 1:45 PM CDT [facility] Encounter [facility] [...] Pathogen 04/02/2024 04/02/2024 04/02/2024 1 :44 PM APPLIANCES SAMPLE MAKER R/O Respiratory 05/13/2024 05/13/2024 05/13/2024 1 1:33 PM CDT R/O C. diff 05/14/2024 05/14/2024 05/14/2024 10:0 6 AM CDT R/O C. diff 05/14/2024 05/14/2024 05/15/2024 1:01 PM CDT documented as of this encounter Care Teams Baseball Scout Relationship Specialty Start Date End Date Jase Bryson MD PCP - General Family Practice 05/06/19 documented as of this encounter
--- OUTSIDE RECORDS SUMMARY | 2024-06-02 16:23 | XMS_ITS | Encounter Summary ---
Author Organization [facility] Address [address] [place] [address] Care Team Providers Care Vocational Psychologist Name Role Phone Jase Bryson MD Primary Care Provider Encounter Details Date Type Department Care Team (Late st Contact Info) Description 12/14/1999 Outpatient Historical [facility] Medical [place] A [facility] [address] [place] [address] Jakob Cedillo MD [address] [facility] [address] [place] [address] Social History Tobacco Use Types Packs/Day Years Used Date Smoking Tobacco: Never Assessed Comments Unknown Sex and Gender Information Value Date Recorded Sex Assigned at Not on file Legal Sex Female 3:54 AM GIS ANALYST Gender Identity Not on file Sexual Orientation Not on file documented as of this encounter Plan of Treatment Upcoming Encounters Date Type Department Care Team (Late st Contact Info) Description 06/03/2024 12:30 PM CDT Hospital Encounter [facility] [address] [place] [address] Mariaa Diego MD [address] [place] [phone] 06/03/2024 1:20 PM CDT Office Visit [facility] Oncology and Hematology [address] [place] [phone] Mariaa Diego MD [address] [place] [phone] Pippa Dang NP [address] [place] [phone] 06/03/2024 1:45 PM CDT Hospital Encounter [facility] [address] [place] [phone] Mariaa Diego MD [address] [place] [...] Pathogen 04/02/2024 04/02/2024 04/02/2024 1 :44 PM GIS ANALYST R/O Respiratory 05/13/2024 05/13/2024 05/13/2024 1 1:33 PM CDT R/O C. diff 05/14/2024 05/14/2024 05/14/2024 10:0 6 AM CDT R/O C. diff 05/14/2024 05/14/2024 05/15/2024 1:01 PM CDT documented as of this encounter Care Teams Vocational Psychologist Relationship Specialty Start Date End Date Jase Bryson MD PCP - General Family Practice 05/06/19 documented as of this encounter
--- OUTSIDE RECORDS SUMMARY | 2024-06-02 16:23 | XMS_ITS | Encounter Summary ---
Author Organization [facility] Address [address] [place] [address] Care Team Providers Care Summer Associate Name Role Phone Jase Bryson MD Primary Care Provider Encounter Details Date Type Department Care Team (Late st Contact Info) Description 10/07/2002 Outpatient Historical HIS [facility] Ban Molina MD [address] [place] [address] [address] [place] [address] Social History Tobacco Use Types Packs/Day Years Used Date Smoking Tobacco: Never Assessed Comments Unknown Sex and Gender Information Value Date Recorded Sex Assigned at Not on file Legal Sex Female 3:54 AM CONTRACT ASSOCIATE MANAGER Gender Identity Not on file Sexual [...] [id number] 06/03/2024 1:20 PM CDT Office Visit [facility] Oncology and Hematology [address] [place] [phone] Mariaa Diego MD [address] [place] [phone] Pippa Dang NP [address] [place] [phone] 06/03/2024 1:45 PM CDT [facility] [...] Pathogen 04/02/2024 04/02/2024 04/02/2024 1 :44 PM CONTRACT ASSOCIATE MANAGER R/O Respiratory 05/13/2024 05/13/2024 05/13/2024 1 1:33 PM CDT R/O C. diff 05/14/2024 05/14/2024 05/14/2024 10:0 6 AM CDT R/O C. diff 05/14/2024 05/14/2024 05/15/2024 1:01 PM CDT documented as of this encounter Care Teams Summer Associate Relationship Specialty Start Date End Date Jase Bryson MD PCP - General Family Practice 05/06/19 documented as of this encounter
--- OUTSIDE RECORDS SUMMARY | 2024-06-02 16:23 | XMS_ITS | Encounter Summary ---
Author Organization [facility] Address [address] [place] [address] Care Team Providers Care Rare/Endangered Species Specialist Name Role Phone Jase Bryson MD Primary Care Provider Encounter Details Date Type Department Care Team (Late st Contact Info) Description 04/26/2000 Outpatient Historical HIS [facility] Jon Goodwin Social History Tobacco Use Types Packs/Day Years Used Date Smoking Tobacco: Never Assessed Comments Unknown Sex and Gender Information Value Date Recorded Sex Assigned at Not on file Legal Sex Female 3:54 AM GRADER MEAT Gender Identity Not on file Sexual Orientation [...] [id number] 06/03/2024 1:20 PM CDT Office Visit [facility] Oncology and Hematology [address] [place] [phone] Mariaa Diego MD [address] [place] [phone] Pippa Dang, DUONG [address] [place] [address] 06/03/2024 1:45 PM CDT Hospital Encounter [facility] [...] Pathogen 04/02/2024 04/02/2024 04/02/2024 1 :44 PM GRADER MEAT R/O Respiratory 05/13/2024 05/13/2024 05/13/2024 1 1:33 PM CDT R/O C. diff 05/14/2024 05/14/2024 05/14/2024 10:0 6 AM CDT R/O C. diff 05/14/2024 05/14/2024 05/15/2024 1:01 PM CDT documented as of this encounter Care Teams Rare/Endangered Species Specialist Relationship Specialty Start Date End Date Jase Bryson MD PCP - General Family Practice 05/06/19 documented as of this encounter
--- OUTSIDE RECORDS SUMMARY | 2024-06-02 16:23 | XMS_ITS | Encounter Summary ---
Author Organization [facility] Address [address] [place] [address] Care Team Providers Care Electric Relay Tester Name Role Phone Jase Bryson MD Primary Care Provider Encounter Details Date Type Department Care Team (Latest Contact Info) Description 11/22/1999 Outpatient Historical [facility] Jon Goodwin Dental caries (Primary Dx) Social History Tobacco Use Types Packs/Day Years Used Date Smoking Tobacco: Never Assessed Comments Unknown Sex and Gender Information Value Date Recorded Sex Assigned at Not on file Legal Sex Female 3:54 AM LEAF SIZE PICKER Gender Identity Not on file Sexual Orientation [...] [address] [place] [phone] 06/03/2024 1:45 PM CDT Hospital Encounter [facility] [address] [place] [phone] Mariaa Diego MD [address] [place] [address] 16, Mob documented as of this encounter Visit Diagnoses Diagnosis Dental caries- Primary Malignant neoplasm of upper-outer quadrant of [...] Pathogen 04/02/2024 04/02/2024 04/02/2024 1 :44 PM LEAF SIZE PICKER R/O Respiratory 05/13/2024 05/13/2024 05/13/2024 1 1:33 PM CDT R/O C. diff 05/14/2024 05/14/2024 05/14/2024 10:0 6 AM CDT R/O C. diff 05/14/2024 05/14/2024 05/15/2024 1:01 PM CDT documented as of this encounter Care Teams Electric Relay Tester Relationship Specialty Start Date End Date Jase Bryson MD PCP - General Family Practice 05/06/19 documented as of this encounter
--- OUTSIDE RECORDS SUMMARY | 2024-06-02 16:23 | XMS_ITS | Encounter Summary ---
Author Organization [facility] Address [address] [place] [address] Care Team Providers Care Chief Compliance Officer Name Role Phone Jase Bryson MD Primary Care Provider Encounter Details Date Type Department Care Team (Late st Contact Info) Description 07/26/2000 Outpatient Historical [facility] Internal Medicine [place] [facility] [address] [place] [address] Jakob Cedillo MD [address] [facility] [address] [place] [address] Social History Tobacco Use Types Packs/Day Years Used Date Smoking Tobacco: Never Assessed Comments Unknown Sex and Gender Information Value Date Recorded Sex Assigned at Not on file Legal Sex Female 3:54 AM 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 I FARMWORKER Gender Identity Not on file Sexual Orientation Not on file documented as of this encounter Plan of Treatment Upcoming Encounters Date Type Department Care Team (Late st Contact Info) Description 06/03/2024 12:30 PM CDT Hospital Encounter [facility] [address] [place] [address] Mariaa Diego MD [address] [place] [phone] 06/03/2024 1:20 PM CDT Office Visit [facility] Oncology and Hematology [address] [place] [phone] Mariaa Diego MD [address] [place] [phone] Pippa Dang NP [address] [place] [phone] 06/03/2024 1:45 PM CDT Hospital Encounter [facility] [address] [place] [phone] Mariaa Diego MD [address] [place] [...] Pathogen 04/02/2024 04/02/2024 04/02/2024 1 :44 PM FIELD CROP I FARMWORKER R/O Respiratory 05/13/2024 05/13/2024 05/13/2024 1 1:33 PM CDT R/O C. diff 05/14/2024 05/14/2024 05/14/2024 10:0 6 AM CDT R/O C. diff 05/14/2024 05/14/2024 05/15/2024 1:01 PM CDT documented as of this encounter Care Teams Chief Compliance Officer Relationship Specialty Start Date End Date Jase Bryson MD PCP - General Family Practice 05/06/19 documented as of this encounter
--- OUTSIDE RECORDS SUMMARY | 2024-06-02 16:23 | XMS_ITS | Encounter Summary ---
Author Organization [facility] Address [address] [place] [address] Care Team Providers Care Publicity Director Name Role Phone Jase Bryson MD Primary Care Provider Encounter Details Date Type Department Care Team (Late st Contact Info) Description 10/11/2000 Outpatient Historical [facility] Jon Goodwin Social History Tobacco Use Types Packs/Day Years Used Date Smoking Tobacco: Never Assessed Comments Unknown Sex and Gender Information Value Date Recorded Sex Assigned at Not on file Legal Sex Female 3:54 AM PROCESS CHECKER Gender Identity Not on file Sexual Orientation Not on file documented as of this encounter Plan of Treatment Upcoming Encounters Date Type Department Care Team (Late st Contact Info) Description 06/03/2024 12:30 PM CDT Hospital Encounter [facility] [address] [place] [phone] Mariaa Diego MD [address] [place] [phone] 06/03/2024 1:20 PM CDT Office Visit [facility] Oncology and Hematology [address] [place] [phone] Mariaa Diego MD [address] [place] [phone] Pippa Dang, DUONG [address] [place] [address] 06/03/2024 1:45 PM CDT Hospital [...] Pathogen 04/02/2024 04/02/2024 04/02/2024 1 :44 PM PROCESS CHECKER R/O Respiratory 05/13/2024 05/13/2024 05/13/2024 1 1:33 PM CDT R/O C. diff 05/14/2024 05/14/2024 05/14/2024 10:0 6 AM CDT R/O C. diff 05/14/2024 05/14/2024 05/15/2024 1:01 PM CDT documented as of this encounter Care Teams Publicity Director Relationship Specialty Start Date End Date Jase Bryson MD PCP - General Family Practice 05/06/19 documented as of this encounter
--- OUTSIDE RECORDS SUMMARY | 2024-06-02 16:23 | XMS_ITS | Encounter Summary ---
Author Organization [facility] Address [address] [place] [address] Care Team Providers Care School Community Relations Coordinator Name Role Phone Jase Bryson MD Primary Care Provider Encounter Details Date Type Department Care Team (Late st Contact Info) Description 05/22/2000 Outpatient Historical HIS [facility] Jon Goodwin Social History Tobacco Use Types Packs/Day Years Used Date Smoking Tobacco: Never Assessed Comments Unknown Sex and Gender Information Value Date Recorded Sex Assigned at Not on file Legal Sex Female 3:54 AM AURICULAR DETOXIFICATION SPECIALIST Gender Identity Not on file Sexual [...] DUONG [address] [place] [address] 06/03/2024 1:45 PM CDT Hospital [...] Pathogen 04/02/2024 04/02/2024 04/02/2024 1 :44 PM AURICULAR DETOXIFICATION SPECIALIST R/O Respiratory 05/13/2024 05/13/2024 05/13/2024 1 1:33 PM CDT R/O C. diff 05/14/2024 05/14/2024 05/14/2024 10:0 6 AM CDT R/O C. diff 05/14/2024 05/14/2024 05/15/2024 1:01 PM CDT documented as of this encounter Care Teams School Community Relations Coordinator Relationship Specialty Start Date End Date Jase Bryson MD PCP - General Family Practice 05/06/19 documented as of this encounter
--- OUTSIDE RECORDS SUMMARY | 2024-06-02 16:23 | XMS_ITS | Encounter Summary ---
Author Organization [facility] Address [address] [place] [address] Care Team Providers Care Bed Maker Name Role Phone Jase Bryson MD Primary Care Provider Encounter Details Date Type Department Care Team (Late st Contact Info) Description 06/28/2000 Outpatient Historical [facility] Jon Goodwin Social History Tobacco Use Types Packs/Day Years Used Date Smoking Tobacco: Never Assessed Comments Unknown Sex and Gender Information Value Date Recorded Sex Assigned at Not on file Legal Sex Female 3:54 AM ELECTRON BEAM OPERATOR Gender Identity Not on file Sexual Orientation Not on file documented as of this encounter Plan of Treatment Upcoming Encounters Date Type Department Care Team (Late st Contact Info) Description 06/03/2024 12:30 PM CDT Hospital Encounter [facility] [address] [place] [phone] Mariaa Diego MD [address] [place] [phone] 06/03/2024 1:20 PM CDT Office Visit [facility] Oncology and Hematology [address] [place] [phone] Mariaa Diego MD [address] [place] [phone] Pippa Dang, DUONG [address] [place] [address] 06/03/2024 1:45 PM CDT Hospital [...] Pathogen 04/02/2024 04/02/2024 04/02/2024 1 :44 PM ELECTRON BEAM OPERATOR R/O Respiratory 05/13/2024 05/13/2024 05/13/2024 1 1:33 PM CDT R/O C. diff 05/14/2024 05/14/2024 05/14/2024 10:0 6 AM CDT R/O C. diff 05/14/2024 05/14/2024 05/15/2024 1:01 PM CDT documented as of this encounter Care Teams Bed Maker Relationship Specialty Start Date End Date Jase Bryson MD PCP - General Family Practice 05/06/19 documented as of this encounter
--- OUTSIDE RECORDS SUMMARY | 2024-06-02 16:23 | XMS_ITS | Encounter Summary ---
Author Organization [facility] Address [address] [place] [address] Care Team Providers Care Shoder Filler Name Role Phone Jase Bryson MD Primary Care Provider Encounter Details Date Type Department Care Team (Latest Contact Info) Description 06/19/2002 Outpatient Historical HIS [facility] Jose Sullivan MD [address] [place] [address] CHRONIC SINUSITIS NOS (Primary Dx) Social History Tobacco Use Types Packs/Day Years Used Date Smoking Tobacco: Never Assessed Comments Unknown Sex and Gender Information Value Date Recorded Sex Assigned at Not on file Legal Sex Female 3:54 AM GANG LEADER Gender Identity Not on file Sexual Orientation [...] [id number] 06/03/2024 1:20 PM CDT Office Visit [facility] Oncology and Hematology [address] [...] Pathogen 04/02/2024 04/02/2024 04/02/2024 1 :44 PM GANG LEADER R/O Respiratory 05/13/2024 05/13/2024 05/13/2024 1 1:33 PM CDT R/O C. diff 05/14/2024 05/14/2024 05/14/2024 10:0 6 AM CDT R/O C. diff 05/14/2024 05/14/2024 05/15/2024 1:01 PM CDT documented as of this encounter Care Teams Shoder Filler Relationship Specialty Start Date End Date Jase Bryson MD PCP - General Family Practice 05/06/19 documented as of this encounter
--- OUTSIDE RECORDS SUMMARY | 2024-06-02 16:23 | XMS_ITS | Encounter Summary ---
Author Organization [facility] Address [address] [place] [address] Care Team Providers Care Air And Hydronic Balancing Technician Name Role Phone Jase Bryson MD Primary Care Provider Encounter Details Date Type Department Care Team (Late st Contact Info) Description 04/19/2000 Outpatient Historical HIS [facility] Jose Sullivan MD [address] [place], [place] [id number] Social History Tobacco Use Types Packs/Day Years Used Date Smoking Tobacco: Never Assessed Comments Unknown Sex and Gender Information Value Date Recorded Sex Assigned at Not on file Legal Sex Female 3:54 AM BRADDER Gender Identity Not on file Sexual Orientation Not on file documented as of this encounter Plan of Treatment Upcoming Encounters Date Type Department Care Team (Late st Contact Info) Description 06/03/2024 12:30 PM CDT Hospital Encounter [facility] [address] [place] [phone] Mariaa Diego MD [address] [place] [phone] 06/03/2024 1:20 PM CDT Office Visit [facility] Oncology and Hematology [address] [place] [phone] Mariaa Diego MD [address] [place] [phone] Pippa Dang NP [address] [place] [phone] 06/03/2024 1:45 PM CDT Hospital Encounter [facility] [address] 901 [...] Pathogen 04/02/2024 04/02/2024 04/02/2024 1 :44 PM BRADDER R/O Respiratory 05/13/2024 05/13/2024 05/13/2024 1 1:33 PM CDT R/O C. diff 05/14/2024 05/14/2024 05/14/2024 10:0 6 AM CDT R/O C. diff 05/14/2024 05/14/2024 05/15/2024 1:01 PM CDT documented as of this encounter Care Teams Air And Hydronic Balancing Technician Relationship Specialty Start Date End Date Jase Bryson MD PCP - General Family Practice 05/06/19 documented as of this encounter
--- OUTSIDE RECORDS SUMMARY | 2024-06-02 16:23 | XMS_ITS | Encounter Summary ---
Author Organization [facility] Address 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 Gender Identity Not on file Sexual Orientation [...] [id number] 06/03/2024 1:20 PM CDT Office Visit [facility] Oncology and Hematology [address] [...] Pathogen 04/02/2024 04/02/2024 04/02/2024 1 :44 PM SVP [employer]ETING [employer] R/O Respiratory 05/13/2024 05/13/2024 05/13/2024 1 1:33 PM CDT R/O C. diff 05/14/2024 05/14/2024 05/14/2024 10:0 6 AM CDT R/O C. diff 05/14/2024 05/14/2024 05/15/2024 1:01 PM CDT documented as of this encounter Care Teams Boat Person Relationship Specialty Start Date End Date Jase Bryson MD PCP - General Family Practice 05/06/19 documented as of this encounter
--- OUTSIDE RECORDS SUMMARY | 2024-06-02 16:23 | XMS_ITS | Encounter Summary ---
Author Organization [facility] Address [address] [place] [address] Care Team Providers Care Ob Tech Name Role Phone Jase Bryson MD Primary Care Provider Encounter Details Date Type Department Care Team (Late st Contact Info) Description 04/12/2000 Outpatient Historical [facility] Jon Goodwin Social History Tobacco Use Types Packs/Day Years Used Date Smoking Tobacco: Never Assessed Comments Unknown Sex and Gender Information Value Date Recorded Sex Assigned at Not on file Legal Sex Female 3:54 AM COMMERCIAL SALES MANAGER Gender Identity Not on file Sexual Orientation Not on file documented as of this encounter Plan of Treatment Upcoming Encounters Date Type Department Care Team (Late st Contact Info) Description 06/03/2024 12:30 PM CDT Hospital Encounter [facility] [address] [place] [phone] Mariaa Diego MD [address] [place] [phone] 06/03/2024 1:20 PM CDT Office Visit [facility] Oncology and Hematology [address] [place] [phone] Mariaa Diego MD [address] [place] [phone] Pippa Dang, DUONG [address] [place] [address] 06/03/2024 1:45 PM CDT Hospital Encounter [facility] [address] Patients [...] Pathogen 04/02/2024 04/02/2024 04/02/2024 1 :44 PM COMMERCIAL SALES MANAGER R/O Respiratory 05/13/2024 05/13/2024 05/13/2024 1 1:33 PM CDT R/O C. diff 05/14/2024 05/14/2024 05/14/2024 10:0 6 AM CDT R/O C. diff 05/14/2024 05/14/2024 05/15/2024 1:01 PM CDT documented as of this encounter Care Teams Ob Tech Relationship Specialty Start Date End Date Jase Bryson MD PCP - General Family Practice 05/06/19 documented as of this encounter
--- OUTSIDE RECORDS SUMMARY | 2024-06-02 16:23 | XMS_ITS | Encounter Summary ---
Author Organization [facility] Address [address] [place] [address] Care Team Providers Care Roofer Helper Vinyl Coating Name Role Phone Jase Bryson MD Primary Care Provider Encounter Details Date Type Department Care Team (Latest Contact Info) Description 10/07/2002 Outpatient Historical HIS [facility] Ban Molina MD [address] [place] [address] [address] [place] [address] BIPOLAR AFFECTIVE NOS (CMS/HCC) (Primary Dx) Social History Tobacco Use Types Packs/Day Years Used Date Smoking Tobacco: Never Assessed Comments Unknown Sex and Gender Information Value Date Recorded Sex Assigned at Not on file Legal Sex Female 3:54 AM TEST GRADER Gender Identity Not on file Sexual Orientation [...] [id number] 06/03/2024 1:20 PM CDT Office Visit [facility] Oncology and Hematology [address] [place] [phone] Mariaa Diego MD [address] [place] [phone] Pippa Dang NP [address] [place] [phone] 06/03/2024 1:45 PM CDT Hospital Encounter [facility] [address] [place] [phone] Mariaa Diego MD [address] [place] [address] 16, Mob documented as of this encounter Visit Diagnoses Diagnosis Bipolar I disorder, most recent episode (or current) unspecified (CMS/HCC)- Primary Bipolar I disorder, most recent episode (or current) unspecified Malignant neoplasm of upper-outer quadrant of [...] Pathogen 04/02/2024 04/02/2024 04/02/2024 1 :44 PM TEST GRADER R/O Respiratory 05/13/2024 05/13/2024 05/13/2024 1 1:33 PM CDT R/O C. diff 05/14/2024 05/14/2024 05/14/2024 10:0 6 AM CDT R/O C. diff 05/14/2024 05/14/2024 05/15/2024 1:01 PM CDT documented as of this encounter Care Teams Roofer Helper Vinyl Coating Relationship Specialty Start Date End Date Jase Bryson MD PCP - General Family Practice 05/06/19 documented as of this encounter
--- OUTSIDE RECORDS SUMMARY | 2024-06-02 16:23 | XMS_ITS | Encounter Summary ---
Author Organization [facility] Address [address] [place] [address] Care Team Providers Care Inspector Weights And Measures Name Role Phone Jase Bryson MD Primary Care Provider Encounter Details Date Type Department Care Team (Late st Contact Info) Description 02/03/2000 Outpatient Historical HIS [facility] Evie Ho MD [address] [place], [place] [id number] Acute upper respiratory infections of unspecified site (Primary Dx) Social History Tobacco Use Types Packs/Day Years Used Date Smoking Tobacco: Never Assessed Comments Unknown Sex and Gender Information Value Date Recorded Sex Assigned at Not on file Legal Sex Female 3:54 AM VICE PRESIDENT OF BRAND MANAGEMENT Gender Identity Not on file Sexual Orientation [...] 1:20 PM CDT Office Visit [facility] Oncology and Hematology [address] [place] [phone] Mariaa Diego MD [address] [place] [phone] Pippa Dang NP [address] [place] [address] 06/03/2024 1:45 PM CDT Hospital Encounter [facility] [address] [place] [phone] Mariaa Diego MD [address] [place] [address] 16, Mob documented as of this encounter Visit Diagnoses Diagnosis Acute upper respiratory infections of unspecified site- Primary Malignant neoplasm of [...] Pathogen 04/02/2024 04/02/2024 04/02/2024 1 :44 PM VICE PRESIDENT OF BRAND MANAGEMENT R/O Respiratory 05/13/2024 05/13/2024 05/13/2024 1 1:33 PM CDT R/O C. diff 05/14/2024 05/14/2024 05/14/2024 10:0 6 AM CDT R/O C. diff 05/14/2024 05/14/2024 05/15/2024 1:01 PM CDT documented as of this encounter Care Teams Inspector Weights And Measures Relationship Specialty Start Date End Date Jase Bryson MD PCP - General Family Practice 05/06/19 documented as of this encounter
--- OUTSIDE RECORDS SUMMARY | 2024-06-02 16:23 | XMS_ITS | Encounter Summary ---
Author Organization [facility] Address [address] [place] [address] Care Team Providers Care Placement Secretary Name Role Phone Jsae Bryson MD Primary Care Provider Encounter Details Date Type Department Care Team (Late st Contact Info) Description 08/30/2000 Outpatient Historical [facility] Jon Goodwin Social History Tobacco Use Types Packs/Day Years Used Date Smoking Tobacco: Never Assessed Comments Unknown Sex and Gender Information Value Date Recorded Sex Assigned at Not on file Legal Sex Female 3:54 AM ADVERTISING DIRECTOR Gender Identity Not on file Sexual Orientation Not on file documented as of this encounter Plan of Treatment Upcoming Encounters Date Type Department Care Team (Late st Contact Info) Description 06/03/2024 12:30 PM CDT Hospital Encounter [facility] [address] [place] [address] Mariaa Diego MD [address] [place] [phone] 06/03/2024 1:20 PM CDT Office Visit [facility] Oncology and Hematology [address] [place] [phone] Mariaa Diego MD [address] [place] [address] Pippa Dang, DUONG [address] [place] [address] 06/03/2024 1:45 PM CDT Hospital Encounter [facility] [address] [...] Pathogen 04/02/2024 04/02/2024 04/02/2024 1 :44 PM ADVERTISING DIRECTOR R/O Respiratory 05/13/2024 05/13/2024 05/13/2024 1 1:33 PM CDT R/O C. diff 05/14/2024 05/14/2024 05/14/2024 10:0 6 AM CDT R/O C. diff 05/14/2024 05/14/2024 05/15/2024 1:01 PM CDT documented as of this encounter Care Teams Placement Secretary Relationship Specialty Start Date End Date Jase Bryson MD PCP - General Family Practice 05/06/19 documented as of this encounter
--- OUTSIDE RECORDS SUMMARY | 2024-06-02 16:23 | XMS_ITS | Encounter Summary ---
Author Organization [facility] Address [address] [place] [address] Care Team Providers Care Special Weapons Unit Officer Name Role Phone Jase Bryson MD Primary Care Provider Encounter Details Date Type Department Care Team (Late Contact Info) Description 10/28/2002 Outpatient Historical HIS [facility] Cam Vsáquez MD [address] [place] [address] Social History Tobacco Use Types Packs/Day Years Used Date Smoking Tobacco: Never Assessed Comments Unknown Sex and Gender Information Value Date Recorded Sex Assigned at Not on file Legal Sex Female 3:54 AM COOK SUPERVISOR Gender Identity Not on file Sexual Orientation Not on file documented as of this encounter Plan of Treatment Upcoming Encounters Date Type Department Care Team (Late Contact Info) Description 06/03/2024 12:30 PM CDT Hospital Encounter [facility] [address] [place] [address] Mariaa Diego MD [address] [place] [address] 06/03/2024 1:20 PM CDT Office Visit [facility] Oncology and Hematology [address] [place] [phone] Mariaa Diego MD [address] [place] [phone] Pippa Dang NP [address] [place] [phone] 06/03/2024 1:45 PM CDT [facility] Encounter [facility] [...] Pathogen 04/02/2024 04/02/2024 04/02/2024 1 :44 PM COOK SUPERVISOR R/O Respiratory 05/13/2024 05/13/2024 05/13/2024 1 1:33 PM CDT R/O C. diff 05/14/2024 05/14/2024 05/14/2024 10:0 6 AM CDT R/O C. diff 05/14/2024 05/14/2024 05/15/2024 1:01 PM CDT documented as of this encounter Care Teams Special Weapons Unit Officer Relationship Specialty Start Date End Date Jase Bryson MD PCP - General Family Practice 05/06/19 documented as of this encounter
--- OUTSIDE RECORDS SUMMARY | 2024-06-02 16:23 | XMS_ITS | Encounter Summary ---
Author Organization [facility] Address [address] [place] [address] Care Team Providers Care District Operations Manager Name Role Phone Jase Bryson MD Primary Care Provider Encounter Details Date Type Department Care Team (Latest Contact Info) Description 11/25/2002 Outpatient Historical HIS [facility] Ban Molina MD [address] [place] [address] [address] [place] [address] DEPRESS PSYCHOSIS-UNSPEC (Primary Dx) Social History Tobacco Use Types Packs/Day Years Used Date Smoking Tobacco: Never Assessed Comments Unknown Sex and Gender Information Value Date Recorded Sex Assigned at Not on file Legal Sex Female 3:54 AM MANAGER MAC Gender Identity Not on file Sexual Orientation [...] [address] [place] [address] 06/03/2024 1:45 PM CDT Hospital Encounter [facility] [address] [place] [address] Mariaa Diego MD [address] [place] [address] 16, Mob documented as of this encounter Visit Diagnoses Diagnosis Major depressive disorder, single episode, unspecified- Primary Malignant neoplasm of upper-outer quadrant [...] 04/02/2024 04/02/2024 04/02/2024 1 :44 PM MANAGER MAC R/O Respiratory 05/13/2024 05/13/2024 05/13/2024 1 1:33 PM CDT R/O C. diff 05/14/2024 05/14/2024 05/14/2024 10:0 6 AM CDT R/O C. diff 05/14/2024 05/14/2024 05/15/2024 1:01 PM CDT documented as of this encounter Care Teams District Operations Manager Relationship Specialty Start Date End Date Jase Bryson MD PCP - General Family Practice 05/06/19 documented as of this encounter
--- OUTSIDE RECORDS SUMMARY | 2024-06-02 16:23 | XMS_ITS | Encounter Summary ---
Author Organization [facility] Address [address] [place] [address] Care Team Providers Care Business Operations Coordinator Name Role Phone Jase Bryson MD Primary Care Provider Encounter Details Date Type Department Care Team (Late st Contact Info) Description 08/29/2000 Outpatient Historical HIS [facility] Jon Goodwin Social History Tobacco Use Types Packs/Day Years Used Date Smoking Tobacco: Never Assessed Comments Unknown Sex and Gender Information Value Date Recorded Sex Assigned at Not on file Legal Sex Female 3:54 AM BUDDER Gender Identity Not on file Sexual Orientation Not on file documented as of this encounter Plan of Treatment Upcoming Encounters Date Type Department Care Team (Late st Contact Info) Description 06/03/2024 12:30 PM CDT Hospital Encounter [facility] [address] [place] [address] Mariaa Diego MD [address] [place] [phone] 06/03/2024 1:20 PM CDT Office Visit [facility] Oncology and Hematology [address] [place] [phone] Mariaa Diego MD [address] [place] [address] Pippa Dang, DUONG [address] [place] [address] 06/03/2024 1:45 PM CDT Hospital [...] Pathogen 04/02/2024 04/02/2024 04/02/2024 1 :44 PM BUDDER R/O Respiratory 05/13/2024 05/13/2024 05/13/2024 1 1:33 PM CDT R/O C. diff 05/14/2024 05/14/2024 05/14/2024 10:0 6 AM CDT R/O C. diff 05/14/2024 05/14/2024 05/15/2024 1:01 PM CDT documented as of this encounter Care Teams Business Operations Coordinator Relationship Specialty Start Date End Date Jase Bryson MD PCP - General Family Practice 05/06/19 documented as of this encounter
--- OUTSIDE RECORDS SUMMARY | 2024-06-02 16:23 | XMS_ITS | Encounter Summary ---
Author Organization [facility] Address [address] [place] [address] Care Team Providers Care Finance Admin Name Role Phone Jase Bryson MD Primary Care Provider Encounter Details Date Type Department Care Team (Late st Contact Info) Description 08/01/2002 Outpatient Historical HIS [facility] Miryam Perales MD Social History Tobacco Use Types Packs/Day Years Used Date Smoking Tobacco: Never Assessed Comments Unknown Sex and Gender Information Value Date Recorded Sex Assigned at Not on file Legal Sex Female 3:54 AM BANDAGE WRAPPING MACHINE OPERATOR Gender Identity Not on file [...] [id number] 06/03/2024 1:20 PM CDT Office Visit [facility] Oncology and Hematology [address] [place] [phone] Mariaa Diego MD [address] [place] [phone] Pippa Dang NP [address] [place] [phone] 06/03/2024 1:45 PM CDT Hospital Encounter [facility] [...] Pathogen 04/02/2024 04/02/2024 04/02/2024 1 :44 PM BANDAGE WRAPPING MACHINE OPERATOR R/O Respiratory 05/13/2024 05/13/2024 05/13/2024 1 1:33 PM CDT R/O C. diff 05/14/2024 05/14/2024 05/14/2024 10:0 6 AM CDT R/O C. diff 05/14/2024 05/14/2024 05/15/2024 1:01 PM CDT documented as of this encounter Care Teams Finance Admin Relationship Specialty Start Date End Date Jase Bryson MD PCP - General Family Practice 05/06/19 documented as of this encounter
--- OUTSIDE RECORDS SUMMARY | 2024-06-02 16:23 | XMS_ITS | Encounter Summary ---
Author Organization [facility] Address [address] [place] [address] Care Team Providers Care Aircraft Magneto Mechanic Name Role Phone Jase Bryson MD Primary Care Provider Encounter Details Date Type Department Care Team (Late Contact Info) Description 07/16/2002 Outpatient Historical HIS [facility] Cam Vásquez MD [address] [place] [phone] Social History Tobacco Use Types Packs/Day Years Used Date Smoking Tobacco: Never Assessed Comments Unknown Sex and Gender Information Value Date Recorded Sex Assigned at Not on file Legal Sex Female 3:54 AM PRIMER POWDER BLENDER WET Gender Identity Not on file Sexual Orientation [...] Diego MD [address] [place] [phone] Pippa Dang NP [address] [place] [phone] 06/03/2024 1:45 PM CDT Hospital Encounter [place] [...] Pathogen 04/02/2024 04/02/2024 04/02/2024 1 :44 PM PRIMER POWDER BLENDER WET R/O Respiratory 05/13/2024 05/13/2024 05/13/2024 1 1:33 PM CDT R/O C. diff 05/14/2024 05/14/2024 05/14/2024 10:0 6 AM CDT R/O C. diff 05/14/2024 05/14/2024 05/15/2024 1:01 PM CDT documented as of this encounter Care Teams Aircraft Magneto Mechanic Relationship Specialty Start Date End Date Jase Bryson MD PCP - General Family Practice 05/06/19 documented as of this encounter
--- OUTSIDE RECORDS SUMMARY | 2024-06-02 16:23 | XMS_ITS | Encounter Summary ---
Author Organization [facility] Address [address] [place] [address] Care Team Providers Care Geek Squad Manager Name Role Phone Jase Bryson MD Primary Care Provider Encounter Details Date Type Department Care Team (Latest Contact Info) Description 02/07/2001 Inpatient Historical HIS [facility] BED Denis Buckner MD [address] [phone] PRECIPITATE LABOR-DELIVERED (Primary Dx) Social History Tobacco Use Types Packs/Day Years Used Date Smoking Tobacco: Never Assessed Comments Unknown Sex and Gender Information Value Date Recorded Sex Assigned at Not on file Legal Sex Female 3:54 AM VEGETABLES COOK Gender Identity Not on file Sexual Orientation [...] 06/03/2024 1:20 PM CDT Office Visit [facility] Oncology and Hematology [address] [...] as of this encounter Visit Diagnoses Diagnosis Precipitate labor, with delivery- Primary Malignant neoplasm of upper-outer quadrant of [...] Pathogen 04/02/2024 04/02/2024 04/02/2024 1 :44 PM VEGETABLES COOK R/O Respiratory 05/13/2024 05/13/2024 05/13/2024 1 1:33 PM CDT R/O C. diff 05/14/2024 05/14/2024 05/14/2024 10:0 6 AM CDT R/O C. diff 05/14/2024 05/14/2024 05/15/2024 1:01 PM CDT documented as of this encounter Care Teams Geek Squad Manager Relationship Specialty Start Date End Date Jase Bryson MD PCP - General Family Practice 05/06/19 documented as of this encounter
--- OUTSIDE RECORDS SUMMARY | 2024-06-02 16:23 | XMS_ITS | Encounter Summary ---
Author Organization [facility] Address [address] [place] [address] Care Team Providers Care Designer/Writer Name Role Phone Jase Bryson MD Primary Care Provider Encounter Details Date Type Department Care Team (Late st Contact Info) Description 04/24/2000 Outpatient Historical HIS [facility] Jon Goodwin Social History Tobacco Use Types Packs/Day Years Used Date Smoking Tobacco: Never Assessed Comments Unknown Sex and Gender Information Value Date Recorded Sex Assigned at Not on file Legal Sex Female 3:54 AM DELIVERER FOOD Gender Identity Not on file Sexual Orientation Not on file documented as of this encounter Plan of Treatment Upcoming Encounters Date Type Department Care Team (Late st Contact Info) Description 06/03/2024 12:30 PM CDT Hospital Encounter [facility] [address] [place] [phone] Mariaa Diego MD [address] [place] [phone] 06/03/2024 1:20 PM CDT Office Visit [facility] Oncology and Hematology [address] [place] [phone] Mariaa Diego MD [address] [place] [phone] Pippa Dang, DUONG [address] [place] [address] 06/03/2024 1:45 PM CDT Hospital Encounter [facility] [address] [...] Pathogen 04/02/2024 04/02/2024 04/02/2024 1 :44 PM DELIVERER FOOD R/O Respiratory 05/13/2024 05/13/2024 05/13/2024 1 1:33 PM CDT R/O C. diff 05/14/2024 05/14/2024 05/14/2024 10:0 6 AM CDT R/O C. diff 05/14/2024 05/14/2024 05/15/2024 1:01 PM CDT documented as of this encounter Care Teams Designer/Writer Relationship Specialty Start Date End Date Jase Bryson MD PCP - General Family Practice 05/06/19 documented as of this encounter
--- OUTSIDE RECORDS SUMMARY | 2024-06-02 16:23 | XMS_ITS | Encounter Summary ---
Author Organization [facility] Address [address] [place] [address] Care Team Providers Care Photographic Restorer Name Role Phone Jase Bryson MD Primary Care Provider Encounter Details Date Type Department Care Team (Latest Contact Info) Description 11/13/2002 Outpatient Historical HIS [facility] Jose Sullivan MD [address] [place] [address] CHRONIC SINUSITIS NOS (Primary Dx) Social History Tobacco Use Types Packs/Day Years Used Date Smoking Tobacco: Never Assessed Comments Unknown Sex and Gender Information Value Date Recorded Sex Assigned at Not on file Legal Sex Female 3:54 AM STITCHING MACHINE OPERATOR Gender Identity Not on file [...] 1:20 PM CDT Office Visit [facility] Oncology and Hematology [address] [...] Pathogen 04/02/2024 04/02/2024 04/02/2024 1 :44 PM STITCHING MACHINE OPERATOR R/O Respiratory 05/13/2024 05/13/2024 05/13/2024 1 1:33 PM CDT R/O C. diff 05/14/2024 05/14/2024 05/14/2024 10:0 6 AM CDT R/O C. diff 05/14/2024 05/14/2024 05/15/2024 1:01 PM CDT documented as of this encounter Care Teams Photographic Restorer Relationship Specialty Start Date End Date Jase Bryson MD PCP - General Family Practice 05/06/19 documented as of this encounter
--- OUTSIDE RECORDS SUMMARY | 2024-06-02 16:23 | XMS_ITS | Encounter Summary ---
Author Organization [facility] Address [address] [place] [address] Care Team Providers Care Wind Energy Technician Name Role Phone Jase Bryson MD Primary Care Provider Encounter Details Date Type Department Care Team (Latest Contact Info) Description 11/25/2002 Outpatient Historical HIS [facility] Ban Molina MD [address] [place] [address] [address] [place] [address] ROUTINE MEDICAL EXAM (Primary Dx) Social History Tobacco Use Types Packs/Day Years Used Date Smoking Tobacco: Never Assessed Comments Unknown Sex and Gender Information Value Date Recorded Sex Assigned at Not on file Legal Sex Female 3:54 AM STEAM HEATING INSTALLER Gender Identity Not on file Sexual Orientation [...] Office Visit [facility] Oncology and Hematology [address] [...] of this encounter Visit Diagnoses Diagnosis Routine general medical examination at a health care facility- Primary Malignant neoplasm of upper-outer quadrant of [...] Pathogen 04/02/2024 04/02/2024 04/02/2024 1 :44 PM STEAM HEATING INSTALLER R/O Respiratory 05/13/2024 05/13/2024 05/13/2024 1 1:33 PM CDT R/O C. diff 05/14/2024 05/14/2024 05/14/2024 10:0 6 AM CDT R/O C. diff 05/14/2024 05/14/2024 05/15/2024 1:01 PM CDT documented as of this encounter Care Teams Wind Energy Technician Relationship Specialty Start Date End Date Jase Bryson MD PCP - General Family Practice 05/06/19 documented as of this encounter
--- OUTSIDE RECORDS SUMMARY | 2024-06-02 16:23 | XMS_ITS | Encounter Summary ---
Author Organization [facility] Address [address] [place] [address] Care Team Providers Care Geographic Information Scientist Name Role Phone Jase Bryson MD Primary Care Provider Encounter Details Date Type Department Care Team (Late st Contact Info) Description 08/08/2000 Outpatient Historical [facility] Jon Goodwin Social History Tobacco Use Types Packs/Day Years Used Date Smoking Tobacco: Never Assessed Comments Unknown Sex and Gender Information Value Date Recorded Sex Assigned at Not on file Legal Sex Female 3:54 AM BOARD DESIGN ENGINEER Gender Identity Not on file Sexual Orientation Not on file documented as of this encounter Plan of Treatment Upcoming Encounters Date Type Department Care Team (Late st Contact Info) Description 06/03/2024 12:30 PM CDT Hospital Encounter [facility] [address] [place] [address] Mariaa Diego MD [address] [place] [phone] 06/03/2024 1:20 PM CDT Office Visit [facility] Oncology and Hematology [address] [place] [phone] Mariaa Diego MD [address] [place] [phone] Pippa Dang, DUONG [address] [place] [address] 06/03/2024 1:45 PM CDT Hospital Encounter [facility] [address] [...] Pathogen 04/02/2024 04/02/2024 04/02/2024 1 :44 PM BOARD DESIGN ENGINEER R/O Respiratory 05/13/2024 05/13/2024 05/13/2024 1 1:33 PM CDT R/O C. diff 05/14/2024 05/14/2024 05/14/2024 10:0 6 AM CDT R/O C. diff 05/14/2024 05/14/2024 05/15/2024 1:01 PM CDT documented as of this encounter Care Teams Geographic Information Scientist Relationship Specialty Start Date End Date Jase Bryson MD PCP - General Family Practice 05/06/19 documented as of this encounter
--- OUTSIDE RECORDS SUMMARY | 2024-06-02 16:23 | XMS_ITS | Encounter Summary ---
Author Organization [facility] Address [address] [place] [address] Care Team Providers Care Ship Officer Name Role Phone Jase Bryson MD Primary Care Provider Encounter Details Date Type Department Care Team (Late Contact Info) Description 10/28/2002 Outpatient Historical HIS [facility] Cam Vásquez MD [address] [place] [phone] Social History Tobacco Use Types Packs/Day Years Used Date Smoking Tobacco: Never Assessed Comments Unknown Sex and Gender Information Value Date Recorded Sex Assigned at Not on file Legal Sex Female 3:54 AM INSIDE SALES DIRECTOR Gender Identity Not on file Sexual [...] [id number] 06/03/2024 1:20 PM CDT Office Visit [facility] Oncology and Hematology [address] [place] [phone] Mariaa Dieog MD [address] [place] [phone] Pippa Dang NP [address] [place] [phone] 06/03/2024 1:45 PM CDT Hospital Encounter [facility] [...] Pathogen 04/02/2024 04/02/2024 04/02/2024 1 :44 PM INSIDE SALES DIRECTOR R/O Respiratory 05/13/2024 05/13/2024 05/13/2024 1 1:33 PM CDT R/O C. diff 05/14/2024 05/14/2024 05/14/2024 10:0 6 AM CDT R/O C. diff 05/14/2024 05/14/2024 05/15/2024 1:01 PM CDT documented as of this encounter Care Teams Ship Officer Relationship Specialty Start Date End Date Jase Bryson MD PCP - General Family Practice 05/06/19 documented as of this encounter
--- OUTSIDE RECORDS SUMMARY | 2024-06-02 16:23 | XMS_ITS | Encounter Summary ---
Author Organization [facility] Address [address] [place] [address] Care Team Providers Care Picker Box Operator Name Role Phone Jase Bryson MD Primary Care Provider Encounter Details Date Type Department Care Team (Late st Contact Info) Description 11/13/2002 Outpatient Historical HIS [facility] Jose Sullivan MD [address] [place], [place] [id number] Social History Tobacco Use Types Packs/Day Years Used Date Smoking Tobacco: Never Assessed Comments Unknown Sex and Gender Information Value Date Recorded Sex Assigned at Not on file Legal Sex Female 3:54 AM VAT OPERATOR Gender Identity Not on file Sexual [...] Diego MD [address] [place] [phone] Pippa Dang NP [address] [...] Pathogen 04/02/2024 04/02/2024 04/02/2024 1 :44 PM VAT OPERATOR R/O Respiratory 05/13/2024 05/13/2024 05/13/2024 1 1:33 PM CDT R/O C. diff 05/14/2024 05/14/2024 05/14/2024 10:0 6 AM CDT R/O C. diff 05/14/2024 05/14/2024 05/15/2024 1:01 PM CDT documented as of this encounter Care Teams Picker Box Operator Relationship Specialty Start Date End Date Jase Bryson MD PCP - General Family Practice 05/06/19 documented as of this encounter
--- OUTSIDE RECORDS SUMMARY | 2024-06-02 16:23 | XMS_ITS | Encounter Summary ---
Author Organization [facility] Address [address] [place] [address] Care Team Providers Care Conveyor Belt Installer Name Role Phone Jase Bryson MD Primary Care Provider Encounter Details Date Type Department Care Team (Latest Contact Info) Description 02/22/2000 Outpatient Historical [facility] Jon Goodwin Dental caries (Primary Dx) Social History Tobacco Use Types Packs/Day Years Used Date Smoking Tobacco: Never Assessed Comments Unknown Sex and Gender Information Value Date Recorded Sex Assigned at Not on file Legal Sex Female 3:54 AM ROLLER SETTER Gender Identity Not on file Sexual Orientation [...] [id number] 06/03/2024 1:20 PM CDT Office Visit [facility] Oncology and Hematology [address] [...] Pathogen 04/02/2024 04/02/2024 04/02/2024 1 :44 PM ROLLER SETTER R/O Respiratory 05/13/2024 05/13/2024 05/13/2024 1 1:33 PM CDT R/O C. diff 05/14/2024 05/14/2024 05/14/2024 10:0 6 AM CDT R/O C. diff 05/14/2024 05/14/2024 05/15/2024 1:01 PM CDT documented as of this encounter Care Teams Conveyor Belt Installer Relationship Specialty Start Date End Date Jase Bryson MD PCP - General Family Practice 05/06/19 documented as of this encounter
--- OUTSIDE RECORDS SUMMARY | 2024-06-02 16:23 | XMS_ITS | Encounter Summary ---
Author Organization [facility] Address [address] [place] [address] Care Team Providers Care Windows Application Developer Name Role Phone Jase Bryson MD Primary Care Provider Encounter Details Date Type Department Care Team (Late st Contact Info) Description 03/12/2001 Outpatient Historical [facility] Internal Medicine Medical [place] [facility] [address] [place] [address] Jakob Cedillo MD [address] [facility] [address] [place] [address] Social History Tobacco Use Types Packs/Day Years Used Date Smoking Tobacco: Never Assessed Comments Unknown Sex and Gender Information Value Date Recorded Sex Assigned at Not on file Legal Sex Female 3:54 AM LINER ROLL CHANGER Gender Identity Not on file Sexual Orientation Not on file documented as of this encounter Plan of Treatment Upcoming Encounters Date Type Department Care Team (Late st Contact Info) Description 06/03/2024 12:30 PM CDT Hospital Encounter [facility] [address] [place] [phone] Mariaa Diego MD [address] [place] [phone] 06/03/2024 1:20 PM CDT Office Visit [facility] Oncology and Hematology [address] [place] [phone] Mariaa Diego MD [address] [place] [phone] Pippa Dang NP [address] [place] [phone] 06/03/2024 1:45 PM CDT Hospital Encounter [facility] [address] [place] [phone] Mariaa Diego MD [address] [place] [...] Pathogen 04/02/2024 04/02/2024 04/02/2024 1 :44 PM LINER ROLL CHANGER R/O Respiratory 05/13/2024 05/13/2024 05/13/2024 1 1:33 PM CDT R/O C. diff 05/14/2024 05/14/2024 05/14/2024 10:0 6 AM CDT R/O C. diff 05/14/2024 05/14/2024 05/15/2024 1:01 PM CDT documented as of this encounter Care Teams Windows Application Developer Relationship Specialty Start Date End Date Jase Bryson MD PCP - General Family Practice 05/06/19 documented as of this encounter
--- OUTSIDE RECORDS SUMMARY | 2024-06-02 16:23 | XMS_ITS | Encounter Summary ---
Author Organization [facility] Address [address] [place] [address] Care Team Providers Care Carbonating Stone Cleaner Name Role Phone Jase Bryson MD Primary Care Provider Encounter Details Date Type Department Care Team (Late st Contact Info) Description 09/05/2000 Outpatient Historical [facility] Internal Medicine Medical [place] [facility] [address] [facility] [address] [address] Bardy Purdy MD NO ADDRESS ON FILE Social History Tobacco Use Types Packs/Day Years Used Date Smoking Tobacco: Never Assessed Comments Unknown Sex and Gender Information Value Date Recorded Sex Assigned at Not on file Legal Sex Female 3:54 AM CHIEF PHARMACIST Gender Identity Not on file Sexual Orientation Not on file documented as of this encounter Plan of Treatment Upcoming Encounters Date Type Department Care Team (Late st Contact Info) Description 06/03/2024 12:30 PM CDT Hospital Encounter [facility] [address] [place] [phone] Mariaa Diego MD [address] [place] [phone] 06/03/2024 1:20 PM CDT Office Visit [place] Oncology and Hematology [address] [place] [phone] Mariaa Diego MD [address] [place] [phone] Pippa Dang NP [address] [...] Pathogen 04/02/2024 04/02/2024 04/02/2024 1 :44 PM CHIEF PHARMACIST R/O Respiratory 05/13/2024 05/13/2024 05/13/2024 1 1:33 PM CDT R/O C. diff 05/14/2024 05/14/2024 05/14/2024 10:0 6 AM CDT R/O C. diff 05/14/2024 05/14/2024 05/15/2024 1:01 PM CDT documented as of this encounter Care Teams Carbonating Stone Cleaner Relationship Specialty Start Date End Date Jase Bryson MD PCP - General Family Practice 05/06/19 documented as of this encounter
--- OUTSIDE RECORDS SUMMARY | 2024-06-02 16:23 | XMS_ITS | Encounter Summary ---
Author Organization [facility] Address [address] [place] [address] Care Team Providers Care Inside Outside Sales Representative Name Role Phone Jase Bryson MD Primary Care Provider Encounter Details Date Type Department Care Team (Latest Contact Info) Description 12/07/1999 Outpatient Historical [facility] Jon Goodwin Dental caries (Primary Dx) Social History Tobacco Use Types Packs/Day Years Used Date Smoking Tobacco: Never Assessed Comments Unknown Sex and Gender Information Value Date Recorded Sex Assigned at Not on file Legal Sex Female 3:54 AM CONSULTING SALES MANAGER Gender Identity Not on file [...] 1:20 PM CDT Office Visit [facility] Oncology and Hematology [address] [place] [phone] Mariaa Diego MD [address] [place] [phone] Pippa Dang NP [address] [place] [phone] 06/03/2024 1:45 PM CDT Hospital Encounter [...] Pathogen 04/02/2024 04/02/2024 04/02/2024 1 :44 PM CONSULTING SALES MANAGER R/O Respiratory 05/13/2024 05/13/2024 05/13/2024 1 1:33 PM CDT R/O C. diff 05/14/2024 05/14/2024 05/14/2024 10:0 6 AM CDT R/O C. diff 05/14/2024 05/14/2024 05/15/2024 1:01 PM CDT documented as of this encounter Care Teams Inside Outside Sales Representative Relationship Specialty Start Date End Date Jase Bryson MD PCP - General Family Practice 05/06/19 documented as of this encounter
--- OUTSIDE RECORDS SUMMARY | 2024-06-02 16:23 | XMS_ITS | Encounter Summary ---
Author Organization [facility] Address [address] [place] [address] Care Team Providers Care Environmental Science Program Director Name Role Phone Jase Bryson MD Primary Care Provider Encounter Details Date Type Department Care Team (Latest Contact Info) Description 08/01/2002 Outpatient Historical [facility] Miryam Perales MD CONTRACEPT SURVEILL NEC (Primary Dx) Social History Tobacco Use Types Packs/Day Years Used Date Smoking Tobacco: Never Assessed Comments Unknown Sex and Gender Information Value Date Recorded Sex Assigned at Not on file Legal Sex Female 3:54 AM CAUSTICISER Gender Identity Not on file Sexual Orientation Not on file documented as of this encounter Plan of Treatment Upcoming Encounters Date Type Department Care Team (Late st Contact Info) Description 06/03/2024 12:30 PM CDT Hospital Encounter [facility] [address] [place] [phone] Mariaa Diego MD [address] [place] [phone] 06/03/2024 1:20 PM CDT Office Visit [facility] Oncology and Hematology [address] [place] [phone] Mariaa Diego MD [address] [place] [phone] Pippa Dang, DUONG [address] [place] [address] 06/03/2024 1:45 PM CDT Hospital [...] Pathogen 04/02/2024 04/02/2024 04/02/2024 1 :44 PM CAUSTICISER R/O Respiratory 05/13/2024 05/13/2024 05/13/2024 1 1:33 PM CDT R/O C. diff 05/14/2024 05/14/2024 05/14/2024 10:0 6 AM CDT R/O C. diff 05/14/2024 05/14/2024 05/15/2024 1:01 PM CDT documented as of this encounter Care Teams Environmental Science Program Director Relationship Specialty Start Date End Date Jase Bryson MD PCP - General Family Practice 05/06/19 documented as of this encounter
--- OUTSIDE RECORDS SUMMARY | 2024-06-02 16:23 | XMS_ITS | Encounter Summary ---
Author Organization [facility] Address 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 diff 05/14/2024 05/14/2024 05/14/2024 10:0 6 AM CDT R/O C. diff 05/14/2024 05/14/2024 05/15/2024 1:01 PM CDT documented as of this encounter Care Teams Extra Hand Relationship Specialty Start Date End Date Jase Bryson MD PCP - General Family Practice 05/06/19 documented as of this encounter
--- OUTSIDE RECORDS SUMMARY | 2024-06-02 16:24 | XMS_ITS | Encounter Summary ---
Author Organization [facility] Address [address] [place] [address] Care Team Providers Care Hot Mill Observer Name Role Phone Jase Bryson MD Primary Care Provider Encounter Details Date Type Department Care Team (Late Contact Info) Description 06/02/2024 External Device Data [place] ABSTRACTION Provider, Abstract NO ADDRESS ON FILE Social History Tobacco [...] who hurts you emotionally and/or physically? 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 [address] [place] [phone] Mariaa Diego MD [address] [place] [phone] 16, Mob documented as of this encounter Visit Diagnoses Not on filedocumented in this encounter Care Teams Hot Mill Observer Relationship Specialty Start Date End Date Jase Bryson MD PCP - General Family Practice 05/06/19 documented as of this encounter
--- OUTSIDE RECORDS SUMMARY | 2024-06-02 16:24 | XMS_ITS | Continuity of Care Document ---
Author Organization [facility] Address [address] [place] [address] Phone Care Team Providers Care Machine Feller Name Role Phone Florencia Almodovar DO Unavailable Unavailable Allergies, Adverse Reactions, Alerts Substance Reaction Status Criticality Penicillins Active No Information Medications Medication Instructions Dosage Effective Dates (start - stop) Status Comments Naprosyn 500 mg Tab Take 1 tablet 2 time s a day with food - Active Procedures Procedure Date Office[facility]outpatient visit[facility] 2010 X-ray exam of neck spine2-3 views X-ray exam of shoulder, complete 2010 Advance Directives Directive Yes / No Effective Date File Name No Information Encounters Encounter Description Practice Location Reason(s) For Visit Diagnoses Date Provider Providers Copied on Encounter Office[facility]pat ient visit,[facility], [address], [id number], tel:[phone] [facility] Cervical StrainSPRAIN THORACIC REGIONSPRAIN SHOULDER & ARMSPRAIN SHOULDER/ARM NOSJOINT PAIN-SHLDERCE RVICALGIA [address], [address], [place], [place], [id number] , [place]. tel: [phone] Family History Family Member Type Diagnosis Age At Onset No Information Payers Payer name Insurance type Covered constitution party ID Authoriza tibenjamín(s) [employer] [id number] Social History Type Description Quantity Date Captured Comments Sex Female Smoking Status No Information Chief Complaint And Reason For Visit No Information Reason For Referral Reason For Referral No Information History Of Present Illness Encounter Date Complaint History Of Prese nt Illness No Information Functional Status Date Functional Assessmen t No Information Instructions Date Instruction Additional Infor mation No Information Assessments Type Assessment Date No Information Patient Care Teams Name Effective Dates (start - stop) Status Members No Information
--- OUTSIDE RECORDS SUMMARY | 2024-06-02 16:24 | XMS_ITS | Encounter Summary ---
Author Organization [facility] Address [address] [place] [address] Care Team Providers Care Pick Up Driver Name Role Phone Jase Bryson MD Primary Care Provider Encounter Details Date Type Department Care Team (Late st Contact Info) Description 12/15/1998 Outpatient Historical [facility] Internal Medicine Medical [place] [facility] [address] [place] [address] Jakob Cedillo MD [facility] [facility] [address] [place] [address] Social History Tobacco Use Types Packs/Day Years Used Date Smoking Tobacco: Never Assessed Comments Unknown Sex and Gender Information Value Date Recorded Sex Assigned at Not on file 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 Gender Identity Not on file Sexual Orientation Not on file documented as of this encounter Plan of Treatment Upcoming Encounters Date Type Department Care Team (Late st Contact Info) Description 06/03/2024 12:30 PM CDT Hospital Encounter [facility] [address] [place] [phone] Mariaa Diego MD [address] [place] [phone] 06/03/2024 1:20 PM CDT Office Visit [facility] Oncology and Hematology [address] [place] [phone] Mariaa Diego MD [address] [place] [phone] Pippa Dang NP [address] [place] [phone] 06/03/2024 1:45 PM CDT Hospital Encounter [facility] [address] [place] [phone] Mariaa Diego MD [address] [place] [...] Pathogen 04/02/2024 04/02/2024 04/02/2024 1 :44 PM STOPPER MAKER R/O Respiratory 05/13/2024 05/13/2024 05/13/2024 1 1:33 PM CDT R/O C. diff 05/14/2024 05/14/2024 05/14/2024 10:0 6 AM CDT R/O C. diff 05/14/2024 05/14/2024 05/15/2024 1:01 PM CDT documented as of this encounter Care Teams Pick Up Driver Relationship Specialty Start Date End Date Jase Bryson MD PCP - General Family Practice 05/06/19 documented as of this encounter
--- OUTSIDE RECORDS SUMMARY | 2024-06-02 16:24 | XMS_ITS | Encounter Summary ---
Author Organization [facility] Address [address] [place] [address] Care Team Providers Care Document Clerk Name Role Phone Jase Bryson MD Primary Care Provider Encounter Details Date Type Department Care Team (Late st Contact Info) Description 01/26/1999 Outpatient Historical [facility] Internal Medicine Medical [place] [facility] [address] [place] [address] Jakob Cedillo MD [address] [address] [place] [address] Social History Tobacco Use Types [...] Diego MD [address] [place] [phone] 06/03/2024 1:20 PM CDT Office Visit [facility] Oncology and Hematology [address] [place] [phone] Mariaa Diego MD [address] [place] [phone] Pippa Dang NP [address] [place] [phone] 06/03/2024 1:45 PM CDT Hospital Encounter [facility] [address] [place] [phone] Mariaa Diego MD [address] [place] [...] documented as of this encounter Care Teams Document Clerk Relationship Specialty Start Date End Date Jase Bryson MD PCP - General Family Practice 05/06/19 documented as of this encounter
--- OUTSIDE RECORDS SUMMARY | 2024-06-02 16:24 | XMS_ITS | Encounter Summary ---
Author Organization [facility] Address [address] [place] [address] Care Team Providers Care Human Capital Manager Name Role Phone Jase Bryson MD Primary Care Provider Encounter Details Date Type Department Care Team (Late st Contact Info) Description 12/14/1998 Outpatient Historical [facility] Internal Medicine Medical [place] [facility] [address] [place] [address] Jakob Cedillo MD [facility] [facility] [address] [place] [address] Social History Tobacco Use Types Packs/Day Years Used Date Smoking Tobacco: Never Assessed Comments Unknown Sex and Gender Information Value Date Recorded Sex Assigned at Not on file 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 Gender Identity Not on file Sexual Orientation Not on file documented as of this encounter Plan of Treatment Upcoming Encounters Date Type Department Care Team (Late st Contact Info) Description 06/03/2024 12:30 PM CDT Hospital Encounter [facility] [address] [place] [phone] Mariaa Diego MD [address] [place] [phone] 06/03/2024 1:20 PM CDT Office Visit [facility] Oncology and Hematology [address] [place] [phone] Mariaa Diego MD [address] [place] [phone] Pippa Dang NP [address] [place] [phone] 06/03/2024 1:45 PM CDT Hospital Encounter [facility] [address] [place] [phone] Mariaa Diego MD [address] [place] [...] Pathogen 04/02/2024 04/02/2024 04/02/2024 1 :44 PM HEAD TRANSFER CLERK R/O Respiratory 05/13/2024 05/13/2024 05/13/2024 1 1:33 PM CDT R/O C. diff 05/14/2024 05/14/2024 05/14/2024 10:0 6 AM CDT R/O C. diff 05/14/2024 05/14/2024 05/15/2024 1:01 PM CDT documented as of this encounter Care Teams Human Capital Manager Relationship Specialty Start Date End Date Jase Bryson MD PCP - General Family Practice 05/06/19 documented as of this encounter
--- OUTSIDE RECORDS SUMMARY | 2024-06-02 16:24 | XMS_ITS | Continuity of Care Document ---
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 Role Phone Jase Brysno MD Unavailable Unavailable Allergies, Adverse Reactions, Alerts Substance Reaction Status Criticality vancomycin Nausea / Vomiting Active High divalproex sodium Active No Informa tion doxycycline Hives / Skin Rash Active No Informa tion PENICILLIN Active No Information amoxicillin Active No Information alprazolam Active No Information Medications Medication Instructions Dosage Effective Dates (start - stop) Status Comments Lyrica 100 mg capsule take 1 capsule by oral route 3 times every day 100 MG - Active omeprazole 20 mg capsule,delayed release TAKE 1 CAPSULE BY MOUTH EVERY DAY - Active pramipexole 0.125 mg tablet TAKE 1 TABLET BY MOUTH THREE TIMES DAILY NEEDED FOR RESTLESS LEG SYNDROME - Active Zyrtec 10 mg capsule 1 tab PO daily - Active lamotrigine 200 mg tablet TAKE 1 TABLET BY MOUTH ONCE DAILY - Active hydrocodone 5 mg-acetaminophen 325 mg tablet take 1 tablet by oral route every 6-8 hours as needed for severe rib pain - Active atorvastatin 40 mg tablet take 1 tablet by oral route every day 40 MG - Active citalopram 20 mg tablet take 1 tablet by oral route every day 20 MG - Active aspirin 81 mg tablet,delayed release take 1 tablet by oral route every day 81 MG - Active triamcinolone acetonide 0.1 % topical cream apply by topical route 2 times every day a thin layer to the affected area(s) until cleared up - Active Vitamin B-12 1,000 mcg tablet 1tab QD PO - Active methocarbamol 500 mg tablet take 2 tablet by oral route 3 times every day as needed for pain/muscle spasms. - Active pregabalin 75 mg capsule TAKE 1 CAPSULE BY MOUTH THREE TIMES A DAY - No Longer Active DOL Procedures Procedure Date OFFICE HRGEF-KII-MDYKYGZV OFFICE NJLXS-KPK-FRDKXWMU BODY MASS INDEX DOCD SYST BP LT 130 MM HG DIAST BP < 80 MM HG GENERAL HEALTH PANEL FERRITIN LEVEL VITAMIN B12 (SERUM) ROUTINE VENIPUNCTURE LDL-CHOLESTEROL, DIRECT OFFICE [id number]-LRI-[id number] TELEPHONE E&M BY A PHYSICIAN; 11-20 ORALIA SANDOVAL ROUTINE VENIPUNCTURE OFFICE DBKRL-FFI-KSXNJHKK OFFICE XZSMG-QIT-MXOOBPVG BODY MASS INDEX DOCD SYST BP LT 130 MM HG DIAST BP < 80 MM HG Pt inelig neg scrn depres OFFICE BHVAB-AGU-MRKLRWBI BODY MASS INDEX DOCD SYST BP LT 130 MM HG DIAST BP < 80 MM HG DSCHRG MED/CURRENT MED MERGE Pt inelig neg scrn depres OFFICE MSTPP-RWK-OJTLYXQJ BODY MASS INDEX DOCD SYST BP LT 130 MM HG DIAST BP < 80 MM HG Pt inelig neg scrn depres OFFICE ETOAO-JCC-WVAPMEDT BODY MASS INDEX DOCD SYST BP LT 130 MM HG DIAST BP < 80 MM HG CBC, INC PLATELETS AND DIFFERENTIAL COMPREHEN METABOLIC PANEL CMP LIPID PANEL ROUTINE VENIPUNCTURE IMMUN ADMIN (INC PERCUTANEOUS) SINGLE, F IRST INJ Zoster Vaccine (HZV) (SHINGRIX), Intramu scular LDL-CHOLESTEROL, DIRECT OFFICE YYQWU-ZTN-TSQTTATO URINALYSIS, DIPSTICK (UA) - Office Lab F OFFICE BRUQH-WAM-ENPIKYMS BODY MASS INDEX DOCD SYST BP LT 130 MM HG DIAST BP < 80 MM HG URINALYSIS, DIPSTICK (UA) - Office Lab F OFFICE SIHUJ-DPE-AOREJMRY BODY MASS INDEX [facility] SYST BP LT 130 MM HG DIAST BP < 80 MM HG OFFICE VMGQV-TUE-ONYZHXYD BODY MASS INDEX [facility] SYST BP LT 130 MM HG DIAST BP < 80 MM HG EKG (ELECTROCARDIOGRAM) OFFICE MAUKK-IMH-SJAZNBKM BODY MASS INDEX [facility] SYST BP LT 130 MM HG DIAST BP < 80 MM HG GENERAL HEALTH PANEL HEMOGLOBIN A1C HGA1C, GLYCO LIPID PANEL ROUTINE VENIPUNCTURE LDL-CHOLESTEROL, DIRECT Pt inelig neg scrn depres OFFICE ABEOE-NBO-HGEJKPXN OFFICE SFFTS-GKT-QQDC Pt inelig neg scrn depres OFFICE MNEGF-AJS-ZLWDHQPD IMMUN ADMIN (INC PERCUTANEOUS) SINGLE, F IRST INJ TDAP INTRAMUSCULAR USE GENERAL HEALTH PANEL HEMOGLOBIN A1C HGA1C, GLYCO LIPID PANEL ROUTINE VENIPUNCTURE PREVENTATIVE-EST: 40-64 BODY MASS INDEX DOCD SYST BP GE 130 - 139MM HG DIAST BP < 80 MM HG LDL-CHOLESTEROL, DIRECT OFFICE BEXPP-EIT-CMEXGTMV OFFICE NDKZD-IDZ-HTVZFIIL OFFICE LFFDE-ZLF-VHGYDWEE OFFICE FCYUQ-DKM-WYNXWDOM OFFICE OOYWW-GGC-EFMH OFFICE CFJET-NYE-QEBF BODY MASS INDEX DOCD SYST BP LT 130 MM HG DIAST BP < 80 MM HG OFFICE BWBRP-FDX-MDZT OFFICE TRAFE-PVY-CBEP OFFICE SEYES-DBG-QPOMJZUM OFFICE ZOSBE-YDL-JQPGDPPP BODY MASS INDEX DOCD SYST BP GE 130 - 139MM HG DIAST BP < 80 MM HG Advance Directives Directive Yes / No Effective Date File Name Life Support Not Answered N/A N/A Intubation Not Answered N/A N/A Antibiotics Not Answered N/A N/A IV Fluid Support Not Answered N/A N/A Tube Feed Not Answered N/A N/A Other Directive N/A N/A WARNING:The information contained in this section is historical and is provided for information only and does not constitute a legal document or any assurance that the information is still accurate. Please verify the information with the dee of the legal document before using it for clinical purposes. Encounters Encounter Description Practice Location Reason(s) For Visit Diagnoses Date Provider Providers Copied on Encounter [facility], [address], [place], [place], [address] , [place] tel:[phone] [facility] No Information 5 Braydon Laguna. [address] [place], [place], [address], . tel:[phone] [facility], [address], [place], [place], [address] , tel: [phone] [facility] No Information 5 Braydon Laguna. [address] [place], [place], [address], . tel:[phone] [facility], [address], [place], [place], [address] , tel: [phone] [facility] No Information 5 Braydon Laguna. [facility] [place], [place], [address], . tel:[phone] [facility], [address], [place], [place], [address] , tel: [phone] [facility] No Information 5 Braydon Laguna. [facility] [place], [place], [address], . tel:[phone] [facility], [address], [place], [place], [address] , tel: [phone] [facility] No Information 5 Braydon Laguna. [facility] [place], [place], [address], . tel:[phone] [facility], [address], [place], [place], [address] , tel: [phone] [facility] Mass of left breast, unspecified quadrant 5 Braydon Laguna. [address] [place], [place], [address], . tel:[phone] [facility], [address], [place], [place], [address] , tel: [phone] [employer] Mass overlapping multiple quadrants of left breast 4 Braydon Laguna. [address] [place], [place], [address], . tel:[phone] [facility] [employer] [facility], [address], [place], [place], [address] , tel: [phone] [facility] Rib pain on right side 4 Braydon Laguna. [facility] [place], [place], [address], . tel:[phone] [facility] [employer] [facility], [address], [place], [place], [address] , tel: [phone] [facility] No Information 4 Braydon Laguna. [facility] [place], [place], [address], . tel:[phone] Referring Provider: Jase Slaughter, [address] [place] [address], [address] . tel:[phone] OFFICE QSGJW-AFG-EZ TAILED [facility] [employer], [address], [place], [place], [address] , tel: [phone] [facility] Rib pain (chief complaint) Rib pain on right side 4 Braydon Laguna. [address] [place] [address], [id number], . tel:[phone] Referring Provider: Jase Slaughter, [address] [place], [place] [address] [place], [address] . tel:[phone] OFFICE FEOIT-BJM-BC TAILED [facility] [employer], [address], [place], [place], [address] , tel:[phone] [facility] Medicine Acute Cough (chief complaint) Body mass index [BMI] 29.0-29.9, adultCOPD exacerbationToba accounts receivable collector use 4 Linad Renteria. [address] [place], [place] [address] [place], [place], [address], . tel:[phone] Referring Provider: Jase Slaughter, [address] [place], [address] . tel:[phone] [facility], [address], [place], [place], [address] , tel: [phone] [facility] [employer] [facility] No Information 4 Braydon Laguna. [address] [place], [place], [address], [place]. tel:[phone] [facility], [address], [place], [place], [address] , [place] tel: [phone] [facility] [employer] [facility] No Information 4 Braydon Laguna. [facility] [place], [place], [address], [place]. tel:[phone] [facility], [address], [place], [place], [address] , [place] tel: [phone] [facility] [employer] [facility] No Information 4 Braydon Laguna. [facility] [place], [address], [place]. tel:[phone] [facility], [address], [place], [place], [address] , [place] tel: [phone] [facility] [employer] [facility] Other fatigue 4 Jimenez Mixon. [address] [facility], [place], [place], [address], [place]. tel:[phone] Referring Provider: Jase Slaughter, [facility] [place], [address] . tel:[phone] [facility], [address], [place], [place], [address] , [place] tel: [phone] [facility] [employer] [facility] Fatigue, unspecified type 4 Braydon Laguna. [facility] [place], [address], [place]. tel:[phone] [facility], [address], [place], [place], [address] , [phone] [facility] Medicine Fatigue, unspecified type 4 Braydon Laguna. [address] [place] [id number], . tel:[phone] Referring Provider: Jase Slaughter, [address] [place] [address], [address] . tel:[phone] OFFICE XTZQL-ENV-TT TAILED [facility], [address], [place], [place], [address] , tel:[phone] [facility] Medicine legs (chief complaint) RLS (restless legs syndrome) 4 Braydon Laguna. [address] [place] [address], [id number], . tel:[phone] Referring Provider: Jase Slaughter, [address] [place] [address], [address] . tel:[phone] TELEPHONE E&M BY A PHYSICIAN; 11-20 MINUTES [facility] [employer], [address], [place], [place], [address] , [phone] [facility] Radiculopathy of lumbosacral regionPTSD (post-traumatic stress disorder) 4 Braydon Laguna. [address] [place] [address], [id number], . tel:[phone] Referring Provider: Jase Slaughter, [address] [place] [address], [address] . tel:[phone] OFFICE PTJTG-EXW-XR TAILED [facility] [employer], [address], [place], [place], [address] , [phone] [facility] Family Medicine generic (chief complaint) Encounter for screening mammogram for malignant neoplasm of breastCervical spondylosisTIA (transient ischemic attack)PTSD (post-traumatic stress disorder) 4 Braydon Laguna. [address] [place] [address], [id number], . tel:[phone] Referring Provider: Jase Slaughter, [address] [place] [address], [address] . tel:[phone] [facility], [address], [place], [place], [address] , tel: [phone] [facility] No Information 3 Braydon Laguna. [address] [place] [address], [id number], . tel:[phone] [facility], [address], [place], [place], [address] , tel: [phone] [facility] TIA (transient ischemic attack)Post concussion syndrome 3 Braydon Laguna. [address] [place] [address], [id number], . tel:[phone] OFFICE VQXUJ-VDM-OV TAILED [facility], [address], [place], [place], [address] , tel: [phone] [facility] Patient encounter (chief complaint) TIA (transient ischemic attack)Post concussion syndromePTSD (post-traumatic stress disorder) 3 Braydon Laguna. [address] [place] [address], [id number], . tel:[phone] Referring Provider: Jase Slaughter, [address] [place] [address], [address] . tel:[phone] OFFICE UCQXF-CUW-WF TAILED [facility], [address], [place], [place], [address] , tel: [phone] [facility] Patient encounter (chief complaint) Body mass index [BMI] 30.0-30.9, adultAltered mental status, unspecified altered mental status typeTIA (transient ischemic attack)Tobacco use 3 Linda Renteria. [address] [place] [address], [id number], . tel:[phone] Referring Provider: Jase Slaughter, [facility] [place], [address] . tel:[phone] OFFICE ATNZX-ABI-GV TAILED [facility] [employer], [address], [place], [place], [address] , tel:[phone] [facility] Medicine Patient encounter (chief complaint) Body mass index [BMI] 31.0-31.9, adultTIA (transient ischemic attack)Tobacco use 3 Linda Renteria. [facility] [place], [place], [address], [place]. tel:[phone] Referring Provider: Jase Slaughter, [facility] [place], [address] . tel:[phone] [facility], [address], [place], [place], [address] , [place] tel:[phone] [facility] Medicine Radiculopathy of lumbosacral regionNeck pain 3 Braydon Laguna. [facility] [place], [place], [address], [place]. tel:[phone] OFFICE ADMYA-BDX-HM [facility] [employer], [address], [place], [place], [address] , tel:[phone] [facility] Medicine Patient encounter (chief complaint) Post concussion syndromeOAB (overactive bladder) 3 Braydon Laguna. [facility] [place], [address], [place]. tel:[phone] Referring Provider: Jase Slaughter, [facility] [place], [address] . tel:[phone] [facility], [address], [place], [place], [address] , tel:[phone] [facility] [employer] [facility] Other fdc (current) drug therapyMixed hyperlipidemia Apr- 3 Braydon Laguna. [address] [place] [address], [id number], . tel:[phone] Referring Provider: Jase Slaughter, [address] [place] [address], [address] . tel:[phone] OFFICE OVWIV-LRX-TO [facility], [address], [place], [place], [address] , tel: [phone] [facility] Medicine Patient encounter (chief complaint) Lumbosacral radiculopathy at S1 3 Braydon Laguna. [address] [place] [address], [id number], . tel:[phone] Referring Provider: Jase Slaughter, [address] [place] [address], [address] . tel:[phone] OFFICE WXPRP-CDB-HB [facility], [address], [place], [place], [address] , tel: [phone] [facility] Patient encounter (chief complaint) Urinary urgencyBody mass index [BMI] 30.0-30.9, adult 3 Braydon Laguna. [address] [place] [address], [id number], . tel:[phone] Referring Provider: Jase Slaughter, [address] [place] [address], [address] . tel:[phone] OFFICE XXUDZ-NPH-PI [facility], [address], [place], [place], [address] , tel: [phone] [facility] Medicine Patient encounter (chief complaint) Acute cystitis with hematuriaNocturn al hypoxiaBody mass index [BMI] 30.0-30.9, adult 3 Braydon Laguna. [address] [place] [address], [id number], . tel:[phone] Referring Provider: Jase Slaughter, [address] [place] [address], [address] . tel:[phone] OFFICE XGQLD-RBE-TT TAILED [facility] [employer] [facility], [address], [place], [place], [address] , tel: [phone] [facility] Medicine Patient encounter (chief complaint) Dyspnea on exertionBody mass index [BMI] 31.0-31.9, adult 2 Braydon Laguna. [address] [place], [place], [address], . tel:[phone] Referring Provider: Jase Slaughter, [address] [place] [address], [address] . tel:[phone] [facility] [employer], [address], [place], [place], [address] , tel: [phone] [facility] Chronic bilateral low back pain with right-sided sciaticaOther chronic painLumbosacral radiculopathy at S1 2 Braydon Laguna. [facility] [place], [place], [address], . tel:[phone] OFFICE JKZUP-WSF-AV TAILED [facility] [employer], [address], [place], [place], [address] , tel: [phone] [facility] Medicine Patient encounter (chief complaint) Chronic bilateral low back pain with right-sided sciaticaGastroes ophageal reflux disease, unspecified whether esophagitis presentPrediabet esUnspecified mood [affective] disorderChronic daily headache 2 Braydon Laguna. [facility] [place], [place], [address], [place]. tel:[phone] Referring Provider: Jase Slaughter, [facility] [place], [address] . tel:[phone] OFFICE AXROX-QDK-XK TAILED [facility], [address], [place], [place], [address] , tel: [phone] [facility] Medicine General (chief complaint) Mixed hyperlipidemiaPr ediabetesRadicul opathy of lumbosacral regionRecurrent major depressive disorder, in partial remission 2 Braydon Laguna. [facility] [place], [place], [address], [place]. tel:[phone] Referring Provider: Jase Slaughter, [address] [place], [place] [address] [place], [address] . tel:[phone] OFFICE JOJXW-TXP-DW MP [facility], [address], [place], [place], [address] , tel: [phone] [facility] [employer] Work Comp (chief complaint) Radiculopathy of lumbosacral region 2 Braydon Laguna. [address] [place] [address] [place], [address], [place]. tel:[phone] Referring Provider: Jase Slaughter, [address] [place], [place] [address] [place], [address] . tel:[phone] OFFICE UZFKX-IVD-QC PANDED [facility], [address], [place], [place], [address] , [place] tel: [phone] [facility] Workman's Comp (chief complaint) Chronic bilateral low back pain with right-sided sciatica 2 Braydon Laguna. [facility] [address] [place], [address], [place]. tel:[phone] Referring Provider: Jase Slaughter, [facility] [place], [address] . tel:[phone] PREVENTATIVE -EST: 40-64 [facility], [address], [place], [address] , [place] tel: [phone] [facility] Phys (chief complaint) Body mass index [BMI] 33.0-33.9, adultRoutine general medical examination at [facility] for screening mammogram for malignant neoplasm of breast 1 Braydon Laguna. [address] [place] [address] [place], [address], [place]. tel:[phone] Referring Provider: Jase Slaughter, [address] [place] [address], [address] . tel:[phone] [facility], [address], [place], [place], [address] , tel:[phone] [facility] [employer] [facility] Gastroesophageal reflux disease, unspecified whether esophagitis present 1 Braydon Laguna. [address] [place] [address], [id number], . tel:[phone] OFFICE [facility], [address], [place], [place], [address] , tel: [phone] [facility] WC (chief complaint) Radiculopathy of lumbosacral region 1 Braydon Laguna. [address] [place] [address], [id number], . tel:[phone] Referring Provider: Jase Slaughter, [address] [place] [address], [address] . tel:[phone] OFFICE TUARM-WBO-QQ TAILED [facility], [address], [place], [place], [address] , tel:[phone] [facility] Work Comp (chief complaint) Chronic bilateral low back pain with right-sided sciatica 1 Braydon Laguna. [address] [place] [address], [id number], [place]. tel:[phone] Referring Provider: Jase Slaughter, [address] [place] [address], [address] . tel:[phone] OFFICE FSDTQ-ZNC-CM [facility], [address], [place], [place], [address] , tel:[phone] [facility], paperwork (chief complaint) Chronic bilateral low back pain with right-sided sciatica 1 Braydon Laguna. [address] [place] [address], [id number], . tel:[phone] Referring Provider: Jase Slaughter, [address] [place] [address], [address] . tel:[phone] OFFICE VLZEY-WKR-BI TAILED [facility], [address], [place], [place], [address] , tel: [phone] [facility] Disability (chief complaint) Radiculopathy of lumbosacral region 1 Braydon Laguna. [address] [place] [address], [id number], . tel:[phone] Referring Provider: Jase Slaughter, [address] [place] [address], [address] . tel:[phone] OFFICE RBMSR-TBG-KP [facility], [address], [place], [place], [address] , tel: [phone] [facility] Medicine HPI (chief complaint) Chronic bilateral low back pain with right-sided sciatica 1 Braydon Laguna. [address] [place] [address], [id number], . tel:[phone] Referring Provider: Jase Slaughter, [address] [place] [address], [address] . tel:[phone] [facility], [address], [place], [place], [address] , tel: [phone] [facility] Medicine No Information 1 John Stallworth. [address] [place] [address], [id number], . tel:[phone] OFFICE BCNNV-QVH-ZI MP [facility], [address], [place], [place], [address] , tel: [phone] [facility] Medicine Chronic bilateral low back pain with right-sided sciatica 1 Braydon Laguna. [address] [place] [address], [id number], . tel:[phone] Referring Provider: Jase Slaughter, [address] [place] [address], [address] . tel:[phone] OFFICE BLTHK-VJY-HE MP [facility], [address], [place], [place], [address] , tel: [phone] [facility] Family Medicine Follow Up (chief complaint) Chronic bilateral low back pain with right-sided sciatica 1 Braydon Laguna. [address] [place] [address], [id number], . tel:[phone] Referring Provider: Jase Slaughter, [address] [place] [address], [address] . tel:[phone] OFFICE KCUMY-DSH-HN [facility], [address], [place], [place], [address] , tel: [phone] [facility] Medicine Follow Up (chief complaint) Radiculopathy of lumbosacral region 1 Braydon Laguna. [address] [place] [address], [id number], . tel:[phone] Referring Provider: Jase Slaughter, [address] [place] [address], [address] . tel:[phone] OFFICE CXBUC-IZO-SZ [facility], [address], [place], [place], [address] , tel: [phone] [facility] Family Medicine Follow up (chief complaint) Radiculopathy of lumbosacral region 1 Braydon Laguna. [address] [place] [address], [id number], . tel:[phone] Referring Provider: Jase Slaughter, [address] [place] [address], [address] . tel:[phone] OFFICE [id number] [employer], [address], [place], [place], [id number] , [place] tel: [phone] [facility] Medicine (chief complaint) Radiculopathy of lumbosacral region 0 Braydon Laguna. [address], [place], [id number], [place]. tel:[phone] Referring Provider: Jase Slaughter, [address] [place], [address] . tel:[phone] Family History Family Member Type Diagnosis Age At Onset Brother Problem carcinoid tumor Maternal grandmother Problem stroke Sister Problem (finding) Brother Problem cancer of colon Mother Problem (finding) Father Problem malignant neoplasm of lung Sister Problem Drug Abuse Mother Problem malignant neoplasm of lung Maternal uncle Problem cancer of the esophagus Immunizations Vaccine Date Status Comments SHINGRIX (Zoster vaccine recombinant, adjuvanted) administered Source: New Imm unization Record Tdap administered Note: TDAP admi nistered IM in left deltoid & tolerated well. Clinic supplied. 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 [employer] OPEN ACCESS CI [id number] Social History Type Description Quantity Date Captured Comments Alcohol Use Details Unknown Caffeine Use Details Unknown Tobacco Use Status Smoking Status No Information Sex Female Sexual Orientation Straight or heterosexual Gender Identity Female Chief Complaint And Reason For Visit No Information Reason For Referral Reason For Referral No Information Plan Of Treatment Date Type Action Status Goal Dietary management education , guidance, and counseling completed Goal Dietary management education , guidance, and counseling completed Goal Dietary management education , guidance, and counseling completed Goal Dietary management education , guidance, and counseling completed Goal Dietary management education , guidance, and counseling completed Goal Dietary management education , guidance, and counseling completed Goal Dietary management education , guidance, and counseling completed Goal Dietary management education , guidance, and counseling completed Goal Dietary management education , guidance, and counseling completed Goal Dietary management education , guidance, and counseling completed Goal Dietary management education , guidance, and counseling completed Goal Dietary management education , guidance, and counseling completed Goal Dietary management education , guidance, and counseling completed Referral Ordered: Biopsy of left breast with ultrasound guidance ordered Referral Ordered: Complete ultrasound of left breast Left breast ordered Referral Ordered: CT chest wo then w contrast ordered Referral Ordered: SCREENING MAMMOGRAM (CAD) ordered Referral Referred To: [facility] Ordered: Referrals: Neurology. [facility]. Evaluate and treat - Level 2 ordered Referral Ordered: EEG, awake and drowsy ordered Referral Ordered: Hookup of 30 day cardiac event monitor ordered Referral Referred To: THOMAS CULLEN M.D., [address] [place], [address] [phone] Ordered: Referrals: Neurosurgery. THOMAS CULLEN M.D.,. Evaluation/diagnostic/treatment - Level 3 Appointment date/timeframe: 09/14/2022 ordered Referral Ordered: Lexiscan stress test ordered Referral Referred To: Physical Therapy Ordered: Referrals: Physical Therapy. Evaluate and treat - Level 2 ordered Referral Ordered: SCREENING MAMMOGRAM (CAD) Bilateral breast ordered Referral Referred To: Isaias Avery MD [address] [place], [address] [phone] Ordered: Referrals: Gastroenterology. Isaias Avery MD. Evaluate and treat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
--- OUTSIDE RECORDS SUMMARY | 2024-06-02 16:24 | XMS_ITS | Encounter Summary ---
Author Organization [facility] Address [address] [place] [address] Care Team Providers Care Spindle Repairer Name Role Phone Jase Bryson MD Primary Care Provider Encounter Details Date Type Department Care Team (Latest Contact Info) Description 11/01/1999 Outpatient Historical [facility] Jon Goodwin Dental caries (Primary Dx) Social History Tobacco Use Types Packs/Day Years Used Date Smoking Tobacco: Never Assessed Comments Unknown Sex and Gender Information Value Date Recorded Sex Assigned at Not on file Legal Sex Female 3:54 AM CELL SUPPORT OPERATOR Gender Identity Not on file Sexual [...] [address] [place] [address] 06/03/2024 1:45 PM CDT Hospital Encounter [...] Pathogen 04/02/2024 04/02/2024 04/02/2024 1 :44 PM CELL SUPPORT OPERATOR R/O Respiratory 05/13/2024 05/13/2024 05/13/2024 1 1:33 PM CDT R/O C. diff 05/14/2024 05/14/2024 05/14/2024 10:0 6 AM CDT R/O C. diff 05/14/2024 05/14/2024 05/15/2024 1:01 PM CDT documented as of this encounter Care Teams Spindle Repairer Relationship Specialty Start Date End Date Jase Bryson MD PCP - General Family Practice 05/06/19 documented as of this encounter
--- OUTSIDE RECORDS SUMMARY | 2024-06-02 16:24 | XMS_ITS | Encounter Summary ---
Author Organization [facility] Address [address] [place] [address] Care Team Providers Care Blending Plant Operator Name Role Phone Jase Bryson MD Primary Care Provider Encounter Details Date Type Department Care Team (Latest Contact Info) Description 08/25/1999 Outpatient Historical [facility] Jon Goodwin Dental caries (Primary Dx) Social History Tobacco Use Types Packs/Day Years Used Date Smoking Tobacco: Never Assessed Comments Unknown Sex and Gender Information Value Date Recorded Sex Assigned at Not on file Legal Sex Female 3:54 AM MATERNAL CHILD NURSE Gender Identity Not on file Sexual Orientation [...] 1:20 PM CDT Office Visit [facility] Oncology and Hematology [address] PAT[address]ENTS [...] Pathogen 04/02/2024 04/02/2024 04/02/2024 1 :44 PM MATERNAL CHILD NURSE R/O Respiratory 05/13/2024 05/13/2024 05/13/2024 1 1:33 PM CDT R/O C. diff 05/14/2024 05/14/2024 05/14/2024 10:0 6 AM CDT R/O C. diff 05/14/2024 05/14/2024 05/15/2024 1:01 PM CDT documented as of this encounter Care Teams Blending Plant Operator Relationship Specialty Start Date End Date Jase Bryson MD PCP - General Family Practice 05/06/19 documented as of this encounter
--- OUTSIDE RECORDS SUMMARY | 2024-06-02 16:24 | XMS_ITS | Encounter Summary ---
Author Organization [facility] Address [address] [place] [address] Care Team Providers Care Raw Sampler Name Role Phone Jase Bryson MD Primary Care Provider Encounter Details Date Type Department Care Team (Late Contact Info) Description 06/01/2024 External Device Data [facility] ABSTRACTION Provider, Abstract [...] on file Legal Sex Female 3:54 AM PHYSIOTHERAPIST'S ASSISTANT Gender Identity Not on file Sexual [...] [address] [place] [phone] Mariaa Diego MD [address] [place] [phone] 06/03/2024 1:20 PM CDT Office Visit [facility] Oncology and Hematology [address] [place] [phone] Mariaa Diego MD [address] [place] [phone] Pippa Dang NP [address] [place] [phone] 06/03/2024 1:45 PM CDT Hospital Encounter [facility] [address] [place] [phone] Mariaa Diego MD [address] [place] [phone] 16, Mob documented as of this encounter Visit Diagnoses Not on filedocumented in this encounter Care Teams Raw Sampler Relationship Specialty Start Date End Date Jase Bryson MD PCP - General Family Practice 05/06/19 documented as of this encounter
--- OUTSIDE RECORDS SUMMARY | 2024-06-02 16:24 | XMS_ITS | Encounter Summary ---
Author Organization [facility] Address [address] [place] [address] Care Team Providers Care Ortho Rn Name Role Phone Jase Bryson MD Primary Care Provider Encounter Details Date Type Department Care Team (Latest Contact Info) Description 10/19/1999 Inpatient Historical [facility] PATIENT IN A BED Denis Buckner MD [address] [address] Third-degree perineal laceration, delivered, with or without mention of antepartum condition (Primary Dx) Social History Tobacco Use Types Packs/Day Years Used Date Smoking Tobacco: Never Assessed Comments Unknown Sex and Gender Information Value Date Recorded Sex Assigned at Not on file Legal Sex Female 3:54 AM 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 FRAME TENDER Gender Identity Not on file Sexual [...] [id number] 06/03/2024 1:20 PM CDT Office Visit [facility] Oncology and Hematology [address] [place] [phone] Mariaa Diego MD [address] [place] [phone] Pippa Dang NP [address] [place] [address] 06/03/2024 1:45 PM CDT Hospital Encounter [facility] [address] [place] [phone] Mariaa Diego MD [address] [place] [phone] 16, Mob documented as of this encounter Visit Diagnoses Diagnosis Third-degree perineal laceration, delivered, with or without mention of antepartum condition- [...] Pathogen 04/02/2024 04/02/2024 04/02/2024 1 :44 PM JACK FRAME TENDER R/O Respiratory 05/13/2024 05/13/2024 05/13/2024 1 1:33 PM CDT R/O C. diff 05/14/2024 05/14/2024 05/14/2024 10:0 6 AM CDT R/O C. diff 05/14/2024 05/14/2024 05/15/2024 1:01 PM CDT documented as of this encounter Care Teams Ortho Rn Relationship Specialty Start Date End Date Jase Bryson MD PCP - General Family Practice 05/06/19 documented as of this encounter
--- OUTSIDE RECORDS SUMMARY | 2024-06-02 16:24 | XMS_ITS | Encounter Summary ---
Author Organization [facility] Address 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 Oncology and Hematology [address] [place] [phone] Mariaa Diego MD [address] [place] [phone] Pippa Dang NP [address] [place] [phone] 06/03/2024 1:45 PM CDT Hospital Encounter [facility] [address] [place] [phone] Mariaa Diego MD [address] [place] [phone] 16, Mob documented as of this encounter Visit Diagnoses Diagnosis Right-sided chest wall pain Painful respiration Malignant neoplasm of upper-outer quadrant of left breast in female, estrogen receptor negative (CMS/HCC)- Primary Encounter for antineoplastic chemotherapy documented in this encounter Care Teams Records Analyst Relationship Specialty Start Date End Date Jase Bryson MD PCP - General Family Practice 05/06/19 documented as of this encounter
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
--- OUTSIDE RECORDS SUMMARY | 2024-06-02 16:24 | XMS_ITS | Patient Health Record ---
Author Organization [facility] Address [address] [place] [address] Care Team Providers Care Bread Room Hand Name Role Phone Jakob Gordon [facility] [phone] REASON FOR REFERRAL No Information Encounters Encounter Location Date Provider Diagnosis [facility] [address] [place] [address] 07/10/2023 Jakob Gordon [facility] [address] [place] [address] 07/27/2023 Jakob Gordon PLAN OF TREATMENT No Information
--- OUTSIDE RECORDS SUMMARY | 2024-06-02 16:24 | XMS_ITS | Clinical Summary ---
Author Organization [facility] Administrative Offices Address [address] [place] [address] Care Team Providers Care Urban Planning Professor Name Role Phone Jase Bryson MD Primary Care Provider Allergies Active Allergy Reactions Criticality Noted Date Comments Alprazolam Delirium High 10/25/2012 Amoxicillin Hives High 10/28/2013 Doxycycline Rash Low 07/29/2022 Penicillins Hives High 10/25/2012 Vancomycin Other (See Comments) 01/11/2023 Head burning and nauseous Medications lamoTRIgine (LaMICtal) 200 mg tablet Take 200 mg by mouth 2 times daily. 0 018 Active methocarbamoL 500 mg tablet (ROBAXIN) Take 1,000 mg by mouth 3 times daily. Active citalopram (CeleXA) 20 mg tablet Take 40 mg by mouth daily. Active cetirizine (ZyrTEC) 10 mg tablet Take 10 mg by mouth daily. Active pregabalin (LYRICA) 75 mg Capsule Take 75 mg by mouth 3 times daily. 020 Active aspirin (ECOTRIN EC) 81 mg Tablet, Delayed Release (E.C.) Take 81 mg by mouth daily. 023 Active atorvastatin (LIPITOR) 40 mg tablet Active celecoxib (CeleBREX) 100 mg capsule Take 100 mg by mouth 2 times daily. 024 Active pramipexole (MIRAPEX) 0.125 mg Tablet Take 0.125 mg by mouth 3 times daily. 024 Active cyanocobalamin/ cobamamide (B12 SUBLINGUAL) Place 1,000 mcg under tongue daily. Active ipratropium-alb uteroL (DUONEB) 0.5 mg-3 mg(2.5 mg base)/3 mL Solution for Nebulization Take 3 mL by inhalation every 6 hours as needed for Shortness of Breath. Dx copd j44.9 360 mL 11 Active Miscellaneous Medical Supply Length of need 99 months Nebulizer with compressor, Kit: Permanent Nebulizer Kit, 1 per 6 months, filters , areosol mask: if needed. Dx copd j44.9 1 Each Active lidocaine-prilo luciano (EMLA) 2.5-2.5 % Cream Apply to port site 1 hr prior to access/needle stick and cover with plastic/saran wrap 30 Gram 2 025 Active tiotropium (SPIRIVA RESPIMAT) 2.5 mcg/actuation MistIndications :Chronic obstructive pulmonary disease, unspecified COPD type (CMS/HCC) Take 2 Puffs by inhalation daily. 4 Gram 025 Active OTHER Magic mouthwash (dex, lidocaine, maalox, 1:1:1) Swish and spit/swallow 5ml QID PRN mouth pain 300 mL 2 025 Active Additional Information Patient not taking.Reported on 04/22/2024 albuterol sulfate HFA 90 mcg/actuation aerosol inhalerIndicati ons:Chronic obstructive pulmonary disease, unspecified COPD type (CMS/HCC) Take 2 Puffs by inhalation every 6 hours as needed for Wheezing or Shortness of Breath. 8.5 Gram 025 Active ondansetron (ZOFRAN ODT) 4 mg Tablet, Rapid Dissolve Place 1-2 Tablets (4-8 mg) under tongue every 6 hours as needed for nausea. Dissolve tablet on top of tongue, then swallow with saliva. 60 Tablet 2 025 Active omeprazole (PriLOSEC) 20 mg Capsule, Delayed Release(E.C.) Take 1 Capsule (20 mg) by mouth 2 times daily. 60 Capsule 1 025 Active sennosides-docu sate sodium (Senokot-S) 8.6-50 mg tablet Take 2 Tablets by mouth 2 times daily. Active naloxone (NARCAN) 4 mg/spray [place], Non-Aerosol EMERGENCY USE ONLY: Administer 1 spray (4 mg) in one nostril one time. May repeat in alternating nostrils every 2-3 minutes until responsive or EMS arrives. 2 Each 3 Active acetaminophen (TYLENOL) 500 mg tablet Take 2 Tablets (1,000 mg) by mouth 3 times daily. 180 Tablet 05/17/19 3:03 PM CDT 025 Active triamcinolone acetonide (KENALOG) 0.1 % Cream Apply to affected area 2 times daily. 80 Gram 05/17/19 3:03 PM CDT 025 Active dexAMETHasone (DECADRON) 4 mg tabletIndicatio ns:Malignant neoplasm of upper-outer quadrant of left breast in female, estrogen receptor negative (CMS/HCC) Take 2 Tablets (8 mg) by mouth see administration instructions. Take 8 mg in the morning on Day 2 followed by 8 mg twice a day on Days 3-4 of each chemotherapy cycle. 40 Tablet 025 Active loratadine (Claritin) 10 mg tablet Take 1 Tablet (10 mg) by mouth daily. Take for 7 days starting with each round of chemotherapy 28 Tablet 025 Active oxyCODONE (ROXICODONE) 5 mg tabletIndicatio ns:Right-sided chest wall pain Take 1 Tablet (5 mg) by mouth every 4 hours as needed for Pain. Max Daily Amount: 30 mg 20 Tablet 025 Active traMADoL (ULTRAM) 50 mg tabletIndicatio ns:RUQ abdominal pain Take 1 Tablet (50 mg) by mouth every 6 hours as needed for Pain. 20 Tablet 024 2024 Discontinued oxyCODONE (ROXICODONE) 5 mg tabletIndicatio ns:Right-sided chest wall pain Take 1 Tablet (5 mg) by mouth every 4 hours as needed for Pain. Max Daily Amount: 30 mg 20 Tablet 024 2024 Discontinued HYDROcodone-julia taminophen (NORCO) 5-325 mg tabletIndicatio ns:Malignant neoplasm of upper-outer quadrant of left breast in female, estrogen receptor negative (CMS/HCC) Take 1 Tablet by mouth every 4 hours as needed for Pain, Moderate. Max Daily Amount: 6 Tablets 5 Tablet 03/13/19 25 9:10 AM LACEWORKER 025 2024 Discontinued(R eorder) sennosides-docu sate sodium (Senokot-S) 8.6-50 mg tablet Take 2 Tablets by mouth 2 times daily. 120 Tablet 1 025 2024 Discontinued(R eorder) potassium CHLORIDE (K-DUR,KLOR-CON M20) 20 mEq Extended Release tablet Take 2 Tablets (40 mEq) by mouth daily for 5 days. 10 Tablet 025 2024 HYDROcodone-julia taminophen (NORCO) 5-325 mg tabletIndicatio ns:Malignant neoplasm of upper-outer quadrant of left breast in female, estrogen receptor negative (CMS/HCC) Take 1 Tablet by mouth every 8 hours as needed for Moderate pain. Max Daily Amount: 3 Tablets 20 Tablet 025 2024 Discontinued potassium CHLORIDE (K-DUR,KLOR-CON M20) 20 mEq Extended Release tablet Take 2 Tablets (40 mEq) by mouth daily. 14 Tablet 025 2024 Discontinued potassium CHLORIDE (K-DUR,KLOR-CON M20) 20 mEq Extended Release tablet Take 2 Tablets (40 mEq) by mouth daily. 14 Tablet 025 2024 Discontinued(R eorder) oxyCODONE (ROXICODONE) 5 mg tabletIndicatio ns:Right-sided chest wall pain Take 1 Tablet (5 mg) by mouth every 4 hours as needed for Pain. Max Daily Amount: 30 mg 20 Tablet 05/17/19 25 3:03 PM CDT 025 2024 Discontinued(R eorder) potassium CHLORIDE (K-DUR,KLOR-CON M20) 20 mEq Extended Release tablet Take 1 Tablet (20 mEq) by mouth daily. 7 Tablet 025 2024 Discontinued(A lternate therapy prescribed) potassium CHLORIDE (K-DUR,KLOR-CON M20) 20 mEq Extended Release tablet Take 2 Tablets (40 mEq) by mouth daily for 5 days. 10 Tablet 025 2024 Active Problems Patient Care Coordination No te Formatting of this note migh t be different from the original. APPTS WITH 30 MINUTES Pain Management - Dr. Martinez Kirk - [facility] Problem Noted Date Diagnosed Date Fever 05/14/2024 Malignant neoplasm of upper- outer quadrant of left breast in female, estrogen receptor negative 03/07/2024 Cancer Staging:Clinical stage from 03/07/2024:Stage IIIB(cT3, cN0, cM0, G3, ER-, CT-, HER2: Equivocal) - Signed by Dorina Kaur [...] Right lumbar radiculitis Lumbosacral spondylosis without myelopathy Resolved Problems Problem Noted Date Diagnosed Date Resolved Date Nausea with vomiting 10/25/2005 014 Tachycardia 05/06/2019 Encounters Date Type Department Care Team Description 06/02/2024 External Device Data STL ABSTRACTION Provider, Abstract 06/01/2024 External Device Data STL ABSTRACTION Provider, Abstract 05/31/2024 External Device Data STL ABSTRACTION Provider, Abstract 05/30/2024 Orders [facility] [address] [place] [address] Nataly Bond RN Right-sided chest wall pain 05/30/2024 External Device Data STL ABSTRACTION Provider, Abstract 05/29/2024 Refill [facility] On[facility] [address] [place] [phone] Nataly Bond RN Right-sided chest wall pain 05/29/2024 Refill [facility] [address] [place] [address] Pippa Royal, Right-sided chest wall pain 05/29/2024 External Device Data STL ABSTRACTION Provider, Abstract 05/28/2024 External Device Data STL ABSTRACTION Provider, Abstract 05/27/2024 2:45 PM CDT - 05/27/2024 11:59 PM CDT Hospital Encounter [facility] [address] [place] [phone] Mariaa Diego MD 8, Mob Discharge Disposition: Home or Self Care 05/27/2024 2:20 PM CDT Office Visit [facility] On[facility] [address] [place] [id number] JohnathonMariaa MD Kloth, Jennifer S, DUONG Malignant neoplasm of upper-outer quadrant of left breast in female, estrogen receptor negative (CMS/HCC) (Primary Dx); Encounter for antineoplastic chemotherapy 05/27/2024 1:15 PM CDT - 05/27/2024 11:59 PM CDT Hospital Encounter [facility] [address] [place] [address] Mariaa Diego MD Discharge Disposition: Home or Self Care 05/27/2024 Telephone [facility] On[facility] [address] [place] [address] Nataly Bond RN oncology symptom text message 05/27/2024 External Device Data STL ABSTRACTION Provider, Abstract 05/26/2024 1:44 PM CDT - 05/26/2024 3:13 PM CDT Hospital Encounter [facility] [address] [place] [id number] Left foot pain (Primary Dx) Discharge Disposition: Home or Self Care 05/26/2024 Travel 05/26/2024 External Device Data STL ABSTRACTION Provider, Abstract 05/25/2024 External Device Data STL ABSTRACTION Provider, Abstract 05/24/2024 External Device Data STL ABSTRACTION Provider, Abstract 05/23/2024 External Device Data STL ABSTRACTION Provider, Abstract 05/22/2024 Telephone [facility] On[facility] [address] [place] [address] Rosemarie Santos RN Numbness/Tingling in Both Feet 05/22/2024 External Device Data STL ABSTRACTION Provider, Abstract 05/21/2024 External Device Data STL ABSTRACTION Provider, Abstract 05/21/2024 External Device Data STL ABSTRACTION Provider, Abstract 05/21/2024 External Device Data STL ABSTRACTION Provider, Abstract 05/21/2024 External Device Data STL ABSTRACTION Provider, Abstract 05/21/2024 External Device Data STL ABSTRACTION Provider, Abstract 05/20/2024 1:30 PM CDT - 05/20/2024 11:59 PM CDT Hospital Encounter [facility] [address] [place] [address] Mariaa Diego MD 13, Mob Discharge Disposition: Home or Self Care 05/20/2024 1:15 PM CDT Office Visit [facility] On[facility] [address] [place] [address] Mariaa Diego MD Kloth, Pippa Plunkett, PIPE CLEANER Malignant neoplasm of upper-outer quadrant of left breast in female, estrogen receptor negative (CMS/HCC) (Primary Dx); Encounter for antineoplastic chemotherapy 05/20/2024 12:15 PM CDT - 05/20/2024 11:59 PM CDT Hospital Encounter [facility] [address] [place] [address] Mariaa Diego MD Discharge Disposition: Home or Self Care 05/20/2024 External Device Data STL ABSTRACTION Provider, Abstract 05/20/2024 External Device Data STL ABSTRACTION Provider, Abstract 05/19/2024 External Device Data STL ABSTRACTION Provider, Abstract 05/18/2024 External Device Data STL ABSTRACTION Provider, Abstract 05/17/2024 External Device Data STL ABSTRACTION Provider, Abstract 05/17/2024 External Device Data STL ABSTRACTION Provider, Abstract 05/16/2024 External Device Data STL ABSTRACTION Provider, Abstract 05/15/2024 External Device Data STL ABSTRACTION Provider, Abstract 05/14/2024 External Device Data STL ABSTRACTION Provider, Abstract 05/14/2024 External Device Data STL ABSTRACTION Provider, Abstract 05/14/2024 External Device Data STL ABSTRACTION Provider, Abstract 05/13/2024 9:46 PM CDT - 05/16/2024 3:05 PM CDT Hospital Encounter [facility] [address] [place] [address] Marilia Varela MD Kennedy, MD Juarez Huang Mouner, MD Bigg, DO Lele Mejias Jennifer E, DO Fever Discharge Disposition: Home or Self Care 05/13/2024 12:17 PM CDT - 05/13/2024 11:59 PM CDT Hospital Encounter [facility] [address] [place] [address] Mariaa Diego MD 15, Mob Discharge Disposition: Home or Self Care 05/13/2024 11:00 AM CDT - 05/13/2024 11:59 PM CDT Hospital Encounter [facility] [address] [place] [address] Mariaa Deigo MD Discharge Disposition: Home or Self Care 05/13/2024 Travel 05/13/2024 Results Follow-Up [facility] Oncology and H[facility]ology [facility] [address] [place] [address] Mariaa Diego MD CBC WITH DIFFERENTIAL, COMPREHENSIVE METABOLIC PANEL 05/13/2024 External Device Data STL ABSTRACTION Provider, Abstract 05/12/2024 External Device Data STL ABSTRACTION Provider, Abstract 05/11/2024 External Device Data STL ABSTRACTION Provider, Abstract 05/10/2024 External Device Data STL ABSTRACTION Provider, Abstract 05/09/2024 External Device Data STL ABSTRACTION Provider, Abstract 05/08/2024 External Device Data STL ABSTRACTION Provider, Abstract 05/07/2024 External Device Data STL ABSTRACTION Provider, Abstract 05/06/2024 1:40 PM CDT Office Visit [facility] On[facility] [address] [place] [address] Mariaa Diego MD Malignant neoplasm of upper-outer quadrant of left breast in female, estrogen receptor negative (CMS/HCC) (Primary Dx); Encounter for antineoplastic chemotherapy 05/06/2024 1:07 PM CDT - 05/06/2024 11:59 PM CDT Hospital Encounter [facility] [address] [place] [address] Mariaa Diego MD 7, Mob Discharge Disposition: Home or Self Care 05/06/2024 11:49 AM CDT - 05/06/2024 11:59 PM CDT Hospital Encounter [facility] [address] [place] [address] Mariaa Diego MD Discharge Disposition: Home or Self Care 05/06/2024 Orders Only [facility] [address] [place] [address] Mariaa Diego MD Malignant neoplasm of upper-outer quadrant of left breast in female, estrogen receptor negative (CMS/HCC) (Primary Dx) 05/06/2024 External Device Data STL ABSTRACTION Provider, Abstract 05/05/2024 External Device Data STL ABSTRACTION Provider, Abstract 05/04/2024 External Device Data STL ABSTRACTION Provider, Abstract 05/03/2024 External Device Data STL ABSTRACTION Provider, Abstract 05/02/2024 External Device Data STL ABSTRACTION Provider, Abstract 05/01/2024 External Device Data STL ABSTRACTION Provider, Abstract 04/30/2024 Telephone [facility] Oncology [facility] [address] [place] [address] Dionne Catalan RN Height verification 04/30/2024 External Device Data STL ABSTRACTION Provider, Abstract 04/29/2024 1:45 PM CDT - 04/29/2024 11:59 PM CDT Hospital Encounter [facility] [address] [place] [address] Mariaa Diego MD 4, Mob Discharge Disposition: Home or Self Care 04/29/2024 1:20 PM CDT Office Visit [facility] On[facility]ology [facility] [address] [place] [address] Mariaa Diego MD Kloth, Jennifer S, PIPE CLEANER Malignant neoplasm of upper-outer quadrant of left breast in female, estrogen receptor negative (CMS/HCC) (Primary Dx); Encounter for antineoplastic chemotherapy; Constipation, unspecified constipation type 04/29/2024 12:15 PM CDT - 04/29/2024 11:59 PM CDT Hospital Encounter [facility] [address] [place] [address] Mariaa Diego MD Discharge Disposition: Home or Self Care 04/29/2024 External Device Data STL ABSTRACTION Provider, Abstract 04/28/2024 External Device Data STL ABSTRACTION Provider, Abstract 04/27/2024 External Device Data STL ABSTRACTION Provider, Abstract 04/26/2024 External Device Data STL ABSTRACTION Provider, Abstract 2024 External Device Data STL ABSTRACTION Provider, Abstract 04/24/2024 Refill [facility] On[facility] [address] [place] [address] Maricarmen Duffy RN 04/24/2024 External Device Data STL ABSTRACTION Provider, Abstract 04/23/2024 External Device Data STL ABSTRACTION Provider, Abstract 04/23/2024 Refill [facility] Pulmonology and Sleep Med - [address] [place] [address] Brennan Houston MD Chronic obstructive pulmonary disease, unspecified COPD type (CMS/HCC) 04/23/2024 External Device Data STL ABSTRACTION Provider, Abstract 04/22/2024 1:45 PM LACEWORKER - 04/22/2024 11:59 PM LACEWORKER Hospital Encounter [facility] [address] [place] [address] Mariaa Diego MD 12 Discharge Disposition: Home or Self Care 04/22/2024 1:20 PM LACEWORKER Office Visit [facility] Oncology and H[facility]ology [facility] [address] [place] [address] Mariaa Diego MD Kloth, Jennifer S, PIPE CLEANER Malignant neoplasm of upper-outer quadrant of left breast in female, estrogen receptor negative (CMS/HCC) (Primary Dx); Encounter for antineoplastic chemotherapy 04/22/2024 12:29 PM LACEWORKER - 04/22/2024 11:59 PM LACEWORKER Hospital Encounter [facility] [address] [place] [address] Mariaa Diego MD Discharge Disposition: Home or Self Care 04/22/2024 Orders Only [facility] Oncology and H[facility]ology [facility] [address] [place] [address] Mariaa Diego MD Malignant neoplasm of upper-outer quadrant of left breast in female, estrogen receptor negative (CMS/HCC) (Primary Dx) 04/22/2024 External Device Data STL ABSTRACTION Provider, Abstract 04/21/2024 External Device Data STL ABSTRACTION Provider, Abstract 04/20/2024 External Device Data STL ABSTRACTION Provider, Abstract 04/19/2024 External Device Data STL ABSTRACTION Provider, Abstract 04/18/2024 External Device Data STL ABSTRACTION Provider, Abstract 04/17/2024 External Device Data STL ABSTRACTION Provider, Abstract 04/16/2024 External Device Data STL ABSTRACTION Provider, Abstract 04/15/2024 1:28 PM LACEWORKER - 04/15/2024 11:59 PM LACEWORKER Hospital Encounter [facility] [address] [place] [phone] Mariaa Diego MD 13, Mob Discharge Disposition: Home or Self Care 04/15/2024 1:15 PM LACEWORKER Office Visit [facility] Oncology and H[facility]ology [facility] [address] [place] [address] Mariaa Diego MD Malignant neoplasm of upper-outer quadrant of left breast in female, estrogen receptor negative (CMS/HCC) (Primary Dx); Encounter for antineoplastic chemotherapy and immunotherapy 04/15/2024 12:15 PM LACEWORKER - 04/15/2024 11:59 PM LACEWORKER Hospital Encounter [facility] [address] [place] [address] Mariaa Diego MD Discharge Disposition: Home or Self Care 04/15/2024 Orders Only [facility] Oncology and H[facility]ology [facility] [address] [place] [address] Mariaa Diego MD Malignant neoplasm of upper-outer quadrant of left breast in female, estrogen receptor negative (CMS/HCC) (Primary Dx); Encounter for antineoplastic chemotherapy and immunotherapy; Rash 04/15/2024 External Device Data STL ABSTRACTION Provider, Abstract 04/14/2024 External Device Data STL ABSTRACTION Provider, Abstract 04/13/2024 External Device Data STL ABSTRACTION Provider, Abstract 04/12/2024 External Device Data STL ABSTRACTION Provider, Abstract 04/11/2024 External Device Data STL ABSTRACTION Provider, Abstract 04/10/2024 External Device Data STL ABSTRACTION Provider, Abstract 04/10/2024 Telephone [facility] [place] [address] [place] [phone] Dorina Kaur MD negative genetic testing 04/09/2024 External Device Data STL ABSTRACTION Provider, Abstract 04/09/2024 External Device Data STL ABSTRACTION Provider, Abstract 04/08/2024 2:00 PM LACEWORKER Office Visit [facility] Oncology and Hematology [facility] [address] [place] [address] Mariaa Diego MD Malignant neoplasm of upper-outer quadrant of left breast in female, estrogen receptor negative (CMS/HCC) (Primary Dx); Encounter for antineoplastic chemotherapy and immunotherapy 04/08/2024 1:23 PM LACEWORKER - 04/08/2024 11:59 PM LACEWORKER Hospital Encounter [facility] [address] [place] [address] Mariaa Diego MD 15, Mob Discharge Disposition: Home or Self Care 04/08/2024 12:45 PM LACEWORKER - 04/08/2024 11:59 PM LACEWORKER Hospital Encounter [facility] [address] [place] [address] Mariaa Diego MD Discharge Disposition: Home or Self Care 04/08/2024 Orders Only [facility] On[facility] H[facility]ology [facility] [address] [place] [address] Mariaa Diego MD 04/08/2024 External Device Data STL ABSTRACTION Provider, Abstract 04/07/2024 External Device Data STL ABSTRACTION Provider, Abstract 04/06/2024 External Device Data STL ABSTRACTION Provider, Abstract 04/05/2024 External Device Data STL ABSTRACTION Provider, Abstract 04/04/2024 External Device Data STL ABSTRACTION Provider, Abstract 04/03/2024 Results Follow-Up [facility] Pulmonology and Sleep Med - [address] [place] [address] Brennan Houston MD IGE, ALPHA 1 ANTITRYPSIN PHENOTYPE 04/03/2024 External Device Data STL ABSTRACTION Provider, Abstract 04/02/2024 9:20 AM LACEWORKER - 04/02/2024 11:59 PM LACEWORKER Hospital Encounter [facility] [address] [place] [address] Mariaa Diego MD Discharge Disposition: Home or Self Care 04/02/2024 External Device Data STL ABSTRACTION Provider, Abstract 04/01/2024 1:27 PM LACEWORKER - 04/01/2024 11:59 PM LACEWORKER Hospital Encounter [facility] [address] [place] [address] Mariaa Diego MD 11, Discharge Disposition: Home or Self Care 04/01/2024 1:20 PM LACEWORKER Office Visit [facility] Oncology and H[facility]ology [facility] [address] [place] [address] Mariaa Diego MD Kloth, Jennifer S, DUONG Malignant neoplasm of upper-outer quadrant of left breast in female, estrogen receptor negative (CMS/HCC) (Primary Dx); Encounter for antineoplastic chemotherapy 04/01/2024 12:15 PM LACEWORKER - 04/01/2024 11:59 PM LACEWORKER Hospital Encounter [facility] [address] [place] [address] Mariaa Diego MD Discharge Disposition: Home or Self Care 04/01/2024 Orders Only [facility] On[facility] H[facility]ology [facility] [address] [place] [address] Maricarmen Duffy RN 04/01/2024 Orders Only [facility] On[facility] and H[facility]ology [facility] [address] [place] [address] Mariaa Diego MD Malignant neoplasm of upper-outer quadrant of left breast in female, estrogen receptor negative (CMS/HCC) (Primary Dx); High risk medication use; Encounter for chemotherapy management 04/01/2024 External Device Data STL ABSTRACTION Provider, Abstract 03/31/2024 External Device Data STL ABSTRACTION Provider, Abstract 03/30/2024 External Device Data STL ABSTRACTION Provider, Abstract 03/29/2024 External Device Data STL ABSTRACTION Provider, Abstract 03/28/2024 External Device Data STL ABSTRACTION Provider, Abstract 03/27/2024 Telephone [facility] [address] [place] [address] Nataly Bond RN Chills 03/27/2024 External Device Data STL ABSTRACTION Provider, Abstract 03/26/2024 [facility] Oncology and Hematology [address] [place] [address] Dasia Vanessa, GLASS CYLINDER FLANGER Pt question for SW 03/26/2024 External Device Data STL ABSTRACTION Provider, Abstract 03/25/2024 11:00 AM LACEWORKER - 03/25/2024 11:59 PM LACEWORKER Hospital Encounter [facility] [address] [address] Mariaa Diego MD 15, Mob Discharge Disposition: Home or Self Care 03/25/2024 10:45 AM LACEWORKER Office Visit [facility] Oncology and Hematology [address] [place] [address] Mariaa Diego MD Malignant neoplasm of upper-outer quadrant of left breast in female, estrogen receptor negative (CMS/HCC) (Primary Dx); Encounter for chemotherapy management 03/25/2024 9:45 AM LACEWORKER - 03/25/2024 11:59 PM LACEWORKER Hospital Encounter [facility] [address] [place] [address] Mariaa Diego MD Discharge Disposition: Home or Self Care 03/25/2024 Orders [facility] [address] [place] [address] Maricarmen Duffy RN 03/25/2024 External Device Data STL ABSTRACTION Provider, Abstract 03/24/2024 External Device Data STL ABSTRACTION Provider, Abstract 03/22/2024 External Device Data STL ABSTRACTION Provider, Abstract 03/21/2024 External Device Data STL ABSTRACTION Provider, Abstract 03/20/2024 External Device Data STL ABSTRACTION Provider, Abstract 03/20/2024 Chart Note [facility] Oncology Patient Navigation [address] [place] [address] Dasia Vanessa, GLASS CYLINDER FLANGER [facility] submitted 03/20/2024 External Device Data STL ABSTRACTION Provider, Abstract 03/19/2024 Telephone [facility] [address] [place] [address] Barbara Sultana, RN Other 03/18/2024 11:00 AM LACEWORKER - 03/18/2024 11:59 PM LACEWORKER Hospital Encounter [facility] [address] [place] [address] 16, Mob Discharge Disposition: Home or Self Care 03/18/2024 Chart Note [facility] Oncology Patient Navigation [address] [place] [address] Dasia Vanessa, GLASS CYLINDER FLANGER [place] [facility] refs made 03/18/2024 Orders Only [facility] Oncology and Hematology [facility] [address] [place] [phone] Ada Sahu RN 03/14/2024 External Device Data STL ABSTRACTION Provider, Abstract 03/13/2024 3:45 PM LACEWORKER - 03/13/2024 11:59 PM LACEWORKER Hospital Encounter [facility] Ultrasound [address] [place] [address] Mariaa Diego MD Discharge Disposition: Home or Self Care 03/13/2024 3:00 PM LACEWORKER Video Visit [facility] Pulmonology and Sleep Med - [address] [place] [address] Brennan Houston MD Chronic obstructive pulmonary disease, unspecified COPD type (CMS/HCC) (Primary Dx); Chronic respiratory failure with hypoxia (CMS/HCC); Tobacco abuse 03/13/2024 1:20 PM LACEWORKER Office Visit [facility] Oncology and Hematology [facility] [address] [place] [address] Mariaa Diego MD Kloth, Jennifer S, PIPE CLEANER Malignant neoplasm of upper-outer quadrant of left breast in female, estrogen receptor negative (CMS/HCC) (Primary Dx); Encounter for chemotherapy management 03/13/2024 12:30 PM LACEWORKER - 03/13/2024 11:59 PM LACEWORKER Hospital Encounter [facility] Laboratory Oncology Services [address] [place] [address] Mariaa Diego MD Discharge Disposition: Home or Self Care 03/13/2024 7:30 AM LACEWORKER Anesthesia Event [facility] Operating Room [address] [place] [address] Elvia Campbell MD 03/13/2024 7:20 AM LACEWORKER - 03/13/2024 8:10 AM LACEWORKER Surgery [facility] Operating Room [address] [place] [phone] Dorina Kaur MD CENTRAL VENOUS ACCESS INSERTION WITH PORT 03/13/2024 6:30 AM LACEWORKER - 03/13/2024 9:01 AM LACEWORKER Hospital Encounter [facility] [address] [place] [phone] Dorina Kaur MD Peripheral venous insufficiency Discharge Disposition: Home or Self Care 03/13/2024 Chart Note [facility] [address] [place] [address] Dasia Vanessa, DICK SULLIVAN spoke with pt; Gas cards for 03/18/24 03/13/2024 Travel 03/13/2024 Orders Only [facility] H[facility] [address] [facility] [address] [place] [address] Mariaa Diego MD 03/12/2024 External Device Data STL ABSTRACTION Provider, Abstract 03/11/2024 Chart Note [facility] Oncology Patient Navigation [address] [place] [address] Dasia Vanessa, GLASS CYLINDER FLANGER N[place] ref from [facility] [place]/left voice mail 03/11/2024 Orders Only [facility] On[facility] H[facility] [address] [place] [address] Pippa Dang NP 03/11/2024 Telephone [facility] [address] [place] [address] Barbara Sultana, RN Other 03/11/2024 Results Follow-Up [facility] [address] [place] [address] Barbara Sultana, RN PATHOLOGY 03/08/2024 11:45 AM LACEWORKER - 03/08/2024 11:59 PM LACEWORKER Hospital Encounter [facility] [address] [place] [address] Dorina Kaur MD Discharge Disposition: Home or Self Care 03/08/2024 10:30 AM LACEWORKER Office Visit [facility] On[facility] Hematology [facility] [address] [place] [address] Mariaa Diego MD Malignant neoplasm of upper-outer quadrant of left breast in female, estrogen receptor negative (CMS/HCC) (Primary Dx) 03/08/2024 9:45 AM LACEWORKER - 03/08/2024 11:59 PM LACEWORKER Hospital [facility] [place] [address] Dorina Kaur MD Discharge Disposition: Home or Self Care 03/08/2024 Orders Only [facility] [address] [place] [address] Mariaa Diego MD Malignant neoplasm of upper-outer quadrant of left breast in female, estrogen receptor negative (CMS/HCC) (Primary Dx); High risk medication use 03/08/2024 Telephone [facility] [address] [place] [address] Barbara Sultana, RN Other 03/07/2024 1:32 PM LACEWORKER - 03/07/2024 11:59 PM LACEWORKER Hospital Encounter [facility] CT Scan [address] [place] [phone] Dorina Kaur MD Discharge Disposition: Home or Self Care 03/07/2024 11:00 AM LACEWORKER Office Visit [facility] [place] [address] [facility] [address] [place] [address] Dorina Kaur MD Malignant neoplasm of upper-outer quadrant of left breast in female, estrogen receptor negative (CMS/HCC) (Primary Dx); Elevated liver enzymes; Tobacco use 03/04/2024 Telephone [facility] [address] [place] [address] Barbara Sultana RN Results from Last 3 Months Family History Medical History Relation Name Comments Cancer Brother Alphonso Testicular Cancer Brother Alphonso Cancer Father . Non small lung Lung Cancer Father . Aneurysm Maternal Aunt Stroke Maternal Grandmother Paz Kaplan Cancer Maternal Uncle Mark Kaplan esph ogical cancer Cancer - Other Maternal Uncle Mark Kaplan GASTROESPPH AGEAL CANCER Esophageal Cancer Maternal Uncle Mark Kaplan Cancer Mother Jocelyn LUNG Diabetes Mother Jocelyn Lung Cancer Mother Jocelyn Thyroid Disease Mother Jocelyn Drug Abuse Sister Steph Other Sister Steph Healthy Son 1 Healthy Son 2 Healthy Son 3 Ovarian Cancer Neg Hx Relation Name Status Comments Brother Alphonso Alive Father . Maternal Aunt Maternal Grandfather Maternal Grandmother Paz Kaplan Maternal Uncle Mark Kaplan Mother Jocelyn Paternal Uncle Alive Sister Steph Son 1 Alive Son 2 Alive Son 3 Alive Social History Tobacco Use Types Packs/Day Years Used Date Smoking Tobacco: Every Day Cigarettes 2 15 Started: 02/26/2001; Last attempted to quit: 02/26/2011 Smokeless Tobacco: Former Chew Tobacco Cessation:Ready to Q uit: Not Asked; Counseling Given: Not Answered Comments:Quit smoking: when anxiety is gone Alcohol [...] on file Legal Sex Female 3:54 AM LACEWORKER Gender Identity Not on file Sexual Orientation Not on file Occupation Industry Job Start Date Job End Date Not on file Not on file Not on file Not on file Last Filed Vital Signs Vital Sign Reading Time Taken Comments Blood Pressure 116/63 05/27/2024 2:11 PM CDT Pulse 101 05/27/2024 2:11 PM CDT Temperature 36.4 C (97.6 F) 05/27/2024 2:11 PM CDT Respiratory Rate 16 05/27/2024 2:11 PM CDT Oxygen Saturation 95% 05/27/2024 2:11 PM CDT Inhaled Oxygen Concentration - - Weight 87.8 kg (193 lb 8 oz) 05/27/2024 2:11 PM CDT Height 170.2 cm (5' 7 ) 05/27/2024 2:11 PM CDT Body Mass Index 30.31 05/27/2024 2:11 PM CDT Plan of Treatment Upcoming Encounters Date Type Department Care Team (Late st Contact Info) Description 06/03/2024 12:30 PM CDT Hospital Encounter [facility] [address] [address] Mariaa Diego MD [address] [place] [phone] 06/03/2024 1:20 PM CDT Office Visit [facility] Oncology and Hematology [facility] [address] [place] [phone] Mariaa Diego MD [address] [place] [phone] Pippa Dang NP [address] [place] [address] 06/03/2024 1:45 PM CDT Hospital Encounter [facility] [address] [phone] Mariaa Diego MD [address] [place] [address] 16, Mob Health Maintenance Due Date Last Done Comments DTAP/TDAP/TD VACCINES (1 - Tdap) 04/26/1991 HEPATITIS B VACCINES (1 of 3 - 19+ 3-dose series) 04/26/1991 Pre-Diabetes and Diabetes Screening 03/18/2017 03/18/2014 FIT-DNA Q 3 years 2017 FIT/FOBT Q 1 year 2017 Flex Sig/CT Colonography Q 5 years 2017 COLORECTAL SCREENING 03/08/2022 03/08/2017 Colorectal Cancer Screening 03/08/2022 ZOSTER VACCINE (1 of 2) 2022 INFLUENZA VACCINE (#1) 2023 01/28/2019, 2018 COVID-19 Vaccine (3 - 2023-2 5 season) 2023 09/09/2020, 08/19/2020 Preventative Visit- Commercial 02/21/2024 1 03/30/2020, 03/18/2014, 05/21/2013, Additional history exists Lung Cancer Screening 04/26/2024 04/27/2023, 023 BREAST CANCER SCREENING 02/21/2025 02/21/19, 05/03/2021, 09/30/2019, Additional history exists Medical Devices Implanted Type Area Leaf Blender Device Identifier Shelf Expiration Date Model / Serial / Lot Port Powerport Mri 8fr [id number] - [id number] Implanted:Qty: 1 on 03/13/2024 by Dorina Kaur MD at [facility] Right: Chest BARD SHARAD VASC [id number] 06/19/2025 [id number] / / [id number] Screw Cmprsn Hdls 2.4x15mm .215 - [id number] Implanted:Qty: 1 on 07/07/2015 by Liborio Carpio DPM at [facility] First Screw Left: Foot SYNTHES STRATEC / 06/24/15, A:1,L:4 Description:Silvio Screw Cmprsn Hdls 2.4x16mm 226.216 - [id number] Implanted:Qty: 1 on 07/07/2015 by Liborio Carpoi DPM at [facility] Patients First Screw Left: Foot SYNTHES STRATEC 02.226.216 / / 06/24/15, A:1,L:4 Description:Silvio Screw St 2.0x14mm 201.364.97 - [id number] Implanted:Qty: 1 on 07/07/2015 by Liborio Carpio DPM at [facility] First Screw Left: Foot SYNTHES STRATEC 201.364.97 / 07/01/15,A :2,L:2 Description:tailors Screw St 2.0x12mm 201.362.97 - [id number] Implanted:Qty: 1 on 07/07/2015 by Liborio Carpio DPM at [facility] Patients First Screw Left: Foot SYNTHES STRATEC 201.362.97 / 07/01/15,A :2,L:2 Description:tailors Screw Cmprsn Hdls 2.4x28mm 02.226328 - [id number] Implanted:Qty: 1 on 07/07/2015 by Liborio Carpio DPM at [facility] First Screw Left: Foot SYNTHES STRATEC 02.226.328 / 06/24/15, A:1, L:4 Description:3rd toe fusion Screw N-Head Comp 2.4x20mm - [id number] Implanted:Qty: 1 on 01/14/2020 by Liborio Carpio DPM at [facility] First Screw Right: Toe SYNTHES STRATEC / / Description:TRAY STERILIZED 01/07/2020; STERILIZER 2, LOAD 6 Explanted Type Area Leaf Blender Device Identifier Shelf Expiration Date Model / Serial / Lot Screw Cmprsn Hdls 2.4x12mm . - [id number] Implanted:Qty: 1 on 01/14/2020 by Liborio Carpio DPM at [facility] Patients First Explanted:Qty: 1 on 06/28/2022 by Liborio Carpio DPM at [facility] Patients First Screw Right: Toe SYNTHES STRATEC . / / Description:TRAY STERILIZED 01/07/2020; STERILIZER 2, LOAD 6 Wire K 1.9x766mn 292.623 - [id number] Explanted:Qty: 2 on 01/14/2020 at [facility] Patients First Wire Right: Toe SYNTHES STRATEC 292.623 / / Femur Yon Explanted:Qty: 1 on 02/28/2013 by Kamran Rodriguez MD Right: Hip Procedures Procedure Name Priority Date/Time Associated Diagnosis Comments COMPREHENSIVE METABOLIC PANEL Stat 05/27/2024 1:20 PM CDT Malignant neoplasm of upper-outer quadrant of left breast in female, estrogen receptor negative (CMS/HCC) CBC WITH DIFFERENTIAL Stat 05/27/2024 1:20 PM CDT Malignant neoplasm of upper-outer quadrant of left breast in female, estrogen receptor negative (CMS/HCC) XR FOOT 3+ VW LEFT Stat 05/26/2024 2: 19 PM CDT DIFFERENTIAL, MANUAL Stat 05/20/2024 12:28 PM CDT Malignant neoplasm of upper-outer quadrant of left breast in female, estrogen receptor negative (CMS/HCC) MAGNESIUM LEVEL Stat 05/20/2024 12:28 PM CDT Malignant neoplasm of upper-outer quadrant of left breast in female, estrogen receptor negative (CMS/HCC) COMPREHENSIVE METABOLIC PANEL Stat 05/20/2024 12:28 PM CDT Malignant neoplasm of upper-outer quadrant of left breast in female, estrogen receptor negative (CMS/HCC) CBC WITH DIFFERENTIAL Stat 05/20/2024 12:28 PM CDT Malignant neoplasm of upper-outer quadrant of left breast in female, estrogen receptor negative (CMS/HCC) DIFFERENTIAL, MANUAL Routine 05/16/2024 11:24 AM CDT BASIC METABOLIC PANEL Routine 05/16/2024 11:24 AM CDT CBC WITH DIFFERENTIAL Routine 05/16/2024 11:24 AM CDT BASIC METABOLIC PANEL Routine 05/15/2024 8:24 PM CDT CBC WITH DIFFERENTIAL Stat 05/15/2024 8:24 PM CDT EKG 12-LEAD Routine 05/15/2024 3:26 PM CDT POC LACTIC ACID Stat 05/14/2024 1:29 AM CDT POC GLUCOSE Stat 05/14/2024 1:16 AM CDT URINALYSIS W/REFLEX MICROSCOPIC Stat 05/13/2024 11:42 PM CDT URINE CULTURE Stat 05/13/2024 11:42 PM CDT XR CHEST PA OR AP 1 VW Stat 05/13/2024 11:10 PM CDT CRITICAL CARE Routine 05/13/2024 11:07 PM CDT BLOOD CULTURE Stat 05/13/2024 10:29 PM CDT BLOOD CULTURE Stat 05/13/2024 10:29 PM CDT POC LACTIC ACID Stat 05/13/2024 10:24 PM CDT C-REACTIVE PROTEIN Routine 05/13/2024 10:15 PM CDT MAGNESIUM LEVEL Routine 05/13/2024 10:15 PM CDT DIFFERENTIAL, MANUAL Stat 05/13/2024 10:15 PM CDT COMPREHENSIVE METABOLIC PANEL Stat 05/13/2024 10:15 PM CDT CBC WITH DIFFERENTIAL Stat 05/13/2024 10:15 PM CDT BLOOD CULTURE Stat 05/13/2024 10:15 PM CDT BLOOD CULTURE Stat 05/13/2024 10:15 PM CDT EKG 12-LEAD Stat 05/13/2024 9:59 PM CDT RESPIRATORY PATHOGEN PCR PANEL Stat 05/13/2024 9:49 PM CDT COMPREHENSIVE METABOLIC PANEL Stat 05/13/2024 11:09 AM CDT Malignant neoplasm of upper-outer quadrant of left breast in female, estrogen receptor negative (CMS/HCC) CBC WITH DIFFERENTIAL Stat 05/13/2024 11:09 AM CDT Malignant neoplasm of upper-outer quadrant of left breast in female, estrogen receptor negative (CMS/HCC) COMPREHENSIVE METABOLIC PANEL Stat 05/06/2024 12:01 PM CDT Malignant neoplasm of upper-outer quadrant of left breast in female, estrogen receptor negative (CMS/HCC) CBC WITH DIFFERENTIAL Stat 05/06/2024 12:01 PM CDT Malignant neoplasm of upper-outer quadrant of left breast in female, estrogen receptor negative (CMS/HCC) TSH Stat 04/29/2024 12:43 PM CDT Malignant neoplasm of upper-outer quadrant of left breast in female, estrogen receptor negative (CMS/HCC) MAGNESIUM LEVEL Stat 04/29/2024 12:43 PM CDT Malignant neoplasm of upper-outer quadrant of left breast in female, estrogen receptor negative (CMS/HCC) COMPREHENSIVE METABOLIC PANEL Stat 04/29/2024 12:43 PM CDT Malignant neoplasm of upper-outer quadrant of left breast in female, estrogen receptor negative (CMS/HCC) CBC WITH DIFFERENTIAL Stat 04/29/2024 12:43 PM CDT Malignant neoplasm of upper-outer quadrant of left breast in female, estrogen receptor negative (CMS/HCC) DIFFERENTIAL, MANUAL Stat 04/22/2024 12:30 PM LACEWORKER Malignant neoplasm of upper-outer quadrant of left breast in female, estrogen receptor negative (CMS/HCC) COMPREHENSIVE METABOLIC PANEL Stat 04/22/2024 12:30 PM LACEWORKER Malignant neoplasm of upper-outer quadrant of left breast in female, estrogen receptor negative (CMS/HCC) CBC WITH DIFFERENTIAL Stat 04/22/2024 12:30 PM LACEWORKER Malignant neoplasm of upper-outer quadrant of left breast in female, estrogen receptor negative (CMS/HCC) COMPREHENSIVE METABOLIC PANEL Stat 04/15/2024 12:28 PM LACEWORKER Malignant neoplasm of upper-outer quadrant of left breast in female, estrogen receptor negative (CMS/HCC) CBC WITH DIFFERENTIAL Stat 04/15/2024 12:28 PM LACEWORKER Malignant neoplasm of upper-outer quadrant of left breast in female, estrogen receptor negative (CMS/HCC) MAGNESIUM LEVEL Stat 04/08/2024 12:51 PM LACEWORKER Malignant neoplasm of upper-outer quadrant of left breast in female, estrogen receptor negative (CMS/HCC) COMPREHENSIVE METABOLIC PANEL Stat 04/08/2024 12:51 PM LACEWORKER Malignant neoplasm of upper-outer quadrant of left breast in female, estrogen receptor negative (CMS/HCC) CBC WITH DIFFERENTIAL Stat 04/08/2024 12:51 PM LACEWORKER Malignant neoplasm of upper-outer quadrant of left breast in female, estrogen receptor negative (CMS/HCC) GI PATHOGEN PCR PANEL Stat 04/02/2024 9:22 AM LACEWORKER Malignant neoplasm of upper-outer quadrant of left breast in female, estrogen receptor negative (CMS/HCC) High risk medication use Encounter for chemotherapy management IGE Routine 04/01/2024 3:02 PM LACEWORKER Chronic obstructive pulmonary disease, unspecified COPD type (CMS/HCC) ALPHA 1 ANTITRYPSIN PHENOTYPE Routine 04/01/2024 3:02 PM LACEWORKER Chronic obstructive pulmonary disease, unspecified COPD type (CMS/HCC) COMPREHENSIVE METABOLIC PANEL Stat 04/01/2024 12:29 PM LACEWORKER Malignant neoplasm of upper-outer quadrant of left breast in female, estrogen receptor negative (CMS/HCC) CBC WITH DIFFERENTIAL Stat 04/01/2024 12:29 PM LACEWORKER Malignant neoplasm of upper-outer quadrant of left breast in female, estrogen receptor negative (CMS/HCC) COMPREHENSIVE METABOLIC PANEL Stat 03/25/2024 9:56 AM LACEWORKER Malignant neoplasm of upper-outer quadrant of left breast in female, estrogen receptor negative (CMS/HCC) CBC WITH DIFFERENTIAL Stat 03/25/2024 9:56 AM LACEWORKER Malignant neoplasm of upper-outer quadrant of left breast in female, estrogen receptor negative (CMS/HCC) ECHO COMPLETE Stat 03/13/2024 4:22 PM LACEWORKER Malignant neoplasm of upper-outer quadrant of left breast in female, estrogen receptor negative (CMS/HCC) High risk medication use TSH Stat 03/13/2024 12:41 PM LACEWORKER Malignant neoplasm of upper-outer quadrant of left breast in female, estrogen receptor negative (CMS/HCC) MAGNESIUM LEVEL Stat 03/13/2024 12:41 PM LACEWORKER Malignant neoplasm of upper-outer quadrant of left breast in female, estrogen receptor negative (CMS/HCC) COMPREHENSIVE METABOLIC PANEL Stat 03/13/2024 12:41 PM LACEWORKER Malignant neoplasm of upper-outer quadrant of left breast in female, estrogen receptor negative (CMS/HCC) CBC WITH DIFFERENTIAL Stat 03/13/2024 12:41 PM LACEWORKER Malignant neoplasm of upper-outer quadrant of left breast in female, estrogen receptor negative (CMS/HCC) XR FLUORO CENTRAL VENOUS ACCESS Routine 03/13/2024 8:[address] INSJ TUNNELED CTR VAD W/SUBQ PORT AGE 5 YR/> 03/13/2024 7:20 AM LACEWORKER Peripheral venous insufficiency Case Notes [facility] NM BONE SCAN WHOLE BODY Stat 03/08/2024 12:39 PM LACEWORKER Malignant neoplasm of upper-outer quadrant of left breast in female, estrogen receptor negative (CMS/HCC) Elevated liver enzymes Tobacco use CT ABDOMEN PELVIS W CONTRAST Stat 03/07/2024 1:51 PM LACEWORKER Malignant neoplasm of upper-outer quadrant of left breast in female, estrogen receptor negative (CMS/HCC) Elevated liver enzymes Tobacco use COMPREHENSIVE METABOLIC PANEL Routine 03/07/2024 1:04 PM LACEWORKER Malignant neoplasm of upper-outer quadrant of left breast in female, estrogen receptor negative (CMS/HCC) Elevated liver enzymes Tobacco use CBC WITHOUT DIFFERENTIAL Routine 03/07/2024 1:04 PM LACEWORKER Malignant neoplasm of upper-outer quadrant of left breast in female, estrogen receptor negative (CMS/HCC) Elevated liver enzymes Tobacco use CANCER ANTIGEN 15-3 Routine 03/07/2024 1 :04 PM LACEWORKER Malignant neoplasm of upper-outer quadrant of left breast in female, estrogen receptor negative (CMS/HCC) Elevated liver enzymes Tobacco use MAMMO 3D AMBER DIAGNOSTIC BILAT W OR WO CAD Routine 02/22/2024 2:23 PM LACEWORKER Mass overlapping multiple quadrants of left breast CT LUNG SCREENING (LDCT BASELINE OR ANNUAL) Routine 04/27/2023 3:01 PM LACEWORKER Encounter for screening for lung cancer HEMOGLOBIN A1C Routine 03/18/2014 4:23 PM LACEWORKER Fatigue from Last 3 Months or Most Recently Relevant to Health Maintenance Results * (ABNORMAL) CBC WITH DIFFERENTIAL (05/27/2024 1:20 PM CDT) Only the most recent of14 resultswithin the time period is included. WBC 9.2 4.0 - 9.8 K/uL 05/27/2024 2:03 PM CDT [facility] Comment:ANC = 2.02K/uL RBC 3.12(L) 3.90 - 4.90 M/uL 05/27/2024 2:03 PM CDT [facility] HEMOGLOBIN 9.3(L) 11.8 - 14.8 g/dL 05/27/2024 2:03 PM CDT [facility] [place] HEMATOCRIT 27.6(L) 35.5 - 44.0 % 05/27/2024 2:03 PM CDT [facility] [place] MCV 88.5 82.0 - 99.0 fL 05/27/2024 2:03 PM CDT [facility] [place] MCH 29.8 27.2 - 32.6 pg 05/27/2024 2:03 PM CDT [facility] [place] MCHC 33.7 31.5 - 35.5 g/dL 05/27/2024 2:03 PM CDT [facility] [place] RDW 18.2(H) 11.5 - 14.5 % 05/27/2024 2:03 PM CDT [facility] [place] RDW-STDEV 57.3(H) 37.1 - 48.7 fL 05/27/2024 2:03 PM CDT [facility] [place] PLATELETS 287 140 - 350 K/uL 05/27/2024 2:03 PM CDT [facility] [place] MPV 10.6 9.3 - 12.4 fL 05/27/2024 2:03 PM CDT [facility] [place] NEUTROPHILS 22 % 05/27/2024 2:03 PM CDT [facility] [place] LYMPHOCYTES 65 % 05/27/2024 2:03 PM CDT [facility] [place] MONOCYTES 8 % 05/27/2024 2:03 PM CDT [facility] [place] EOSINOPHILS 2 % 05/27/2024 2:03 PM CDT [facility] [place] BASOPHILS 1 % 05/27/2024 2:03 PM CDT [facility] [place] IMMATURE GRANULOCYTES 2 % 05/27/2024 2:03 PM CDT [facility] [place] NEUTROPHIL ABSOLUTE 2.02 1.90 - 7.00 K/uL 05/27/2024 2:03 PM CDT [facility] [place] LYMPHOCYTE ABSOLUTE 5.96(H) 0.70 - 4.50 K/uL 05/27/2024 2:03 PM CDT [facility] MONOCYTE ABSOLUTE 0.76 0.10 - 1.30 K/uL 05/27/2024 2:03 PM CDT [facility] [place] EOSINOPHIL ABSOLUTE 0.19 0.00 - 0.70 K/uL 05/27/2024 2:03 PM CDT [facility] BASOPHILS ABSOLUTE 0.10 0.00 - 0.20 K/uL 05/27/2024 2:03 PM CDT [facility] LABORATORY SERVICES [facility] IMMATURE GRANULOCYTES ABSOLUTE 0.19(H) 0.00 - 0.03 K/uL 05/27/2024 2:03 PM CDT [facility] LABORATORY SERVICES [facility] Blood Collection / Unknown 05/27/2024 1:20 PM CDT 05/27/2024 2:00 PM CDT Mariaa Diego MD HEMATOLOGY ORDERABLES Fin al Result [facility] CLIA# [id number] [address] [place] [address] * (ABNORMAL) COMPREHENSIVE METABOLIC PANEL (05/27/2024 1:20 PM CDT) Only the most recent of13 resultswithin the time period is included. SODIUM 137 136 - 145 mmol/L 05/27/2024 2:23 PM CDT [facility] LABORATORY [facility] POTASSIUM 3.4(L) 3.5 - 4.9 mmol/L 05/27/2024 2:23 PM CDT [facility] LABORATORY [facility] CHLORIDE 104 98 - 107 mmol/L 05/27/2024 2:23 PM CDT [facility] LABORATORY [facility] CO2 23 22 - 29 mmol/L 05/27/2024 2:23 PM CDT [facility] LABORATORY [facility] CALCIUM 8.9 8.6 - 10.2 mg/dL 05/27/2024 2:23 PM CDT [facility] LABORATORY SERVICES [facility] BUN 7 6 - 20 mg/dL 05/27/2024 2:23 PM CDT [facility] LABORATORY SERVICES [facility] CREATININE 0.56 0.51 - 0.95 mg/dL 05/27/2024 2:23 PM CDT [facility] LABORATORY SERVICES [facility] GLUCOSE 108(H) 74 - 99 mg/dL 05/27/2024 2:23 PM CDT [facility] LABORATORY SERVICES [facility] TOTAL PROTEIN 6.3 6.0 - 8.3 g/dL 05/27/2024 2:23 PM CDT [facility] LABORATORY [facility] ALBUMIN 3.6 3.4 - 4.8 g/dL 05/27/2024 2:23 PM CDT [facility] LABORATORY [facility] BILIRUBIN TOTAL 0.4 0.2 - 1.0 mg/dL 05/27/2024 2:23 PM CDT [facility] LABORATORY [facility] ALKALINE PHOSPHATASE 211(H) 35 - 104 U/L 05/27/2024 2:23 PM T [facility] LABORATORY [facility] AST 40(H) 12 - 32 U/L 05/27/2024 2:23 PM T [facility] ALT 75(H) <31 U/L 05/27/2024 2:23 PM T [facility] GFR >60 >=60 mL/min/1.7 3 sq meter 05/27/2024 2:23 PM T [facility] Comment:eGFR calculated with 2020 CKD-EPI equation. Vegetarian diet, extremely high or low muscle mass, and may affect results. Cystatin C with Glomerular Filtration Rate is a suitable alternative for these patients. ANION GAP 10 8 - 16 mmol/L 05/27/2024 2:23 PM CDT [facility] Blood Collection / Unknown 05/27/2024 1:20 PM CDT 05/27/2024 2:00 PM CDT Mariaa Diego MD CHEMISTRY ORDERABLES Kim l Result [facility] CLIA# [id number] [address] [place] [address] * XR FOOT 3+ VW LEFT (05/26/2024 2:19 PM CDT) Anatomical Region Laterality Modality Ankle / Foot Computed Radiogr aphy 05/26/2024 2:19 PM CDT Impressions 05/26/2024 2:23 PM CDT IMPRESSION: 1. No acute osseous injury. DICTATION LOCATION: Location 1 - [facility] Narrative 05/26/2024 2:23 PM CDT EXAMINATION: XR FOOT 3+ VW LEFT HISTORY: Injury COMPARISON: Bilateral foot radiograph performed 10/30/2017 FINDINGS: The osseous structures are intact and well aligned without acute fracture or dislocation. Surgical pins are again noted within the distal aspect of the first metatarsal bone as well as traversing the interphalangeal joints of the third digit. The remaining osseous structures are intact and well aligned. The joint spaces are otherwise maintained. The bone density is within normal limits. No focal soft tissue swelling is identified. INCIDENTAL FINDINGS: None. Procedure Note Denis Gutierrez MD - 05/26/2024 EXAMINATION: XR FOOT 3+ VW LEFT HISTORY: Injury COMPARISON: Bilateral foot radiograph performed 10/30/2017 FINDINGS: The osseous structures are intact and well aligned without acute fracture or dislocation. Surgical pins are again noted within the distal aspect of the first metatarsal bone as well as traversing the interphalangeal joints of the third digit. The remaining osseous structures are intact and well aligned. The joint spaces are otherwise maintained. The bone density is within normal limits. No focal soft tissue swelling is identified. INCIDENTAL FINDINGS: None. IMPRESSION: 1. No acute osseous injury. DICTATION LOCATION: Location 1 - [facility] Adry Lora NP DIAGNOSTIC IMAGING ORDERABLES Final Result * MANUAL DIFFERENTIAL (05/20/2024 12:28 PM CDT) Only the most recent of4 resultswithin the time period is included. PLATELET EST. Adequate 05/20/2024 1:21 PM CDT [facility] ANISOCYTOSIS 1+ /hpf 05/20/2024 1:21 PM CDT [facility] CLUMPED PLATELETS Present 05/20/2024 1:21 PM CDT [facility] Blood Collection / Unknown 05/20/2024 12:28 PM CDT 05/20/2024 12:56 PM CDT Mariaa Diego MD HEMATOLOGY ORDERABLES COM Final Result [facility] [employer] [facility] CLIA# [id number] [address] [place] [address] * MAGNESIUM LEVEL (05/20/2024 12:28 PM CDT) Only the most recent of5 resultswithin the time period is included. Pathologist [facility] MAGNESIUM 1.8 1.5 - 2.5 mg/dL 05/20/2024 1:25 PM CDT [facility] LABORATORY SERVICES [facility] Blood Collection / Unknown 05/20/2024 12:28 PM CDT 05/20/2024 12:56 PM CDT Mariaa Diego MD CHEMISTRY ORDERABLES Kim l Result [facility] SERVICES [facility] CLIA# [id number] [address] [place] [address] * (ABNORMAL) BASIC METABOLIC PANEL (05/16/2024 11:24 AM CDT) Only the most recent of2 resultswithin the time period is included. Pathologist [facility] SODIUM 138 136 - 145 mmol/L 05/16/2024 12:38 PM CDT [facility] LABORATORY SERVICES [facility] POTASSIUM 3.4(L) 3.5 - 5.0 mmol/L 05/16/2024 12:38 PM CDT [facility] LABORATORY SERVICES - [facility] CHLORIDE 103 98 - 107 mmol/L 05/16/2024 12:38 PM CDT [facility] LABORATORY SERVICES - . [facility] CO2 22 22 - 29 mmol/L 05/16/2024 12:38 PM CDT [facility] LABORATORY SERVICES - . [facility] CALCIUM 8.6 8.6 - 10.2 mg/dL 05/16/2024 12:38 PM CDT [facility] LABORATORY SERVICES - . [facility] BUN 9 6 - 20 mg/dL 05/16/2024 12:38 PM CDT [facility] LABORATORY SERVICES - . [facility] CREATININE 0.58 0.51 - 0.95 mg/dL 05/16/2024 12:38 PM CDT [facility] LABORATORY SERVICES - . [facility] GLUCOSE 103(H) 74 - 99 mg/dL 05/16/2024 12:38 PM CDT [facility] LABORATORY SERVICES - . [facility] GFR >60 >=60 mL/min/1.7 3 sq meter 05/16/2024 12:38 PM CDT [facility] Comment:eGFR calculated with 2020 CKD-EPI equation. Vegetarian diet, extremely high or low muscle mass, and may affect results. Cystatin C with Glomerular Filtration Rate is a suitable alternative for these patients. ANION GAP 13 8 - 16 mmol/L 05/16/2024 12:38 PM CDT [facility] Blood Venipuncture / Unknown 05/16/2024 11:24 AM CDT 05/16/2024 11:50 AM CDT Chandana Oreilly DO CHEMISTRY ORDERABLES Final Resul t [facility] CLIA# [id number] [address] [place] [address] * EKG 12-LEAD (05/15/2024 3:26 PM CDT) Only the most recent of2 resultswithin the time period is included. 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1970 Requested By: MARILIA Tucker Order Number: [id number] Reading MD: Raheel Corral Measurements Intervals [place] Rate: 86 P: 57 CT: 149 QRS: 53 QRSD: 85 T: 19 QT: 352 QTc: 421 Interpretive Statements SINUS RHYTHM Electronically Signed On 05-15-2024 17:04:35 CDT by Raheel Corral Procedure Note Raheel Corral MD - 05/15/[address] [address] Test Date: 2024-05-15 Pat Name: BRENDON DESAI Department: 100 Room: 3322 1 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: Female 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1970 Requested By: MARILIA Tucker Order Number: [id number] Reading MD: Raheel Corral Measurements Intervals [place] Rate: 86 P: 57 CT: 149 QRS: 53 QRSD: 85 T: 19 QT: 352 QTc: 421 Interpretive Statements SINUS RHYTHM Electronically Signed On 05-15-2024 17:04:35 CDT by Raheel Corral Pippa Royal DO ECG ORDERABLES Final Result Performing Organization Address City/[facility] Co de Phone Number INTERFACE SYSTEM Refer to clinic/hospital department * POC LACTIC ACID (05/14/2024 1:29 AM CDT) Only the most recent of2 resultswithin the time period is included. LACTIC ACID POC 1.8 <=2.0 mmol/L 05/14/2024 1:29 AM CDT [facility] LABORATORY SERVICES [facility] SPECIMEN SOURCE, GASES POC Blank 05/14/2024 1:29 AM CDT [facility] LABORATORY SERVICES [facility] COMMENT, GASES POC Responsible Clinical Caregiver notified 05/14/2024 1:29 AM CDT [facility] LABORATORY SERVICES - [facility] Blood 05/14/2024 1:29 AM CDT 05/14/2024 1:30 AM CDT Alina Hull MD POINT OF CARE TESTING F inal Result [facility] LABORATORY SERVICES [facility] CLIA# [id number] [address] [place] [address] * (ABNORMAL) POC GLUCOSE (05/14/2024 1:16 AM CDT) GLUCOSE POC 210(H) 74 - 99 mg/dL 05/14/2024 1:16 AM CDT [facility] LABORATORY SERVICES [facility] SPECIMEN SOURCE, GLUCOSE POC Whole Blood 05/14/2024 1:16 AM CDT [facility] LABORATORY SERVICES - [facility] COMMENT, GLU POC Notified RN/MD 05/14/2024 1:16 AM T [facility] LABORATORY SERVICES - [facility] Blood, whole 05/14/2024 1:16 AM CDT 05/14/2024 1:23 AM CDT Alina Hull MD POINT OF CARE TESTING F inal Result [facility] LABORATORY SERVICES - [facility] CLIA# [id number] [address] [facility] [place] [address] * (ABNORMAL) URINALYSIS WITH REFLEX MICROSCOPIC (05/13/2024 11:42 PM CDT) COLOR UA Yellow Pale to Dark Yellow 05/14/2024 12:09 AM T [facility] LABORATORY SERVICES - [facility] CLARITY UA Clear Clear 05/14/2024 12:09 AM T [facility] LABORATORY SERVICES - [facility] SPECIFIC GRAVITY UA 1.032 1.003 - 1.035 05/14/2024 12:[address] [facility] SERVICES - [facility] PH UA 5.0 5.0 - 8.0 05/14/2024 12:[address] [facility] LABORATORY SERVICES - [facility] LEUKOCYTE ESTERASE UA Negative Negative 05/14/2024 12:[address] [facility] LABORATORY SERVICES [facility] NITRITE UA Negative Negative 05/14/2024 12:[address] [facility] LABORATORY SERVICES - [facility] PROTEIN UA 1+(A) Negative 05/14/2024 12:[address] [facility] SERVICES - [facility] GLUCOSE UA 3+(A) Negative 05/14/2024 12:[address] [facility] SERVICES - . [facility] KETONES UA Trace(A) Negative 05/14/2024 12:[address] [facility] LABORATORY SERVICES - . [facility] UROBILINOGEN UA Normal <2.0 mg/dL 12:09 AM T [facility] LABORATORY SERVICES - . [facility] BILIRUBIN UA Negative Negative 05/14/2024 12:09 AM [facility] LABORATORY SERVICES - [facility] BLOOD UA 1+(A) Negative 05/14/2024 12:09 AM CDT [facility] LABORATORY [facility] WBC UA 0-2 0 - 2 /hpf 05/14/2024 12:09 AM T [facility] LABORATORY [facility] - . [facility] RBC UA 3-5(A) 0 - 2 /hpf 05/14/2024 12:09 AM T [facility] LABORATORY [facility] BACTERIA UA Negative Negative /hpf 05/14/2024 12:09 AM CDT [facility] EPITHELIAL CELLS, URINE 0-5 0 - 5 /hpf 05/14/2024 12:09 AM T [facility] - [facility] Urine URINE SPECIMEN OBTAINED BY CLEAN CATCH PROCEDURE / Unknown Collection / Unknown 05/13/2024 11:42 PM CDT 05/13/2024 11:57 PM CDT Marilia Varela MD URINE ORDERABLES Final Resul t [facility] CLIA# [id number] [address] [place] [address] * URINE CULTURE (05/13/2024 11:42 PM CDT) CULTURE No growth at 24 hours 05/15/2024 6:18 AM CDT [facility] Urine URINE SPECIMEN OBTAINED BY CLEAN CATCH PROCEDURE / Unknown Collection / Unknown 05/13/2024 11:42 PM CDT 05/13/2024 11:57 PM CDT Marilia Varela MD MICROBIOLOGY - GENERAL ORDER DOLORES Final Result [facility] CLIA# [id number] [address] [place] [address] * XR CHEST PA OR AP 1 VW (05/13/2024 11:10 PM CDT) Anatomical Region Laterality Modality Chest Computed Radiogr aphy 05/13/2024 11:1 1 PM CDT Impressions 05/14/2024 7:05 AM CDT IMPRESSION: 1. No acute pulmonary process. DICTATION LOCATION: [address] Narrative 05/14/2024 7:05 AM CDT EXAMINATION: XR CHEST PA OR AP 1 VW HISTORY: Shortness of Breath SOB COMPARISON: Chest radiograph performed 11/30/2023 FINDINGS: Cervical spinal fusion hardware is again noted. A right subclavian approach port catheter terminates in the superior vena cava. The lungs are clear of acute focal consolidation. No pleural effusion or pneumothorax identified. The heart size is normal. INCIDENTAL FINDINGS: None. Procedure Note Denis Gutierrez MD - 05/14/2024 EXAMINATION: XR CHEST PA OR AP 1 VW HISTORY: Shortness of Breath SOB COMPARISON: Chest radiograph performed 11/30/2023 FINDINGS: Cervical spinal fusion hardware is again noted. A right subclavian approach port catheter terminates in the superior vena cava. The lungs are clear of acute focal consolidation. No pleural effusion or pneumothorax identified. The heart size is normal. INCIDENTAL FINDINGS: None. IMPRESSION: 1. No acute pulmonary process. DICTATION LOCATION: Location [address] [place] [address] [place] Marilia Varela MD DIAGNOSTIC IMAGING ORDERABLE S Final Result * Critical Care (05/13/2024 11:07 PM CDT) Narrative Alina Hull MD - 05/13/2024 11:07 PM CDT Alina Hull MD 05/17/2024 9:41 AM Critical Care Performed by: Alina Hull MD Authorized by: Alina Hull MD Critical care provider statement: Critical care time (minutes): 35 Critical care time was exclusive of: Separately billable procedures and treating other patients Critical care was necessary to treat or prevent imminent or life-threatening deterioration of the following conditions: Sepsis Critical care was time spent personally by me on the following activities: Development of treatment plan with patient or surrogate, evaluation of patient's response to treatment, ordering and performing treatments and interventions, ordering and review of laboratory studies, ordering and review of radiographic studies, pulse oximetry, re-evaluation of patient's condition, review of old charts, examination of patient, obtaining history from patient or surrogate and discussions with consultants I assumed direction of critical care for this patient from another provider in my specialty: no Care discussed with: admitting provider Alina Hull MD PROCEDURE/MINOR SURGICA L ORDERABLES Final Result * BLOOD CULTURE (05/13/2024 10:29 PM CDT) Only the most recent of2 resultswithin the time period is included. [facility] BLOOD CULTURE No growth 05/19/2024 4:23 AM CDT [facility] Blood (Peripheral) Venipuncture / Unknown 05/13/2024 10:29 PM CDT 05/13/2024 10:29 PM CDT Marilia Varela MD MICROBIOLOGY - GENERAL ORDER DOLORES Final Result Performing Organization Address City/[facility]/ZIP Co de Phone Number [facility] CLIA# [id number] [address] [place] [address] * (ABNORMAL) C-REACTIVE PROTEIN (05/13/2024 10:15 PM CDT) [facility] CRP 27.2(H) <5.0 mg/L 05/14/2024 7:17 AM CDT [facility] [facility] Blood Venipuncture / Unknown 05/13/2024 10:15 PM CDT 05/13/2024 10:24 PM CDT Juni Pizarro MD CHEMISTRY ORDERABLES Final Resul t [facility] [employer] [facility] CLIA# [id number] [address] [place] [address] * RESPIRATORY PATHOGEN PCR PANEL (05/13/2024 9:49 PM CDT) [facility] Respiratory Pathogen PCR Panel NOT DETECTED No respiratory pathogen nucleic acids detected. 05/13/2024 11:33 PM CDT [facility] COVID-19 PCR NOT DETECTED Not Detected 05/13/2024 11:33 PM CDT [facility] Upper Respiratory ENTIRE NASOPHARYNX / Unknown Collection / Unknown 05/13/2024 9:49 PM CDT 05/13/2024 10:05 PM CDT Narrative [facility] LABORATORY [facility] - 05/13/2024 11:33 PM CDT The Film Array Respiratory Panel (RP2.1) is a multiplex nucleic acid detection test for 22 targets. Viruses: Adenovirus Coronavirus HKU1, NL63, 229E, and OC43 COVID-19/Severe Acute Respiratory Syndrome Coronavirus 2 Influenza A with the following subtypes: H1, H1-2009, and H3 Influenza B Human Metapneumovirus Parainfluenza virus 1, 2, 3, and 4 Respiratory Syncytial virus (RSV) Rhinovirus/Enterovirus (cannot differentiate due to genetic similarities) Bacteria: Bordetella pertussis Bordetella parapertussis Chlamydophila pneumoniae Mycoplasma pneumoniae us Marilia Varela MD MICROBIOLOGY - GENERAL ORDER DOLORES Final Result Performing Organization Address City/[facility]/ZIP Co de Phone Number [facility] CLIA# [id number] [address] [place] [address] * TSH (04/29/2024 12:43 PM CDT) Only the most recent of2 resultswithin the time period is included. TSH 1.43 0.27 - 4.20 uIU/mL 04/29/2024 2:02 PM CDT [facility] Blood Collection / Unknown 04/29/2024 12:43 PM CDT 04/29/2024 1:31 PM CDT Mariaa Diego MD CHEMISTRY ORDERABLES Kim l Result [facility] CLIA# [id number] [address] [place] [address] * GI PATHOGEN PCR PANEL (04/02/2024 9:22 AM LACEWORKER) [facility] GI Pathogen PCR panel NOT DETECTED No nucleic acids detected. 04/02/2024 1:44 PM LACEWORKER [facility] Stool STOOL SPECIMEN / Unknown Collection / Unknown 04/02/2024 9:22 AM LACEWORKER 04/02/2024 9:22 AM LACEWORKER [facility] - 04/02/2024 1:44 PM LACEWORKER The Film Array GI Panel is a multiplexed nucleic acid detection test for 22 targets of bacteria, viruses, and parasites in stool that cause infectious diarrhea. Bacteria: Campylobacter C. difficile Plesiomonas shigelloides Salmonella Vibrio Vibrio cholerae Yersinia enterocolitica Enteroaggregative E. Coli (EAEC) Enteropathogenic E. Coli (EPEC) Enterotoxigenic E. Coli (ETEC) Shiga-like toxin-producing E. Coli (STEC) E. Coli O157 Shigella/Enteroinvasive E. Coli (EIEC) Viruses: Adenovirus F 40/41 Astrovirus Norovirus GI/GII Rotavirus A Sapovirus Parasites: Cryptosporidium Cyclospora cayetanensis Entamoeba histolytica Giardia duodenalis Mariaa Diego MD MICROBIOLOGY - GENERAL OR DERABLES Final Result [facility]# [id number] [address] [facility] [place] [address] * (ABNORMAL) ALPHA 1 ANTITRYPSIN PHENOTYPE (04/01/2024 3:02 PM LACEWORKER) [facility] ALPHA 1 ANTITRYPSIN 200(H) 83 - 199 mg/dL [facility]/[place] [facility], ALPHA 1 ANTITRYPSIN PHENOTYPE TNP [facility]/N [facility], Comment: TEST NOT PERFORMED Specimen received at incorrect temperature. Test Performed at: [facility]/[place], [address] [place] [address] Nuria Clinton MD,PhD,CHELA Blood 04/01/2024 3:02 PM LACEWORKER 04/02/2024 1:29 PM LACEWORKER Brennan Houston MD CHEMISTRY ORDERABLES Final R esult Performing Organization Address [facility]/ZIP Co de Phone Number [facility] [phone] [facility], [address] [place] [phone] * IGE (04/01/2024 3:02 PM LACEWORKER) IGE 8 <JV=792 kU/L [facility] Comment: Test Performed at: [place] [address] [facility] [place] [address] Kevin Sam MD Blood 04/01/2024 3:0 2 PM LACEWORKER 04/02/2024 1:29 PM LACEWORKER Brennan Houston MD CHEMISTRY ORDERABLES Final R esult Performing Organization Address City/[facility]/ZIP Co de Phone Number [facility] [phone] [facility] [address] [place] [phone] * ECHO COMPLETE - CONTRAST AND STRAIN IF INDICATED (03/13/2024 4:22 PM LACEWORKER) EJECTION FRACTION 60 INTERFACE SYSTEM 03/13/2024 3:48 PM LACEWORKER Narrative INTERFACE SYSTEM - 03/13/2024 5:25 PM LACEWORKER [facility], [place] [address] [place] [address] Transthoracic Echocardiogram Patient: Brendon Desai Study ID: [id number] Gender: F : 1970 Age: 53 Race: AUGIE Height 170.7cm Study Date: 03/13/2024 Weight: 92.5kg Access. #: [id number] BP: 120 / 72 *Referring Physician:* Mariaa Diego *Ordering Physician:Mariaa Douglas *Nutrition Services Manager:Siva SHEFFIELD wharf tally clerk: Nurse: Indications: Malignant neoplasm of upper-outer quadrant of left breast in female. High risk medication use. STUDY CONCLUSIONS: SUMMARY: - Left ventricle: The cavity size was normal. Wall thickness was normal. Global systolic function is normal. The estimated ejection fraction is 55-60%. For Epic reporting: the left ventricular ejection fraction is 60% . Left ventricular diastolic function parameters are normal. - Mitral valve: The leaflets are mildly thickened. Mild regurgitation. - Left atrium: The atrium is normal in size. - Right ventricle: The cavity size is normal. Systolic function is normal. - Tricuspid valve: Mild regurgitation. - Pulmonic valve: Mild regurgitation. - Pulmonary arteries: The peak systolic pressure is 27mm Hg. Cardiac Anatomy: LEFT VENTRICLE: The cavity size was normal. Wall thickness was normal. Global systolic function is normal. The estimated ejection fraction is 55-60%. For Epic reporting: the left ventricular ejection fraction is 60% . Wall motion is normal; there are no regional wall motion abnormalities. Left ventricular diastolic function parameters are normal. AORTIC VALVE: Structurally normal valve. Trileaflet. There was no stenosis. No significant regurgitation. The mean systolic gradient is 4mm Hg. The peak systolic gradient is 9mm Hg. The LVOT to aortic valve VTI ratio is 0.81. The valve area is 2.6cm^2. The ratio of LVOT to aortic valve peak velocity is 0.75. AORTA: Aortic root: The root is normal-sized. MITRAL VALVE: The leaflets are mildly thickened. Mild regurgitation. The peak diastolic gradient is 3mm Hg. LEFT ATRIUM: The atrium is normal in size. ATRIAL SEPTUM: Not well visualized. The interatrial septum was hypermobile. RIGHT VENTRICLE: The cavity size is normal. Systolic function is normal. PULMONIC VALVE: Not well visualized. Mild regurgitation. TRICUSPID VALVE: Structurally normal valve. Mild regurgitation. PULMONARY ARTERY: There is no evidence of pulmonary hypertension. RIGHT ATRIUM: The atrium was normal in size. There was the appearance thins mobile filamentous echodensity suggestive of a possible Chiari network, although not well visualized. Clinical correlation advised. SYSTEMIC VEINS: Inferior vena cava: The IVC is normal-sized. PERICARDIUM: There is no pericardial effusion. Measurements Left ventricle Value Ref 08/10/2023 IVS, ED, LAX (H) 1.0 cm 0.6 - 0.9 GRACE, LAX (N) 4.8 cm 3.8 - 5.2 2.9 ESD, LAX (N) 3.2 cm 2.2 - 3.5 GRACE/bsa, LAX (N) 2.3 cm/m^2 2.3 - 3.1 1.5 FS, LAX (N) 32 % 27 - 45 Mid-wall FS, LAX (N) 15 % 15 - 23 PW, ED, LAX (H) 1.0 cm 0.6 - 0.9 IVS/PW, ED, LAX 1.04 --------- EF, 2-p (N) 60 % 54 - 74 65 SV, 2-p 67 ml --------- SV/bsa, 2-p 32.9 ml/m^2 --------- E', lat cira, TDI (N) 12.7 cm/sec >=10.0 E/e', lat cira, TDI (N) 7 <=13 E', med cira, TDI (N) 12.7 cm/sec >=7.0 E/e', med cira, TDI 7 --------- E', avg, TDI 12.7 cm/sec --------- E/e', avg, TDI (N) 7 <=14 LVOT Value Ref 08/10/2023 Area 3.2 cm^2 --------- 3.0 Peak chino, S 1.12 m/sec --------- 1.03 VTI, S 23.2 cm --------- 20.9 Peak grad, S 5 mm Hg --------- 4 Right ventricle Value Ref 08/10/2023 Pressure, S 27 mm Hg --------- Left atrium Value Ref 08/10/2023 Vol/bsa, S (N) 29 ml/m^2 16 - 34 Vol, ES, 1-p A4C (H) 61 ml 22 - 52 Vol/bsa, ES, 1-p A4C (N) 30 ml/m^2 11 - 40 Vol, ES, 2-p 56 ml --------- 55 Vol/bsa, ES, 2-p (N) 27 ml/m^2 16 - 34 28 Right atrium Value Ref 08/10/2023 Vol, ES, A/L 43 ml --------- Aortic valve Value Ref 08/10/2023 Peak v, S 1.5 m/sec --------- 1.3 VTI, S 28.4 cm --------- 25.7 Mean grad, S 4 mm Hg --------- 4 Peak grad, S 9 mm Hg --------- 7 LVOT/AV, VTI ratio 0.81 --------- 0.81 OSITO, VTI 2.6 cm^2 --------- 2.5 OSITO/bsa, VTI 1.29 cm^2/m^2 --------- 1.24 LVOT/AV, Vpeak ratio 0.75 --------- 0.77 OSITO, Vmax 2.4 cm^2 --------- 2.3 OSITO/bsa, Vmax 1.18 cm^2/m^2 --------- 1.18 Mitral valve Value Ref 08/10/2023 Peak E 0.84 m/sec --------- 0.76 Peak A 0.79 m/sec --------- 0.65 Peak grad, D 3 mm Hg --------- 2 Peak E/A ratio 1.07 --------- 1.18 MVA, PHT 3.1 cm^2 --------- 3.2 MVA/bsa, PHT 1.53 cm^2/m^2 --------- 1.63 Pulmonic valve Value Ref 08/10/2023 Peak v, S 0.96 m/sec --------- 0.83 Mean grad, S 2 mm Hg --------- Peak grad, S 4 mm Hg --------- 3 Tricuspid valve Value Ref 08/10/2023 TR peak v (N) 2.3 m/sec <=2.8 Peak RV-RA grad, S 22 mm Hg --------- Ascending aorta Value Ref 08/10/2023 AAo AP diam, S 2.8 cm --------- 2.7 AAo AP diam/bsa, S 1.4 cm/m^2 --------- 1.4 Pulmonary artery Value Ref 08/10/2023 Pressure, S 27 mm Hg --------- Systemic veins Value Ref 08/10/2023 Estimated RA pressure 5 mm Hg --------- Legend: (L) and (H) chandana values outside specified reference range. (N) smith values inside specified reference range. Procedure data: [facility] Comparison was made to the study of 08/10/2023. Study status: Stat. Procedure information: A transthoracic echocardiogram was performed. Image quality was adequate. The study was technically limited due to poor acoustic window availability and body habitus. Scanning was performed from the parasternal, apical, and subcostal acoustic windows. Transthoracic echocardiogram. Complete 2D, complete spectral Doppler, and color Doppler. Birthdate: Patient birthdate: 1970. Age: Patient is 53year(s) old. Sex: gender: female. Height: 170.7cm. 67.2in. Weight: 92.5kg. 204lb. Body mass index: 31.8kg/m^2. Body surface area: 2.04m^2. Blood pressure: 120/72 Patient status: Outpatient. Study date: Study date: 03/13/2024. Study time: 03:48 PM. Location: Echo laboratory. Prepared and Electronically Authenticated Jamal Sol [id number] Procedure Note Jamal Sol MD - 03/13/2024 [place] [address] Transthoracic Echocardiogram Patient: Brendon Desai Study ID: [id number] Gender: F : 1970 Age: 53 Race: CAU Height 170.7cm Study Date: 03/13/2024 Weight: 92.5kg Access. #: [id number] BP: 120 / 72 *Referring Physician:* Mariaa Diego *Ordering Physician:* Mariaa Diego *Nutrition Services Manager:* NETTIE wharf tally clerk: Nurse: Indications: Malignant neoplasm of upper-outer quadrant of left breast in female. Highrisk medication use. STUDY CONCLUSIONS: SUMMARY: - Left ventricle: The cavity size was normal. Wall thickness was normal. Global systolic function is normal. The estimated ejection fraction is 55-60%. For Epic reporting: the left ventricular ejection fraction is60% . Left ventricular diastolic function parameters are normal. - Mitral valve: The leaflets are mildly thickened. Mild regurgitation. - Left atrium: The atrium is normal in size. - Right ventricle: The cavity size is normal. Systolic function isnormal. - Tricuspid valve: Mild regurgitation. - Pulmonic valve: Mild regurgitation. - Pulmonary arteries: The peak systolic pressure is 27mm Hg. Cardiac Anatomy: LEFT VENTRICLE: The cavity size was normal. Wall thickness was normal.Global systolic function is normal. The estimated ejection fraction is 55-60%.For Epic reporting: the left ventricular ejection fraction is 60% . Wallmotion is normal; there are no regional wall motion abnormalities. Leftventricular diastolic function parameters are normal. AORTIC VALVE: Structurally normal valve. Trileaflet. There was nostenosis. No significant regurgitation. The mean systolic gradient is 4mm Hg.The peak systolic gradient is 9mm Hg. The LVOT to aortic valve VTI ratio is0.81. The valve area is 2.6cm^2. The ratio of LVOT to aortic valve peak velocityis 0.75. AORTA: Aortic root: The root is normal-sized. MITRAL VALVE: The leaflets are mildly thickened. Mild regurgitation.The peak diastolic gradient is 3mm Hg. LEFT ATRIUM: The atrium is normal in size. ATRIAL SEPTUM: Not well visualized. The interatrial septum washypermobile. RIGHT VENTRICLE: The cavity size is normal. Systolic function isnormal. PULMONIC VALVE: Not well visualized. Mild regurgitation. TRICUSPID VALVE: Structurally normal valve. Mild regurgitation. PULMONARY ARTERY: There is no evidence of pulmonary hypertension. RIGHT ATRIUM: The atrium was normal in size. There was the appearancethins mobile filamentous echodensity suggestive of a possible Chiari network, although not well visualized. Clinical correlation advised. SYSTEMIC VEINS: Inferior vena cava: The IVC is normal-sized. PERICARDIUM: There is no pericardial effusion. Measurements Left ventricle Value Ref 08/10/2023 IVS, ED, LAX (H) 1.0 cm 0.6 - 0.9 GRACE, LAX (N) 4.8 cm 3.8 - 5.2 2.9 ESD, LAX (N) 3.2 cm 2.2 - 3.5 GRACE/bsa, LAX (N) 2.3 cm/m^2 2.3 - 3.1 1.5 FS, LAX (N) 32 % 27 - 45 Mid-wall FS, LAX (N) 15 % 15 - 23 PW, ED, LAX (H) 1.0 cm 0.6 - 0.9 IVS/PW, ED, LAX 1.04 --------- EF, 2-p (N) 60 % 54 - 74 65 SV, 2-p 67 ml --------- SV/bsa, 2-p 32.9 ml/m^2 --------- E', lat cira, TDI (N) 12.7 cm/sec >=10.0 E/e', lat cira, TDI (N) 7 <=13 E', med cira, TDI (N) 12.7 cm/sec >=7.0 E/e', med cira, TDI 7 --------- E', avg, TDI 12.7 cm/sec --------- E/e', avg, TDI (N) 7 <=14 LVOT Value Ref 08/10/2023 Area 3.2 cm^2 --------- 3.0 Peak chino, S 1.12 m/sec --------- 1.03 VTI, S 23.2 cm --------- 20.9 Peak grad, S 5 mm Hg --------- 4 Right ventricle Value Ref 08/10/2023 Pressure, S 27 mm Hg --------- Left atrium Value Ref 08/10/2023 Vol/bsa, S (N) 29 ml/m^2 16 - 34 Vol, ES, 1-p A4C (H) 61 ml 22 - 52 Vol/bsa, ES, 1-p A4C (N) 30 ml/m^2 11 - 40 Vol, ES, 2-p 56 ml --------- 55 Vol/bsa, ES, 2-p (N) 27 ml/m^2 16 - 34 28 Right atrium Value Ref 08/10/2023 Vol, ES, A/L 43 ml --------- Aortic valve Value Ref 08/10/2023 Peak v, S 1.5 m/sec --------- 1.3 VTI, S 28.4 cm --------- 25.7 Mean grad, S 4 mm Hg --------- 4 Peak grad, S 9 mm Hg --------- 7 LVOT/AV, VTI ratio 0.81 --------- 0.81 OSITO, VTI 2.6 cm^2 --------- 2.5 OSITO/bsa, VTI 1.29 cm^2/m^2 --------- 1.24 LVOT/AV, Vpeak ratio 0.75 --------- 0.77 OSITO, Vmax 2.4 cm^2 --------- 2.3 OSITO/bsa, Vmax 1.18 cm^2/m^2 --------- 1.18 Mitral valve Value [facility] 08/10/2023 Peak E 0.84 m/sec --------- 0.76 Peak A 0.79 m/sec --------- 0.65 Peak grad, D 3 mm Hg --------- 2 Peak E/A ratio 1.07 --------- 1.18 MVA, PHT 3.1 cm^2 --------- 3.2 MVA/bsa, PHT 1.53 cm^2/m^2 --------- 1.63 Pulmonic valve Value [facility] 08/10/2023 Peak v, S 0.96 m/sec --------- 0.83 Mean grad, S 2 mm Hg --------- Peak grad, S 4 mm Hg --------- 3 Tricuspid valve Value [facility] 08/10/2023 TR peak v (N) 2.3 m/sec <=2.8 Peak RV-RA grad, S 22 mm Hg --------- Ascending aorta Value [facility] 08/10/2023 AAo AP diam, S 2.8 cm --------- 2.7 AAo AP diam/bsa, S 1.4 cm/m^2 --------- 1.4 Pulmonary artery Value Ref 08/10/2023 Pressure, S 27 mm Hg --------- Systemic veins Value Ref 08/10/2023 Estimated RA pressure 5 mm Hg --------- Legend: (L) and (H) chandana values outside specified reference range. (N) smith values inside specified reference range. Procedure data: [facility] Comparison was made to the study of 08/10/2023.Study status: Stat. Procedure information: A transthoracic echocardiogramwas performed. Image quality was adequate. The study was technically limiteddue to poor acoustic window availability and body habitus. Scanning wasperformed from the parasternal, apical, and subcostal acoustic windows. Transthoracic echocardiogram. Complete 2D, complete spectral Doppler,and color Doppler. Birthdate: Patient birthdate: 1970. Age: Patientis 53year(s) old. Sex: gender: female. Height: 170.7cm. 67.2in. Weight: 92.5kg. 204lb. Body mass index: 31.8kg/m^2. Body surfacearea: 2.04m^2. Blood pressure: 120/72 Patient status: Outpatient.Study date: Study date: 03/13/2024. Study time: 03:48 PM. Location: Echo laboratory. Prepared and Electronically Authenticated Jamal Sol [id number] us Mariaa Diego MD US ORDERABLES Final Res ult INTERFACE SYSTEM Refer to clinic/hospital department * XR FLUORO CENTRAL VENOUS ACCESS (03/13/2024 8:15 AM LACEWORKER) Narrative 03/13/2024 8:15 AM LACEWORKER Order information only. Exam was auto-finalized. Dorina Kaur MD DIAGNOSTIC IMAGING ORDER DOLORES Final Result * NM BONE SCAN WHOLE BODY (03/08/2024 12:39 PM LACEWORKER) Anatomical Region Laterality Modality Nuclear Medicine 03/08/2024 12:3 9 PM LACEWORKER Impressions 03/08/2024 12:49 PM LACEWORKER IMPRESSION: No evidence of skeletal metastases. Multiple healing right-sided rib fractures. Dictated by Dr. Chandana Hodges MD DICTATION LOCATION: 1 Narrative 03/08/2024 12:49 PM LACEWORKER WHOLE-BODY BONE SCAN DATE: 03/08/2024 12:39 PM HISTORY: Initial staging of breast cancer. PRIOR EXAMS: CT of the abdomen and pelvis 03/07/2024. PROCEDURE: Anterior and posterior whole body images obtained at 2-hours. RADIOPHARMACEUTICAL: 25.94 mCi 99m-Technetium MDP Route of injection: Right antecubital vein. Quality of the Scan: Satisfactory. PERTINENT FINDINGS: No skeletal metastases. INCIDENTAL FINDINGS: Partial radiopharmaceutical dose infiltration into the right antecubital fossa. The kidneys are normal in size. Multiple subacute fractures involving the lower lateral right rib cage. Procedure Note Chandana Hodges MD - 03/08/2024 WHOLE-BODY BONE SCAN DATE: 03/08/2024 12:39 PM HISTORY: Initial staging of breast cancer. PRIOR EXAMS: CT of the abdomen and pelvis 03/07/2024. PROCEDURE: Anterior and posterior whole body images obtained at 2-hours. RADIOPHARMACEUTICAL: 25.94 mCi 99m-Technetium MDP Route of injection: Right antecubital vein. Quality of the Scan: Satisfactory. PERTINENT FINDINGS: No skeletal metastases. INCIDENTAL FINDINGS: Partial radiopharmaceutical dose infiltration into the right antecubital fossa. The kidneys are normal in size. Multiple subacute fractures involving the lower lateral right rib cage. IMPRESSION: No evidence of skeletal metastases. Multiple healing right-sided rib fractures. Dictated by Dr. Chandana Hodges MD DICTATION LOCATION: 1 us Dorina Kaur MD NM ORDERABLES Final Re sult * CT ABDOMEN PELVIS W CONTRAST (03/07/2024 1:51 PM LACEWORKER) Anatomical Region Laterality Modality Abdomen Computed Tomogra phy 03/07/2024 1:51 PM LACEWORKER Impressions 03/07/2024 2:00 PM LACEWORKER IMPRESSION: 1. No evidence of metastatic disease within the abdomen and pelvis. 2. Hepatic steatosis. 3. Small hiatal hernia with wall thickening. Clinical correlation for esophagitis or mass is recommended. 4. Other findings as discussed above. DICTATION LOCATION: Location 4 Narrative 03/07/2024 2:[address] ABDOMEN PELVIS W CONTRAST DATE: 03/07/2024 1:51 PM HISTORY: Breast cancer, invasive, stage I/II/III, initial workup. Malignant neoplasm of upper-outer quadrant of left breast in female, estrogen receptor negative; Malignant neoplasm of upper-outer quadrant of left breast in female, estrogen receptor negative; Elevated liver enzymes; Tobacco use Technique: Multislice helical axial with intravenous contrast. The examination was performed with the adjustment of mA according to the patient size and/or the use of Iterative Reconstruction Technique. CONTRAST: IOPAMIDOL 61 % INTRAVENOUS SOLUTION (MULTI-DOSE BULK PACK) Given:100 mL COMPARISON: CT from 11/30/2023 FINDINGS: Slight hepatic steatosis is present. There is no focal liver lesion. The gallbladder, spleen, pancreas, adrenal glands, and kidneys are normal. A small hiatal hernia is present and there is suggestion of wall thickening. The stomach is decompressed. The small and large bowel loops are normal in caliber with no acute process. The appendix is normal. The bladder is decompressed. The uterus is absent. The abdominal aorta is normal. No abdominal ascites, organized collection, acute inflammatory fat stranding, or lymphadenopathy is seen within the abdomen and pelvis. The osseous structures demonstrate no worrisome lesion or acute abnormality. Nonacute right lateral rib fractures with healing callus formation are noted. The lung bases demonstrate no suspicious nodules. Please refer to the recent chest CT as well from 02/16/2024. Procedure Note Miguelito Benitez MD - 03/07/2024 CT ABDOMEN PELVIS W CONTRAST DATE: 03/07/2024 1:51 PM HISTORY: Breast cancer, invasive, stage I/II/III, initial workup. Malignant neoplasm of upper-outer quadrant of left breast in female, estrogen receptor negative; Malignant neoplasm of upper-outer quadrant of left breast in female, estrogen receptor negative; Elevated liver enzymes; Tobacco use Technique: Multislice helical axial with intravenous contrast. The examination was performed with the adjustment of mA according to the patient size and/or the use of Iterative Reconstruction Technique. CONTRAST: IOPAMIDOL 61 % INTRAVENOUS SOLUTION (MULTI-DOSE BULK PACK) Given:100 mL COMPARISON: CT from 11/30/2023 FINDINGS: Slight hepatic steatosis is present. There is no focal liver lesion. The gallbladder, spleen, pancreas, adrenal glands, and kidneys are normal. A small hiatal hernia is present and there is suggestion of wall thickening. The stomach is decompressed. The small and large bowel loops are normal in caliber with no acute process. The appendix is normal. The bladder is decompressed. The uterus is absent. The abdominal aorta is normal. No abdominal ascites, organized collection, acute inflammatory fat stranding, or lymphadenopathy is seen within the abdomen and pelvis. The osseous structures demonstrate no worrisome lesion or acute abnormality. Nonacute right lateral rib fractures with healing callus formation are noted. The lung bases demonstrate no suspicious nodules. Please refer to the recent chest CT as well from 02/16/2024. IMPRESSION: 1. No evidence of metastatic disease within the abdomen and pelvis. 2. Hepatic steatosis. 3. Small hiatal hernia with wall thickening. Clinical correlation for esophagitis or mass is recommended. 4. Other findings as discussed above. DICTATION LOCATION: Location [address] ORDERABLES Final Re sult * CANCER ANTIGEN 15-3 (03/07/2024 1:04 PM LACEWORKER) CA 15-3 22 <32 U/mL AKT-Amanda nexnavi Comment: This test was performed using the Siemens ([employer]) chemiluminescent method. Values obtained from different assay methods cannot be used interchangeably. CA 15-3 levels, regardless of value, should not be interpreted as absolute evidence of the presence or absence of disease. FASTING:YES FASTING: YES Test Performed at: [facility] [id number] [facility] [place] [id number] Kevin Sam MD Blood 03/07/2024 1:04 PM LACEWORKER 03/07/2024 1:04 PM LACEWORKER Dorina Kaur MD CHEMISTRY ORDERABLES Fin al Result Performing Organization Address City/[facility] Phone Number [facility] [phone] [email or web address] [address] [place] [address] * (ABNORMAL) CBC WITHOUT DIFFERENTIAL (03/07/2024 1:04 PM LACEWORKER) WBC 11.2(H) 3.8 - 10.8 Thousand/ uL [facility] RBC 4.39 3.80 - 5.10 Million/u L [facility] HEMOGLOBIN 12.5 11.7 - 15.5 g/dL [facility] HEMATOCRIT 40.0 35.0 - 45.0 % [facility] MCV 91.1 80.0 - 100.0 fL [facility] MCH 28.5 27.0 - 33.0 pg [facility] MCHC 31.3(L) 32.0 - 36.0 g/dL [facility] Comment: For adults, a slight decrease in the calculated MCHC value (in the range of 30 to 32 g/dL) is most likely not clinically significant; however, it should be interpreted with caution in correlation with other red cell parameters and the patient's clinical condition. RDW 13.2 11.0 - 15.0 % [facility] PLATELETS 388 140 - 400 Thousand/ uL [facility] MPV 10.3 7.5 - 12.5 fL [facility] Comment: FASTING:YES FASTING: YES Test Performed at: [facility] [id number] [place] [address] Kevin Sam Blood 03/07/2024 1:04 PM LACEWORKER 03/07/2024 1:04 PM LACEWORKER Dorina Kaur MD HEMATOLOGY ORDERABLES Fi nal Result Performing Organization Address City/[facility]/ZIP [facility] Phone Number [facility] [phone] [place] [address] [place] [address] * (ABNORMAL) MAMMO 3D AMBER DIAGNOSTIC BILAT W OR WO CAD (02/22/2024 2:23 PM LACEWORKER) Anatomical Region Laterality Modality Breast Bilateral Mammography 02/22/2024 2:23 PM LACEWORKER Impressions 02/23/2024 7:38 AM LACEWORKER IMPRESSION: There is a solid irregular 2.8 cm mass at the 12:00 left breast. This is highly concerning for malignancy. RECOMMENDATION: Left breast biopsy is recommended. This will be amenable to ultrasound-guided core biopsy. Findings and recommendations were directly discussed with the patient, and the patient met with the radiology nurse at the conclusion of this exam. OVERALL FINAL ASSESSMENT: BI-RADS CATEGORY 5: Highly suggestive of malignancy DICTATION LOCATION: [facility] 02/23/2024 7:38 AM LACEWORKER EXAM: BILATERAL DIGITAL DIAGNOSTIC MAMMOGRAM WITH 3D TOMOSYNTHESIS, CAD, AND LEFT BREAST ULTRASOUND, LIMITED DATE: 02/22/2024 2:23 PM HISTORY: 53-year-old woman had a chest CT on 02/16/2024, which reported a mass in the upper left breast COMPARISON: CT chest 02/16/2024 and 04/27/2023. Mammograms 05/03/2017, 10/05/2019, 05/23/2018, 04/23/2018, 01/24/2018 TECHNIQUE: Standard and 3-D amber images of both breasts were performed using a digital mammography system. Low-dose full-field digital breast tomosynthesis was performed with 2D and 3D acquisitions. Examination is read in conjunction with computer-aided detection. BREAST COMPOSITION: The breasts are heterogeneously dense, which may obscure small masses. FINDINGS: MAMMOGRAPHY: There has been interval development of a solid irregular shaped mass in the upper central left breast which corresponds to the mass reported on the CT study. This mass measures 2.8 cm, and is located at mid depth. As measured on the full mediolateral view, it is 8.5 cm from the nipple. No additional abnormality is identified elsewhere in the left breast. The right breast appears stable with no new suspicious mass, calcifications, skin thickening, or distortion. CAD was utilized. ULTRASOUND: Sonographic survey of the upper central left breast was performed using real-time grayscale and color Doppler imaging. At the 12:00 axis, located 7 cm from the nipple, there is a circumscribed irregular shaped hypoechoic solid mass. It measures 2.8 x 2.1 x 2.1 cm. Doppler evaluation demonstrates significant internal vascularity, with a large feeding vessel noted at the superior aspect of the mass. No additional abnormality is identified elsewhere in the upper central left breast. Sonographic survey of the left axilla is unremarkable with no visible axillary lymphadenopathy. Procedure Note Génesis Valle MD - 02/23/2024 EXAM: BILATERAL DIGITAL DIAGNOSTIC MAMMOGRAM WITH 3D TOMOSYNTHESIS, CAD, AND LEFT BREAST ULTRASOUND, LIMITED DATE: 02/22/2024 2:23 PM HISTORY: 53-year-old woman had a chest CT on 02/16/2024, which reported a mass in the upper left breast COMPARISON: CT chest 02/16/2024 and 04/27/2023. Mammograms 05/03/2017, 10/05/2019, 05/23/2018, 04/23/2018, 01/24/2018 TECHNIQUE: Standard and 3-D amber images of both breasts were performed using a digital mammography system. Low-dose full-field digital breast tomosynthesis was performed with 2D and 3D acquisitions. Examination is read in conjunction with computer-aided detection. BREAST COMPOSITION: The breasts are heterogeneously dense, which may obscure small masses. FINDINGS: MAMMOGRAPHY: There has been interval development of a solid irregular shaped mass in the upper central left breast which corresponds to the mass reported on the CT study. This mass measures 2.8 cm, and is located at mid depth. As measured on the full mediolateral view, it is 8.5 cm from the nipple. No additional abnormality is identified elsewhere in the left breast. The right breast appears stable with no new suspicious mass, calcifications, skin thickening, or distortion. CAD was utilized. ULTRASOUND: Sonographic survey of the upper central left breast was performed using real-time grayscale and color Doppler imaging. At the 12:00 axis, located 7 cm from the nipple, there is a circumscribed irregular shaped hypoechoic solid mass. It measures 2.8 x 2.1 x 2.1 cm. Doppler evaluation demonstrates significant internal vascularity, with a large feeding vessel noted at the superior aspect of the mass. No additional abnormality is identified elsewhere in the upper central left breast. Sonographic survey of the left axilla is unremarkable with no visible axillary lymphadenopathy. IMPRESSION: There is a solid irregular 2.8 cm mass at the 12:00 left breast. This is highly concerning for malignancy. RECOMMENDATION: Left breast biopsy is recommended. This will be amenable to ultrasound-guided core biopsy. Findings and recommendations were directly discussed with the patient, and the patient met with the radiology nurse at the conclusion of this exam. OVERALL FINAL ASSESSMENT: BI-RADS CATEGORY 5: Highly suggestive of malignancy DICTATION LOCATION: [facility] Janet Samuels MD MAMMO ORDERABLES Final R esult * CT LUNG SCREENING (LDCT BASELINE OR ANNUAL) (04/27/2023 3:01 PM LACEWORKER) Anatomical Region Laterality Modality Chest Computed Tomogra phy 04/27/2023 2:46 PM LACEWORKER Impressions 04/28/2023 9:13 AM LACEWORKER IMPRESSION: Stable examination. No new or enlarging pulmonary nodule suspicious for lung cancer. Lung-RADS Category 1: Negative RECOMMENDATIONS: Continue annual screening with LDCT in 12 months. Narrative 04/28/2023 9:[address] LUNG SCREENING (LDCT BASELINE OR ANNUAL) DATE: 04/27/2023 3:01 PM DICTATION LOCATION: Location 1 [facility] INDICATION: High-risk screening for lung cancer. TECHNIQUE: Axial CT images were obtained though the chest without IV contrast using a low-dose technique. Doses expected from this technique are typically less than 3 mGy. CTDIvol of 2.64 mGy and DLP of 103.93 mGy-cm. The examination was performed with the adjustment of mA according to the patient size and/or the use of Iterative reconstruction technique. LIMITATIONS: Low-dose, noncontrast technique limits evaluation of the solid viscera and mediastinum. COMPARISON: Comparison made with a prior exam from 04/26/2022. FINDINGS: PULMONARY FINDINGS: The central airways are patent. Moderate apical predominant centrilobular and paraseptal emphysema. Stable postoperative changes of wedge resection/bullectomy in the anterior right upper lobe. Mild biapical pleural-parenchymal scarring. No effusion, abnormal pleural thickening, or pneumothorax. No dominant pulmonary nodule suspicious for lung cancer. No new or enlarging pulmonary nodules identified. Punctate calcified granuloma in the apical left upper lobe. ADDITIONAL FINDINGS: The heart is normal in size without pericardial effusion. No significant coronary atherosclerotic calcifications are seen. The ascending aorta and main pulmonary artery are nondilated. No enlarged mediastinal or hilar lymph nodes are seen. A small hiatal hernia is present. No focal abnormality in the imaged portions of the upper abdomen within the limitations of a low dose examination. Lower cervical ACDF incompletely imaged. No suspicious lytic or blastic lesions. INCIDENTAL FINDINGS: None. Procedure Note Igor Cassidy, DO - 04/28/2023 CT LUNG SCREENING (LDCT BASELINE OR ANNUAL) DATE: 04/27/2023 3:01 PM DICTATION LOCATION: Location [address] [place] [address] INDICATION: High-risk screening for lung cancer. TECHNIQUE: Axial CT images were obtained though the chest without IV contrast using a low-dose technique. Doses expected from this technique are typically less than 3 mGy. CTDIvol of 2.64 mGy and DLP of 103.93 mGy-cm. The examination was performed with the adjustment of mA according to the patient size and/or the use of Iterative reconstruction technique. LIMITATIONS: Low-dose, noncontrast technique limits evaluation of the solid viscera and mediastinum. COMPARISON: Comparison made with a prior exam from 04/26/2022. FINDINGS: PULMONARY FINDINGS: The central airways are patent. Moderate apical predominant centrilobular and paraseptal emphysema. Stable postoperative changes of wedge resection/bullectomy in the anterior right upper lobe. Mild biapical pleural-parenchymal scarring. No effusion, abnormal pleural thickening, or pneumothorax. No dominant pulmonary nodule suspicious for lung cancer. No new or enlarging pulmonary nodules identified. Punctate calcified granuloma in the apical left upper lobe. ADDITIONAL FINDINGS: The heart is normal in size without pericardial effusion. No significant coronary atherosclerotic calcifications are seen. The ascending aorta and main pulmonary artery are nondilated. No enlarged mediastinal or hilar lymph nodes are seen. A small hiatal hernia is present. No focal abnormality in the imaged portions of the upper abdomen within the limitations of a low dose examination. Lower cervical ACDF incompletely imaged. No suspicious lytic or blastic lesions. INCIDENTAL FINDINGS: None. IMPRESSION: Stable examination. No new or enlarging pulmonary nodule suspicious for lung cancer. Lung-RADS Category 1: Negative RECOMMENDATIONS: Continue annual screening with LDCT in 12 months. Brennan Houston MD CT ORDERABLES Final Result * HEMOGLOBIN A1C (03/18/2014 4:23 PM LACEWORKER) HEMOGLOBIN A1C 5.3 4.1 - 6.1 % of Hgb 03/18/2014 9:08 PM LACEWORKER [facility] EST. AVG GLUCOSE, A1C 105 mg/dL 03/18/2014 9:08 PM LACEWORKER [facility] Comment:Based on the ADAG [facility] equation. Blood specimen (specimen) Collection / Unknown 03/18/2014 4:23 PM LACEWORKER 03/18/2014 7:32 PM LACEWORKER David Garcia MD CHEMISTRY ORDERABLES Final Res ult [facility] CLIA# [id number] [address] [place] [address] [facility] CLIA# [id number] [address] 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
--- OUTSIDE RECORDS SUMMARY | 2024-06-02 16:24 | XMS_ITS | Encounter Summary ---
Author Organization [facility] Address [address] [place] [address] Care Team Providers Care Cash Grain Farmer Name Role Phone Jase Bryson MD Primary Care Provider Encounter Details Date Type Department Care Team (Late st Contact Info) Description 11/16/1998 Outpatient Historical [facility] Internal Medicine Medical [place] [facility] [address] [place] [address] Jakob Cedillo MD [address] [facility] [address] [place] [address] Social History Tobacco Use Types Packs/Day Years Used Date Smoking Tobacco: Never Assessed Comments Unknown Sex and Gender Information Value Date Recorded Sex Assigned at Not on file 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 Gender Identity Not on file Sexual Orientation Not on file documented as of this encounter Plan of Treatment Upcoming Encounters Date Type Department Care Team (Late st Contact Info) Description 06/03/2024 12:30 PM CDT Hospital Encounter [facility] [address] [place] [phone] Mariaa Diego MD [address] [place] [phone] 06/03/2024 1:20 PM CDT Office Visit [facility] Oncology and Hematology [address] [place] [phone] Mariaa Diego MD [address] [place] [phone] Pippa Dang NP [address] [place] [phone] 06/03/2024 1:45 PM CDT Hospital Encounter [facility] [address] [place] [id number] Mariaa Diego MD [address] [...] Pathogen 04/02/2024 04/02/2024 04/02/2024 1 :44 PM HYDRAULIC LIFT DRIVER R/O Respiratory 05/13/2024 05/13/2024 05/13/2024 1 1:33 PM CDT R/O C. diff 05/14/2024 05/14/2024 05/14/2024 10:0 6 AM CDT R/O C. diff 05/14/2024 05/14/2024 05/15/2024 1:01 PM CDT documented as of this encounter Care Teams Cash Grain Farmer Relationship Specialty Start Date End Date Jase Bryson MD PCP - General Family Practice 05/06/19 documented as of this encounter
--- OUTSIDE RECORDS SUMMARY | 2024-06-02 16:24 | XMS_ITS | Encounter Summary ---
Author Organization [facility] Address 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 diff 05/14/2024 05/14/2024 05/14/2024 10:0 6 AM CDT R/O C. diff 05/14/2024 05/14/2024 05/15/2024 1:01 PM CDT documented as of this encounter Care Teams Milieu Counselor Relationship Specialty Start Date End Date Jase Bryson MD PCP - General Family Practice 05/06/19 documented as of this encounter
--- OUTSIDE RECORDS SUMMARY | 2024-06-02 16:24 | XMS_ITS | Encounter Summary ---
Author Organization [facility] Address [address] [place] [address] Care Team Providers Care Adult Remedial Education Instructor Name Role Phone Jase Bryson MD Primary Care Provider Encounter Details Date Type Department Care Team (Late st Contact Info) Description 07/15/1999 Outpatient Historical [facility] Internal Medicine Medical [place] [facility] [address] [place] [address] Jakob Cedillo MD [facility] [facility] [address] [place] [address] Social History Tobacco Use Types Packs/Day Years Used Date Smoking Tobacco: Never Assessed Comments Unknown Sex and Gender Information Value Date Recorded Sex Assigned at Not on file 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 Gender Identity Not on file Sexual Orientation Not on file documented as of this encounter Plan of Treatment Upcoming Encounters Date Type Department Care Team (Late st Contact Info) Description 06/03/2024 12:30 PM CDT Hospital Encounter [facility] [address] [place] [phone] Mariaa Diego MD [address] [place] [phone] 06/03/2024 1:20 PM CDT Office Visit [facility] Oncology and Hematology [address] [place] [phone] Mariaa Diego MD [address] [place] [phone] Pippa Dang NP [address] [place] [phone] 06/03/2024 1:45 PM CDT Hospital Encounter [facility] [address] [place] [phone] Mariaa Diego MD [address] [...] 04/02/2024 04/02/2024 04/02/2024 1 :44 PM LINEN CLERK R/O Respiratory 05/13/2024 05/13/2024 05/13/2024 1 1:33 PM CDT R/O C. diff 05/14/2024 05/14/2024 05/14/2024 10:0 6 AM CDT R/O C. diff 05/14/2024 05/14/2024 05/15/2024 1:01 PM CDT documented as of this encounter Care Teams Adult Remedial Education Instructor Relationship Specialty Start Date End Date Jase Bryson MD PCP - General Family Practice 05/06/19 documented as of this encounter
--- OUTSIDE RECORDS SUMMARY | 2024-06-02 16:24 | XMS_ITS | Encounter Summary ---
Author Organization [facility] Address 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 diff 05/14/2024 05/14/2024 05/14/2024 10:0 6 AM CDT R/O C. diff 05/14/2024 05/14/2024 05/15/2024 1:01 PM CDT documented as of this encounter Care Teams Magnet Maker Relationship Specialty Start Date End Date Jase Bryson MD PCP - General Family Practice 05/06/19 documented as of this encounter
--- OUTSIDE RECORDS SUMMARY | 2024-06-02 16:26 | XMS_ITS | Continuity of Care Document ---
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 . Referring Provider: Myra Rascon, [address] , [place], [address]. tel:[phone] [place] [address], [address] [facility] [address], [place], [place], [id number], tel:[phone] [place] No Information Ngo Deb. . Referring Provider: Myra Rascon, [address] , [place], [address]. tel:[phone] [place] [address] [address] [address], [place], [place], [id number], tel:[phone] [place] No Information Ngo Deb. . Referring Provider: Myra Rascon, [facility], [place], [address]. tel:[phone] [place] [address], [address] [address], [place], [place], [id number], tel:[phone] [place] No Information Ngo Deb. . Referring Provider: Peter Rivera , [place], [address]. tel:[phone] [place] [address], [address] [address], [place], [place], [id number], [place] tel:[phone] [place] No Information Richard Parra. . Referring Provider: [address], [place], [address]. tel:[phone] [place] [address] [address] [address], [place], [place], [id number], [place] tel:[phone] [place] No Information Richard Parra. . Referring Provider: Peter Rivera , [place], [address]. tel:[phone] [place] [address], [address] [address], [place], [place], [id number], tel:[phone] [place] No Information Richard Parra. . Referring Provider: Peter Rivera , [place], [address]. tel:[phone] [facility], [address], [place], [place], [id number], tel:[phone] [place] No Information Richard Parra. . Referring Provider: Myra Rascon, [address] [facility], [place], [address]. tel:[phone] [facility] [address] [facility], [place], [place], [id number], tel:[phone] [place] No Information Dc Robert. [address] [facility], [address], [place], [address], . tel:[phone] Referring Provider: Jon Greenberg, [address], [place], [address]. tel:[phone] Family History Family Member Type Diagnosis Age At Onset No Information Payers Payer name Insurance type Covered alliance party ID Abhinav hawkins(s) [employer] [id number] Social History Type Description Quantity Date Captured [...]
--- OUTSIDE RECORDS SUMMARY | 2024-06-02 16:26 | XMS_ITS ---
Author Name NAHEED CONRAD D.O. Address [address] [place] [place] [address] Phone [phone] [facility] Headache and Ne urology Care Team Providers Care Supervisor Front Name Role Phone GERTRUDIS CONRAD Unavailable [phone] Unavailable Unavailable Unavailable Reason for Referral Not [...] Service Diagnosis/Co mplaint moderate complexity office visit [facility] 04/17/2023 Chronic migraine w/o aura, not intractable, w/o stat migr moderate complexity office visit [facility] 06/19/2023 Chronic migraine w/o aura, not intractable, w/o stat migr Social History Sex Female Gender identity Woman History of Procedures Procedures Service Procedure code Service date Servicing provider Phone# moderate complexity office visit [id number] 2023-04-17 No Data Available No Data Availa ble moderate complexity office visit [id number] 2023-06-19 No Data Available No Data Availa ble Functional Status No Information Mental Status No Information Assessments Date of Service Assessments 2023-04-17 06:30:00 Chronic migraine wit hout auraMood disturbance and post- concussive memory loss--improvedLikely pseudo-dementia--improved 2023-06-19 11:00:00 Chronic migraine wit hout auraMood disturbance and post- concussive memory loss--improvedLikely pseudo-dementia--improvedVirtual Visit: Today's visit was conducted via secured, two-way communication through [employer]. Patient located in [place]. Patient expressed consent with video communication to carry out today's visit. Total time of video encounter was 30 + mins that were spent reviewing records, obtaining history, doing a physical exam (via video) as appropriate, documenting in the chart, and any associated orders, all on the day of the visit.Voice dictation software is in use. [employer] variances may occur. Please excuse if any [...] all animal products, discuss with me before using.[address], [place] [address] Prior medication trials: Antidepressants: - currently [...] above.Fremanezumab is a humanized monoclonal antibody from [employer] Ovary cells to the GCRP ligand.Side [...] all animal products, discuss with me before using.[id number], [address] [id number] Prior medication trials: Antidepressants: - currently on [...] above.Fremanezumab is a humanized monoclonal antibody from [employer] Ovary cells to the GCRP ligand.Side [...]
--- OUTSIDE RECORDS SUMMARY | 2024-06-02 16:26 | XMS_ITS | Continuity of Care Document ---
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 Needs duty [...] new muscle weakness.She is now living in [place]. Functional Status Date Functional Assessmen t No [...] of the chest/ribs- Reviewed hospital notes from [facility]- Reviewed CT from [facility] 11/30/23 - Hiatal hernia (small-mod), pancreas normal, no acute pathology- Reviewed US from [facility] 12/01/23 - Hepatic steatosis, GB normal, [...] no further treatment recommended - Dr. Sierra [facility] - Restart Celebrex 100 mg twice daily as needed - Continue Lyrica 75 3 times daily as needed - watch for sedation - Continue Methocarbamol as-needed - watch for sedation - Follow-up neurosurgery as-needed - F/u with me 4 months Related to Cervical spondylosis Call Cheryl robert silverman Mammogram at facility near [facility] - [phone] Related to Encounter for screening mammogram for [...] high in fish, avocado, healthy fats - Marion 3s - f/u 3 months Related to Post concussion syndrome Dietary management e ducation, guidance, and counseling Related to Body mass index (BMI) 30.0-30.9, adult Per patient, they di d complete an ECHO, Carotid doppler, MRI of brain while in the hospital at [place], [place]. Per her report everything looked good. [...] levels LDL 82 at the hospital in [place], [place]. We will recheck labs around October [...] order EEG Awake and sleepy. Please call [phone] to schedule. F/u 2 weeks. Related to Altered mental status, unspecified altered mental status type Dietary management e ducation, guidance, and counseling Related to Body mass index (BMI) 30.0-30.9, adult Per patient, they di d complete an ECHO, Carotid doppler, MRI of brain while in the hospital at [place], [place]. Per her report everything looked good. States it was recommended to her to get a f/u EEG to make sure she also didn't have a seizure. We will get these records. She is taking ASA 81 mg po daily. She was also started on Lopid for her lipid levels. Will order event monitor x 1 month. Please call [phone] to schedule this.Follow up here in two [...] high in fish, avocado, healthy fats - Marion 3 - Okay for Zofran as needed [...] improving, we will send to Uro-Gynecology at [facility] Related to Urinary urgency Dietary management e ducation, guidance, and counseling Related to Body mass index (BMI) 30.0-30.9, adult New issue. Reviewed last sleep study at [facility] - Await results from repeat overnight [...] from 2019. Reviewed last pulmonary note from [facility]. If more palpitations or racing heart, [...] we will work towards lowering dose of antipsychoticDoximLocalCircles, a 2 way audio-visual, HIPAA compliant, secure platform, was used for telehealth visit. 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 - Continue Lyrica, Celebrex [...] bilateral low back pain with right-sided sciatica Mammogram ordered Related to Enc ounter for screening mammogram for malignant neoplasm of breast healthy diet, exerci se and weight loss advised Related to Body mass index [BMI] 33.0-33.9, adult Healthy exam - Recom mend healthy diet, regular physical activity, weight loss, sunscreen when in sun, regular self-breast exams, regular dental/vision exams - Pap smear - not indicated due to hysterectomy - Mammogram - due, call [phone] to schedule it - Colonoscopy - Last [...] at her request - f/u as previously plannedPenBladeer, a 2 way audio-visual, HIPAA compliant, secure [...] Current providers: - Family medicine - myself, [place], [place] - Pain Management - Dr. Kirk - [place], [place] - Neurosurgery - Dr. Kidd - [place] - has signed off, prn only - Pain Management - Dr. Greenberg - [place], [place] - signed off, no further intervention [...] recommended no surgery, return to pain management. [facility] pain management had no other options [...] made - Follows with pain management in [place], [place] - Dr. Kirk - Await SCS [...] and previously from pain management (Dr. Greenberg) [place], [place] and from Neurosurgery (Dr. Kidd) at [facility], she has reached maximal medical management. They [...] Continues to follow with pain management in [place], [place]. - Continue to remain as active [...] previously from neurosurgery and pain management at [facility] she has reached maximum medical management-Work [...] see Dr. Kirk - pain mgmt in [place] - failed injections with him and previously with Dr. Greenberg - reached maximal medical management from my standpoint - advised on staying active as she can, limit provocative activities, regular walking is good - Previously: - reached maximum medical management from my standpoint and agreed upon with neurosurgery (Dr. Kidd) and Dr. Greenberg (pain mgmt) P [facility] today: - continue Lyrica, Robaxin - no [...]
--- OUTSIDE RECORDS SUMMARY | 2024-06-02 16:27 | XMS_ITS | Continuity of Care Document ---
Author Organization [facility] Address [address] [place] [address] Phone Care Team Providers Care Discharge Rn Name Role Phone Florencia Almodovar DO Unavailable Unavailable Allergies, Adverse Reactions, Alerts Substance Reaction Status Criticality Penicillins Active No Information Medications Medication Instructions Dosage Effective Dates (start - stop) Status Comments Naprosyn 500 mg Tab Take 1 tablet 2 time s a day with food - Active Procedures Procedure Date Office/outpatient visit,[facility] 2010 X-ray exam of neck spine2-3 views X-ray exam of shoulder, complete 2010 Advance Directives Directive Yes / No Effective Date File Name No Information Encounters Encounter Description Practice Location Reason(s) For Visit Diagnoses Date Provider Providers Copied on Encounter Office/outpat ient visit,[facility], [address], [id number], tel:[phone] [facility] Cervical StrainSPRAIN THORACIC REGIONSPRAIN SHOULDER & ARMSPRAIN SHOULDER/ARM NOSJOINT PAIN-SHLDERCE RVICALGIA [address] [place] [address], [address], [place], [place], [id number] , [place]. tel: [phone] Family History Family Member Type Diagnosis Age At Onset No Information Payers Payer name Insurance type Covered republican ID Authoriza tibenjamín(s) [employer] [id number] Social History Type Description Quantity Date Captured [...]
[2024-06-02 16:39] VITALS: BP 109/57; PULSE 114; RESP 18; TEMP 37.8; O2SAT 97
--- NOTE | 2024-06-02 17:10 | ED_ITS ---
HPI - Ear Problem General Chief complaint: Ear Stated complaint: ear clogging Time Seen by Provider: 06/02/24 16:59 Source: patient and RN notes reviewed Mode of arrival: ambulatory Limitations: no limitations History of Present Illness HPI Narrative: Patient presents today complaining of a one-week history of nasal congestion and sinus drainage with productive cough. She is also complaining of left ear popping a few days ago with severe pain and muffling. She takes oxycodone for her chronic pain related to breast cancer and this is not improving her ear pain. Patient is currently getting chemotherapy. Related Data Home Medications ?Medication ?Instructions ?Recorded ?Confirmed ?Last Taken ?Type celecoxib 100 mg capsule (Celebrex) 100 mg BID 01/30/21 07/08/22 Unknown History citalopram 20 mg tablet 40 mg DAILY 01/30/21 07/08/22 Unknown History lamotrigine 200 mg tablet 200 mg BID 01/30/21 07/08/22 Unknown History pregabalin 75 mg capsule 75 mg TID 01/30/21 07/08/22 Unknown History omeprazole 20 mg capsule,delayed 20 mg PO DAILY 05/23/22 07/08/22 Unknown History release tiotropium bromide 1.25 2 puff inhalation DAILY 07/08/22 07/08/22 Unknown History mcg/actuation mist for inhalation (Spiriva Respimat) albuterol sulfate 90 mcg/actuation inhalation 06/02/24 Unknown History aerosol inhaler atorvastatin 40 mg tablet mg 06/02/24 Unknown History loratadine 10 mg tablet mg 06/02/24 Unknown History methocarbamol 500 mg tablet 1,000 mg PO ONCE 06/02/24 06/02/24 Unknown History ondansetron 4 mg disintegrating mg 06/02/24 Unknown History tablet oxycodone 5 mg tablet mg 06/02/24 Unknown History pramipexole 0.125 mg tablet mg 06/02/24 Unknown History Allergies Allergy/AdvReac Type Severity Reaction Status Date / Time alprazolam (From Xanax) Allergy Mild Hives Verified 06/02/24 16:47 Penicillins Allergy Mild Hives Verified 06/02/24 16:47 doxycycline AdvReac Mild Other Verified 06/02/24 16:47 vancomycin AdvReac Mild Other Verified 06/02/24 16:47 Review of Systems Review of Systems: CONSTITUTIONAL: Denies body aches, fever, chills, or sweats. EYES: Denies visual changes, redness, or discharge. ENT: Denies rhinorrhea, sore throat.+ nasal congestion, left ear pain CARDIOVASCULAR: Denies chest pain, palpitations, or edema. RESPIRATORY: Denies dyspnea.+ cough GASTROINTESTINAL: Denies abdominal pain, nausea, vomiting, or diarrhea. GENITOURINARY: Denies dysuria or hematuria. SKIN: Denies rash, itching, or wounds. MUSCULOSKELETAL: Denies back pain, joint pain, or myalgia. NEUROLOGIC: Denies headache, numbness, tingling, or weakness. PSYCH: Denies depression or anxiety. [facility] Past Medical History Medical History (Updated 06/02/24 @ 17:15 by Debi Swann, [facility], ) Breast cancer Depression Anxiety Basal cell carcinoma GERD (gastroesophageal reflux disease) Concussion Hypertension High cholesterol PTSD (post-traumatic stress disorder) Family History Family History Mother Neuropathy Cancer Thyroid activity decreased Diabetes mellitus Mother Glaucoma Social History Social History Smoking packs per day: 2 Smoking cigarettes per day: 40.0 Smoking status: Current every day smoker Tobacco type: cigarettes Alcohol intake: never Substance use: never Lack of Transportation: No Lack of Food: Never True Current Housing: I Have Housing Concerned About Future Housing: No Difficulty Paying Gas/Electric Bills: No Difficulty Paying for Meds: YES Currently Unemployed: No Education: Trade/Vocational Certificate Difficulty w/ Childcare or Family Care: No Spiritual care concerns: No Comments At time of signature, I have reviewed and agree with nursing past medical, surgical, social and family history unless otherwise noted. Please see nursing chart for further information. There is no relevant family history pertinent to the presenting complaint Exam Narrative: GENERAL: Mildly ill-appearing, well-nourished, and in no acute distress. HEAD: Normocephalic, atraumatic. EYES: EOMI. No redness or drainage. Conjunctivae normal. ENT: Mucous membranes pink and moist. Nares congested with rhinorrhea. Right TM normal. Left TM erythematous and bulging. Throat normal. Uvula midline. NECK: Normal AROM. Supple. No lymphadenopathy. CHEST: No respiratory distress. Clear to auscultation. Harsh cough noted. HEART: Regular rate and rhythm. No murmur appreciated. EXTREMITIES: Normal range of motion. No edema. SKIN: Warm, dry, no rash. Capillary refill normal. Normal skin turgor. Bald NEURO: No focal deficits. Alert and oriented x3. Gait steady. PSYCH: Normal affect. No signs of depression or anxiety. Course Course Level of Care: Express Care Visit Vital Signs Vital signs: Vital Signs Temperature 100.1 F H 06/02/24 16:39 Pulse Rate 114 H 06/02/24 16:39 Respiratory Rate 18 06/02/24 16:39 Blood Pressure 109/57 L 06/02/24 16:39 Pulse Oximetry 97 06/02/24 16:39 Oxygen Delivery Room Air 06/02/24 16:39 Temperature 100.1 F H 06/02/24 16:39 Pulse Rate 114 H 06/02/24 16:39 Respiratory Rate 18 06/02/24 16:39 Blood Pressure 109/57 L 06/02/24 16:39 Pulse Oximetry 97 06/02/24 16:39 Oxygen Delivery Room Air 06/02/24 16:39 Reviewed Medical Decision Making MDM Narrative Medical decision making narrative: Patient will be treated with cefdinir for left otitis media and sinusitis. Patient qualifies for sinusitis due to immunosuppression due to chemotherapy. Differential Diagnosis Differential Diagnosis: Otitis media, otitis externa, ruptured TM, serous otitis, URI, sinusitis Vital Signs Vital Signs: Vital Signs Temperature 100.1 F H 06/02/24 16:39 Pulse Rate 114 H 06/02/24 16:39 Respiratory Rate 18 06/02/24 16:39 Blood Pressure 109/57 L 06/02/24 16:39 Pulse Oximetry 97 06/02/24 16:39 Oxygen Delivery Room Air 06/02/24 16:39 Temperature 100.1 F H 06/02/24 16:39 Pulse Rate 114 H 06/02/24 16:39 Respiratory Rate 18 06/02/24 16:39 Blood Pressure 109/57 L 06/02/24 16:39 Pulse Oximetry 97 06/02/24 16:39 Oxygen Delivery Room Air 06/02/24 16:39 Critical Care Time Critical Care Time Critical Care Time: No Discharge Plan Discharge Clinical Impression: Acute left otitis media Sinusitis Qualifiers: Sinusitis location: unspecified location Chronicity: acute Recurrence: non- recurrent Qualified Code(s): J01.90 - Acute sinusitis, unspecified Patient Disposition: Home Condition: Stable Instructions: Antibiotic Form, Sinusitis (ED), Ear Infection (GEN) Additional Instructions: Please take the cefdinir for ear infection and a sinus infection. Take Tylenol for pain if needed. Follow-up with your oncologist regarding your infection. Patient Language: Occitan Prescriptions: New cefdinir 300 mg capsule 300 mg PO Q12H 7 Days Qty: 14 0RF No Action oxycodone 5 mg tablet atorvastatin 40 mg tablet pramipexole 0.125 mg tablet albuterol sulfate 90 mcg/actuation HFA aerosol inhaler INHALATION ondansetron 4 mg tablet,disintegrating loratadine 10 mg tablet methocarbamol 500 mg tablet 1,000 mg PO ONCE lamotrigine 200 mg tablet 200 mg BID citalopram 20 mg tablet 40 mg DAILY celecoxib [Celebrex] 100 mg capsule 100 mg BID pregabalin 75 mg capsule 75 mg TID omeprazole 20 mg capsule,delayed release(DR/EC) 20 mg PO DAILY Spiriva Respimat 1.25 mcg/actuation mist 2 puff INHALATION DAILY aspirin 81 mg tablet,delayed release (DR/EC) 81 mg PO DAILY Qty: 30 0RF Follow-up/Referrals: Jase Bryson [Other] Time of Disposition: 17:16
== END 2024-06-02 17:19 | disposition home or self-care (01) ==
PROVIDERS: Emergency Provider Nurse Practitioner
DX: H66.92 Otitis media, unspecified, left ear (principal); J01.90 Acute sinusitis, unspecified; F17.210 Nicotine dependence, cigarettes, uncomplicated; C50.919 Malignant neoplasm of unspecified site of unspecified female breast; Z79.60 Long term (current) use of unspecified immunomodulators and immunosuppressants; I10 Essential (primary) hypertension; E78.00 Pure hypercholesterolemia, unspecified; K21.9 Gastro-esophageal reflux disease without esophagitis; F41.9 Anxiety disorder, unspecified; F32.A Depression, unspecified; Z85.828 Personal history of other malignant neoplasm of skin
CPT/HCPCS: 99213; G0463